=== PATIENT | male | born 1975 | race Hispanic/Latino ===

== ENCOUNTER 2017-05-04 20:30 | Observation (INO) | payer OTHER ==
[~2017-05-04] VITALS: Ht 177.8 cm; Wt 72.6 kg
[~2017-05-04 20:30] MED LIST: AUGMENTIN 875-1 EACH PO; IBUPROFEN200 M1 PO; NORCO 5-325 TA1 EACH PO; PSEUDOEPHEDRINE60 MG PO
--- NOTE | 2017-05-05 00:41 | NUR ---
PT ARRIVES TO CCU ROOM 127 HOUSE CONVENCIENCE OBSERVATION PATIENT ADMITTED WITH ABDOMINAL PAIN, SUDDEN ONSET THIS EVENING APPROX 1999. STATES HE WAS WATCHING TV AT HOME AND HIS LEFT UPPER ABDOMEN STARTED FEELING "A PRESSURE NUMBNESS", INCREASED INTENSITY OVER AN HOUR SO HE CAME IN TO ER. WAS GIVEN ONE NITRO IN ER STATES "MY HEARTRATE WENT REALLY FAST" AND REFUSED SECOND DOSE, STATES IT DID NOT CHANGE THE FEELING OF NUMBNESS. ACCOMPANIED BY , ALERT AND ORIENTED. DURRENT HR 70'S SINUS RHYTHM. WILL START IVF AND GIVE GI COCKTAIL.
--- NOTE | 2017-05-05 01:13 | NUR ---
PT GIVEN GI COCKTAIL, CURRENTLY RATES ABDOMINAL PRESSURE 5/10. IVF STARTED AT 75ML/HR. AT BEDSIDE, LYING DOWN NOW WATCHING TV.
--- NOTE | 2017-05-05 01:30 | NUR ---
PT STATES THE ABDOMINAL PRESSURE/BURNING IS DOWN TO 2 OR 3/10 AFTER GI COCKTAIL.
--- NOTE | 2017-05-05 10:36 | NUR ---
PT DID NOT EAT MUCH OF HIS BKF, C/O PAIN WITH IT IN THE ABD AREA. CURRENTLY WATCHING TV ON HIS PHONE. K RIDER COMPLETE AND IVF'S D'CD AT THIS TIME. LAC SITE SALINE LOCKED AT THIS TIME.
--- NOTE | 2017-05-05 11:37 | NUR ---
DR SEE INTO SEE PT AT THIS TIME. PT IS GOING TO BE DC'D HOME TODAY.
--- NOTE | 2017-05-05 12:20 | NUR ---
PT DC'D TO HOME AT THIS TIME, PT AMBULATED OUT WITH HIS . HAND WRITTEN RX GIVEN TO PT AND WRITTEN INSTRUCTIONS ON GERD AND FATTY LIVER GIVEN. PT ALSO RECEIVED A WORK RELEASE FROM .
[2017-05-06] MEDS ORDERED: PANTOPRAZOLE SO40 MG PO (20:26)
--- NOTE | 2017-05-07 07:14 | EKG ---
[facility] [address] [facility] [facility] [place], [place] [address] Signed Sinus tachycardia Nonspecific T wave abnormality Abnormal ECG No previous ECGs available Confirmed by ENEDINA SEE MD ([id number]) on 05/07/2017 7:14:06 AM Electronically Signed By: ENEDINA SEE MD 05/07/17 0714 PATIENT NAME: ALBERT SIMMONS Electrocardiogram DATE OF : 77 PHYSICIAN: ENEDINA SEE MD REPORT #: [id number] REPORT IS CONFIDENTIAL AND NOT TO BE RELEASED WITHOUT AUTHORIZATION
[2017-06-01] MEDS ORDERED: SUDAFED 12 HOU120 MG PO (08:00)
== END 2017-05-05 12:20 | disposition home or self-care (01) ==
LOC: ED 20:30 → CCU 20:32
PROVIDERS: ADMIT Internal Medicine
DX: R10.12 Left upper quadrant pain (principal); R00.2 Palpitations; J32.9 Chronic sinusitis, unspecified; F41.9 Anxiety disorder, unspecified; Z87.891 Personal history of nicotine dependence
CPT/HCPCS: 36415; 71046; 76700; 80053; 83690; 84484; 85025; 85379; 85610; 85730; 93005; 93010; 96361; 96374; 96376; 99285; G0378; J3480; J7030

== ENCOUNTER 2017-05-06 20:11 | Emergency (ER) | payer OTHER ==
[~2017-05-06] VITALS: Ht 177.8 cm; Wt 72.6 kg
[2017-05-06] MEDS ORDERED: PANTOPRAZOLE SO40 MG PO (20:26)
[2017-06-01] MEDS ORDERED: SUDAFED 12 HOU120 MG PO (08:00)
== END 2017-05-06 21:26 | disposition home or self-care (01) ==
LOC: ED 20:11
DX: R10.12 Left upper quadrant pain (principal); Z87.891 Personal history of nicotine dependence; Z79.899 Other long term (current) drug therapy
CPT/HCPCS: 74177; 80053; 83690; 85025; 99284; Q9967

== ENCOUNTER 2018-04-28 22:39 | Emergency (ER) | payer OTHER ==
[~2018-04-28] VITALS: Ht 177.8 cm; Wt 83.0 kg
[~2018-04-28 22:39] MED LIST changes: +PANTOPRAZOLE SO40 MG PO; +PROTONIX40 MG PO; +SUDAFED 12 HOU120 MG PO
[2018-04-28] MEDS ORDERED: OMEPRAZOLE20 MG PO (22:55)
--- NOTE | 2018-04-29 14:35 | EKG ---
[facility] [address] [facility] [place], [place] [address] Signed Normal sinus rhythm Nonspecific T wave abnormality Abnormal ECG When compared with ECG of 04-MAY-2017 20:37, No significant change was found Confirmed by ENEDINA SEE MD ([id number]) on 04/29/2018 2:35:21 PM Electronically Signed By: ENEDINA SEE MD 04/29/18 1435 PATIENT NAME: ALBERT SIMMONS Electrocardiogram DATE OF : 77 PHYSICIAN: ENEDINA SEE MD REPORT #: [id number] REPORT IS CONFIDENTIAL AND NOT TO BE RELEASED WITHOUT AUTHORIZATION
== END 2018-04-29 02:07 | disposition home or self-care (01) ==
LOC: ED 22:39
DX: K21.9 Gastro-esophageal reflux disease without esophagitis (principal); Z79.899 Other long term (current) drug therapy
CPT/HCPCS: 80053; 81001; 83690; 85025; 93005; 93010; 96374; 99283-25; J7030

== ENCOUNTER 2018-05-01 18:51 | Emergency (ER) | payer OTHER ==
[~2018-05-01] VITALS: Ht 177.8 cm; Wt 83.0 kg
[~2018-05-01 18:51] MED LIST changes: +OMEPRAZOLE20 MG PO
--- OUTSIDE RECORDS SUMMARY | 2018-05-01 18:56 | XMS ---
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 Seun has no Care Guidelines for this patient. [place] VISIT COUNT (12 MO.) [address] [facility] TOTAL 5 NOTE: Visits indicate total known visits. 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
== END 2018-05-01 21:05 | disposition home or self-care (01) ==
LOC: ED 18:51
DX: R20.2 Paresthesia of skin (principal); E87.6 Hypokalemia; K21.9 Gastro-esophageal reflux disease without esophagitis; Z90.49 Acquired absence of other specified parts of digestive tract; Z79.899 Other long term (current) drug therapy
CPT/HCPCS: 36600; 80053; 82803; 85025; 99284

== ENCOUNTER 2019-05-19 12:24 | Emergency (ER) | payer BC ==
[~2019-05-19] VITALS: Ht 177.8 cm; Wt 83.0 kg
--- OUTSIDE RECORDS SUMMARY | 2019-05-19 12:26 | XMS ---
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 Care History Medical/Surgical 05/02/2018 [facility] \T\middot;\T\nbsp; PATIENT IS A [employer] MEMBER. \T\middot;\T\nbsp; PLEASE REFER PATIENT TO [facility] FOR NON EMERGENT MEDICAL NEEDS. \T\middot;\ T\nbsp; [facility] CAN SEE PATIENTS SAME DAY FOR APTS IF PATIENT CALLS FIRST THING IN THE MORNING. E.D. VISIT COUNT (12 MO.) 1 [facility] TOTAL 1 NOTE: Visits indicate total known visits. ED/UCC VISIT TRACKING (12 MO.) 05/19/2019 12:25 [facility] TYPE: Emergency COMPLAINT: - ABD PAIN INPATIENT VISIT TRACKING (12 MO.) No inpatient visits to display in this time frame [email or web address]
[2019-05-19] MEDS ORDERED: SUMATRIPTAN SUC25 MG PO (14:18)
[2019-05-19] MEDS ORDERED: PANTOPRAZOLE SO40 MG PO (17:34)
[2019-05-19] MEDS ORDERED: CARAFATE1 GM PO (17:34)
== END 2019-05-19 17:59 | disposition home or self-care (01) ==
LOC: ED 12:24
DX: R10.13 Epigastric pain (principal); Z79.899 Other long term (current) drug therapy
CPT/HCPCS: 74018; 80053; 81001; 83690; 85025; 96374; 96375; 99284-25; C9113; J2405; J7030

== ENCOUNTER 2019-09-08 01:11 | Emergency (ER) | payer BC ==
[~2019-09-08] VITALS: Ht 175.3 cm; Wt 83.9 kg
--- OUTSIDE RECORDS SUMMARY | ~2019-09-08 | XMS | Encounter Summary ---
Demographics + + + | Address | [address] | | | [place] [address] | + + + | Home Phone | | + + + | Preferred Language | Unknown | + + + | Marital Status | | + + + | Yarsani Affiliation | Unknown | + + + | Race | Unknown | + + + | Ethnic Group | Unknown | + + + Author + + + | Author | [facility] | | | and [place] | + + + | Organization | [facility] | | | and [place] | + + + | Address | Unknown | + + + | Phone | Unavailable | + + + Support + + +---------+ + | Name | Relationship | Address | Phone | + + +---------+ + | Rosanne Multani | ECON | Unknown | | + + +---------+ + | Jadyn Rangel | ECON | Unknown | | + + +---------+ + Care Team Providers + +------+ + | Care Water/W[place] Engineer Name | Role | Phone | + +------+ + | Nilesh Osorio DO | PCP | | + +------+ + Reason for Visit Auth/Cert +--------+--------+ + + + + | Status | Reason | Specialty | Diagnoses / | Referred By | Referred To | | | | | Procedures | Contact | Contact | +--------+--------+ + + + + | | | | Diagnoses | | | | | | | | | | | | | | Gastroesopha | | | | | | | geal reflux | | | | | | | disease, | | | | | | | esophagitis | | | | | | | presence not | | | | | | | specified | | | | | | | (K21.9), | | | | | | | Bloating | | | | | | | (R14.0), LUQ | | | | | | | abdominal | | | | | | | pain | | | | | | | (R10.12) | | | | | | | Procedures | | | | | | | MO | | | | | | | ESOPHAGOGAST | | | | | | | RODUODENOSCO | | | | | | | PY TRANSORAL | | | | | | | DIAGNOSTIC | | | | | | | MO EGD | | | | | | | TRANSORAL | | | | | | | BIOPSY | | | | | | | SINGLE/MULTI | | | | | | | PLE MO GERD | | | | | | | TST W/ | | | | | | | MUCOS PH | | | | | | | ELECTROD | | | | | | | ENDOSCOPIC | | | | | | | 48 HOUR PH | | | | | | | FERRARI | | | | | | | "CAPSULE" | | | +--------+--------+ + + + + Encounter Details +--------+ + + + + | Date | Type | Department | Care Team | Description | +--------+ + + + + | 02/25/ | Hospital | [facility] | Gin Chandler | Bloating; | | 2017 | Encounter | MED CTR [facility]TRA OP | MD Genna [address] | Gastroesophageal | | | | [address] | [address] [place] | reflux disease, | | | | [place], [place] | [place] [address] | esophagitis presence | | | | [address] | [phone] | not specified | | | | [phone] | | | +--------+ + + + + Social History + + + +--------+ + | Tobacco Use | Types | Packs/Day | Years | Date | | | | | Used | | + + + +--------+ + | Former Smoker | Cigarettes | 1 | 3 | 04/19/2001 - | | | | | | 04/19/2004 | + + + +--------+ + + +------+---+---+ | Smokeless Tobacco: | Chew | | | | Current User | | | | + +------+---+---+ + + +---------+ + | Alcohol Use | Drinks/Week | oz/Week | Comments | + + +---------+ + | Yes | 4 Cans of beer | 4.0 | | + + +---------+ + + + + | Sex Assigned at | Date Recorded | | | | + + + | Not on file | | + + + + + + + | Job Start Date | Occupation | Industry | + + + + | Not on file | Not on file | Not on file | + + + + + + + + | Travel History | Travel Start | Travel End | + + + + + + | No recent travel history available. | + + documented as of this encounter Last Filed Vital Signs + + + + + | Vital Sign | Reading | Time Taken | Comments | + + + + + | Blood Pressure | 108/65 | 02/25/2018 10:45 AM | | | | | PST | | + + + + + | Pulse | 58 | 02/25/2018 10:45 AM | | | | | PST | | + + + + + | Temperature | 36.2 C (97.2 F) | 02/25/2018 7:58 AM | | | | | PST | | + + + + + | Respiratory Rate | 11 | 02/25/2018 10:22 AM | | | | | PST | | + + + + + | Oxygen Saturation | 93% | 02/25/2018 10:45 AM | | | | | PST | | + + + + + | Inhaled Oxygen | - | - | | | Concentration | | | | + + + + + | Weight | 83.4 kg (183 lb 13.8 | 02/25/2018 7:58 AM | | | | oz) | PST | | + + + + + | Height | 167.6 cm (5' 6") | 02/25/2018 7:58 AM | | | | | PST | | + + + + + | Body Mass Index | 29.68 | 02/25/2018 7:58 AM | | | | | PST | | + + + + + documented in this encounter Discharge Instructions Jadyn Boyer RN - 02/25/2018 Recovery After Procedural Sedation (Adult) You have been given medicine by vein to make you sleep during your procedure. This may have included both a pain medicine and sleeping medicine. Most of the effects have worn off. But you may still have some drowsiness for the next 6 to 8 hours. Home care Follow these guidelines when you get home: For the next 8 hours, you should be watched by a responsible adult. This person should m melissa sure your condition is not getting worse. Don't drink any alcoholfor the next [address], operate dangerous machinery,make important business or personal decisions , or sign legal documentsduring the next 24 hours. Note: Your healthcare provider may tell you not to take any medicine by mouth for pain or s leep in the next 4 hours. These medicines may react with the medicines you were given in the hospital. This could cause a much stronger response than usual. Follow-up care Follow up with your healthcare provider if you are not alert and back to your usual level o f activity within 12 hours. When to seek medical advice Call your healthcare provider right away if any of these occur: Drowsiness gets worse Weakness or dizziness gets worse Repeated vomiting You can't be awakened Date Last Reviewed: 02/04/201619998670-3883 [employer]. [address] [place] [address]. All righ ts reserved. This information is not intended as a substitute for professional medical care. Always follow your healthcare professional's instructions. documented in this encounter Medications at Time of Discharge + + + +---------+--------+ + | Medication | Sig | Dispensed | Refills | Start | End Date | | | | | | Date | | + + + +---------+--------+ + | fluticasone | 2 sprays by Nasal | | 0 | | | | (FLONASE) 50 | route as needed for | | | | | | mcg/nasal spray | Allergies. | | | | | + + + +---------+--------+ + | ibuprofen (ADVIL, | Take 200 mg by mouth | | 0 | | | | MOTRIN) 200 mg | as needed for Pain. | | | | | | tablet | | | | | | + + + +---------+--------+ + | aluminum & | Take 15 mLs by mouth | | 0 | | | | magnesium | every 4 hours as | | | | 9 | | hydroxide-simethicon | needed for | | | | | | e (MAALOX PLUS | Indigestion. | | | | | | DOUBLE STRENGTH) | | | | | | | 400-400-40 mg/5 mL | | | | | | | suspension | | | | | | + + + +---------+--------+ + | | Take 650 mg by mouth | | 0 | | | | Diphenhydramine-APAP | as needed. | | | | 9 | | , sleep, (TYLENOL PM | | | | | | | EXTRA STRENGTH) | | | | | | | 50-1000 MG/30ML LIQD | | | | | | + + + +---------+--------+ + | Pseudoephedrine | Take 1 tablet by | | 0 | | | | HCl (SUDAFED PO) | mouth as needed. | | | | 0 | + + + +---------+--------+ + documented as of this encounter Plan of Treatment Not on filedocumented as of this encounter Procedures + +--------+ + + + | Procedure Name | Priori | Date/Time | Associated Diagnosis | Comments | | | ty | | | | + +--------+ + + + | ENDOSCOPIC 48 HOUR | | 02/25/2018 | Gastroesophageal | | | PH FERRARI "CAPSULE" | | 10:00 AM | reflux disease, | | | | | PST | esophagitis presence | | | | | | not specified | | | | | | (K21.9), Bloating | | | | | | (R14.0), LUQ | | | | | | abdominal pain | | | | | | (R10.12) | | + +--------+ + + + | EGD | Routin | 02/25/2018 | | Results for this | | | e | 9:49 AM | | procedure are in the | | | | PST | | results section. | + +--------+ + + + | SURGICAL PATHOLOGY | Routin | 02/25/2018 | | Results for this | | EXAM | e | 12:00 AM | | procedure are in the | | | | PST | | results section. | + +--------+ + + + documented in this encounter Results EGD (02/25/2018 9:49 AM PST) + + | Specimen | + + | | + + + + -+ | Narrative | Performed At | + + -+ | | [facility] | | GastroenterologyPatient Name: Clifton MultaniProcedure Date: 02/25/2018 | [facility] | | 9:49 AMMRN: [id number] #: [id number] of : | | | 1975Admit Type: AmbulatoryAge: 42Room: [facility] 02Gender: MaleNote | | | Status: FinalizedAttending MD: GIN CHANDLER [facility]cedure: | | | Upper GI endoscopyIndications: Epigastric abdominal | | | pain, Heartburn, Abdominal bloating, FERRARI | | | study off PPI therapyProviders: GIN CHANDLER MD, | | | Rosanne Hernandes, PRIYANK, Stefany Coley, | | | RN, Ryan Arita, CMAReferring MD: Nilesh Osorio (Referring | | | )Medicines: Fentanyl 100 micrograms IV, Midazolam 7 mg | | | IV, Benzocaine sprayComplications: | | | No immediate complications.Procedure: Pre-Anesthesia Assessment: | | | - - Prior to the procedure, a History and Physical was | | | performed, and patient medications and allergies were reviewed. | | | The patient is competent. The risks and benefits of the | | | procedure and the sedation options and risks were discussed | | | with the patient. All questions were answered and informed | | | consent was obtained. Patient identification and proposed | | | procedure were verified by the physician and the nurse in the | | | pre-procedure area in the procedure room. Mental Status Examination: | | | alert and oriented. Airway Examination: Mallampati Class II (the | | | uvula but not tonsillar pillars visualized). Respiratory | | | Examination: clear to auscultation. CV Examination: normal. | | | Prophylactic Antibiotics: The patient does not require | | | prophylactic antibiotics. Prior Anticoagulants: The patient has | | | taken no previous anticoagulant or antiplatelet agents. ASA | | | Grade Assessment: II - A patient with mild systemic disease. After | | | reviewing the risks and benefits, the patient was deemed in | | | satisfactory condition to undergo the procedure. The anesthesia | | | plan was to use moderate sedation / analgesia (conscious | | | sedation). Immediately prior to administration of medications, | | | the patient was re-assessed for adequacy to receive sedatives. | | | The heart rate, respiratory rate, oxygen saturations, blood | | | pressure, adequacy of pulmonary ventilation, and response to | | | care were monitored throughout the procedure. The physical | | | status of the patient was re-assessed after the procedure. After | | | obtaining informed consent, the endoscope was passed under direct | | | vision. Throughout the procedure, the patient's blood pressure, | | | pulse, and oxygen saturations were monitored continuously. The | | | Endoscope was introduced through the mouth, and advanced to the | | | second part of duodenum. The upper GI endoscopy was | | | accomplished without difficulty. The patient tolerated the | | | procedure well.Findings: The upper third of the esophagus, | | | middle third of the esophagus and lower third of the esophagus | | | were normal. Biopsies were taken with a cold forceps for | | | histology. The Z-line was regular and was found 39 cm from the | | | incisors. Diffuse minimal inflammation characterized by erythema | | | was found in the gastric antrum. Biopsies were taken with a | | | cold forceps for histology. The cardia, gastric fundus and | | | gastric body were normal. The cardia and gastric fundus were | | | normal on retroflexion. The duodenal bulb and second portion of | | | the duodenum were normal. Biopsies were taken with a cold | | | forceps for histology. The FERRARI capsule was activated and then | | | calibrated by submersion into the appropriate buffer solutions. | | | The FERRARI capsule with delivery system was introduced through | | | the mouth and advanced into the esophagus, such that the FERRARI | | | pH capsule was positioned 34 cm from the incisors, which was 5 | | | cm proximal to the GE junction. The FERRARI pH capsule was then | | | deployed and attached to the esophageal mucosa. The delivery system | | | was then withdrawn. Endoscopy was utilized for probe placement | | | and diagnostic evaluation.Moderate Sedation: Moderate | | | (conscious) sedation was administered by the endoscopy nurse | | | and supervised by the endoscopist. The patient's oxygen saturation, | | | heart rate, blood pressure and response to care were monitored. | | | Total physician intraservice time was 17 minutes.Impression: | | | - Normal upper third of esophagus, middle third of esophagus and | | | lower third of esophagus. Biopsied. - Z-line regular, 39 | | | cm from the incisors. - Gastritis. Biopsied. - Normal | | | cardia, gastric fundus and gastric body. - Normal duodenal bulb | | | and second portion of the duodenum. Biopsied. - The FERRARI | | | capsule was activated and then calibrated by submersion into | | | the appropriate buffer solutions. - The FERRARI pH capsule was | | | deployed.Recommendation: - The patient will be observed | | | post-procedure, until all discharge criteria are met. - | | | Resume regular diet. - No antiacids for 48 hours - follow | | | FERRARI instructions - Return to my office in 4 weeks. - The | | | findings and recommendations were discussed with the patient.GIN | | | GENNA CHANDLER MD02/25/2018 10:28:31 AMThis report has been signed | | | electronically.Number of Addenda: 0Note Initiated On: 02/25/2018 9:49 | | | AMTotal Procedure Duration: 0 hours 8 minutes 3 seconds Scope In: | | | 10:13:55 AMScope Out: 10:21:58 AM [facility] | | | [place], [address] [place] [address] | | | - The FERRARI pH capsule was deployed. | | |Recommendation: | | | - The patient will be observed post-procedure, until all discharge | | | criteria are met. | | | - Resume regular diet. | | | - No antiacids for 48 hours | | | - follow FERRARI instructions | | | - Return to my office in 4 weeks. | | | - The findings and recommendations were discussed with the patient. | | |GIN CHANDLER MD | | |02/25/2018 10:28:31 AM | | |This report has been signed electronically. | | |Number of Addenda: 0 | | |Note Initiated On: 02/25/2018 9:49 AM | | |Total Procedure Duration: 0 hours 8 minutes 3 seconds | | |Scope In: 10:13:55 AM | | |Scope Out: 10:21:58 AM | | | [facility], [address], [place] | | | [address] | | + + -+ + +---------+ + + | Performing | Address | City/State/Zipcode | Phone Number | | Organization | | | | + +---------+ + + | [facility] | | | | + +---------+ + + Surgical Pathology Exam (02/25/2018 12:00 AM PST) + + | Specimen | + + | | + + + + + | Narrative | Performed At | + + + | SPECIMEN(S): A GASTRIC BIOPSY SPECIMEN(S): B DUODENAL BIOPSY | [facility] | | SPECIMEN(S): C DISTAL ESOPHAGEAL BIOPSY SPECIMEN SOURCE: A. | [facility] | | GASTRIC BIOPSY B. DUODENAL BIOPSY C. DISTAL ESOPHAGEAL BIOPSY | | | CLINICAL HISTORY: K21.9 (gastroesophageal reflux disease without | | | esophagitis); R14.0 (abdominal distention [gaseous]); R10.12 (left | | | upper quadrant pain) MICROSCOPIC DESCRIPTION: Histologic sections | | | of all submitted blocks are examined by light microscopy. These | | | findings, together with the gross examination, support the pathologic | | | diagnosis. FINAL PATHOLOGIC DIAGNOSIS: A. Gastric biopsy: - | | | Benign fundic-type mucosa with focal slight chronic gastritis. - | | | Negative for evidence of Helicobacter organisms on routine HE | | | stained sections. B. Duodenal biopsy: - Benign duodenal mucosa, | | | negative for specific diagnostic abnormality. C. Distal | | | esophageal biopsy: - Gastroesophageal junction with focal | | | specialized intestinal (goblet cell) metaplasia, negative for | | | dysplasia. JVR:[facility]:C2NR GROSS DESCRIPTION: A. The specimen | | | is received in formalin and labeled "gastric biopsy" are six, 0.1 to | | | 0.3 cm, lanza fragments. Entirely submitted in (A1). B. The | | | specimen is received in formalin and labeled "Multani" and designated as | | | "duodenal biopsy" are four, 0.3 to 0.4 cm, lanza fragments. Entirely | | | submitted in (B1). C. The specimen is received in formalin and | | | labeled "Multani" and designated as "distal esophageal biopsy" are two | | | lanza fragments both measuring 0.2 cm. Entirely submitted in (C1). | | | am:DOMINIC:[place] PERFORMING LABORATORY: The technical component was | | | performed by [facility] [address] | | | ([place]: Trudi Hughes MD; CLIA# [id number]). Professional | | | [facility] | | | [address] | | | [address] ([place]inder: Jakub Rivera M.D.). Diagnostician: | | | Jakub Rivera MD Pathologist Electronically Signed 02/28/2018 | | | | | + + + + +---------+ + + | Performing | Address | City/State/Zipcode | Phone Number | | Organization | | | | + +---------+ + + | [facility] | | | | | [facility] | | | | + +---------+ + + documented in this encounter Visit Diagnoses + + | Diagnosis | + + | Bloating Flatulence, eructation, and gas pain | + + | Gastroesophageal reflux disease, esophagitis presence not specified | + + documented in this encounter Administered Medications + +--------+ +---------+------+------+ | Medication Order | MAR | Action | Dose | Rate | Site | | | Action | Date | | | | + +--------+ +---------+------+------+ | benzocaine (HURRICAINE) 20% | Given | 02/26/20 | 1 spray | | | | non-aerosol spray PRN, Starting | | 18 10:02 | | | | | Wed02/25/18 at 1002 | | AM PST | | | | + +--------+ +---------+------+------+ +---+---+ | | | +---+---+ + +-------+ +--------+---+---+ | fentaNYL (PF) injection PRN, | Given | 02/26/20 | 50 mcg | | | | Starting Wed02/25/18 at 1007 | | 18 10:09 | | | | | | | AM PST | | | | + +-------+ +--------+---+---+ +-------+ +--------+---+---+ | Given | 02/26/20 | 50 mcg | | | | | 18 10:07 | | | | | | AM PST | | | | +-------+ +--------+---+---+ +---+---+ | | | +---+---+ + +---------+ +--------+-------+---+ | lactated ringers (LR) infusion | New Bag | 02/26/20 | 1,000 | 100 | | | at 100 mL/hr, Intravenous, | | 18 8:38 | mLs | mL/hr | | | CONTINUOUS, Starting 02/25/18 | | AM PST | | | | | at 0830, Pre-op | | | | | | + +---------+ +--------+-------+---+ +---+---+ | | | +---+---+ + +-------+ +------+---+---+ | midazolam (VERSED) 1 mg/mL | Given | 02/26/20 | 1 mg | | | | injection PRN, Starting Fri | | 18 10:20 | | | | | 02/25/18 at 1012 | | AM PST | | | | + +-------+ +------+---+---+ +-------+ +------+---+---+ | Given | 02/26/20 | 1 mg | | | | | 18 10:12 | | | | | | AM PST | | | | +-------+ +------+---+---+ +---+---+ | | | +---+---+ + +-------+ +------+---+---+ | midazolam (VERSED) 5 mg/mL | Given | 02/26/20 | 1 mg | | | | injection PRN, Starting Fri | | 18 10:11 | | | | | 02/25/18 at 1005 | | AM PST | | | | + +-------+ +------+---+---+ +-------+ +------+---+---+ | Given | 02/26/20 | 1 mg | | | | | 18 10:09 | | | | | | AM PST | | | | +-------+ +------+---+---+ | Given | 02/26/20 | 3 mg | | | | | 18 10:05 | | | | | | AM PST | | | | +-------+ +------+---+---+ +---+---+ | | | +---+---+ documented in this encounter
--- OUTSIDE RECORDS SUMMARY | ~2019-09-08 | XMS | Encounter Summary ---
Demographics + + + | Address | [address] | | | [place] [address] | + + + | Home Phone | | + + + | Preferred Language | Unknown | + + + | Marital Status | | + + + | Yarsanism Affiliation | Unknown | + + + | Race | Unknown | + + + | Ethnic Group | Unknown | + + + Author + + + | Author | [facility] | | | and [place] | + + + | Organization | [facility] | | | [...] Team Providers + +------+ + | Care Business Development Assistant Name | Role | Phone | + +------+ + | Nilesh Osorio DO | PCP | | + +------+ + Encounter Details +--------+ + + + + | Date | Type | Department | Care Team | Description | +--------+ + + + + | 11/16/ | Hospital | [facility] | SarahZhang | Palpitations; Chest | | 2018 | Encounter | MED CTR NUCLEAR | MD Julian [address] | pain, unspecified | | | | MEDICINE [address] [place] | type; Fluttering | | | | [place], | [place] [address] | heart | | | | [place] [address] | [phone] | | | | | [phone] | | | +--------+ + + + [...] + + +---------+ + | Yes | | | rarely | + + +---------+ + + + [...] + + documented as of this encounter Medications at Time of Discharge + + + +---------+ + + | Medication | Sig | Dispensed | Refills | Start | End Date | | | | | | Date | | + + + +---------+ + + | fluticasone | 2 sprays by Nasal | | 0 | | | | (FLONASE) 50 | route as needed for | | | | | | mcg/nasal spray | Allergies. | | | | | + + + +---------+ + + | hydrOXYzine | Take 25 mg by mouth | | 0 | 10/07/19 | | | hydrochloride | nightly. | | | 18 | 8 | | (ATARAX) 25 mg | | | | | | | tablet | | | | | | + + + +---------+ + + | omeprazole | Take 40 mg by mouth | | 0 | | | | (PRILOSEC) 40 MG | as needed. | | | | 8 | | capsule | | | | | | + + + +---------+ + + | Pseudoephedrine | Take 1 tablet by | | 0 | | | | HCl (SUDAFED PO) | mouth as needed. | | | | 0 | + + + +---------+ + + | SUMAtriptan | Take 100 mg by mouth | | 0 | 10/15/19 | | | (IMITREX) 100 mg | as needed. | | | 18 | 8 | | tablet | | | | | | + + + +---------+ + + | zolpidem (AMBIEN) | Take 5 mg by mouth | | 0 | 08/26/19 | | | 5 mg tablet | as needed. | | | 18 | 8 | + + + +---------+ + + documented as of this encounter Plan of Treatment Not on filedocumented as of this encounter Procedures + +--------+ + + + | Procedure Name | Priori | Date/Time | Associated Diagnosis | Comments | | | ty | | | | + +--------+ + + + | HOLTER MONITOR - 48 | Routin | 12/02/2017 | Palpitations | Results for this | | HOUR | e | 9:03 AM | | procedure are in the | | | | PDT | | results section. | + +--------+ + + + documented in this encounter Results Holter monitor - 48 hour (12/02/2017 9:03 AM PDT) + + + | Narrative | Performed At | + + + | Zhang Smith MD 12/02/2017 9:04 PATIENT | [facility] | | NAME: Clifton Multani : 1975: AGE: 42 y.o. | | | PRIMARY CARE: Nilesh Osorio, | | | DO READING SWING SAW OPERATOR: Tricia Smith MD, PhD, FACC | | | 48-HOUR HOLTER MONITOR REPORT DATE: 11/16/2017 | | | FINDINGS: 1. The predominant rhythm is normal sinus with the | | | heart rate ranging between 46 and 145 beats per minute. The | | | average heart rate was 78 beats per minute during the 48:32 hour | | | recording. 2. 23 ventricular singles. 3. 679 supraventricular | | | beats including two couplets and three SVE runs, the longest run 4 | | | beats at 83 beats per minute (23:42-1). 4. 499 runs of | | | bradycardia with the longest run 1032 beats (02:58-2) and the | | | minimum rate 44 beats per minute (01:43-2). 5. 42 runs of sinus | | | tachycardia with the longest run 139 beats (12:39-2) and a maximum | | | rate of 151 beats per minute (12:36-2). 6. The patient did not | | | report any symptoms. IMPRESSION: 1. 48 hour Holter monitor | | | notable for underlying sinus rhythm with mean heart rate 78. 2. | | | Rare isolated PVCs and occasional PACs without significant | | | sustained runs. 3. Mild predominantly nocturnal bradycardia without | | | significant pauses. 4. No reported symptoms. Signed by: | | | SKeyona Smith MD PhD FACC 12/02/2017, 9:03 | | + + + + +---------+ + + | Performing | Address | City/State/Zipcode | Phone Number | | Organization | | | | + +---------+ + + | [facility] | | | | + +---------+ + + documented in this encounter Visit Diagnoses + + | Diagnosis | + + | Palpitations | + + | Chest pain, unspecified type | + + | Fluttering heart Ventricular flutter | + + documented in this encounter"
--- OUTSIDE RECORDS SUMMARY | ~2019-09-08 | XMS | Encounter Summary ---
Demographics + + + | Address | [address] | | | [place] [address] | + + + | Home Phone | | + + + | Preferred Language | Unknown | + + + | Marital Status | | + + + | Adventist Affiliation | Unknown | + + + | Race | Unknown | + + + | Ethnic Group | Unknown | + + + Author + + + | Author | [facility] | | | and [place] | + + + | Organization | [facility] | | | and [...] Team Providers + +------+ + | Care Zipper Repairer Name | Role | Phone | + +------+ + | Nilesh Osorio DO | PCP | | + +------+ + Reason for Visit + + + | Reason | Comments | + + + | Appointment | | + + + Encounter Details +--------+ + + + + | Date | Type | Department | Care Team | Description | +--------+ + + + + | 03/07/ | Telephone | [facility] | Rad De La Cruz | Appointment | | 2018 | | GASTROENTEROLOGY | MD Felix [address] | | | | | [address] [facility] | [address] [facility] | | | | | [address] [place] | [place] [address] | | | | | [address] | [phone] | | | | | [phone] | | | +--------+ + + + [...] Not on filedocumented as of this encounter Visit Diagnoses Not on filedocumented in this encounter"
--- OUTSIDE RECORDS SUMMARY | ~2019-09-08 | XMS | Encounter Summary ---
Demographics + + + | Address | [address] | | | [place] [address] | + + + | Home Phone | | + + + | Preferred Language | Unknown | + + + | Marital Status | | + + + | Roman Catholic Affiliation | Unknown | + + + | Race | Unknown | + + + | Ethnic Group | Unknown | + + + Author + + + | Author | [facility] | | | and [place] | + + + | Organization | [facility] | | | and [...] Team Providers + +------+ + | Care Teacher Early Childhood Development Name | Role | Phone | + +------+ + | Izzy Snowden | PCP | | + +------+ + Reason for Visit + + + | Reason | Comments | + + + | Follow-up | | + + + | Other | acid reflux | + + + Encounter Details +--------+---------+ + + + | Date | Type | Department | Care Team | Description | +--------+---------+ + + + | 07/26/ | Office | [facility] | Rad De La Cruz | 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 | | | | [address] | [place] [address] | ([facility]ERLY [facility]) (Primary Dx); | | | | [address] | [phone] | Dyspepsia; | | | | [phone] | | Gastroesophageal | | | | | | reflux disease, | | | | | | esophagitis presence | | | | | | not specified; | | | | | | De La Cruz's esophagus | | | | | | without dysplasia | +--------+---------+ + + + Social History + + + +--------+ + | Tobacco Use | Types | Packs/Day | Years | Date | | | | | Used | | + + + +--------+ + | Former Smoker | Cigarettes | 1 | 3 | 04/19/2001 - | | | | | | 04/19/2004 | + + + +--------+ + + +------+---+ + | Smokeless Tobacco: | Chew | | Quit: | | Former User | | | 06/23/19 | | | | | 19 | + +------+---+ + + + +---------+ + | Alcohol Use [...] + + + | Blood Pressure | 98/68 | 07/26/2018 11:02 AM | | | | | PDT | | + + + + + | Pulse | 67 | 07/26/2018 11:02 AM | | | | | PDT | | + + + + + | Temperature | 36.7 C (98 F) | 07/26/2018 11:02 AM | | | | | PDT | | + + + + + | Respiratory Rate | 16 | 07/26/2018 11:02 AM | | | | | PDT | | + + + + + | Oxygen Saturation | 98% | 07/26/2018 11:02 AM | | | | | PDT | | + + + + + | Inhaled Oxygen | - | - | | | Concentration | | | | + + + + + | Weight | 84.2 kg (185 lb 10 | 07/26/2018 11:02 AM | | | | oz) | PDT | | + + + + + | Height | 177.8 cm (5' 10") | 07/26/2018 11:02 AM | | | | | PDT | | + + + + + | Body Mass Index | 26.63 | 07/26/2018 11:02 AM | | | | | PDT | | + + + + + documented in this encounter Patient Instructions Patient Instructions Rad De La Cruz MD - 07/26/2018 11:00 AM PDT1. Start buspar, 1 ta blet a day for 3 days, if going ok, can increase to twice a day. Takes about 1-2 weeks to no verónica anything Can be increased over time if needed 2. The other options could be Iberogast and esophageal guardian, both can be obtained on Am azon documented in this encounter Progress Notes Rad De La Cruz MD - 07/26/2018 11:00 AM PDT Gastroenterology Clinic Progress Note Date of Office Visit: 07/26/18 Primary Care Physician: NASIR Rosado Chief Complaint Follow-up and Other (acid reflux) Rectal neuroendocrine tumor History of Present Illness Clifton Multani is a 43 y.o. male who is followed in this clinic for acid reflux, De La Cruz's es ophagus, bloating, IBS symptoms who was incidentally found on colonoscopy to have a small re ctal neuroendocrine tumor. He was last seen in clinic on 06/14/2018. Interval history: He underwent cap assisted EMR at [facility] on 06/27/2018 along with a EUS. The neuroendo crine tumor was entirely resected with clear margins. Clifton reports he is doing well He has ongoing pain in the left upper quadrant. Main symptom in LUQ cramping pain, once doreen ry 3 days. There is a mild baseline chonstant pain too. Constipation is now an issue, reports hard firm stools. Taking Doculax for this, which is mildly helpful. Taking 1 bentyl in the evening Taking 1 lansoprazole in the AM He reports that his IBS symptoms have improved since starting Bentyl. His heartburn has also improved in the interim since being on lansoprazole 30 mg once a day Review of Systems A 10 point review of systems was conducted with the patient, pertinent positives and negati ves per HPI. 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 Right upper quadrant pain Seasonal allergic reaction Past Surgical History Past Surgical History: Procedure Laterality Date APPENDECTOMY 04/1980 COLONOSCOPY N/A 05/27/2018 Procedure: COLONOSCOPY; Surgeon: Rad De La Cruz MD; Location: [facility] MEDICAL PROCEDURE UNIT ENDOSCOPY ESOPHAGUS-ACID REFLUX TEST N/A 02/25/2018 Procedure: ENDOSCOPIC 48 HOUR PH FERRARI "CAPSULE"; Surgeon: Rad De La Cruz MD; Locat ion: [facility] MEDICAL PROCEDURE UNIT INGUINAL HERNIA REPAIR Right 02/2008 NASAL SEPTUM SURGERY 03/20/2014 BILATERAL Inferior Turbinoplasty; LEFT Frontal Sinusotomy; Laterality: Bilateral; Surgeo n: Keo Wheatley MD; Location: [facility] MAIN OR OTHER SURGICAL HISTORY N/A 06/27/2018 Procedure: EUS RECTAL; Surgeon: Luke Pitts MD; Location: [facility] MEDICAL PROCEDURE UN IT SIGMOIDOSCOPY N/A 06/27/2018 Procedure: RECTAL ULTRASOUND, SIGMOIDOSCOPY FLEXIBLE POSSIBLE EMR, FTRD/ESD; Surgeon: Morgan Pitts MD; Location: [facility] MEDICAL PROCEDURE UNIT SINUS ENDOSCOPY 03/20/2014 Laterality: Left; Surgeon: Keo Wheatley MD; Location: [facility] MAIN OR SINUS SURGERY 2008 SINUS SURGERY 2011 Allergies Allergies No active allergies Intolerance No active intolerances/contraindications Medications Current Outpatient Medications on File Prior to Visit Medication Sig Dispense Refill Aspirin Effervescent (KATLIN-SELTZER PO) Take 1 tablet by mouth as needed. gummie budesonide (PULMICORT) 0.5 mg/2 mL nebulizer solution 0.5 mg Daily. Add 2 ml to 240 ml saline irrigations and irrigate daily as needed. diphenhydrAMINE-acetaminophen (TYLENOL PM EXTRA STRENGTH) 25-500 MG TABS Take 1-2 table ts by mouth nightly as needed for Insomnia. fluticasone (FLONASE) 50 mcg/nasal spray 2 sprays by Nasal route as needed for Allergie s. ibuprofen (ADVIL, MOTRIN) 200 mg tablet Take 200 mg by mouth as needed for Pain. lansoprazole (PREVACID) [address] capsule Take 1 capsule by mouth 2 times daily (before meals). 120 capsule 5 MISC NATURAL PRODUCTS PO Take 1 tablet by mouth Daily. IBS guard ondansetron (ZOFRAN ODT) 4 mg disintegrating tablet Take 1 tablet by mouth every 8 hour s as needed for Nausea. 60 tablet 1 Pseudoephedrine HCl (SUDAFED PO) Take 1 tablet by mouth as needed. UNABLE TO FIND Take 1 tablet by mouth Every other day. Med Name: CBD gummies No current facility-administered medications on file prior to visit. Physical Exam Vitals:BP 98/68 | Pulse 67 | Temp 36.7 C (98 F) (Temporal) | Resp 16 | Ht 1.778 m ( 5' 10") | Wt 84.2 kg (185 lb 10 oz) | SpO2 98% | BMI 26.63 kg/m General: This is a well-developed,well-nurished male in no apparent distress, alert and kaylie ented x 3. He is visibly upset about this diagnosis and endorses being stressed out and anx ious Head: Reveals normocephalic, atraumatic Eyes: Sclera anicteric, normal conjunctiva Mouth: Oropharynx is clear without obstruction. No oral lesion. Labs No new labs Imaging Last CT was in April 2017 and was normal Assessment and Plan This is a 43-year-old man who was incidentally found to have a well differentiated rectal n euroendocrine tumor on colonoscopy. Now status post cap Assisted EMR with negative margins. Ongoing issue is dyspepsia and GERD 1. Primary neuroendocrine carcinoma of rectum (HCC) -Status post curative resection by EMR -ENETs recommendations suggests that tumors <1 cm, G1 G2 grading, with no muscularis prop eleazar and lymph node involvement completely resected do not require regular follow-up 2. GERD & De La Cruz's w/out dysplasia Continue lansoprazole daily, can try esophageal guardian or Iberogast Asked him to be mindful about [place] use as there is a lot of aspirin and this can ca use ulcers 3. Dyspepsia Start BuSpar 10 mg twice daily ICD-10-CM ICD-9-CM 1. Primary neuroendocrine carcinoma of rectum (HCC) C7A.8 209.17 2. Dyspepsia R10.13 536.8 busPIRone (BUSPAR) 10 MG tablet 3. Gastroesophageal reflux disease, esophagitis presence not specified K21.9 530.81 4. 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 CC: No referring provider defined for this encounter. Izzy Snowden, [id number] [place] [id number] Portions of this chart may have been created with [employer] voice recognition software. Occasi onal wrong-word or sound-alike substitutions may have occurred due to the inherent choudhury itations of voice recognition software. Please read the chart carefully and recognize, using context, where these substitutions have occurred documented in this encounter Plan of Treatment Not on filedocumented as of this encounter Visit Diagnoses + + | Diagnosis | + + | Primary neuroendocrine carcinoma of rectum (HCC) - Primary | + + | Dyspepsia Dyspepsia and other specified disorders of function of stomach | + + | Gastroesophageal reflux disease, esophagitis presence not specified | + + | De La Cruz's esophagus without dysplasia De La Cruz's esophagus | + + documented in this encounter
--- OUTSIDE RECORDS SUMMARY | ~2019-09-08 | XMS | Encounter Summary ---
Demographics + + + | Address | [address] | | | [place] [address] | + + + | Home Phone | | + + + | Preferred Language | Unknown | + + + | Marital Status | | + + + | Temple Affiliation | Unknown | + + + | Race | Unknown | + + + | Ethnic Group | Unknown | + + + Author + + + | Author | [facility] | | | and [place] | + + + | Organization | [facility] | | | and [...] Team Providers + +------+ + | Care Asset Coordinator Name | Role | Phone | + +------+ + | Nilesh Osorio DO | PCP | | + +------+ + Reason for Visit + + + | Reason | Comments | + + + | Medication Refill | | + + + Encounter Details +--------+--------+ + + + | Date | Type | Department | Care Team | Description | +--------+--------+ + + + | 06/20/ | Refill | [facility] | Luke Pitts, | Medication Refill | | 2019 | | and Pancreas GI | [address], | | | | | [facility] [address] | [address] | | | | | [address] | [place] [address] | | | | | [place] | [phone] | | | | | [address] | | | | | | [phone] | | | +--------+--------+ + + + Social History + + [...] rectum (HCC) - Primary | + + documented in this encounter"
--- OUTSIDE RECORDS SUMMARY | ~2019-09-08 | XMS | Encounter Summary ---
Demographics + + + | Address | [address] | | | [place] [address] | + + + | Home Phone | | + + + | Preferred Language | Unknown | + + + | Marital Status | | + + + | Restorationism Affiliation | Unknown | + + + | Race | Unknown | + + + | Ethnic Group | Unknown | + + + Author + + + | Author | [facility] | | | and [place] | + + + | Organization | [facility] | | | and [...] Team Providers + +------+ + | Care Hemmer Chainstitch Name | Role | Phone | + +------+ + | Nilesh Osorio DO | PCP | | + +------+ + Reason for Visit + + + | Reason | Comments | + + + | Abdominal Pain | | + + + | Gastroesophageal | | | Reflux | | + + + Encounter Details +--------+---------+ + + + | Date | Type | Department | Care Team | Description | +--------+---------+ + + + | 05/09/ | Office | [facility] | Rad De La Cruz | Spasm of bowel | | 2019 | Visit | GASTROENTEROLOGY | MD Felix [address] | (Primary Dx); | | | | [address] [place] | [address] [place] | Abdominal pain, | | | | [address] [place], [place] | [place] [address] | unspecified | | | | [address] | [phone] | abdominal location | | | | [phone] | | | +--------+---------+ + + + Social History [...] + + + | Blood Pressure | 118/82 | 05/09/2018 12:47 PM | | | | | PST | | + + + + + | Pulse | 111 | 05/09/2018 12:47 PM | | | | | PST | | + + + + + | Temperature | 37 C (98.6 F) | 05/09/2018 12:47 PM | | | | | PST | | + + + + + | Respiratory Rate | 16 | 05/09/2018 12:47 PM | | | | | PST | | + + + + + | Oxygen Saturation | 96% | 05/09/2018 12:47 PM | | | | | PST | | + + + + + | Inhaled Oxygen | - | - | | | Concentration | | | | + + + + + | Weight | 83.7 kg (184 lb 8.4 | 05/09/2018 12:47 PM | | | | oz) | PST | | + + + + + | Height | 167.6 cm (5' 6") | 05/09/2018 12:47 PM | | | | | PST | | + + + + + | Body Mass Index | 29.78 | 05/09/2018 12:47 PM | | | | | PST | | + + + + + documented in this encounter Patient Instructions Patient Instructions Rad De La Cruz MD - 05/09/2018 1:00 PM PST1. Arrange colonoscop y 2. Start bentyl, can use up to 4 times a day, for bowel spasms and cramps 3. Miracle mouth wash as needed, swallow documented in this encounter Progress Notes Ivy Juares, Property Assistant - 05/09/2018 1:00 PM PSTScheduled patient for colon/ivcs with Dr. De La Cruz on 05/27/2018 with a check in time of 9:30am. Reviewed medication; surg hx an d allergies; reviewed bowel prep, depending on insurance Suprep bottle kit starting the day before the first bottle at 4 pm and second bottle at 9 pm. Golytely bottle prep drink all th e day before starting at 4 pm. Nothing to drink 4 hours prior to appointment; rx to [facility]; patient verbalized understanding. Abdominal pain Faxing order for bowel prep to [facility] Shira Osei MD - 05/09/2018 1:00 PM PST Gastroenterology Clinic Progress Note Date of Office Visit: 05/09/18 Primary Care Physician: Nilesh Osorio DO Chief Complaint Abdominal Pain and Gastroesophageal Reflux History of Present Illness Clifton Multani is a 43 y.o. male who returns to the clinic for follow-up of epigastric abdomi nal pain and GERD. He was last seen on March 31, 2018, please see that note for more det ails. Interval history: On lansoprazole 30mg BID, started last week. 27 to tell if there is been any improvement Intermittent diarrhea. Has it every other week, lasts for a few days and then resolves. Using IBgard which he finds helpful. Finds that it has helped with his constipation. His main complaint today is bilateral upper quadrant abdominal pain. This is intermittent and sharp. Feels cyclical to him. He denies any unintentional weight loss. The pain has b een present now for over one year. Today we again reviewed his prior workup including abdominal ultrasound, HIDA scan, gastric emptying scan, CT abdomen, and 2 upper endoscopies, and a ferrari pH study. There was no sig nificant pathology noted on his workup to date. He worries about the possibility of Crohn's disease given his persistent abdominal pain and irregular bowel habits. Review of Systems A 10 point review of systems was conducted with the patient, pertinent positives and negati ves per HPI. Past Medical History Past Medical History: Diagnosis Date Acid reflux Anorexia Bloating Chest pain Chronic frontal sinusitis left Chronic low back pain Chronic sinusitis Constipation Deviated nasal septum Diarrhea Environmental allergies Fluttering heart Ganglion Gastric ulcer Gastritis GERD (gastroesophageal reflux disease) Heartburn Hypertrophy of nasal turbinates Insomnia Intermittent chest pain Left upper quadrant pain Nausea Palpitations Right upper quadrant pain Seasonal allergic reaction Past Surgical History Past Surgical History: Procedure Laterality Date APPENDECTOMY 04/1980 ESOPHAGUS-ACID REFLUX TEST N/A 02/25/2018 Procedure: ENDOSCOPIC 48 HOUR PH FERRARI "CAPSULE"; Surgeon: Rad De La Cruz MD; Locat ion: [facility] MEDICAL PROCEDURE UNIT INGUINAL HERNIA REPAIR Right 02/2008 NASAL SEPTUM SURGERY 03/20/2014 BILATERAL Inferior Turbinoplasty; LEFT Frontal Sinusotomy; Laterality: Bilateral; Surgeo n: Keo Wheatley MD; Location: [facility] MAIN OR SINUS ENDOSCOPY 03/20/2014 Laterality: Left; Surgeon: Keo Wheatley MD; Location: [facility] MAIN OR SINUS SURGERY 2008 SINUS SURGERY 2011 Allergies Allergies No active allergies Intolerance No active intolerances/contraindications Medications Current Outpatient Prescriptions on File Prior to Visit Medication Sig Dispense Refill aluminum & magnesium hydroxide-simethicone (MAALOX PLUS DOUBLE STRENGTH) 400-400-40 mg/ 5 mL suspension Take 15 mLs by mouth every 4 hours as needed for Indigestion. dexlansoprazole (DEXILANT) [address] capsule Take 1 capsule by mouth Daily. 30 capsule 2 Diphenhydramine-APAP, sleep, (TYLENOL PM EXTRA STRENGTH) 50-1000 MG/30ML LIQD Take 650 mg by mouth as needed. esomeprazole (NEXIUM) 40 mg capsule Take 1 capsule by mouth every morning (before break fast). 30 capsule 5 fluticasone (FLONASE) 50 mcg/nasal spray 2 sprays by Nasal route as needed. ibuprofen (ADVIL, MOTRIN) 200 mg tablet Take 200 mg by mouth as needed for Pain. lansoprazole (PREVACID) [address] capsule Take 1 capsule by mouth 2 times daily (before meals). 60 capsule 0 Pseudoephedrine HCl (SUDAFED PO) Take 1 tablet by mouth as needed. No current facility-administered medications on file prior to visit. Physical Exam Vitals:BP 118/82 | Pulse 111 | Temp 37 C (98.6 F) (Temporal) | Resp 16 | Ht 1.676 m (5' 6") | Wt 83.7 kg (184 lb 8.4 oz) | SpO2 96% | BMI 29.78 kg/m General: This is a well-developed,well-nurished male in no apparent distress, alert and kaylie ented x 3. Head: Reveals normocephalic, atraumatic Eyes: Sclera anicteric, normal conjunctiva Mouth: Oropharynx is clear without obstruction. No oral lesion. Abdomen: Soft, tender to deep palpation in the right upper quadrant and left upper quadrant s, no palpable mass, no obvious hernia, no rebound pain, no guarding Labs No new labs Imaging Today we again reviewed his prior workup including abdominal ultrasound, HIDA scan, gastric emptying scan, CT abdomen, and 2 upper endoscopies, and a ferrari pH study. There was no sig nificant pathology noted on his workup to date. Assessment and Plan This is a 43-year-old man with ongoing epigastric abdominal pain. He also has De La Cruz's grimes ggest that he's had chronic GERD. He had some improvement in his symptoms with Dexilant. T he Dexilant was not approved by his insurance however. He is now on lansoprazole 30 mg twic e a day, it is too early to tell if he has had any improvement in his symptoms on this medic ine. Previously tried PPIs have been omeprazole, & nexium. He did not tolerate omeprazole du e to abdominal pain. If there is no improvement with lansoprazole, then would try pantoprazo le 40mg BID. He still has ongoing abdominal pain, the features of which are not classic for GERD. He stephens s had a extensive workup to date with no other obvious cause. The only test that has not ye t been done is a colonoscopy to evaluate the colon for potential source for his abdominal pa in. He is worried about Crohn's disease. This doesn't seem like the most likely cause for his abdominal pain, but I think it's a reasonable thing to rule out. Patient would like to have further evaluation with colonoscopy, we will get him scheduled. Risks and benefits of colonoscopy were reviewed with him. He is a candidate for IV conscious sedation. I suggested that he try Bentyl 20 mg 4 times a day. This is to help with possible bowel sp asms. I also gave him a prescription for GI cocktail to be used when necessary. He asked me for my opinion about whether or not he would benefit from cholecystectomy. In the setting of a negative HIDA scan, normal CT and ultrasound of the gallbladder, I'm skepti solis that he would have any improvement in his symptoms with a cholecystectomy, and I advised against this surgery. ICD-10-CM ICD-9-CM 1. Spasm of bowel K58.9 564.9 dicyclomine (BENTYL) 20 MG tablet Case request: Colonoscopy; N/A 2. Abdominal pain, unspecified abdominal location R10.9 789.00 dicyclomine (BENTYL) 20 MG t ablet diphenhydrAMINE-visc cnccpxsgt-nsskowuy-huxodxkgh-simethicone (MIRACLE MOUTHWASH) suspen charisse Case request: Colonoscopy; N/A Follow up: No Follow-up on file. CC: No referring provider defined for this encounter. Nilesh Osorio, [id number] [place] [id number] Portions of this chart may have been created with [employer] voice recognition software. Occasi onal wrong-word or sound-alike substitutions may have occurred due to the inherent choudhury itations of voice recognition software. Please read the chart carefully and recognize, using context, where these substitutions have occurred documented in thi s encounter Plan of Treatment Not on filedocumented as of this encounter Visit Diagnoses + + | Diagnosis | + + | Spasm of bowel - Primary Irritable bowel syndrome | + + | Abdominal pain, unspecified abdominal location | + + documented in this encounter
--- OUTSIDE RECORDS SUMMARY | ~2019-09-08 | XMS | Encounter Summary ---
Demographics + + + | Address | [address] | | | [place] [address] | + + + | Home Phone | | + + + | Preferred Language | Unknown | + + + | Marital Status | | + + + | Pentecostalism Affiliation | Unknown | + + + | Race | Unknown | + + + | Ethnic Group | Unknown | + + + Author + + + | Author | [facility] | | | and [place] | + + + | Organization | [facility] | | | [...] Team Providers + +------+ + | Care Cotton Ginner Helper Name | Role | Phone | + +------+ + | Bulmaro Arechiga PA-C | PCP | | + +------+ + Reason for Visit + + + | Reason | Comments | + + + | Procedure | Time | + + + Encounter Details +--------+ + + + + | Date | Type | Department | Care Team | Description | +--------+ + + + + | 03/13/ | Telephone | [facility] | Keo Wheatley MD | Procedure (Time) | | 2013 | | OTOLARYNGOLOGY [address] | [address] [place] | | | | | [address] [place], | | | | | [place], [place] | [place] [address] | | | | | [address] | [phone] | | | | | [phone] | | | +--------+ + + + [...]
--- OUTSIDE RECORDS SUMMARY | ~2019-09-08 | XMS | Encounter Summary ---
Demographics + + + | Address | [address] | | | [place] [address] | + + + | Home Phone | | + + + | Preferred Language | Unknown | + + + | Marital Status | | + + + | Orthodoxy Affiliation | Unknown | + + + | Race | Unknown | + + + | Ethnic Group | Unknown | + + + Author + + + | Author | [facility] | | | and [place] | + + + | Organization | [facility] | | | [...] Team Providers + +------+ + | Care Enterprise Cloud Architect Name | Role | Phone | + +------+ + | Nilesh Osorio DO | PCP | | + +------+ + Reason for Visit +--------+ + | Reason | Comments | +--------+ + | Other | new symptoms | +--------+ + Encounter Details +--------+ + + + + | Date | Type | Department | Care Team | Description | +--------+ + + + + | 05/03/ | Telephone | [facility] | Zhang Smith | Other (new symptoms) | | 2018 | | CARDIOLOGY [address] | MD Julian [address] | | | | | [place], | [address] [place] | | | | | [place] [address] | [place] [address] | | | | | [phone] | [phone] | | | | | | | [...]
--- OUTSIDE RECORDS SUMMARY | ~2019-09-08 | XMS | Encounter Summary ---
Demographics + + + | Address | [address] | | | [place] [address] | + + + | Home Phone | | + + + | Preferred Language | Unknown | + + + | Marital Status | | + + + | Yazdanism Affiliation | Unknown | + + + [...] Team Providers + +------+ + | Care Bellstaff Name | Role | Phone | + [...] | | | | | | | MS | | | | | | | EXCISION | | | | | | | TURBINATE | | | | | | | MS NASAL | | | | | | [...] + + + + | 03/20/ | Hospital | [facility] | Keo Wheatley MD | Chronic frontal | | 2014 | Encounter | MED CTR OR INTRA OP | [address] [place] | sinusitis (Primary | | | | [address] | [address] [place], | Dx); Hypertrophy of | | | | [place], [place] | [place] [address] | nasal turbinates | | | | [address] | [phone] | | | | | [phone] | | | +--------+ + + + [...] 03/20/2014neosynephrine to nose as needed for brett cooley. HOB at 30 degrees tonight Understanding Nasal [...] the nose should also form a triangle. [place] [id number]. All rights reserve d. This information is [...] you further understand how the nose works. [place] [id number]. All rights reserve d. This information is [...] | | | (St. | | | [place] | | | y's) | +---+--------+ + [...] | | | (St[facility] | | | [place] | | | y's) | +---+--------+ documented in this encounter Visit Diagnoses + + | Diagnosis | + + | Chronic frontal sinusitis - Primary | + + | Hypertrophy of nasal turbinates | + + | Chronic sphenoidal sinusitis | + + documented in this encounter Administered Medications + +--------+ +--------+------+------+ | Medication Order | MAR | Action | Dose | Rate | Site | | | Action | Date | | | | + +--------+ +--------+------+------+ | fentaNYL injection 25-50 mcg | Given [...] | | | | | + +--------+ +--------+------+------+ + + +--------+---+---+ | Given by Other [...] | | | HOURS PRN, Pain, Starting Tue | | | | | | | 03/20/14 at 1910, If ineffective | | | | | | | use Ararat 10/325 if ordered. If | | | [...] | | | + +-------+ +--------+---+---+ + +---+ | | | + +---+ | morphine 10 mg/mL injection | | | Starting Wed03/20/14 at 1803, For | | | 1 dose, RITU BELLA: prema | | | override, | | + +---+ | | | + +---+ + +-------+ +------+---+---+ | morphine injection 2-8 mg 2-8 | Given | 03/20/20 | 2 mg | | | | mg, Intravenous, EVERY 2 HOURS | | 14 6:29 | | | | | PRN, Pain, Starting 03/20/14 | | PM PST | [...] | | | | PRN, Nausea, Starting 03/20/14 | | PM PST | | | | | at 1812, For 1 dose, | | | | | | | Recovery/Phase I | | | | | | + +-------+ +------+---+---+ +---+---+ | | | +---+---+ documented in this encounter
--- OUTSIDE RECORDS SUMMARY | ~2019-09-08 | XMS | Clinical Summary ---
Demographics + + + | Address | [address] | | | [place] [address] | + + + | Home Phone | | + + + | Preferred Language | Unknown | + + + | Marital Status | | + + + | Sikh Affiliation | Unknown | + + + | Race | Unknown | + + + | Ethnic Group | Unknown | + + + Author + + + | Author | [facility] (Historical as of | | | 12-03-18) | + + + | Organization | [facility] (Historical as of | | | 12-03-18) | + + + | Address | Unknown | + + + | Phone | Unavailable | + + + Support + + +---------+ + | Name | Relationship | Address | Phone | + + +---------+ + | Rosanne Multani | ECON | Unknown | | + + +---------+ + Care Team Providers + +------+ + | Care Brake Drum Lathe Operator Name | Role | Phone | + +------+ + PP | Unavailable | + +------+ + Allergies No Known Allergies Current Medications + + +--------+---------+------+------+-------+ | Prescription | Sig. | Disp. | Refills | Star | End | Statu | | | | | | t | Date | s | | | | | | Date | | | + + +--------+---------+------+------+-------+ | fluticasone | 2 sprays by Nasal | | | | | Activ | | (FLONASE) 50 MCG/ACT | route. | | | | | e | | nasal | | | | | | | + + +--------+---------+------+------+-------+ | omeprazole | Take 40 mg by mouth. | | | | | Activ | | (PRILOSEC) 40 MG | | | | | | e | | capsule | | | | | | | + + +--------+---------+------+------+-------+ | pseudoephedrine | Take 1 tablet by | | | | | Activ | | (SUDAFED) 15 MG/5ML | mouth. | | | | | e | | LIQD | | | | | | | + + +--------+---------+------+------+-------+ | hydrOXYzine | Take 25 mg by mouth. | | | 06/2 | | Activ | | (ATARAX) 25 MG | | | | 0/20 | | e | | tablet | | | | 18 | | | + + +--------+---------+------+------+-------+ | ibuprofen (ADVIL) | Take 200 mg by | | | | | Activ | | 200 MG tablet | mouth. | | | | | e | + + +--------+---------+------+------+-------+ | pseudoephedrine | Take 1 tablet by | | | | | Activ | | (SUDAFED) 15 MG/5ML | mouth. | | | | | e | | LIQD | | | | | | | + + +--------+---------+------+------+-------+ | zolpidem (AMBIEN) | Take 5 mg by mouth. | | | 05/0 | | Activ | | 5 MG tablet | | | | 9/20 | | e | | | | | | 18 | | | + + +--------+---------+------+------+-------+ | fluticasone | 2 sprays by Nasal | | | | | Activ | | (FLONASE) 50 MCG/ACT | route. | | | | | e | | nasal | | | | | | | + + +--------+---------+------+------+-------+ | omeprazole | Take 40 mg by mouth. | | | | | Activ | | (PRILOSEC) 40 MG | | | | | | e | | capsule | | | | | | | + + +--------+---------+------+------+-------+ | lansoprazole | Take 30 mg by mouth. | | | 02/1 | | Activ | | (PREVACID) 30 MG | | | | 8/20 | | e | | capsule | | | | 19 | | | + + +--------+---------+------+------+-------+ | promethazine | take 1 tablet by | | 0 | 03/0 | | Activ | | (PHENERGAN) 25 MG | mouth every 6 hours | | | 5/20 | | e | | tablet | if needed for up to | | | 19 | | | | | 1 month | | | | | | + + +--------+---------+------+------+-------+ | sumatriptan | Take 1 tablet by | 10 | 2 | 05/2 | 05/2 | Activ | | (IMITREX) 100 MG | mouth as needed for | tablet | | 4/20 | 07/06 | e | | tabletIndications: | Migraine. May repeat | | | 19 | 20 | | | Migraine without | dose in 2 hours if | | | | | | | status migrainosus, | no relief. Do not | | | | | | | not intractable, | exceed 2 doses in 24 | | | | | | | unspecified migraine | hours. | | | | | | | type | | | | | | | + + +--------+---------+------+------+-------+ Active Problems + + + | Problem | Noted Date | + + + | Chest pain | 12/09/2017 | + + + | Fluttering heart | 12/09/2017 | + + + | GERD (gastroesophageal reflux disease) | 12/09/2017 | + + + | Insomnia | 12/09/2017 | + + + | Palpitations | 12/09/2017 | + + + | Chronic frontal sinusitis | 03/20/2014 | + + + | Chronic sphenoidal sinusitis | 03/20/2014 | + + + | Hypertrophy of nasal turbinates | 03/20/2014 | + + + Family History + + +------+ + | Medical History | Relation | Name | Comments | + + +------+ + | Cancer | Mother | | | + + +------+ + + +------+--------+ + | Relation | Name | Status | Comments | + +------+--------+ + | Mother | | | | + +------+--------+ + Social History + +-------+ +--------+------+ | Tobacco Use | Types | Packs/Day | Years | Date | | | | | Used | | + +-------+ +--------+------+ | Former Smoker | | | | | + +-------+ +--------+------+ + +---+---+---+ | Smokeless Tobacco: | | | | | Former User | | | | + +---+---+---+ + + +---------+ + | Alcohol Use | Drinks/We | oz/Week | Comments | | | ek | | | + + +---------+ + | Yes | | | | + + +---------+ + + + + | Sex Assigned at | Date Recorded | | | | + + + | Not on file | | + + + Last Filed Vital Signs + + + + | Vital Sign | Reading | Time Taken | + + + + | Blood Pressure | 121/72 | 09/09/2018 11:26 AM PDT | + + + + | Pulse | 57 | 09/09/2018 11:26 AM PDT | + + + + | Temperature | - | - | + + + + | Respiratory Rate | - | - | + + + + | Oxygen Saturation | 97% | 09/09/2018 11:26 AM PDT | + + + + | Inhaled Oxygen | - | - | | Concentration | | | + + + + | Weight | 86.6 kg (191 lb) | 09/09/2018 11:26 AM PDT | + + + + | Height | 177.8 cm (5' 10") | 09/09/2018 11:26 AM PDT | + + + + | Body Mass Index | 27.41 | 09/09/2018 11:26 AM PDT | + + + + Plan of Treatment + + + + + | Health Maintenance | Due Date | Last Done | Comments | + + + + + | Vaccine: | | | | | Dtap/Tdap/Td (1 - | 5 | | | | Tdap) | | | | + + + + + | Vaccine: Influenza | | | | | (Season Ended) | 0 | | | + + + + + Results Not on filefrom Last 3 Months Insurance + +--------+ +------+-------+---------+ | Payer | Benefi | Subscriber | Type | Phone | Address | | | t Plan | ID | | | | | | / | | | | | | | Group | | | | | + +--------+ +------+-------+---------+ | [facility] | PROVID | [id number] | PPO | | | | PLAN | ENCE | | | | | | | HEALTH | | | | | | | PLAN | | | | | + +--------+ +------+-------+---------+ + +--------+ +--------+ + + | Guarantor Name | Accoun | Relation to | Date | Phone | Billing Address | | | t Type | Patient | of | | | | | | | | | | + +--------+ +--------+ + + | ALBERT MULTANI | Person | Self | [birth year] | Home: | [address] | | | al/Fam | | 1975 | [phone] | [place] | | | hu | | | [phone] | [phone] | + +--------+ +--------+ + +
--- OUTSIDE RECORDS SUMMARY | ~2019-09-08 | XMS | Encounter Summary ---
Demographics + + + | Address | [address] | | | [place] [address] | + + + | Home Phone | | + + + | Preferred Language | Unknown | + + + | Marital Status | | + + + | Samaritan Affiliation | Unknown | + + + | Race | Unknown | + + + | Ethnic Group | Unknown | + + + Author + + + | Author | [facility] | | | and [place] | + + + | Organization | [facility] | | [...] Team Providers + +------+ + | Care Manufacturing Clerk Name | Role | Phone | + [...] | | | | | | | [place] | | | | | | | ESOPHAGOGAST | | | | | | | RODUODENOSCO | | | | | | | PY TRANSORAL | | | | | | | DIAGNOSTIC | | | | | | | [place] EGD | | | | | | | TRANSORAL | | | | | | | BIOPSY | | | | | | | SINGLE/MULTI | | | | | | | PLE [place] GERD | | | | | | [...] Description | +--------+---------+ + + + | 02/25/ | Surgery | [facility] | Gin Chandler | ENDOSCOPIC 48 HOUR | | 2018 | | MED CTR MP INTRA OP | MD Genna [address] | PH FERRARI "CAPSULE" | | | | [address] | [address] [facility] | | | | | [place] | [place] [address] | | | | | [address] | [phone] | | | | | [phone] | | | +--------+---------+ + + + [...] You can't be awakened Date Last Reviewed: 02/04/201619994933-5292 [employer]. [address] [place] [address]. All righ ts reserved. This information is [...] 02/25/2018 | PROVATION | | 9:49 AMMRN: [id number] #: [id number] of : | | | 1975Admit Type: AmbulatoryAge: 42Room: [facility] 02Gender: MaleNote | | | Status: FinalizedAttending MD: GIN CHANDLER [facility]cedure: | | | Upper GI endoscopyIndications: Epigastric abdominal | | | pain, Heartburn, Abdominal bloating, FERRARI | | | study off PPI therapyProviders: GIN CHANDLER MD, | | | Rosanne Hernandes RN, Stefany Coley, | | | RN, Ryan [...] | | 10:13:55 AMScope Out: 10:21:58 AM [facility] | | | [place], [address] [place] [address] | | | - The FERRARI pH [...] |Scope Out: 10:21:58 AM | | | [facility], [address], [place] | | | [address] | | + + -+ + +---------+ + + | Performing | Address | City/State/[facility] | Phone Number | | Organization | [...] metaplasia, negative for | | | dysplasia. JVR:[facility]:C2NR GROSS DESCRIPTION: A. The specimen | | [...] component was | | | performed by [facility], [address] [place] [address] | | | (Dining Car Waiter/Waitress: Trudi Hughes MD; IA# [id number]). [facility] | | | [facility] | | [address] | | | [address] (Dining Car Waiter/Waitress: Jakub Rivera M.D.). Diagnostician: | | | [...] + documented in this encounter Visit Diagnoses Not on filedocumented [...] 18 10:02 | | | | | 02/25/18 at 1002 | | AM PST | [...]
--- OUTSIDE RECORDS SUMMARY | ~2019-09-08 | XMS | Clinical Summary ---
Demographics + + + | Address | [address] | | | [place] [address] | + + + | Home Phone | | + + + | Preferred Language | Unknown | + + + | Marital Status | | + + + | Confucianist Affiliation | Unknown | + + + | Race | Unknown | + + + | Ethnic Group | or | + + + Author + + + | Author | [facility] | + + + | Organization | [facility] | + + + | Address | Unknown | + + + | Phone | Unavailable | + + + Support + + +---------+ + | Name | Relationship | Address | Phone | + + +---------+ + | Rosanne Multani | ECON | Unknown | | + + +---------+ + Care Team Providers + +------+ + | Care Reduction Furnace Operator Helper Name | Role | Phone | + +------+ + | Nilesh Osorio MD | PCP | | + +------+ + Source Comments JOSÉ MIGUEL is fully live on both [facility] Allergies No Known Allergies Medications + + + +---------+------+------+-------+ | Medication | Sig | Dispensed | Refills | Star | End | Statu | | | | | | t | Date | s | | | | | | Date | | | + + + +---------+------+------+-------+ | ibuprofen 200 mg | Take 200 mg by mouth | | 0 | | | Activ | | oral tablet | every six hours as | | | | | e | | | needed. | | | | | | + + + +---------+------+------+-------+ | pseudoephedrine 30 | Take 30 mg by mouth | | 0 | | | Activ | | mg oral tablet | every four hours as | | | | | e | | | needed for | | | | | | | | congestion. | | | | | | + + + +---------+------+------+-------+ | budesonide 0.5 | Add 2ml to 240ml | 60 mL | 11 | 01/0 | | Activ | | mg/2 mL inhalation | saline irrigations | | | 7/20 | | e | | suspension for | an irrigate qd | | | 19 | | | | nebulization | | | | | | | + + + +---------+------+------+-------+ Active Problems No known active problems Social History + +-------+ +--------+------+ | Tobacco Use | Types | Packs/Day | Years | Date | | | | | Used | | + +-------+ +--------+------+ | Never Smoker | | | | | + +-------+ +--------+------+ + +---+---+---+ | Smokeless Tobacco: | | | | | Current User | | | | + +---+---+---+ + + +---------+ + | Alcohol Use | Drinks/Week | oz/Week | Comments | + + +---------+ + | Yes | 1 Standard drinks | 1.0 | | | | or equivalent | | | + + +---------+ + [...] recent travel history available. | + + Last Filed Vital Signs Not on file Plan of Treatment + + + + + | Health Maintenance | Due Date | Last Done | Comments | + + + + + | Influenza (Flu) | | | | | vaccination (#1) | 9 | | | + + + + + | Pneumococcal | Aged Out | | No longer eligible | | vaccination | | | based on patient's | | | | | age to complete this | | | | | topic | + + + + + Results Not on filefrom Last 3 Months Insurance + +--------+ +--------+ + +------+ | Payer | Benefi | Subscriber | Effect | Phone | Address | Type | | | t Plan | ID | liseth | | | | | | / | | Dates | | | | | | Group | | | | | | + +--------+ +--------+ + +------+ | [facility] | PROVID | [phone] | 04/19/19 | [phone] | [address] | PPO | | | ENCE | | 18-Pre | [address] | [address] | | | HEALTH | | sent | | [place], | | | | | | | | [place] [address] | | + +--------+ +--------+ + +------+ + +--------+ +--------+ + + | Guarantor Name | Accoun | Relation to | Date | Phone | Billing Address | | | t Type | Patient | of | | | | | | | | | | + +--------+ +--------+ + + | Clifton Multani | Person | Self | [birth year] | | [address] | | | al/Fam | | 1975 | [phone] | [place] [address] | | | hu | | | [address] (Home) | | + +--------+ +--------+ + +"
--- OUTSIDE RECORDS SUMMARY | ~2019-09-08 | XMS | Encounter Summary ---
Demographics + + + | Address | [address] | | | [place] [address] | + + + | Home Phone | | + + + | Preferred Language | Unknown | + + + | Marital Status | | + + + | Rastafari Affiliation | Unknown | + + + | Race | Unknown | + + + | Ethnic Group | Unknown | + + + Author + + + | Author | [facility] | | | and [place] | + + + | Organization | [facility] | | [...] Team Providers + +------+ + | Care Tool Engine Lathe Set Up Operator Name | Role | Phone | + +------+ + | Bulmaro Arechiga PA-C | PCP | | + +------+ + Reason for Visit + + + | Reason | Comments | + + + | Follow-up | 2 week follow up, pt reports lefts side still clogged | + + + Self-referral (Routine) +--------+--------+ + + + + | Status | Reason | Specialty | Diagnoses / | Referred By | Referred To | | | | | Procedures | Contact | Contact | +--------+--------+ + + + + | Closed | | Otolaryngolog | Diagnoses | | Keo Munoz | | | | y | 2 week | | MD Ugo [address] | | | | | follow | | [address] | | | | | nose/pt/life | | [address] | | | | | [place] | | [place], | | | | | Procedures | | [place] [address] | | | | | OFFICE VISIT | | Phone: | | | | | REGULAR | | [phone] | | | | | | | Fax: | | | | | | | [phone] | +--------+--------+ + + + + Encounter Details +--------+---------+ + + + | Date | Type | Department | Care Team | Description | +--------+---------+ + + + | 04/26/ | Office | [facility] | Keo Munoz MD | Chronic frontal | | 2014 | Visit | OTOLARYNGOLOGY [address] | [address] [place] | sinusitis (Primary | | | | [address] | [address] [place], | Dx); Hypertrophy of | | | | [place], [place] | [place] [address] | nasal turbinates | | | | [address] | [phone] | | | | | [phone] | | | +--------+---------+ + + + [...] + + + + | Pulse | 85 | 04/26/2014 3:35 PM | | | | | PST [...] Weight | 81.6 kg (180 lb) | 04/26/2014 3:35 PM | | | | | PST | | + + + + + | Height | 177.8 cm (5' 10") | 04/26/2014 3:35 PM | | | | | PST | | + + + + + | Body Mass Index | 25.83 | 04/26/2014 3:35 PM | | | | | PST | | + + + + + documented in this encounter Progress Notes Keo Munoz MD - 04/26/2014 4:36 PM PST [facility] OTOLARYNGOLOGY [address] [facility] [id number] OFFICE NOTE KEO MUNOZ MD Patient: ALBERT MULTANI Admitting: MR #: [id number] LOC: PT TYPE: Adm Date: 04/26/2014 : 1975 DATE OF VISIT: 04/26/2014. The patient is postop bilateral inferior turbinoplasties and a left frontal sinusotomy. Anna Marie mesa still feels he is having a bit of drainage. The sinusotomy drilled into the frontal sinu s, but also drilled through the wall into the right frontal sinus, so that it could drain e ither direction. He feels like a bit of stuff comes out of both nasal passages but over t rainer is becoming less. There is no significant pain at this point. He feels he is breathin g better through both nasal passages as time progresses and certainly breathing a lot faisal r than he ever has. Not having any other complaints other than still a little bit of drai nage. PHYSICAL EXAMINATION: GENERAL: Examination shows an alert 39-year-old male. ENT: Nasal passages: No large cr usts are noticed on either side. No obvious purulent drainage. The nose was sprayed with some Ander-Synephrine and topical Xylocaine and then a fiberoptic scope was used to look up into the frontal sinus area and appears to be healing nicely. No purulent drainage seen at the current time, although he indicates he gets a bit of crusting every 2 or 3 days. The passages on both sides were open adequately to breathe well and this should be progressing okay. IMPRESSION: Stable postoperatively. PLAN: He will continue the sinus irrigations. He will be re-seen in a couple weeks' time to be sure that everything is hopefully settling down. KEO MUNOZ MD Dictated by KEO MUNOZ MD 04/26/2014 16:36:38 Transcribed on 04/26/2014 22:17:54 by job# [id number] Confirmation #: [id number] signed by Keo Munoz MD at 04/27/2014 8:19 AM Keo Ahumada MD - 04/26/2014 4:34 PM PSTSee dictation # [id number] signed by Keo Munoz MD at 04/26/2014 4:37 PM PSTdocumented in th is encounter Plan of Treatment Not on filedocumented as of this encounter Visit Diagnoses + + | Diagnosis | + + | Chronic frontal sinusitis - Primary | + + | Hypertrophy of nasal turbinates | + + documented in this encounter
--- OUTSIDE RECORDS SUMMARY | ~2019-09-08 | XMS | Encounter Summary ---
Demographics + + + | Address | [address] | | | [place] [address] | + + + | Home Phone | | + + + | Preferred Language | Unknown | + + + | Marital Status | | + + + | Mormon Affiliation | Unknown | + + + | Race | Unknown | + + + | Ethnic Group | Unknown | + + + Author + + + | Author | [facility] | | | and [place] | + + + | Organization | [facility] | | | and [...] Team Providers + +------+ + | Care Grain Oilseed Or Pasture Grower Name | Role | Phone | + +------+ + | Bulmaro Arechiga PA-C | PCP | | + +------+ + Reason for Visit + + + | Reason | Comments | + + + | Procedure | | + + + Encounter Details +--------+ + + + + | Date | Type | Department | Care Team | Description | +--------+ + + + + | 02/12/ | Telephone | [facility] | Keo Wheatley MD | Procedure | | 2013 | | OTOLARYNGOLOGY [address] | [address] [place] | | | | | [address] | [address] [place], | | | | | [place], [place] | [place] [address] | | | | | [address] | [phone] | | | | | [phone] | | | +--------+ + + + [...]
--- OUTSIDE RECORDS SUMMARY | ~2019-09-08 | XMS | Encounter Summary ---
Demographics + + + | Address | [address] | | | [place] [address] | + + + | Home Phone | | + + + | Preferred Language | Unknown | + + + | Marital Status | | + + + | Confucianist Affiliation | Unknown | + + + | Race | Unknown | + + + | Ethnic Group | Unknown | + + + Author + + + | Author | [facility] | | | and [place] | + + + | Organization | [facility] | | | [...] Team Providers + +------+ + | Care Slope Tender Name | Role | Phone | + +------+ + | Izzy Snowden | PCP | | + +------+ + Encounter Details +--------+ + + + + | Date | Type | Department | Care Team | Description | +--------+ + + + + | 05/30/ | Hospital | [facility] | Zhang Smith | No Show | | 2019 | Encounter | MED CTR NUCLEAR | MD Julian [address] | | | | | MEDICINE [address] [place] | | | | | [place], | [place] [address] | | | | | [place] [address] | [phone] | | | | | [phone] | | | | | | | 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
--- OUTSIDE RECORDS SUMMARY | ~2019-09-08 | XMS | Encounter Summary ---
Demographics + + + | Address | [address] | | [place] [address] | + + + | Home Phone [...] + | Author | [facility] | | | and [place] | + + + | Organization | [facility] | | | and [...] Team Providers + +------+ + | Care Snorkelling Instructor Name | Role | Phone | + +------+ + | Bulmaro Arechiga PA-C | PCP | | + +------+ + Reason for Visit +---------+ + | Reason | Comments | +---------+ + | Post Op | Post op Nose /2 | +---------+ + Evaluate & Treat (Routine) +--------+--------+ + [...] | Recurrent | Bulmaro Randolph, | MD Moshe [address] | | | | | sinus | PA-C [address] | [address] | | | | | infections | [place] | [address] | | | | | recurring | [address] | [place], | | | | | sinus | [place], | [place] [address] | | | | | infection | [place] [address] | Phone: | | | | | Procedures | Phone: | [phone] | | | | | [place] OFFICE | [phone] | Fax: | | | | | OUTPATIENT | Fax: | [phone] | | | | | VISIT 25 | [phone] | | | | | | MINUTES [...] | +--------+ + + + + | 03/21/ | [facility] | [facility] [place] | Keo Wheatley MD | Hypertrophy of nasal | | 2013 | | OTOLARYNGOLOGY [address] | [address] | turbinates (Primary | | | | [address] | [address] [place], | Dx); Chronic | | | | [place], [place] | [place] [address] | frontal sinusitis | | | | [address] | [phone] | | | | | [phone] | | | +--------+ + + + [...] + + + + | Pulse | - | - | | + [...] Weight | 81.6 kg (180 lb) | 2014 1:39 PM | | | | | PST | | + + + + + | Height | 177.8 cm (5' 10") | 2014 1:39 PM | | | | | PST | | + + + + + | Body Mass Index | 25.83 | 2014 1:39 PM | | | | | PST | | + + + + + documented in this encounter Progress Notes Keo Wheatley MD - 2014 3:46 PM [place] dictation #[id number] signed by Javier Wheatley MD at 2014 3:48 PM Keo Castillo MD - 2014 12:00 AM PST ENT AND AUDIOLOGY [address] [facility] [address] [place] [address] FAX: [phone] OFFICE VISIT POSTOP VISIT The patient is postop left frontal sinusotomy and bilateral inferior turbinoplasties. He co mes in for packing removal. Packing is removed without difficulty. He had a lot of pressure up in the frontal area. This has improved once the packing was removed. No significant ble eding. PLAN: The patient was given instructions on his nasal care. He will be reseen back in 2 wee ks' time. Keo Wheatley MD GM / PAP JOB #: [id number] signed by Keo Wheatley MD at 2014 4:14 PM PSTdocumentmoshe hahn in this encounter Plan of Treatment Not on filedocumented as of this encounter Visit Diagnoses + + | Diagnosis | + + | Hypertrophy of nasal turbinates - Primary | + + | Chronic frontal sinusitis | + + documented in this encounter
--- OUTSIDE RECORDS SUMMARY | ~2019-09-08 | XMS | Encounter Summary ---
Demographics + + + | Address | [address] | | | [place] [address] | + + + | Home Phone | | + + + | Preferred Language | Unknown | + + + | Marital Status | | + + + | Muslim Affiliation | Unknown | + + + [...] Team Providers + +------+ + | Care Sider Name | Role | Phone | + +------+ + | Nilesh Osorio DO | PCP | | + +------+ + Reason for Visit + + + | Reason | Comments | + + + | Follow-up | | + + + | Shortness of Breath | | + + + | Palpitations | | + + + | Chest Pain | | + + + Encounter Details +--------+---------+ + + + | Date | Type | Department | Care Team | Description | +--------+---------+ + + + | 05/16/ | Office | [facility] | Zhang Smith | Palpitations | | 2019 | Visit | CARDIOLOGY [address] | MD Julian [address] | (Primary Dx); Chest | | | | [place], | [address] [place] | pain, unspecified | | | | [place] [address] | [place] [address] | type; Fluttering | | | | [phone] | [phone] | heart | | | | | | | +--------+---------+ + + + [...] + + + | Blood Pressure | 124/82 | 05/16/2018 12:53 PM | | | | | PST | | + + + + + | Pulse | 64 | 05/16/2018 12:53 PM | | | | | PST | | + + + + + | Temperature | - | - | | + + + + + | Respiratory Rate | 18 | 05/16/2018 12:53 PM | | | | | PST | | + + + + + | Oxygen Saturation | - | - | | + + + + + | Inhaled Oxygen | - | - | | | Concentration | | | | + + + + + | Weight | 84.9 kg (187 lb 2.7 | 05/16/2018 12:53 PM | | | | oz) | PST | | + + + + + | Height | 167.6 cm (5' 6") | 05/16/2018 12:53 PM | | | | | PST | | + + + + + | Body Mass Index | 30.21 | 05/16/2018 12:53 PM | | | | | PST | | + + + + + documented in this encounter Patient Instructions Patient Instructions Melinda Nixon RN - 05/16/2018 1:00 PM PST Straight Treadmill Date: Check-in Time: Where to Check In: Instructions 1. Nothing to eat or drink anything 4 hours prior to test 2. DO NOT drink caffeine 12 hours prior to the test. 3. You can take all medications the morning of the test with a small sip of water. 4. Please bring a list of your current medications with you. 5. Straight Treadmill: wear comfortable clothes and walking shoes. Follow up appointment: 1-2 months Provider: Jonatan Smith MD Date: Check-In Time: documented in this encounter Progress Notes Zhang Smith MD - 05/16/2018 1:00 PM PSTFormatting of this note might be differe nt from the original. PATIENT NAME: Clifton Multani : 1975: AGE: 43 y.o. REFERRED BY: No additional provider found PRIMARY CARE: Nilesh Osorio DO CARDIOLOGY OFFICE VISIT Date of Service: 05/16/18 HISTORY OF PRESENT ILLNESS: Clifton Multani is a 43 y.o. male with a history of palpitations. He is being seen today for a follow-up visit. He presents with his daughter Farrah. Previously he had presented with his significant other Rosanne. He complains of episodes of sudden onset of chest burning at various times without any exertional correlation. symptoms of heartburn and burping, espec ially at night, without any exertional correlation. 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 He remains quite active at his job and denies any exertional symptoms. Pertinent historical clinical information: He was initially referred for further evaluation after recent complaints of sensation of he art skipping and occasional brief episodes of racing. He denies exertional symptoms of ches t pain/pressure. He has no known cardiovascular history. He admits to regular use of pseud oephedrine although he has cut back in the recent past few days. He denies problems such as orthopnea, PND, or lower extremity edema, or any severe lightheadedness, or syncope. He has had no constitutional symptoms. MEDICAL, SURGICAL, AND PERSONAL HISTORY Past Medical History: Diagnosis Date Acid reflux Anorexia Bloating Chest pain Chronic frontal sinusitis left Chronic low back pain Chronic sinusitis Constipation Deviated nasal septum Diarrhea Environmental allergies Fluttering heart Ganglion Gastric ulcer Gastritis GERD (gastroesophageal reflux disease) Heartburn Hypertrophy of nasal turbinates Insomnia Intermittent chest pain Left upper quadrant pain Nausea Palpitations Right upper quadrant pain Seasonal allergic reaction Past Surgical History: Procedure Laterality Date APPENDECTOMY 04/1980 ESOPHAGUS-ACID REFLUX TEST N/A 02/25/2018 Procedure: ENDOSCOPIC 48 HOUR PH FERRARI "CAPSULE"; Surgeon: Rad De La Cruz MD; Locat ion: [facility] MEDICAL PROCEDURE UNIT INGUINAL HERNIA REPAIR Right 02/2008 NASAL SEPTUM SURGERY 03/20/2014 BILATERAL Inferior Turbinoplasty; LEFT Frontal Sinusotomy; Laterality: Bilateral; Surgeo n: Keo Wheatley MD; Location: [facility] MAIN OR SINUS ENDOSCOPY 03/20/2014 Laterality: Left; Surgeon: Keo Wheatley MD; Location: [facility] MAIN OR SINUS SURGERY 2008 SINUS SURGERY 2011 Family History Problem Relation Age of Onset Hypertension Mother Heart attack Father Diabetes Other Dementia Other Heart disease Neg Hx Colon polyps Neg Hx Ulcerative colitis Neg Hx Crohn's disease Neg Hx Colon cancer Neg Hx Family Status Relation Status Mother Alive Father (Not Specified) Other (Not Specified) Neg Hx (Not Specified) Social History Social History Marital status: Spouse name: N/A Number of children: N/A Years of education: N/A Social History Main Topics Smoking status: Former Smoker Packs/day: 1.00 Years: 3.00 Types: Cigarettes Start date: 04/19/2001 Quit date: 04/19/2004 Smokeless tobacco: Current User Types: Chew Alcohol use 2.4 oz/week 4 Cans of beer per week Drug use: Yes Types: Marijuana Comment: once per month Sexual activity: Not Asked Comment: Not on file Other Topics Concern None Social History Narrative None CURRENT MEDICATIONS Current Outpatient Prescriptions Medication Sig Dispense Refill budesonide (PULMICORT) 0.5 mg/2 mL nebulizer solution ADD 2 MILLILITERS TO 240 ML SALIN E IRRIGATIONS AND IRRIGATE DAILY 1 dexlansoprazole (DEXILANT) [address] capsule Take 1 capsule by mouth Daily. 30 capsule 2 dicyclomine (BENTYL) 20 MG tablet Take 1 tablet by mouth 4 times daily (before meals an d nightly). 120 tablet 2 Diphenhydramine-APAP, sleep, (TYLENOL PM EXTRA STRENGTH) 50-1000 MG/30ML LIQD Take 650 mg by mouth as needed. esomeprazole (NEXIUM) 40 mg capsule Take 1 capsule by mouth every morning (before break fast). (Patient not taking: Reported on 05/16/2018) 30 capsule 5 fluticasone (FLONASE) 50 mcg/nasal spray 2 sprays by Nasal route as needed. ibuprofen (ADVIL, MOTRIN) 200 mg tablet Take 200 mg by mouth as needed for Pain. lansoprazole (PREVACID) [address] capsule Take 1 capsule by mouth 2 times daily (before meals). (Patient not taking: Reported on 05/16/2018) 60 capsule 0 ondansetron (ZOFRAN) 4 mg tablet As needed for nausea; stop prep; take 1 tablet; wait 3 0 min then resume prep; repeat 1x prn (Patient not taking: Reported on 05/16/2018) 2 tablet 0 Pseudoephedrine HCl (SUDAFED PO) Take 1 tablet by mouth as needed. sodium sulfate-potassium sulfate-magnesium sulfate (SUPREP BOWEL PREP KIT) oral solutio n Take 177 mLs by mouth See Admin Instructions. Take one kit, first dose at 4 pm, second dos e at 9 pm. 2 Bottle 0 No current facility-administered medications for this visit. ALLERGIES No Known Allergies ROS I have reviewed the Review of Systems form dated today and scanned into the media tab. OBJECTIVE: PHYSICAL EXAM BP 124/82 | Pulse 64 | Resp 18 | Ht 1.676 m (5' 6") | Wt 84.9 kg (187 lb 2.7 oz) | BMI 30.21 kg/m Physical Exam Constitutional: He appears well-developed and well-nourished. He does not appear ill. No di stress. Cardiovascular: Normal rate, regular rhythm, S1 normal, S2 normal, normal heart sounds and intact distal pulses. Pulses: Carotid pulses are 2+ on the right side, and 2+ on the left side. Radial pulses are 2+ on the right side, and 2+ on the left side. Dorsalis pedis pulses are 2+ on the right side, and 2+ on the left side. Pulmonary/Chest: Effort normal and breath sounds normal. Musculoskeletal: He exhibits no edema. Vitals reviewed. ECG: Reviewed by me today notable for normal sinus rhythm, heart rate 68, normal ECG. LAB RESULTS: LIPID No results found for: CHOL, TRIG, HDL, LDL, CHOLHDL, LDLEX, HDLEX, TRIGEX, CHOLEX CHEMISTRY Lab Results Component Value Date GLUEX 95 08/25/2017 NAEX 142 08/25/2017 KEX 4.4 08/25/2017 CLEX 106 08/25/2017 CO2EX 29 08/25/2017 ASTEX 23 08/25/2017 ALTEX 34 08/25/2017 EGFREX 60 08/25/2017 CREEX 1.10 08/25/2017 HEMATOLOGY Lab Results Component Value Date WBCEX 8.5 08/25/2017 HGBEX 15.2 08/25/2017 HCTEX 45.5 08/25/2017 PLTEX 326 08/25/2017 I previously reviewed records from PCP for office visit on 08/25/17. 48 hour Holter monitor November 2017 notable for underlying sinus rhythm with mean heart rate 78. Rare isolated PVCs and occasional PACs without significant sustained runs. Mild predomi nantly nocturnal bradycardia without significant pauses. No reported symptoms. Echocardiogram October 2017 shows left ventricle is normal in size and function. Ejection frac tion is estimated at 55-60%. Diastolic parameters are within normal limits. Structurally nor mal tricuspid valve with mild insufficiency and peak velocity consistent with RVSP 33-38 mmH g. Aortic root is mildly enlarged. Baseline sinus bradycardia. ASSESSMENT: 1. Palpitations - resolved - patient's symptoms were most consistent with isolated ectopy, or perhaps short bursts of tachycardia. Regular use of pseudoephedrine was likely a contri butor. Since then he rarely uses it and has been feeling much better. He previously underw ent an echocardiogram which did not reveal any significant abnormalities. He also underwent a Holter monitor which did not reveal any significant arrhythmias. His symptoms of heartbu rn are most consistent with GERD and discovery of De La Cruz's esophagus on upper endoscopy ind eed confirm this. We discussed importance of careful medical compliance and implications of De La Cruz's esophagus. 2. Chest pain - patient's symptoms are bandlike and sharp/burning in nature and across the lower chest most consistent with GI etiology. He has no significant coronary disease risk factors. Given his fairly active status and his job, I will have him undergo a treadmill st ress examination. I will see him in follow-up in a few weeks. PLAN: 1. Treadmill stress examination. 2. Continued GI consultation. 3. Refrain from pseudoephedrine and stimulants. 4. Maintain good hydration and active lifestyle. 5. Follow-up visit in a few weeks. Portions of this report were transcribed using voice recognition software. Every effort wa s made to ensure accuracy; however, inadvertent computerized chip person errors may be pre sent. Electronically signed by: Tricia Smith MD PhD FACC 05/16/2018 documented in t his encounter Plan of Treatment + +------+--------+ + + | Name | Type | Priori | Associated Diagnoses | Order Schedule | | | | ty | | | + +------+--------+ + + | Stress ECG | ECG | Routin | Chest pain, | Expected: 05/16/2018 | | | | e | unspecified type | (Approximate), | | | | | | Expires: 05/16/2019 | + +------+--------+ + + documented as of this encounter Visit Diagnoses + + | Diagnosis | + + | Palpitations - Primary | + + | Chest pain, unspecified type | + + | Fluttering heart Ventricular flutter | + + documented in this encounter
--- OUTSIDE RECORDS SUMMARY | ~2019-09-08 | XMS | Encounter Summary ---
Demographics + + + | Address | [address] | | | [place] [address] | + + + | Home Phone | | + + + | Preferred Language | Unknown | + + + | Marital Status | | + + + | Denominational Affiliation | Unknown | + + + | Race | Unknown | + + + | Ethnic Group | Unknown | + + + Author + + + | Author | [facility] | | | and [place] | + + + | Organization | [facility] | | | [...] Team Providers + +------+ + | Care Cafe Manager Name | Role | Phone | + +------+ + | Izzy Snowden | PCP | | + +------+ + Reason for Visit + + + | Reason | Comments | + + + | Gastroesophageal | abdominal pain | | Reflux | | + + + Encounter Details +--------+ + + + + | Date | Type | Department | Care Team | Description | +--------+ + + + + | 08/31/ | Telephone | [facility] | Rad De La Cruz | Gastroesophageal | | 2019 | | GASTROENTEROLOGY | MD Felix [address] | Reflux (abdominal | | | | [address] | [address] [place] | pain) | | | | [address] | [place] [address] | | | | | [address] | [phone] | | | | | [phone] | | | +--------+ + + + [...]
--- OUTSIDE RECORDS SUMMARY | ~2019-09-08 | XMS | Encounter Summary ---
Demographics + + + | Address | [address] | | | [place] [address] | + + + | Home Phone | | + + + | Preferred Language | Unknown | + + + | Marital Status | | + + + | Spiritism Affiliation | Unknown | + + + | Race | Unknown | + + + | Ethnic Group | Unknown | + + + Author + + + | Author | [facility] | | | and [place] | + + + | Organization | [facility] | | | [...] Team Providers + +------+ + | Care Communications Station Manager Name | Role | Phone | [...] + + | 05/09/ | Office | [facility] | Rad De La Cruz | Spasm of bowel | | 2019 | Visit | GASTROENTEROLOGY | MD [address] | (Primary Dx); | | | | [address] | [address] [place] | Abdominal pain, | | | | [address] [place], [place] | [place] [address] | unspecified | | | | [address] | [phone] | abdominal location | | | | [phone] | | | +--------+---------+ + + + [...] documented in this encounter Progress Notes Ivy Jaures, Capability Lead - 05/09/2018 1:00 PM PSTScheduled patient for [...] Rad De La Cruz MD; Locat ion: [facility] MEDICAL PROCEDURE UNIT INGUINAL HERNIA REPAIR Right 02/2008 NASAL SEPTUM SURGERY 03/20/2014 BILATERAL Inferior Turbinoplasty; LEFT Frontal Sinusotomy; Laterality: Bilateral; Surgeo n: Keo Wheatley MD; Location: [facility] MAIN OR SINUS ENDOSCOPY 03/20/2014 Laterality: Left; Surgeon: Keo Wheatley MD; Location: [facility] MAIN OR SINUS SURGERY 2008 SINUS [...] dicyclomine (BENTYL) 20 MG t ablet diphenhydrAMINE-visc qurfcpoan-ifggznca-epcolbxef-simethicone (MIRACLE MOUTHWASH) suspen charisse Case request: Colonoscopy; N/A Follow up: No Follow-up on file. CC: No referring provider defined for this encounter. Nilesh Osorio, [id number] [place] [id number] Portions of this chart may have been created with [employer] voice recognition software. Occasi onal wrong-word or [...]
--- OUTSIDE RECORDS SUMMARY | ~2019-09-08 | XMS | Encounter Summary ---
Demographics + + + | Address | [address] | | | [place] [address] | + + + | Home Phone | | + + + | Preferred Language | Unknown | + + + | Marital Status | | + + + | Moravian Affiliation | Unknown | + + + | Race | Unknown | + + + | Ethnic Group | Unknown | + + + Author + + + | Author | [facility] | | | and [place] | + + + | Organization | [facility] | | [...] Team Providers + +------+ + | Care Office Services Representative Name | Role | Phone | + +------+ + | Nilesh Osorio DO | PCP | | + +------+ + Encounter Details +--------+ + + + + | Date | Type | Department | Care Team | Description | +--------+ + + + + | 10/26/ | Abstract | [facility] | SarahEveZhang | | | 2018 | | CARDIOLOGY [address] | MD Julian [address] | | | | | [place], | [address] [place] | | | | | [place] [address] | [place] [address] | | | | | [phone] | [phone] | | | | | | | [...] | + +--------+ + + + | EXTERNAL LAB: MYRNA | Routin | 08/25/2017 | | Results for this | | | e | | | procedure are in the | | | | | | results section. | + +--------+ + + + | EXTERNAL LAB: | Routin | 08/25/2017 | | Results for this | | GLUCOSE | e | | | procedure are in the | | | | | | results section. | + +--------+ + + + | EXTERNAL LAB: ALT | Routin | 08/25/2017 | | Results for this | | | e | | | procedure are in the | | | | | | results section. | + +--------+ + + + | EXTERNAL LAB: AST | Routin | 08/25/2017 | | Results for this | | | e | | | procedure are in the | | | | | | results section. | + +--------+ + + + | EXTERNAL LAB: | Routin | 08/25/2017 | | Results for this | | ALKALINE PHOSPHATASE | e | | | procedure are in the | | | | | | results section. | + +--------+ + + + | EXTERNAL LAB: | Routin | 08/25/2017 | | Results for this | | BILIRUBIN, TOTAL | e | | | procedure are in the | | | | | | results section. | + +--------+ + + + | EXTERNAL LAB: | Routin | 08/25/2017 | | Results for this | | ALBUMIN | e | | | procedure are in the | | | | | | results section. | + +--------+ + + + | EXTERNAL LAB: | Routin | 08/25/2017 | | Results for this | | PROTEIN, TOTAL | e | | | procedure are in the | | | | | | results section. | + +--------+ + + + | EXTERNAL LAB: | Routin | 08/25/2017 | | Results for this | | CALCIUM | e | | | procedure are in the | | | | | | results section. | + +--------+ + + + | EXTERNAL LAB: CARBON | Routin | 08/25/2017 | | Results for this | | DIOXIDE | e | | | procedure are in the | | | | | | results section. | + +--------+ + + + | EXTERNAL LAB: | Routin | 08/25/2017 | | Results for this | | CHLORIDE | e | | | procedure are in the | | | | | | results section. | + +--------+ + + + | EXTERNAL LAB: | Routin | 08/25/2017 | | Results for this | | POTASSIUM | e | | | procedure are in the | | | | | | results section. | + +--------+ + + + | EXTERNAL LAB: SODIUM | Routin | 08/25/2017 | | Results for this | | | e | | | procedure are in the | | | | | | results section. | + +--------+ + + + | EXTERNAL LAB: CBC | Routin | 08/25/2017 | | Results for this | | | e | | | procedure are in the | | | | | | results section. | + +--------+ + + + | EXTERNAL LAB: EGFR | Routin | 08/25/2017 | | Results for this | | | e | | | procedure are in the | | | | | | results section. | + +--------+ + + + | EXTERNAL LAB: | Routin | 08/25/2017 | | Results for this | | CREATININE | e | | | procedure are in the | | | | | | results section. | + +--------+ + + + | CBC WITH | Routin | 08/25/2017 | | Results for this | | DIFFERENTIAL | e | | | procedure are in the | | | | | | results section. | + +--------+ + + + | COMPREHENSIVE | Routin | 08/25/2017 | | Results for this | | METABOLIC PANEL | e | | | procedure are in the | | | | | | results section. | + +--------+ + + + documented in this encounter Results CBC with Differential (08/25/2017) + +-------+ + + + | Component | Value | Ref Range | Performed | Pathologist | | | | | At | Signature | + +-------+ + + + | MCH | 28.7 | 26.0 - 33.0 pg | | | + +-------+ + + + | MCHC | 33.5 | 31.0 - 37.0 % | | | + +-------+ + + + | % Basophils | 0.5 | 1.0 % | | | + +-------+ + + + + + | Specimen | + + | Blood | + + Comprehensive Metabolic Panel (08/25/2017) + +-------+ + + + | Component | Value | Ref Range | Performed | Pathologist | | | | | At | Signature | + +-------+ + + + | Anion Gap | 11 | mmol/L | | | + +-------+ + + + | Bun/Creatin | 15.0 | | | | | ine | | | | | + +-------+ + + + + + | Specimen | + + | Blood | + + External Lab: BUN (08/25/2017) + +-------+ + + + | Component | Value | Ref Range | Performed | Pathologist | | | | | At | Signature | + +-------+ + + + | BUN, | 16 | 8 - 25 | | | | External | | | | | + +-------+ + + + External Lab: ALT (08/25/2017) + +-------+ + + + | Component | Value | Ref Range | Performed | Pathologist | | | | | At | Signature | + +-------+ + + + | ALT, | 34 | | | | | External | | | | | + +-------+ + + + External Lab: AST (08/25/2017) + +-------+ + + + | Component | Value | Ref Range | Performed | Pathologist | | | | | At | Signature | + +-------+ + + + | AST, | 23 | | | | | External | | | | | + +-------+ + + + External Lab: Alkaline Phosphatase (08/25/2017) + +-------+ + + + | Component | Value | Ref Range | Performed | Pathologist | | | | | At | Signature | + +-------+ + + + | ALP, | 83 | | | | | External | | | | | + +-------+ + + + External Lab: Bilirubin, Total (08/25/2017) + +-------+ + + + | Component | Value | Ref Range | Performed | Pathologist | | | | | At | Signature | + +-------+ + + + | Bilirubin, | 0.3 | | | | | Total, | | | | | | External | | | | | + +-------+ + + + External Lab: Albumin (08/25/2017) + +-------+ + + + | Component | Value | Ref Range | Performed | Pathologist | | | | | At | Signature | + +-------+ + + + | Albumin, | 4.5 | | | | | External | | | | | + +-------+ + + + External Lab: Protein, Total (08/25/2017) + +-------+ + + + | Component | Value | Ref Range | Performed | Pathologist | | | | | At | Signature | + +-------+ + + + | Protein, | 7.2 | | | | | Total, | | | | | | External | | | | | + +-------+ + + + External Lab: Calcium (08/25/2017) + +-------+ + + + | Component | Value | Ref Range | Performed | Pathologist | | | | | At | Signature | + +-------+ + + + | Calcium, | 9.5 | | | | | External | | | | | + +-------+ + + + External Lab: Carbon Dioxide (08/25/2017) + +-------+ + + + | Component | Value | Ref Range | Performed | Pathologist | | | | | At | Signature | + +-------+ + + + | Carbon | 29 | | | | | Dioxide, | | | | | | External | | | | | + +-------+ + + + External Lab: Chloride (08/25/2017) + +-------+ + + + | Component | Value | Ref Range | Performed | Pathologist | | | | | At | Signature | + +-------+ + + + | Chloride, | 106 | | | | | External | | | | | + +-------+ + + + External Lab: Potassium (08/25/2017) + +-------+ + + + | Component | Value | Ref Range | Performed | Pathologist | | | | | At | Signature | + +-------+ + + + | Potassium, | 4.4 | | | | | External | | | | | + +-------+ + + + External Lab: Sodium (08/25/2017) + +-------+ + + + | Component | Value | Ref Range | Performed | Pathologist | | | | | At | Signature | + +-------+ + + + | Sodium, | 142 | | | | | External | | | | | + +-------+ + + + External Lab: CBC (08/25/2017) + +-------+ + + + | Component | Value | Ref Range | Performed | Pathologist | | | | | At | Signature | + +-------+ + + + | WBC, | 8.5 | | | | | External | | | | | + +-------+ + + + | HGB, | 15.2 | | | | | External | | | | | + +-------+ + + + | HCT, | 45.5 | | | | | External | | | | | + +-------+ + + + | PLT, | 326 | | | | | External | | | | | + +-------+ + + + | Neutrophils | 64.2 | | | | | %, | | | | | | External | | | | | + +-------+ + + + | Lymphocytes | 25.7 | | | | | %, | | | | | | External | | | | | + +-------+ + + + | Monocytes | 8.3 | | | | | %, External | | | | | + +-------+ + + + | Eosinophils | 1.3 | | | | | %, | | | | | | External | | | | | + +-------+ + + + | Neutrophils | 5.58 | | | | | , Absolute, | | | | | | External | | | | | + +-------+ + + + | Lymphocytes | 2.20 | | | | | , Absolute, | | | | | | External | | | | | + +-------+ + + + | Monocytes, | 0.71 | | | | | Absolute, | | | | | | External | | | | | + +-------+ + + + | Eosinophils | 0.11 | | | | | , Absolute | | | | | + +-------+ + + + | Basophils, | 0.04 | | | | | Absolute | | | | | + +-------+ + + + | MCV, | 86 | | | | | External | | | | | + +-------+ + + + | RDW, | 13 | | | | | External | | | | | + +-------+ + + + External Lab: Creatinine (08/25/2017) + +-------+ + + + | Component | Value | Ref Range | Performed | Pathologist | | | | | At | Signature | + +-------+ + + + | Creatinine, | 1.10 | | | | | External | | | | | + +-------+ + + + + + | Specimen | + + | Blood | + + External Lab: Glucose (08/25/2017) + +-------+ + + + | Component | Value | Ref Range | Performed | Pathologist | | | | | At | Signature | + +-------+ + + + | Glucose, | 95 | 65 - 99 | | | | External | | | | | + +-------+ + + + External Lab: eGFR (08/25/2017) + +-------+ + + + | Component | Value | Ref Range | Performed | Pathologist | | | | | At | Signature | + +-------+ + + + | eGFR, | 60 | | | | | External | | | | | + +-------+ + + + + + | Specimen | + + | Blood | + + documented in this encounter Visit Diagnoses Not on filedocumented in this encounter"
--- OUTSIDE RECORDS SUMMARY | ~2019-09-08 | XMS | Encounter Summary ---
Demographics + + + | Address | [address] | | | [place] [address] | + + + | Home Phone [...] Team Providers + +------+ + | Care Drilling Assistant Name | Role | Phone | + +------+ + | Nilesh Osorio DO | PCP | | + +------+ + Encounter Details +--------+ + + + + | Date | Type | Department | Care Team | Description | +--------+ + + + + | 05/11/ | Episode | [facility] | Ivy Juares, | | | 2019 | Changes | GASTROENTEROLOGY | External Grinder Tender | | | | | [address] [facility] | | | | | | [address] [place] | | | | | | [address] | | | | | | [phone] | | | +--------+ + + + [...]
--- OUTSIDE RECORDS SUMMARY | ~2019-09-08 | XMS | Encounter Summary ---
Demographics + + + | Address | [address] | | | [place] [address] | + + + | Home Phone | | + + + | Preferred Language | Unknown | + + + | Marital Status | | + + + | Synagogue Affiliation | Unknown | + + + | Race | Unknown | + + + | Ethnic Group | Unknown | + + + Author + + + | Author | [facility] | | | and [place] | + + + | Organization | [facility] | | | and [...] Team Providers + +------+ + | Care Insurance Advisor Name | Role | Phone | + [...] + + | 12/22/ | Office | [facility] | Zhang Smith | Palpitations | | 2018 | Visit | CARDIOLOGY [address] | MD Julian [address] | (Primary Dx) | | | | [address], | [address] [place] | | | | | [place] [address] | [place] [address] | | | | | [phone] | [phone] | | | | | | | [...] Bilateral; Surgeo n: Keo Wheatley MD; Location: [facility] MAIN OR SINUS ENDOSCOPY 03/20/2014 Laterality: Left; Surgeon: Keo Wheatley MD; Location: [facility] MAIN OR SINUS SURGERY 2008 SINUS SURGERY [...] made to ensure accuracy; however, inadvertent computerized j2ee consultant errors may be pre sent. Electronically signed by: Tricia Smith MD PhD FACC 12/22/2017 documented in t his encounter Plan of Treatment Not on filedocumented as of this encounter Visit Diagnoses + + | Diagnosis | + + | Palpitations - Primary | + + documented in this encounter
--- OUTSIDE RECORDS SUMMARY | ~2019-09-08 | XMS | Encounter Summary ---
Demographics + + + | Address | [address] | | | [place] [address] | + + + | Home Phone | | + + + | Preferred Language | Unknown | + + + | Marital Status | | + + + | Congregation Affiliation | Unknown | + + + [...] Team Providers + +------+ + | Care Jailkeeper Name | Role | Phone | + [...] + + | 01/06/ | Telephone | [facility] | Rad De La Cruz | Other | | 2019 | | GASTROENTEROLOGY | MD Felix [address] | | | | | [address] [facility] | [address] [facility] | | | | | [address] [place] | [place] [address] | | | | | [address] | [phone] | | | | | [phone] | | | +--------+ + + + [...]
--- OUTSIDE RECORDS SUMMARY | ~2019-09-08 | XMS | Encounter Summary ---
Demographics + + + | Address | [address] | | | [place] [address] | + + + | Home Phone | | + + + | Preferred Language | Unknown | + + + | Marital Status | | + + + | Hoahaoism Affiliation | Unknown | + + + [...] Team Providers + +------+ + | Care Nitroglycerin Supervisor Name | Role | Phone | [...] | +--------+ + + + + | 06/29/ | Telephone | [facility] | Rad De La Cruz | Other | | 2019 | | GASTROENTEROLOGY | MD Felix [address] | | | | | [address] [facility] | [address] [facility] | | | | | [address] [place] | [place] [address] | | | | | [address] | [phone] | | | | | [phone] | | | +--------+ + + + [...]
--- OUTSIDE RECORDS SUMMARY | ~2019-09-08 | XMS | Encounter Summary ---
Demographics + + + | Address | [address] | | | [place] [address] | + + + | Home Phone | | + + + | Preferred Language | Unknown | + + + | Marital Status | | + + + | Taoism Affiliation | Unknown | + + + | Race | Unknown | + + + | Ethnic Group | Unknown | + + + Author + + + | Author | [facility] | | | and [place] | + + + | Organization | [facility] [...] Providers + +------+ + | Care Personal Carer Name | Role | Phone | + +------+ + | Nilesh Osorio DO | PCP | | + +------+ + Encounter Details +--------+ + + + + | Date | Type | Department | Care Team | Description | +--------+ + + + + | 11/24/ | Abstract | [facility] | Provider, | | | 2017 | | GASTROENTEROLOGY | MD [address] | | | | | [address] [facility] | Vijay Rita. | | | | | [address] | [place] [address] | | | | | [address] | | | | | | [phone] | | | +--------+ + + + [...]
--- OUTSIDE RECORDS SUMMARY | ~2019-09-08 | XMS | Encounter Summary ---
Demographics + + + | Address | [address] | | | [place] [address] | + + + | Home Phone [...] Team Providers + +------+ + | Care Glove Turner And Former Name | Role | Phone | + [...] + + | 06/20/ | Refill | [facility] | Luke Pitts, | Medication Refill | | 2019 | | and Pancreas GI | [address], | | | | | [facility] [address] | [place] [address] | | | | | [address] [address] | [place] [address] | | | | | [place] | [phone] | | | | | [address] | | | | | | [phone] | | | +--------+--------+ + + + [...]
--- OUTSIDE RECORDS SUMMARY | ~2019-09-08 | XMS | Encounter Summary ---
Demographics + + + | Address | [address] | | | [place] [address] | + + + | Home Phone | | + + + | Preferred Language | Unknown | + + + | Marital Status | | + + + | Zoroastrian Affiliation | Unknown | + + + | Race | Unknown | + + + | Ethnic Group | Unknown | + + + Author + + + | Author | [facility] | | | and [place] | + + + | Organization | [facility] | | | [...] Team Providers + +------+ + | Care Desk Representative Name | Role | Phone | [...] | | | | | | | PA | | | | | | | EXCISION | | | | | | | TURBINATE | | | | | | | PA NASAL | | | | | | [...] + + | 03/20/ | Hospital | [facility] | Keo Wheatley MD | Chronic frontal | | 2014 | Encounter | MED CTR OR [facility]TRA OP | [address] [place] | sinusitis (Primary | | | | [address] | [address] [place], | Dx); Hypertrophy of | | | | [place], [place] | [place] [address] | nasal turbinates | | | | [address] | [phone] | | | | | [phone] | | | +--------+ + + + [...] nose should also form a triangle. [place] [id number]. All rights reserve d. This information is [...] further understand how the nose works. [place] [id number]. All rights reserve d. This information is [...] | | | (St. | | | [place] | | | y's) | +---+--------+ + [...] | | | (St. | | | [place] | | | y's) | +---+--------+ documented [...] | | | | | | use [place] 10/325 if ordered. If | | | [...]
--- OUTSIDE RECORDS SUMMARY | ~2019-09-08 | XMS | Encounter Summary ---
Demographics + + + | Address | [address] | | | [place] [address] | + + + | Home Phone | | + + + | Preferred Language | Unknown | + + + | Marital Status | | + + + | Yazidism Affiliation | Unknown | + + + | Race | Unknown | + + + | Ethnic Group | Unknown | + + + Author + + + | Author | [facility] | | | and [place] | + + + | Organization | [facility] | | | [...] Team Providers + +------+ + | Care Tv Production Assistant Name | Role | Phone | [...] + + | 03/07/ | Telephone | [facility] | Rad De La Cruz | Appointment | | 2018 | | GASTROENTEROLOGY | MD Felix [address] | | | | | [address] [facility] | [address] [facility] | | | | | [address] [place] | [place] [address] | | | | | [address] | [phone] | | | | | [phone] | | | +--------+ + + + [...]
--- OUTSIDE RECORDS SUMMARY | ~2019-09-08 | XMS | Encounter Summary ---
Demographics + + + | Address | [address] | | | [place] [address] | + + + | Home Phone [...] Team Providers + +------+ + | Care Strategic Sourcing Specialist Name | Role | Phone | [...] + + | 07/27/ | Telephone | [facility] | Rad De La Cruz | Appointment (GERD) | | 2019 | | GASTROENTEROLOGY | MD Felix [address] | | | | | [address] [place] | [address] [place] | | | | | [address] [place], [place] | [facility] [place] [address] | | | | | [address] | [phone] | | | | | [phone] | | | +--------+ + + + [...]
--- OUTSIDE RECORDS SUMMARY | ~2019-09-08 | XMS | Encounter Summary ---
Demographics + + + | Address | [address] | | | [place] [address] | + + + | Home Phone | | + + + | Preferred Language | Unknown | + + + | Marital Status | | + + + | Lutheran Affiliation | Unknown | + + + | Race | Unknown | + + + | Ethnic Group | Unknown | + + + Author + + + | Author | [facility] | | | and [place] | + + + | Organization | [facility] | | [...] Team Providers + +------+ + | Care Computer Compositor Name | Role | Phone | + [...] + + + + | 06/07/ | Telephone | [facility] | Rad De La Cruz | Appointment | | 2019 | | GASTROENTEROLOGY | MD Felix [address] | | | | | [address] [facility] | [address] [facility] | | | | | [address] [place], [place] | [place] [address] | | | | | [address] | [phone] | | | | | [phone] | | | +--------+ + + + [...]
--- OUTSIDE RECORDS SUMMARY | ~2019-09-08 | XMS | Encounter Summary ---
Demographics + + + | Address | [address] | | | [place] [address] | + + + | Home Phone [...] Team Providers + +------+ + | Care Park Services Specialist Name | Role | Phone | + +------+ + | Nilesh Osorio DO | PCP | | + +------+ + Reason for Visit +--------+ + | Reason | Comments | +--------+ + | Other | | +--------+ + Encounter Details +--------+--------+ + + + | Date | Type | Department | Care Team | Description | +--------+--------+ + + + | 05/26/ | Refill | [facility] | Rad De La Cruz | Other | | 2019 | | GASTROENTEROLOGY | MD Felix [address] | | | | | [address] [place] | [address] [place] | | | | | [address] | [facility] [place] [address] | | | | | [address] | [phone] | | | | | [phone] | | | +--------+--------+ + + + [...]
--- OUTSIDE RECORDS SUMMARY | ~2019-09-08 | XMS | Encounter Summary ---
Demographics + + + | Address | [address] | | | [place] [address] | + + + | Home Phone | | + + + | Preferred Language | Unknown | + + + | Marital Status | | + + + | Confucianism Affiliation | Unknown | + + + | Race | Unknown | + + + | Ethnic Group | Unknown | + + + Author + + + | Author | [facility] | | | and [place] | + + + | Organization | [facility] | | | and [place] | + + + | Address | Unknown | + + + | Phone | Unavailable | + + + Support + + +---------+ + | Name | Relationship | Address | Phone | + + +---------+ + | Rosanen Multani | ECON | Unknown | | + + +---------+ + | Jadyn Multani | ECON | Unknown | | + + +---------+ + Care Team Providers + +------+ + | Care Bonderizer Operator Name | Role | Phone | + +------+ + | Caryl White PA-C | PCP | | + +------+ + Reason for Visit + + + | Reason | Comments | + + + | Follow-up | septoplasty and sinus surgery 03/20/14 | + + + Self-referral (Routine) +--------+--------+ + + + + | Status | Reason | Specialty | Diagnoses / | Referred By | Referred To | | | | | Procedures | Contact | Contact | +--------+--------+ + + + + | Closed | | Otolaryngolog | Diagnoses | | Keo Munoz | | | | y | 2 week | | E, MD [address] | | | | | follow | | [address] | | | | | nose/pt/life | | [address] | | | | | [place] | | [place], | | | | | Procedures | | [place] [address] | | | | | OFFICE VISIT | | Phone: | | | | | REGULAR | | [phone] | | | | | | | Fax: | | | | | | | [phone] | +--------+--------+ + + + + Encounter Details +--------+---------+ + + + | Date | Type | Department | Care Team | Description | +--------+---------+ + + + | 08/01/ | Office | [facility] | Keo Munoz MD | Chronic frontal | | 2014 | Visit | OTOLARYNGOLOGY [address] | [address] [place] | sinusitis (Primary | | | | [address] | [address] [place], | Dx); Allergic | | | | [place] | [place] [address] | rhinitis due to | | | | [address] | [phone] | pollen | | | | [phone] | | | +--------+---------+ + + + [...] + + + + | Pulse | 72 | 08/01/2014 3:47 PM | | | | | PDT | | + + + + + | Temperature | - | - | | + + + + + | Respiratory Rate | - | - | | + + + + + | Oxygen Saturation | 92% | 08/01/2014 3:47 PM | | | | | PDT | | + + + + + | Inhaled Oxygen | - | - | | | Concentration | | | | + + + + + | Weight | 81.6 kg (180 lb) | 08/01/2014 3:47 PM | | | | | PDT | | + + + + + | Height | 177.8 cm (5' 10") | 08/01/2014 3:47 PM | | | | | PDT | | + + + + + | Body Mass Index | 25.83 | 08/01/2014 3:47 PM | | | | | PDT | | + + + + + documented in this encounter Progress Notes Keo Munoz MD - 08/01/2014 4:14 PM PDT [facility] OTOLARYNGOLOGY [address] [facility] [id number] OFFICE NOTE KEO MUNOZ MD Patient: ALBERT MULTANI Admitting: MR #: [id number] LOC: PT TYPE: Adm Date: 08/01/2014 : 1975 DATE OF VISIT: 08/01/2014 The patient had opening of his left frontal sinus back in 03/2014. He has had a lot of dr hickey out of both nasal passages. He gets some yellowish material at times. He tends to use Sudafed and that seems to help. He is having a lot of problems with his springtime all ergies, a lot of sneezing, a lot of hayfever type of symptoms. He has used the nasal real isone spray, which he started back about 6 weeks ago. He thinks this may be helping a bit. When he gets his crusting he cannot breathe very well through his nose. Otherwise, the n ose is generally wide open. EXAMINATION: Shows that the floor of the mouth, buccal mucosa, hard palate, teeth, lips, and gums are healthy. No mass seen in the oropharynx and no mucopurulent drainage. Nasal passages: No obvious obstruction. There is a little bit of crusting on the right-hand esha e. Once patient blew his nose he could breathe well through both sides. On the left hand side, looking up high into the frontal ethmoidal area, it is very clear. There is no crust ing, no mucopurulent drainage. Ear canals are open, they are clean. Drums were clear. No middle ear fluid or disease noted. The neck was smooth. There are no masses or lymphade nopathy. IMPRESSION: 1. Allergic rhinitis. 2. Chronic left frontal sinusitis. PLAN: The patient will continue with the nasal irrigations. He will use some Claritin an d also continue with his nasal cortisone spray. He will be re-seen again in about 2 months ' time and further decisions made at that point. KEO MUNOZ MD Dictated by KEO MUNOZ MD 08/01/2014 16:14:22 Transcribed on 08/01/2014 17:39:31 by [facility] job# [id number] Confirmation #: [id number] cc: CARYL WHITE PAC [facility], Keo Arizmendi MD - 08/01/2014 4:11 PM PDTSee dictation #[id number] signed by Aman Munoz MD at 08/01/2014 4:15 PM PDTdocumented in this encounter Plan of Treatment Not on filedocumented as of this encounter Visit Diagnoses + + | Diagnosis | + + | Chronic frontal sinusitis - Primary | + + | Allergic rhinitis due to pollen | + + documented in this encounter
--- OUTSIDE RECORDS SUMMARY | ~2019-09-08 | XMS | Encounter Summary ---
Demographics + + + | Address | [address] | | | [place] [address] | + + + | Home Phone [...] Team Providers + +------+ + | Care Senior Bookkeeper Name | Role | Phone | + [...] + + | 06/21/ | Telephone | [facility] | Rad De La Cruz | Nausea | | 2019 | | GASTROENTEROLOGY | MD Felix [address] | | | | | [address] [facility] | [address] [facility] | | | | | [address] | [place] [address] | | | | | [address] | [phone] | | | | | [phone] | | | +--------+ + + + [...]
--- OUTSIDE RECORDS SUMMARY | ~2019-09-08 | XMS | Encounter Summary ---
Demographics + + + | Address | [address] | | | [place] [address] | + + + | Home Phone | | + + + | Preferred Language | Unknown | + + + | Marital Status | | + + + | Adventism Affiliation | Unknown | + + + | Race | Unknown | + + + | Ethnic Group | Unknown | + + + Author + + + | Author | [facility] | | | and [place] | + + + | Organization | [facility] | | | and [...] Team Providers + +------+ + | Care Physician Non Invasive Cardiologist Name | Role | Phone | + +------+ + | Izzy Snowden | PCP | | + +------+ + Reason for Visit + + + | Reason | Comments | + + + | Follow-up | | + + + Evaluate & Treat (Urgent) +--------+--------+ + + + + | Status | Reason | Specialty | Diagnoses / | Referred By | Referred To | | | | | Procedures | Contact | Contact | +--------+--------+ + + + + | Closed | | Gastroenterol | Diagnoses | Sp, | Dorothy, | | | | ogy | Epigastric | Izzy KINESIOTHERAPIST | [place], | | | | | pain | [address] | MD [address] | | | | | Abdominal | [address] | [address] | | | | | pain, RUQ | [place], | [place], | | | | | Procedures | [place] [address] | [place] [address] | | | | | ER F/U (SEEN | Phone: | Phone: | | | | | FOR US AT | [phone] | [phone] | | | | | ST. | Fax: | Fax: | | | | | [facility]) | [phone] | [phone] | +--------+--------+ + + + + Encounter Details +--------+ + + + + | Date | Type | Department | Care Team | Description | +--------+ + + + + | 07/30/ | Virtual | [facility] | Rad De La Cruz | Gastroesophageal | | 2019 | Office | GASTROENTEROLOGY | MD Felix [address] | reflux disease, | | | Visit | [address] | [address] [place] | esophagitis presence | | | | [address] [place], [place] | [place] [address] | not specified | | | | [address] | [phone] | (Primary Dx); | | | | [phone] | | Diarrhea, | | | | [...] + documented as of this encounter Progress Rad Mariee MD - 07/31/2019 2:15 PM PDT Gastroenterology Clinic Progress Note Date of Office Visit: 07/31/19 Primary Care Physician: NASIR Rosado This exam was initially conducted via a secure 256-bit AES encrypted bidirectional video se ssion. Service was provided [id number] with the patient via interactive videoconferencing Video start time 217 Video end time 235 Total time (in minutes) including non leig-yo-orsk time (reviewing records, documentation, etc..) 35 You have chosen to receive care through the use of telemedicine. Telemedicine enables [facility] care providers at different locations to [...] I, Rad De La Cruz MD am corona moreno. Chief Complaint Follow-up History of Present Illness [...] and lower Bloating Chest pain Cardiolgist in [place]- will have testing Chronic frontal sinusitis left [...] Rad De La Cruz MD; Location: [facility] MEDICAL PROCEDURE UNIT COLONOSCOPY ENDOSCOPY ESOPHAGUS-ACID REFLUX TEST N/A 02/25/2018 Procedure: ENDOSCOPIC 48 HOUR PH FERRARI "CAPSULE"; Surgeon: Rad De La Cruz MD; Locat ion: [facility] MEDICAL PROCEDURE UNIT HERNIA REPAIR INGUINAL HERNIA REPAIR Right 02/2008 NASAL SEPTUM SURGERY 03/20/2014 BILATERAL Inferior Turbinoplasty; LEFT Frontal Sinusotomy; Laterality: Bilateral; Surgeo n: Keo Wheatley MD; Location: [facility] MAIN OR OTHER SURGICAL HISTORY N/A 06/27/2018 Procedure: EUS RECTAL; Surgeon: Luke Pitts MD; Location: [facility] MEDICAL PROCEDURE UN IT SIGMOIDOSCOPY N/A 06/27/2018 Procedure: RECTAL ULTRASOUND, SIGMOIDOSCOPY FLEXIBLE POSSIBLE EMR, FTRD/ESD; Surgeon: Morgan Pitts MD; Location: [facility] MEDICAL PROCEDURE UNIT SINUS ENDOSCOPY 03/20/2014 Laterality: Left; Surgeon: Keo Wheatley MD; Location: [facility] MAIN OR SINUS SURGERY 2008 SINUS [...] No follow-ups on file. CC: Izzy Snowden, [facility] [address] [place] [address] Portions of this chart may have been created with [employer]ABBL voice recognition software. Occasi onal wrong-word or [...]
--- OUTSIDE RECORDS SUMMARY | ~2019-09-08 | XMS | Encounter Summary ---
Demographics + + + | Address | [address] | | | [place] [address] | + + + | Home Phone [...] Team Providers + +------+ + | Care Line O Scribe Operator Name | Role | Phone | [...] | | | | | | | Spasm of | | | | | | | bowel | | | | | | | (K58.9), | | | | | | | Abdominal | | | | | | | pain, | | | | | | | unspecified | | | | | | | abdominal | | | | | | | location | | | | | | | (R10.9) | | | | | | | Procedures | | | | | | | MO | | | | | | | COLONOSCOPY | | | | | | | FLX DX | | | | | | | W/COLLJ SPEC | | | | | | | WHEN PFRMD | | | | | | | MO | | | | | | | COLONOSCOPY | | | | | | | W/BIOPSY | | | | | | | SINGLE/MULTI | | | | | | | PLE MO | | | | | | | COLSC FLX | | | | | | | W/RMVL OF | | | | | | | TUMOR POLYP | | | | | | | LESION SNARE | | | | | | | TQ | | | | | | | COLONOSCOPY | | | +--------+--------+ + + + + Encounter Details +--------+---------+ + + + | Date | Type | Department | Care Team | Description | +--------+---------+ + + + | 05/27/ | Surgery | [facility] | [facility] | COLONOSCOPY | | 2019 | | [facility] OP | MD Genna [address] | | | | | [address] | [address] [place] | | | | | [place], [place] | [place] [address] | | | | | [address] | [phone] | | | | | [phone] | | | +--------+---------+ + + + [...] + + + | Blood Pressure | 99/86 | 05/27/2018 10:45 AM | | | | | PST | | + + + + + | Pulse | 68 | 05/27/2018 10:45 AM | | | | | PST | | + + + + + | Temperature | 36.5 C (97.7 F) | 05/27/2018 8:30 AM | | | | | PST | | + + + + + | Respiratory Rate | 14 | 05/27/2018 10:45 AM | | | | | PST | | + + + + + | Oxygen Saturation | 95% | 05/27/2018 10:45 AM | | | | | PST | | + + + + + | Inhaled Oxygen | - | - | | | Concentration | | | | + + + + + | Weight | 83.7 kg (184 lb 8.4 | 05/27/2018 8:30 AM | | | | oz) | PST | | + + + + + | Height | 177.8 cm (5' 10") | 05/27/2018 8:30 AM | | | | | PST | | + + + + + | Body Mass Index | 26.48 | 05/27/2018 8:30 AM | | | | | PST | | + + + + + documented in this encounter Discharge Instructions Instructions Eleanor Willams RN - 05/27/2018 Recovery After Procedural Sedation (Adult) You have [...] You can't be awakened Date Last Reviewed: 02/04/201619995828-9771 [employer]. [address] [place] [address], [place] [id number]. All righ ts reserved. This information is [...] + +---------+ + + | budesonide | ADD 2 MILLILITERS TO | | 1 | 04/25/19 | | | (PULMICORT) 0.5 mg/2 | 240 ML SALINE | | | 19 | 9 | | mL nebulizer | IRRIGATIONS AND | | | | | | solution | IRRIGATE DAILY | | | | | + + + +---------+ + + | dexlansoprazole | Take 1 capsule by | 30 | 2 | 04/15/20 | | | (DEXILANT) [address] | mouth Daily. 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 | | | | | | Abdominal pain, | | | | | | | unspecified | | | | | | | abdominal location | | | | | | + + + +---------+ + + | | Take 650 mg by mouth | | 0 | | | | Diphenhydramine-APAP | as needed. | | | | 9 | | , sleep, (TYLENOL PM | | | | | | | EXTRA STRENGTH) | | | | | | | 50-1000 MG/30ML LIQD | | | | | | + + + +---------+ + + | esomeprazole | Take 1 capsule by | 30 | 5 | 03/31/20 | | | (NEXIUM) 40 mg | mouth every morning | capsule | | 18 | 9 | | capsuleIndications: | (before breakfast). 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 | | | | | + + + +---------+ + + | ondansetron | As needed for | 2 | 0 | 05/26/19 | | | (ZOFRAN) 4 mg tablet | nausea; stop prep; | tablet | | 19 | 9 | | | take 1 tablet; wait | | | | | | | 30 min then resume | | | | | | | prep; repeat 1x prn | | | | | + + + +---------+ + + | ondansetron | As needed for | 2 | 0 | 05/09/19 | | | (ZOFRAN) 4 mg tablet | nausea; stop prep; | tablet | | 19 | 9 | | | take 1 tablet; wait | | | | | | | 30 min then resume | | | | | | | prep; repeat 1x prn | | | | | + + [...] | + +--------+ + + + | COLONOSCOPY | | 05/27/2018 | Spasm of bowel | | | | | 9:36 AM | (K58.9), Abdominal | | | | | PST | pain, unspecified | | | | | | abdominal location | | | | | | (R10.9) | | + +--------+ + + + | COLONOSCOPY | Routin | 05/27/2018 | | Results for this | | | e | 9:29 AM | | procedure are in the | | | | PST | | results section. | + +--------+ + + + | SURGICAL PATHOLOGY | Routin | 05/27/2018 | | Results for this | | EXAM | e | 12:00 AM | | procedure are in the | | | | PST | | results section. | + +--------+ + + + documented in this encounter Results COLONOSCOPY (05/27/2018 9:29 AM PST) + + | Specimen | + + | | + + + +--------- -----+ | Narrative | Performe d At | + +--------- -----+ | | [facility] | | GastroenterologyPatient Name: Clifton MultaniProlindsayure Date: 05/27/2018 | RAVENO N | | 9:29 AMMRN: [id number] #: [id number] of : | | | 1975Admit Type: AmbulatoryAge: 43Room: [facility] 02Gender: MaleNote | | | Status: FinalizedAttending MD: RAD CHANDLER [facility]rocedure: | | | ColonoscopyIndications: Generalized abdominal pain, | | | Clinically significant diarrhea of | | | unexplained originProviders: RAD CHANDLER MD, | | | Jennifer Esquivel, PRIYANK, Scarlet Jones, | | | RN, Annabel Dumont, TechnicianReferring MD: Nilesh Osorio | | | (Referring MD)Medicines: Fentanyl 100 micrograms IV, | | | Midazolam 8 mg IVComplications: No immediate | | | complications.Procedure: Pre-Anesthesia Assessment: - | | | Prior to the procedure, a History and Physical was performed, and | | | patient medications and allergies were reviewed. The patient is | | | competent. The risks and benefits of the procedure and the | | | sedation options and risks were discussed with the patient. All | | | questions were answered and informed consent was obtained. | | | Patient identification and proposed procedure were verified by | | | the physician and the nurse in the pre-procedure area in the | | | procedure room. Mental Status Examination: alert and oriented. | | | Airway Examination: Mallampati Class I (tonsillar pillars | | | visualized). Respiratory Examination: clear to auscultation. CV | | | Examination: normal. Prophylactic Antibiotics: The patient does not | | | require prophylactic antibiotics. Prior Anticoagulants: The | | | patient has taken no previous anticoagulant or antiplatelet | | | agents. ASA Grade Assessment: I - A normal, healthy patient. | | | After reviewing the risks and benefits, the patient was deemed | | | in satisfactory condition to undergo the procedure. The | | | anesthesia plan was to use moderate sedation / analgesia | | | (conscious sedation). Immediately prior to administration of | | | medications, the patient was re-assessed for adequacy to receive | | | sedatives. The heart rate, respiratory rate, oxygen saturations, | | | blood pressure, adequacy of pulmonary ventilation, and response | | | to care were monitored throughout the procedure. The physical | | | status of the patient was re-assessed after the procedure. | | | After I obtained informed consent, the scope was passed under | | | direct vision. Throughout the procedure, the patient's blood | | | pressure, pulse, and oxygen saturations were monitored | | | continuously. The Colonoscope was introduced through the anus | | | and advanced to the terminal ileum. The colonoscopy was | | | performed without difficulty. The patient tolerated the | | | procedure well. The quality of the bowel preparation was evaluated | | | using the BBPS ([place] Bowel Preparation Scale) with scores of: | | | Right Colon = 3, Transverse Colon = 3 and Left Colon = 3 | | | (entire mucosa seen well with no residual staining, small | | | fragments of stool or opaque liquid). The total BBPS score | | | equals 9.Findings: The perianal and digital rectal examinations | | | were normal. A patchy area of mucosa in the terminal ileum was | | | nodular. Could just be benign lymphoid tissue. Biopsies were | | | taken with a cold forceps for histology. Normal mucosa | | | was found in the entire colon. The ascending colon and cecum | | | appeared normal. A 4 mm polyp was found in the transverse colon. | | | The polyp was sessile. The polyp was removed with a cold | | | snare. Resection and retrieval were complete. Three | | | sessile polyps were found in the transverse colon. The polyps were | | | 1 to 2 mm in size. These polyps were removed with a cold biopsy | | | forceps. Resection and retrieval were complete. Two | | | sessile polyps were found in the sigmoid colon. They had a | | | hyperplastic appearance. The polyps were 1 to 2 mm in size. A 2 | | | mm polyp was found in the rectum. The polyp was sessile. The polyp | | | was removed with a cold biopsy forceps. Resection and retrieval | | | were complete. Biopsies for histology were taken with a | | | cold forceps from the right colon and left colon for evaluation | | | of microscopic colitis. The retroflexed view of the distal | | | rectum and anal verge was normal and showed no anal or rectal | | | abnormalities.Moderate Sedation: Moderate (conscious) sedation | | | was administered by the endoscopy nurse and supervised by the | | | endoscopist. The patient's oxygen saturation, heart rate, blood | | | pressure and response to care were monitored. Total physician | | | intraservice time was 43 minutes.Impression: - Nodular ileal | | | mucosa. Biopsied. - Normal mucosa in the entire examined colon. | | | - The ascending colon and cecum are normal. - One 4 mm | | | polyp in the transverse colon, removed with a cold snare. | | | Resected and retrieved. - Three 1 to 2 mm polyps in the | | | transverse colon, removed with a cold biopsy forceps. Resected | | | and retrieved. - Two 1 to 2 mm polyps in the sigmoid colon. | | | - One 2 mm polyp in the rectum, removed with a cold biopsy forceps. | | | Resected and retrieved. - Biopsies were taken with a | | | cold forceps from the right colon and left colon for evaluation | | | of microscopic colitis.Recommendation: - The patient will be | | | observed post-procedure, until all discharge criteria are met. | | | - Resume previous diet. - Continue present medications. | | | - Await pathology results. - Repeat colonoscopy in 3 - 10 | | | years for surveillance based on pathology results. - The | | | findings and recommendations were discussed with the patient.RAD | | | GENNA CHANDLER MD05/27/2018 10:27:46 AMThis report has been signed | | | electronically.Number of Addenda: 0Note Initiated On: 05/27/2018 9:29 | | | AMScope Withdrawal Time: 0 hours 13 minutes 18 seconds Total Procedure | | | Duration: 0 hours 34 minutes 28 seconds Scope In: 9:46:55 AMScope | | | Out: 10:21:23 AM [facility], [address] | | | [place] [address] | | | colon for evaluation of microscopic colitis. | | |Recommendation: | | | - The patient will be observed post-procedure, until all discharge | | | criteria are met. | | | - Resume previous diet. | | | - Continue present medications. | | | - Await pathology results. | | | - Repeat colonoscopy in 3 - 10 years for surveillance based on pathology | | | results. | | | - The findings and recommendations were discussed with the patient. | | |RAD CHANDLER MD | | |05/27/2018 10:27:46 AM | | |This report has been signed electronically. | | |Number of Addenda: 0 | | |Note Initiated On: 05/27/2018 9:29 AM | | |Scope Withdrawal Time: 0 hours 13 minutes 18 seconds | | |Total Procedure Duration: 0 hours 34 minutes 28 seconds | | |Scope In: 9:46:55 AM | | |Scope Out: 10:21:23 AM | | | [facility], [address] [place], [place] | | | [address] | | + +--------- -----+ + +---------+ + + | Performing | Address | City/State/Zipcode | Phone Number | | Organization | | | | + +---------+ + + | [facility] | | | | + +---------+ + + Surgical Pathology Exam (05/27/2018 12:00 AM PST) + + | Specimen | + + | | + + + + + | Narrative | Performed At | + + + | SPECIMEN(S): A TRANSVERSE COLON POLYP SPECIMEN(S): B TERMINAL ILEUM | [facility] | | SPECIMEN(S): C RIGHT COLON SPECIMEN(S): D LEFT COLON SPECIMEN(S): | INCYTE | | E SIGMOID POLYP SPECIMEN(S): F RECTAL POLYP SPECIMEN SOURCE: A. | | | TRANSVERSE COLON POLYP B. TERMINAL ILEUM C. RIGHT COLON D. LEFT | | | COLON E. SIGMOID POLYP F. RECTAL POLYP CLINICAL HISTORY: K58.9 | | | (irritable bowel syndrome without diarrhea). R10.9 (unspecified | | | abdominal pain). MICROSCOPIC DESCRIPTION: Histologic sections of | | | all submitted blocks are examined by light microscopy. These findings, | | | together with the gross examination, support the pathologic | | | diagnosis. FINAL PATHOLOGIC DIAGNOSIS: A. Colon, transverse | | | polyp, biopsy: - Tubular adenoma. B. Terminal ileum, biopsy: | | | - Small bowel mucosa with lymphoid aggregates and mild edema. - | | | Negative for increased inflammation or other pathologic abnormality. | | | C. Colon, right side, biopsy: - Colonic mucosa with | | | prominent lymphoid aggregates; negative for colitis, ischemia and | | | dysplasia. D. Colon, left side, biopsy: - Colonic mucosa with | | | prominent lymphoid aggregates; negative for colitis, ischemia and | | | dysplasia. E. Colon, sigmoid polyp, biopsy: - Colonic mucosa | | | with prominent lymphoid aggregate and early surface hyperplastic | | | change - Negative for dysplasia. F. Rectum, polyp, biopsy: - | | | Neuroendocrine tumor, well differentiated (G1). - Mitotic | | | rate: No mitoses identified in tissue sampled. - Microscopic | | | tumor extension: Invades submucosa. - Lymph-vascular | | | invasion: Not identified. 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 | | | Immunohistochemical stains for chromogranin and synaptophysin are | | | utilized in the evaluation of this case with appropriately reacting | | | controls. The tumor cells are weakly positive for chromogranin and | | | positive for synaptophysin, which confirms the diagnosis. As part | | | of [facility]' Quality Improvement Program, this case was | | | reviewed by another member of our pathology staff. The findings were | | | discussed with Dr. Chandler on Thursday, May 31, 2018. | | | KPS:AMB:cab:C1NR GROSS DESCRIPTION: The specimen comes in six | | | containers, A-F. A. The specimen is received in formalin, | | | labeled as "Clifton Multani," designated as "transverse colon polyp," | | | and consists of four pink-lanza tissue fragments, which range in size | | | from 0.2 to 0.8 cm in greatest dimension. The largest tissue | | | fragment is bisected and the entire specimen is submitted in a single | | | cassette (A1). B. The specimen is received in formalin, labeled | | | as "Clifton Multani," designated as "terminal ileum biopsy," and | | | consists of six pink-lanza tissue fragments, which range in size from | | | 0.2 to 0.3 cm in greatest dimension. The entire specimen is | | | submitted in a single cassette (B1). C. The specimen is received | | | in formalin, labeled as "Clifton Multani," designated as "right colon | | | biopsy," and consists of five pink-lanza tissue fragments, which range | | | in size from 0.2 to 0.4 cm in greatest dimension. The entire | | | specimen is submitted in a single cassette (C1). D. The | | | specimen is received in formalin, labeled as "Clifton Multani," | | | designated as "left colon biopsy," and consists of six pink-lanza tissue | | | fragments, which range in size from 0.1 to 0.3 cm in greatest | | | dimension. The entire specimen is submitted in a single cassette | | | (D1). E. The specimen is received in formalin, labeled as | | | "Clifton Multani," designated as "sigmoid colon polypectomy," and | | | consists of two pink-lanza tissue fragments, which range in size from | | | 0.3 to 0.8 cm in greatest dimension. The largest tissue fragment is | | | bisected and the entire specimen is submitted in a single cassette | | | (E1). F. The specimen is received in formalin, labeled as | | | "Clifton Multani," designated as "rectal polypectomy," and consists of | | | one yellow-lanza tissue fragment, which measures 0.3 cm in greatest | | | dimension. The entire specimen is submitted in a single cassette | | | (F1). js:AMB:sarahi ADDITIONAL NOTES: Immunohistochemical and/or in | | | situ hybridization studies were performed on this case with the | | | appropriate positive controls that react as expected. This test was | | | developed and its performance characteristics determined by [facility] | | | [facility]. It has not been cleared or approved by the U.S. Food | | | and Drug Administration. The FDA has determined that such clearance | | | or approval is not necessary. This test is used for clinical | | | purposes. It should not be regarded as investigational or for | | | research. [facility] is certified under the Clinical | | | Laboratory Improvement Amendments of 1988 (CLIA) as qualified to | | | perform high complexity clinical laboratory testing. PERFORMING | | | LABORATORY: The technical component was performed by [facility] | | | [facility], [address] [place] [address] (Technical Documentation Specialist: | | | Trudi Hughes MD; CLIA# [id number]). Professional interpretation was | | | performed by [facility], [facility], [address] | | [address] [place], [place] [address] (Technical Documentation Specialist: Johnathan Silva | | | MD Fabienne; CLIA# [id number]). Diagnostician: Johnathan Hidalgo | | Pathologist Electronically Signed 05/31/2018 | | + + + + +---------+ + + | Performing | Address | City/State/[facility] | Phone Number | | [...] | | + +--------+ +--------+------+------+ | fentaNYL (PF) injection PRN, | Given | 05/27/19 | 50 mcg | | | | Starting 05/27/18 at 0939 | | 19 9:42 | | | | | | | AM PST | | | | + +--------+ +--------+------+------+ +-------+ +--------+---+---+ | Given | 05/27/19 | 50 mcg | | | | | 19 9:39 | | | | | | AM PST | | | | +-------+ +--------+---+---+ + +---+ | | | + +---+ | lactated ringers (LR) infusion | | | at 100 mL/hr, Intravenous, | | | CONTINUOUS, Starting 05/27/18 | | | at 0915, Pre-op | | + +---+ | | | + +---+ + +-------+ +------+---+---+ | midazolam (VERSED) 1 mg/mL | Given | 05/27/19 | 1 mg | | | | injection PRN, Starting Wed | | 19 10:03 | | | | | 05/27/18 at 0950 | | AM PST | | | | + +-------+ +------+---+---+ +-------+ +------+---+---+ | Given | 05/27/19 | 1 mg | | | | | 19 9:53 | | | | | | AM PST | | | | +-------+ +------+---+---+ | Given | 05/27/19 | 1 mg | | | | | 19 9:50 | | | | | | AM PST | | | | +-------+ +------+---+---+ +---+---+ | | | +---+---+ + +-------+ +------+---+---+ | midazolam (VERSED) 5 mg/mL | Given | 05/27/19 | 1 mg | | | | injection Rasheed CORRALES Fri | | 19 9:43 | | | | | 05/27/18 at 0938 | | AM PST | | | | + +-------+ +------+---+---+ +-------+ +------+---+---+ | Given | 05/27/19 | 1 mg | | | | | 19 9:42 | | | | | | AM PST | | | | +-------+ +------+---+---+ | Given | 05/27/19 | 3 mg | | | | | 19 9:38 | | | | | | AM PST | | | | +-------+ +------+---+---+ +---+---+ | | | +---+---+ documented in this encounter
--- OUTSIDE RECORDS SUMMARY | ~2019-09-08 | XMS | Encounter Summary ---
Demographics + + + | Address | [address] | | | [place] [address] | + + + | Home Phone | | + + + | Preferred Language | Unknown | + + + | Marital Status | | + + + | Christianity Affiliation | Unknown | + + + [...] Team Providers + +------+ + | Care Fishing Captain Name | Role | Phone | + +------+ + | Nilesh Osorio DO | PCP | | + +------+ + Reason for Visit + + + | Reason | Comments | + + + | Imaging Only | | + + + Encounter Details +--------+ + + + + | Date | Type | Department | Care Team | Description | +--------+ + + + + | 03/03/ | Telephone | [facility] | [facility] | Imaging Only | | 2017 | | GASTROENTEROLOGY | MD Felix [address] | | | | | [address] [place] | [address] [facility] | | | | | [address] [place], [place] | [place] [address] | | | | | [address] | [phone] | | | | | [phone] | | | +--------+ + + + [...] of this encounter Plan of Treatment + +---------+--------+ + + | Name | Type | Priori | Associated Diagnoses | Order Schedule | | | | ty | | | + +---------+--------+ + + | XR Abdomen AP | Imaging | Routin | Gastroesophageal | Expected: | | | | e | reflux disease, | 03/03/2018, Expires: | | | | | esophagitis presence | 03/04/2019 | | | | | not specified | | + +---------+--------+ + + documented as of this encounter Visit Diagnoses + + | Diagnosis | + + | Gastroesophageal reflux disease, esophagitis presence not specified - Primary | + + documented in this encounter"
--- OUTSIDE RECORDS SUMMARY | ~2019-09-08 | XMS | Encounter Summary ---
Demographics + + + | Address | [address] | | | [place] [address] | + + + | Home Phone | | + + + | Preferred Language | Unknown | + + + | Marital Status | | + + + | Cheondoism Affiliation | Unknown | + + + | Race | Unknown | + + + | Ethnic Group | Unknown | + + + Author + + + | Author | [facility] | | | and [place] | + + + | Organization | [facility] | | | and [...] Team Providers + +------+ + | Care Entry Level Drafter Name | Role | Phone | + [...] | | | | | | NV EGD | | | | | | | TRANSORAL | | | | | | | BIOPSY | | | | | | | SINGLE/MULTI | | | | | | | PLE NV GERD | | | | | | [...] + + | 02/25/ | Surgery | [facility] | Gin Chandler | ENDOSCOPIC 48 HOUR | | 2018 | | MED CTR MP INTRA OP | MD Genna [address] | [facility] "[facility]" | | | | [address] | [address] [facility] | | | | | [place] | [place] [address] | | | | | [address] | [phone] | | | | | [phone] | | | +--------+---------+ + + + [...] You can't be awakened Date Last Reviewed: 02/04/201619995361-7949 [employer]. [address] [place] [address]. All righ ts reserved. This information is [...] 02/25/2018 | [employer] | | 9:49 AMMRN: [id number] #: [id number] of : | | | 1975Admit Type: AmbulatoryAge: 42Room: [facility] 02Gender: MaleNote | | | Status: FinalizedAttending MD: GIN [facility]ANDLER [facility]rocedure: | | | Upper GI [...] | | 10:13:55 AMScope Out: 10:21:58 AM [facility] | | | [place], [address] [place] [address] | | | - The FERRARI pH [...] |Scope Out: 10:21:58 AM | | | [facility], [address], [place] | | | [address] | | + + -+ + +---------+ + + | Performing | Address | City/State/[facility] | Phone Number | | Organization [...] metaplasia, negative for | | | dysplasia. JVR:[facility]:C2NR GROSS DESCRIPTION: A. The specimen | | [...] component was | | | performed by [facility], [address] [place] [address] | | | (Cold Mill Inspector: Trudi Hughes MD; [place]# [id number]). Professional | | | [facility] | | | [address] | | | [address] (Cold Mill Inspector: Jakub Rivera M.D.). Diagnostician: | | | [...]
--- OUTSIDE RECORDS SUMMARY | ~2019-09-08 | XMS | Encounter Summary ---
Demographics + + + | Address | [address] | | | [place] [address] | + + + | Home Phone | | + + + | Preferred Language | Unknown | + + + | Marital Status | | + + + | Zoroastrianism Affiliation | Unknown | + + + | Race | Unknown | + + + | Ethnic Group | Unknown | + + + Author + + + | Author | [facility] | | | and [place] | + + + | Organization | [facility] | | [...] Providers + +------+ + | Care Brake Press Operator Name | Role | Phone | + +------+ + | Izzy Snowden | PCP | | + +------+ + Encounter Details +--------+ + + + + | Date | Type | Department | Care Team | Description | +--------+ + + + + | 06/07/ | Abstract | [facility] | Provider, | | | 2020 | | GASTROENTEROLOGY | MD Jorge [address] | | | | | [address] [facility] | Vijay [address]. | | | | | [address] [place] | [place] [address] | | | | | [address] | | | | | | [phone] | | | +--------+ + + + [...]
--- OUTSIDE RECORDS SUMMARY | ~2019-09-08 | XMS | Encounter Summary ---
Demographics + + + | Address | [address] | | | [place] [address] | + + + | Home Phone | | + + + | Preferred Language | Unknown | + + + | Marital Status | | + + + | Samaritan Affiliation | Unknown | + + + | Race | Unknown | + + + | Ethnic Group | Unknown | + + + Author + + + | Author | [facility] | | | and [place] | + + + | Organization | [facility] | | | [...] Team Providers + +------+ + | Care Oil Pipe Inspector Name | Role | Phone | + [...] [place] | | | | | | [address] | | | | | | [phone] | | | +--------+ + + + [...]
--- OUTSIDE RECORDS SUMMARY | ~2019-09-08 | XMS | Encounter Summary ---
Demographics + + + | Address | [address] | | | [place] [address] | + + + | Home Phone | | + + + | Preferred Language | Unknown | + + + | Marital Status | | + + + | Latter-Day Affiliation | Unknown | + + + | Race | Unknown | + + + | Ethnic Group | or | + + + Author + + + | Author | [facility] | + + + | Organization | [facility] | + + + | Address | Unknown | + + + | Phone | Unavailable | + + + Support + + +---------+ + | Name | Relationship | Address | Phone | + + +---------+ + | Rosanne Multani | ECON | Unknown | | + + +---------+ + Care Team Providers + +------+ + | Care Development Architect Name | Role | Phone | + +------+ + | Nilesh Osorio MD | PCP | | + +------+ + Encounter Details +--------+ + + + + | Date | Type | Department | Care Team | Description | +--------+ + + + + | 04/27/ | Documentati | [facility] | Tarah Davenport, | | | 2019 | on | Center at [facility] [address] | [address] | | | | | [address] | [facility] [place] | | | | | Mailcode: [facility] | [address] | | | | | [facility] | [phone] | | | | | and [place], | | | | | | | | | | | | [place], [place] | | | | | | [address] | | | | | | [phone] | | | +--------+ + + + [...]
--- OUTSIDE RECORDS SUMMARY | ~2019-09-08 | XMS | Encounter Summary ---
Demographics + + + | Address | [address] | | | [place] [address] | + + + | Home Phone [...] | Author | [facility] | | | and [place] | + + + | Organization | [facility] | | [...] Team Providers + +------+ + | Care Farm Assistant Name | Role | Phone | [...] | | | | | | | SD | | | | | | | EXCISION | | | | | | | TURBINATE | | | | | | | SD NASAL | | | | | | [...] | | | | | [address] | [place], [place] | | | | | [place], [place] | [address] | | | | | [address] | | | | | | [phone] | Elvis, Sancho Geronimo, | | | | | | [address] | | | | | | [place], [place] | | | | | | [address] | | | | | | | [...]
--- OUTSIDE RECORDS SUMMARY | ~2019-09-08 | XMS | Encounter Summary ---
Demographics + + + | Address | [address] | | | [place] [address] | + + + | Home Phone | | + + + | Preferred Language | Unknown | + + + | Marital Status | | + + + | Church Affiliation | Unknown | + + + | Race | Unknown | + + + | Ethnic Group | Unknown | + + + Author + + + | Author | [facility] | | | and [place] | + + + | Organization | [facility] | | [...] Team Providers + +------+ + | Care Radio Antenna Installer Name | Role | Phone | + +------+ + | Izzy Snowden | PCP | | + +------+ + Encounter Details +--------+ + + + + | Date | Type | Department | Care Team | Description | +--------+ + + + + | 11/27/ | Orders Only | [facility] | Provider, | | | 2019 | | SYSTEM GENERIC OP | MD Jorge [address] | | | | | CONVERSION [address] | [place] | | | | | [address] [place], [place] | [place] [address] | | | | | [address] | | | | | | [phone] | | | +--------+ + + + [...]
--- OUTSIDE RECORDS SUMMARY | ~2019-09-08 | XMS | Encounter Summary ---
Demographics + + + | Address | [address] | | | [place] [address] | + + + | Home Phone | | + + + | Preferred Language | Unknown | + + + | Marital Status | | + + + | Restorationist Affiliation | Unknown | + + + | Race | Unknown | + + + | Ethnic Group | Unknown | + + + Author + + + | Author | [facility] | | | and [place] | + + + | Organization | [facility] | | [...] Providers + +------+ + | Care Field Mechanical Meter Tester Name | Role | Phone | + +------+ + | Bulmaro Arechiga PA-C | PCP | | + +------+ + Reason for Visit + + + | Reason | Comments | + + + | Follow-up | 2 week follow up for nose surgery | + + + Self-referral (Routine) +--------+--------+ + + + + | Status | Reason | Specialty | Diagnoses / | Referred By | Referred To | | | | | Procedures | Contact | Contact | +--------+--------+ + + + + | Closed | | Otolaryngolog | Diagnoses | | Koe Munoz | | | | y | 2 week | | MD [place] [address] | | | | | follow | | [address] | | | | | nose/pt/life | | [address] | | | | | [place] | | [place], | | | | | Procedures | | [place] [address] | | | | | OFFICE VISIT | | Phone: | | | | | REGULAR | | [phone] | | | | | | | Fax: | | | | | | | [phone] | +--------+--------+ + + + + Encounter Details +--------+---------+ + + + | Date | Type | Department | Care Team | Description | +--------+---------+ + + + | 05/10/ | Office | [facility] [place] | Keo Munoz MD | Hypertrophy of nasal | | 2015 | Visit | OTOLARYNGOLOGY [address] | [address] | turbinates (Primary | | | | [address] | [address] [place], | Dx); Chronic | | | | [place], [place] | [place] [address] | frontal sinusitis | | | | [address] | [phone] | | | | | [phone] | | | +--------+---------+ + + + [...] + + + + | Pulse | 78 | 05/10/2014 3:49 PM | | | | | PST | | + + + + + | Temperature | - | - | | + + + + + | Respiratory Rate | - | - | | + + + + + | Oxygen Saturation | 97% | 05/10/2014 3:49 PM | | | | | PST | | + + + + + | Inhaled Oxygen | - | - | | | Concentration | | | | + + + + + | Weight | 81.6 kg (180 lb) | 05/10/2014 3:49 PM | | | | | PST | | + + + + + | Height | 177.8 cm (5' 10") | 05/10/2014 3:49 PM | | | | | PST | | + + + + + | Body Mass Index | 25.83 | 05/10/2014 3:49 PM | | | | | PST | | + + + + + documented in this encounter Progress Notes Keo Munoz MD - 05/10/2014 4:07 PM PST [facility] OTOLARYNGOLOGY [address] [facility] [address] OFFICE NOTE KEO MUNOZ MD Patient: ALBERT MULTANI Admitting: MR #: [id number] LOC: PT TYPE: Adm Date: 05/10/2014 : 1975 OFFICE VISIT DATE OF VISIT: 05/10/2014 The patient is about 6-7 weeks out postop drilling out of the left frontal sinus. For chr onic frontal sinus disease. Also, bilateral inferior turbinoplasties, so he can breathe we ll through the nose. The drainage has basically stopped the pressure he was having in the frontal sinus has resolved. He still feels though he does not breathe well through the le ft nasal passage; he is breathing very nice through the right hand side. He comes in for a followup visit. Examination shows that the posterior end of his left inferior turbinate is still quite large. Both sides of the nose were then examined with a fiberoptic scope. The patient has a very nice space on the right hand side all the way back posteriorly, but the left inferior turbinate on his back about 20 percent still has a fairly glob of tissue that is plugging up the patient. The area was then sprayed well with some Ander-Synephrine and immediately he could feel like he is breathing well on both sides. He eventually woul d like to have it feel the same on both sides and the patient has been advised to wait unti l he is at least 3 months out from surgery. If he continues to feel like this side needs t o be opened, more than a revision on the back end of that turbinate would need to be frank ed out. The patient will be re-seen again in about a month and half. KEO MUNOZ MD Dictated by KEO MUNOZ MD 05/10/2014 16:07:06 Transcribed on 05/10/2014 17:00:10 by ms job# [id number] Confirmation #: [id number] signed by Keo Munoz MD at 05/11/2014 8:16 AM Keo Ahumada MD - 05/10/2014 4:04 PM G[facility] dictation # [id number] signed by Keo Munoz MD at 05/10/2014 4:07 PM PSTdocumented in th is encounter Plan of Treatment Not on filedocumented as of this encounter Visit Diagnoses + + | Diagnosis | + + | Hypertrophy of nasal turbinates - Primary | + + | Chronic frontal sinusitis | + + documented in this encounter
--- OUTSIDE RECORDS SUMMARY | ~2019-09-08 | XMS | Encounter Summary ---
Demographics + + + | Address | [address] | | | [place] [address] | + + + | Home Phone | | + + + | Preferred Language | Unknown | + + + | Marital Status | | + + + | Scientology Affiliation | Unknown | + + + [...] Team Providers + +------+ + | Care Silica Spray Mixer Name | Role | Phone | + +------+ + | Nilesh Osorio MD | PCP | | + +------+ + Encounter Details +--------+ + + + + | Date | Type | Department | Care Team | Description | +--------+ + + + + | 03/04/ | Documentati | [facility] | Sancho Ruvalcaba, | | | 2018 | on | Center at [facility] [address] | [address] | | | | | [address] | [place], [place] | | | | | Mailcode: CH5E | [address] | | | | | [facility] | [phone] | | | | | and [place], | | | | | | | | | | | | Floor [place], [place] | | | | | | [address] | | | | | | [phone] | | | +--------+ + + + [...]
--- OUTSIDE RECORDS SUMMARY | ~2019-09-08 | XMS | Encounter Summary ---
Demographics + + + | Address | [address] | | | [place] [address] | + + + | Home Phone [...] Team Providers + +------+ + | Care Configuration Technician Name | Role | Phone | + +------+ + | Nilesh Osorio DO | PCP | | + +------+ + Encounter Details +--------+ + + + + | Date | Type | Department | Care Team | Description | +--------+ + + + + | 12/06/ | Hospital | [facility] | Conversion | Diagnosis unknown | | 2018 | Encounter | CONVERSION [address] | Transaction, | | | | | [address] | Provider Unknown | | | | | [place], [place] | [phone] | | | | | [address] | | | | | | [phone] | | | +--------+ + + + [...] | + +--------+ + + + | CT SINUS WO CONTRAST | Routin | 08/06/2017 | | Results for this | | | e | 4:01 PM | | procedure are in the | | | | PDT | | results section. | + +--------+ + + + documented in this encounter Results CT Sinus wo Contrast (08/06/2017 4:01 PM PDT) + + | Specimen | + + | | + + + + + | Narrative | Performed At | + + + | This is a non-reportable procedure without a radiologist report and | | | is used for image storage only | | + + + + + | Procedure Note | + + | Cristiano Mcnamara - 11/30/2018 4:34 PM PDT This is a non-reportable procedure | | without a radiologist report and isused for image storage only | + + documented in this encounter Visit Diagnoses + + | Diagnosis | + + | Diagnosis unknown Other unknown and unspecified cause of morbidity or mortality | + + documented in this encounter"
--- OUTSIDE RECORDS SUMMARY | ~2019-09-08 | XMS | Encounter Summary ---
Demographics + + + | Address | [address] | | | [place] [address] | + + + | Home Phone | | + + + | Preferred Language | Unknown | + + + | Marital Status | | + + + | Sabianism Affiliation | Unknown | + + + | Race | Unknown | + + + | Ethnic Group | Unknown | + + + Author + + + | Author | [facility] | | | and [place] | + + + | Organization | [facility] | | | [...] Team Providers + +------+ + | Care Medical Review Specialist Name | Role | Phone | [...] + + | 03/03/ | Telephone | [facility] | Rad De La [facility] | Imaging Only | | 2017 | | GASTROENTEROLOGY | MD Felix [address] | | | | | [address] | [address] [facility] | | | | | [address] [place], [place] | [place] [address] | | | | | [address] | [phone] | | | | | [phone] | | | +--------+ + + + [...]
--- OUTSIDE RECORDS SUMMARY | ~2019-09-08 | XMS | Encounter Summary ---
Demographics + + + | Address | [address] | | | [place] [address] | + + + | Home Phone | | + + + | Preferred Language | Unknown | + + + | Marital Status | | + + + | Buddhist Affiliation | Unknown | + + + | Race | Unknown | + + + | Ethnic Group | Unknown | + + + Author + + + | Author | [facility] | | | and [place] | + + + | Organization | [facility] | | [...] Team Providers + +------+ + | Care Stockroom Inventory Clerk Name | Role | Phone | [...] + + | 05/26/ | Telephone | [facility] | Rad De La Cruz | Procedure (adjusted | | 2019 | | GASTROENTEROLOGY | MD Felix [address] | check in time) | | | | [address] [facility] | [address] [facility] | | | | | [address] [place], [place] | [place] [address] | | | | | [address] | [phone] | | | | | [phone] | | | +--------+ + + + [...]
--- OUTSIDE RECORDS SUMMARY | ~2019-09-08 | XMS | Encounter Summary ---
Demographics + + + | Address | [address] | | | [place] [address] | + + + | Home Phone | | + + + | Preferred Language | Unknown | + + + | Marital Status | | + + + | Zoroastrianism Affiliation | Unknown | + + + | Race | Unknown | + + + | Ethnic Group | Unknown | + + + Author + + + | Author | [facility] | | | and [place] | + + + | Organization | [facility] | | | [...] Team Providers + +------+ + | Care Solar Energy Engineer Name | Role | Phone | + +------+ + | Izzy Snowden | PCP | | + +------+ + Reason for Referral Diagnostic/Screening (Routine) + +--------+ + + + + | Status | Reason | Specialty | Diagnoses / | Referred By | Referred To | | | | | Procedures | Contact | Contact | + +--------+ + + + + | Authorized | | Radiology - | Diagnoses | Dorothy, | [address] | | | | Diagnostic | Abdominal | [place] | [facility] | | | | Ultrasound | pain, RUQ | MD Felix | [address] | | | | | Gallbladder | [address] | | | | | pain | ST [place] | [place] | | | | | Procedures | [place], [place] | [address] | | | | | [place], ABDOMEN | [address] | Phone: | | | | | LIMITED | Phone: | [phone] | | | | | | [phone] | Fax: | | | | | | Fax: | [phone] | | | | | | [phone] | | + +--------+ + + + + Encounter Details +--------+ + + + + | Date | Type | Department | Care Team | Description | +--------+ + + + + | 08/29/ | Orders Only | [facility] | Rad De La Cruz | Abdominal pain, RUQ | | 2020 | | GASTROENTEROLOGY | MD Felix [address] | (Primary Dx); | | | | [address] | [address] [place] | Gallbladder pain | | | | [address] [place], [place] | [place] [address] | | | | | [address] | [phone] | | | | | [phone] | | | +--------+ + + + [...] | | + +---------+--------+ + + | US Abdomen Limited | Imaging | Routin | Abdominal pain, | Expected: | | | | e | RUQ Gallbladder | 08/30/2019, Expires: | | | | | pain | 08/29/2020 | + +---------+--------+ + + + + +--------+ + + | Name | Type | Priori | Associated Diagnoses | Order Schedule | | | | ty | | | + + +--------+ + + | Ambulatory Referral | Outpatient | Routin | Abdominal pain, | Ordered: 08/30/2019 | | to Radiology/Imaging | Referral | e | RUQ Gallbladder | | | (Ultrasound) | | | pain | | + + +--------+ + + documented as of this encounter Visit Diagnoses + + | Diagnosis | + + | Abdominal pain, RUQ - Primary Abdominal pain, right upper quadrant | + + | Gallbladder pain Unspecified disorder of gallbladder | + + documented in this encounter"
--- OUTSIDE RECORDS SUMMARY | ~2019-09-08 | XMS | Encounter Summary ---
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
--- OUTSIDE RECORDS SUMMARY | ~2019-09-08 | XMS | Encounter Summary ---
Demographics + + + | Address | [address] | | | [place] [address] | + + + | Home Phone | | + + + | Preferred Language | Unknown | + + + | Marital Status | | + + + | Anabaptist Affiliation | Unknown | + + + | Race | Unknown | + + + | Ethnic Group | Unknown | + + + Author + + + | Author | [facility] | | | and [place] | + + + | Organization | [facility] | | [...] Team Providers + +------+ + | Care Car Audio Installer Name | Role | Phone | [...] + + | 06/02/ | Telephone | [facility] | Rad De La Cruz | Results, Pathology | | 2019 | | GASTROENTEROLOGY | MD Felix [address] | | | | | [address] | [address] [place] | | | | | [address] [place] | [place] [address] | | | | | [address] | [phone] | | | | | [phone] | | | +--------+ + + + [...]
--- OUTSIDE RECORDS SUMMARY | ~2019-09-08 | XMS | Encounter Summary ---
Demographics + + + | Address | [address] | | | [place] [address] | + + + | Home Phone [...] Team Providers + +------+ + | Care Engineering Scientist Name | Role | Phone | + +------+ + | Nilesh Osorio DO | PCP | | + +------+ + Reason for Visit + + + | Reason | Comments | + + + | Biopsy Results | | + + + Encounter Details +--------+ + + + + | Date | Type | Department | Care Team | Description | +--------+ + + + + | 06/06/ | Telephone | [facility] | Rad De La Cruz | Biopsy Results | | 2019 | | GASTROENTEROLOGY | MD Felix [address] | | | | | [address] | [address] [place] | | | | | [address] [place], [place] | [place] [address] | | | | | [address] | [phone] | | | | | [phone] | | | +--------+ + + + [...] | Primary neuroendocrine carcinoma of rectum (HCC) | + + documented in this encounter"
--- OUTSIDE RECORDS SUMMARY | ~2019-09-08 | XMS | Encounter Summary ---
Demographics + + + | Address | [address] | | | [place] [address] | + + + | Home Phone [...] Team Providers + +------+ + | Care Recyclable Materials Sorter Name | Role | Phone | + +------+ + | Izzy Snowden | PCP | | + +------+ + Encounter Details +--------+ + + + + | Date | Type | Department | Care Team | Description | +--------+ + + + + | 05/30/ | Hospital | [facility] | Zhang Smith | No Show | | 2019 | Encounter | MED CTR [facility] | MD Julian [address] | | | | | MEDICINE [address] [place] | | | | | [place], | [place] [address] | | | | | [place] [address] | [phone] | | | | | [phone] | | | | | | | Order Entry, [facility] | | +--------+ + + + [...]
--- OUTSIDE RECORDS SUMMARY | ~2019-09-08 | XMS | Encounter Summary ---
Demographics + + + | Address | [address] | | | [place] [address] | + + + | Home Phone | | + + + | Preferred Language | Unknown | + + + | Marital Status | | + + + | Yazdanism Affiliation | Unknown | + + + | Race | Unknown | + + + | Ethnic Group | Unknown | + + + Author + + + | Author | [facility] | | | and [place] | + + + | Organization | [facility] | | | [...] Team Providers + +------+ + | Care Contact Lens Inspector Name | Role | Phone | [...] + + | 02/12/ | Telephone | [facility] | Keo Wheatley MD | Procedure | | 2013 | | OTOLARYNGOLOGY [address] | [address] | | | | | [address] | [address] [place], | | | | | [place], [place] | [place] [address] | | | | | [address] | [phone] | | | | | [phone] | | | +--------+ + + + [...]
--- OUTSIDE RECORDS SUMMARY | ~2019-09-08 | XMS | Encounter Summary ---
Demographics + + + | Address | [address] | | | [place] [address] | + + + | Home Phone | | + + + | Preferred Language | Unknown | + + + | Marital Status | | + + + | Quaker Affiliation | Unknown | + + + [...] Team Providers + +------+ + | Care Heading Saw Operator Name | Role | Phone | [...] esophagitis presence | | | | [address] [place], [place] | [place] [address] | not specified | | | | [address] | [phone] | (Primary Dx); | | | | [phone] | | Bloating; LUQ | | | [...] Cruz; pt given samples (2 samples boxes [id number] 2020 and [id number] exp 2019 10 day supply total) of 60 mg Dexilant 1 capsule daily #10 for GERD; if patient feels r elief from this medication can cancel procedure; if no relief keep procedure and order GES a nd Esphogram as well to be performed at [facility]; pt advised and verbalized understanding; he [...]
--- OUTSIDE RECORDS SUMMARY | ~2019-09-08 | XMS | Encounter Summary ---
Demographics + + + | Address | [address] | | | [place] [address] | + + + | Home Phone [...] Team Providers + +------+ + | Care Burner Machine Operator Name | Role | Phone [...] | | | Diagnostic | Abdominal | Leonardo | [facility] | | | | Ultrasound | pain, RUQ | MD Felix | [address] | | | | | Gallbladder | [address] | | | | | pain | ST [place] | [place] | | | | | Procedures | [place], [place] | [address] | | | | | [place], [place] | [address] | Phone: | | | | | LIMITED | Phone: | [phone] | | | | | | [phone] | Fax: | | | | | | Fax: | [phone] | | | | | | [phone] | | + +--------+ + + + [...] Gallbladder pain | | | | [address] [place], [place] | [place] [address] | | | | | [address] | [phone] | | | | | [phone] | | | +--------+ + + + [...]
--- OUTSIDE RECORDS SUMMARY | ~2019-09-08 | XMS | Encounter Summary ---
Demographics + + + | Address | [address] | | | [place] [address] | + + + | Home Phone | | + + + | Preferred Language | Unknown | + + + | Marital Status | | + + + | Judaism Affiliation | Unknown | + + + | Race | Unknown | + + + | Ethnic Group | Unknown | + + + Author + + + | Author | [facility] | | | and [place] | + + + | Organization | [facility] | | [...] Team Providers + +------+ + | Care Reverberatory Furnace Supervisor Name | Role | Phone | [...] | | | | | | | [place] | | | | | | | COLONOSCOPY | | | | | | | FLX DX | | | | | | | W/COLLJ SPEC | | | | | | | WHEN PFRMD | | | | | | | [place] | | | | | | | COLONOSCOPY | | | | | | | W/BIOPSY | | | | | | | SINGLE/MULTI | | | | | | | PLE [place] | | | | | | | [...] | | | | | [address] [place] | | | | | [place], [place] | [place] [address] | | | | | [address] | [phone] | | | | | [phone] | | | +--------+---------+ + + + [...] You can't be awakened Date Last Reviewed: 02/04/201619990342-3979 [employer]. [address] [place] [address], [place] [id number]. All righ ts reserved. This information is [...] | RAVENO N | | 9:29 AMMRN: [id number] #: [id number] of : | | | 1975Admit Type: AmbulatoryAge: 43[facility]: [facility] 02Gender: MaleNote | | | Status: FinalizedAttending MD: RAD [facility]ER [facility]cedure: | | | ColonoscopyIndications: Generalized abdominal pain, [...] evaluated | | | using the BBPS (Milton Bowel Preparation Scale) with scores of: | [...] AMScope | | | Out: 10:21:23 AM [facility], [address] | | | [place] [address] | | | colon for evaluation of [...] |Scope Out: 10:21:23 AM | | | [facility], [address] [place], [place] | | | [address] | | + +--------- -----+ + +---------+ [...] diagnosis. As part | | | of [facility]' Quality Improvement Program, this case was | [...] developed and its performance characteristics determined by [facility] | | | [facility]. It has not been cleared or approved by the U.S. Food | | | and Drug Administration. The FDA has determined that such clearance | | | or approval is not necessary. This test is used for clinical | | | purposes. It should not be regarded as investigational or for | | | research. [facility] is certified under the Clinical | | | Laboratory Improvement Amendments of 1988 (CLIA) as qualified to | | | perform high complexity clinical laboratory testing. PERFORMING | | | LABORATORY: The technical component was performed by [facility] | | | [facility], [address] [place] [address] (Mechanical Systems Design Engineer: | | | Trudi Hughes MD; CLIA# [id number]). Professional interpretation was | | | performed by [facility], [facility], [address] | | [address] [place], [place] [address] (Mechanical Systems Design Engineer: Johnathan Silva | | | MD Fabienne; CLIA# [id number]). Diagnostician: Johnathan Hidalgo | | Pathologist Electronically Signed 05/31/2018 | | + + + + +---------+ + + | Performing | Address | City/State/[place] [facility] At [facility] Vegascode | Phone Number | | Organization | [...]
--- OUTSIDE RECORDS SUMMARY | ~2019-09-08 | XMS | Encounter Summary ---
Demographics + + + | Address | [address] | | | [place] [address] | + + + | Home Phone | | + + + | Preferred Language | Unknown | + + + | Marital Status | | + + + | Sabianist Affiliation | Unknown | + + + | Race | Unknown | + + + | Ethnic Group | Unknown | + + + Author + + + | Author | [facility] | | | and [place] | + + + | Organization | [facility] | | | [...] Team Providers + +------+ + | Care Sales Advisory Manager Name | Role | Phone | [...] | | | | [address] [facility] | Vijay Rita. | | | | | [address] [place] | [place] [address] | | | | | [address] | | | | | | [phone] | | | +--------+ + + + [...]
--- OUTSIDE RECORDS SUMMARY | ~2019-09-08 | XMS | Encounter Summary ---
Demographics + + + | Address | [address] | | | [place] [address] | + + + | Home Phone [...] Team Providers + +------+ + | Care Signal Intelligence Analyst Name | Role | Phone | [...] y | 2 week | | MD Moshe [address] | | | | | follow | | [address] | | | | | nose/pt/life | | [address] | | | | | [place] | | [place], | | | | | Procedures | | [place] [address] | | | | | OFFICE VISIT | | Phone: | | | | | REGULAR | | [phone] | | | | | | | Fax: | | | | | | | [phone] | +--------+--------+ + + + + Encounter Details +--------+---------+ + + + | Date | Type | Department | Care Team | Description | +--------+---------+ + + + | 06/18/ | Office | [facility] | Keo Munoz MD | Acute upper | | 2015 | Visit | OTOLARYNGOLOGY [address] | [address] [place] | respiratory | | | | [address] | [address] [place], | infections of | | | | [place], [place] | [place] [address] | unspecified site | | | | [address] | [phone] | (Primary Dx); | | | | [phone] | | Chronic frontal | | | [...] MD - 06/18/2014 4:01 PM PST [facility] OTOLARYNGOLOGY [address] [facility] [address] OFFICE NOTE KEO MUNOZ MD Patient: ALBERT MULTANI Admitting: MR #: [id number] LOC: PT TYPE: Adm Date: 06/18/2014 : [...] Transcribed on 06/18/2014 23:21:27 by eladia job# [id number] Confirmation #: [id number] cc: BULMARO WHITE PAC tayKeo young MD - 06/18/2014 3:57 PM PSTSemoshe dictation # [id number] signed by Keo Munoz MD at 06/18/2014 [...]
--- OUTSIDE RECORDS SUMMARY | ~2019-09-08 | XMS | Encounter Summary ---
Demographics + + + | Address | [address] | | | [place] [address] | + + + | Home Phone | | + + + | Preferred Language | Unknown | + + + | Marital Status | | + + + | Buddhism Affiliation | Unknown | + + + [...] Team Providers + +------+ + | Care Knotting Machine Operator Portable Name | Role | Phone | + [...] | Otolaryngolog | Diagnoses | [place], | Dioni, Keo | | | Services | y | Chronic | Keo Arizmendi, | E, [address] | | | Required | | frontal | [address] | | | | | sinusitis | [address] [place] [address] | [address] | | | | | Hypertrophy | [place] | [place], | | | | | of nasal | [place], [place] | [place] [address] | | | | | turbinates | [address] | Phone: | | | | | Procedures | Phone: | [phone] | | | | | UT EXCISION | [phone] | Fax: | | | | | TURBINATE | Fax: | [phone] | | | | | UT NASAL | [phone] | | | | | | ANGELICA JANG | | | | | | | [...] Dx); Hypertrophy of | | | | [place], [place] | [place] [address] | nasal turbinates | | | | [address] | [phone] | | | | | [phone] | | | +--------+ + + + [...]
--- OUTSIDE RECORDS SUMMARY | ~2019-09-08 | XMS | Encounter Summary ---
Demographics + + + | Address | [address] | | | [place] [address] | + + + | Home Phone [...] Team Providers + +------+ + | Care Ripening Room Operator Name | Role | Phone | [...] + + | 06/07/ | Telephone | [facility] | Rad De La Cruz | Appointment | | 2019 | | GASTROENTEROLOGY | MD Felix [address] | | | | | [address] [facility] | [address] [facility] | | | | | [address] [place], [place] | [place] [address] | | | | | [address] | [phone] | | | | | [phone] | | | +--------+ + + + [...]
--- OUTSIDE RECORDS SUMMARY | ~2019-09-08 | XMS | Encounter Summary ---
Demographics + + + | Address | [address] | | | [place] [address] | + + + | Home Phone | | + + + | Preferred Language | Unknown | + + + | Marital Status | | + + + | Shinto Affiliation | Unknown | + + + [...] Team Providers + +------+ + | Care Correctional Officer Sergeant Name | Role | Phone | + +------+ + | Nilesh Osorio DO | PCP | | + +------+ + Encounter Details +--------+ + + + + | Date | Type | Department | Care Team | Description | +--------+ + + + + | 11/16/ | Hospital | [facility] | SarahZhang | Palpitations; Chest | | 2018 | Encounter | [facility] | MD Julian [address] | pain, unspecified | | | | MEDICINE [address] | [address] [place] | type; Fluttering | | | | [place], | [place] [address] | heart | | | | [place] [address] | [phone] | | | | | [phone] | | | +--------+ + + + [...] Nilesh Osorio, | | | DO READING ACCOUNTING BOOKKEEPER: Tricia Smith MD, PhD, FACC | | [...]
--- OUTSIDE RECORDS SUMMARY | ~2019-09-08 | XMS | Encounter Summary ---
Demographics + + + | Address | [address] | | | [place] [address] | + + + | Home Phone | | + + + | Preferred Language | Unknown | + + + | Marital Status | | + + + | Temple Affiliation | Unknown | + + + | Race | Unknown | + + + | Ethnic Group | Unknown | + + + Author + + + | Author | [facility] | | | and [place] | + + + | Organization | [facility] | | | [...] Team Providers + +------+ + | Care Astronomy Department Chair Name | Role | Phone | + [...] + + | 06/29/ | Telephone | [facility] | Rad De La Cruz | Other | | 2019 | | GASTROENTEROLOGY | MD Felix [address] | | | | | [address] [facility] | [address] [facility] | | | | | [address] [place] | [place] [address] | | | | | [address] | [phone] | | | | | [phone] | | | +--------+ + + + [...]
--- OUTSIDE RECORDS SUMMARY | ~2019-09-08 | XMS | Encounter Summary ---
Demographics + + + | Address | [address] | | | [place] [address] | + + + | Home Phone | | + + + | Preferred Language | Unknown | + + + | Marital Status | | + + + | Anglican Affiliation | Unknown | + + + [...] | + + +---------+ + | Rosanne Multain | ECON | Unknown | | + + +---------+ + | Jadyn Rangel | ECON | Unknown | | + + +---------+ + Care Team Providers + +------+ + | Care Movie Star Name | Role | Phone | + [...] + + | 06/21/ | Telephone | [facility] | Rad De La Cruz | Nausea | | 2019 | | GASTROENTEROLOGY | MD Felix [address] | | | | | [address] [facility] | [address] [facility] | | | | | [address] [place] | [place] [address] | | | | | [address] | [phone] | | | | | [phone] | | | +--------+ + + + [...]
--- OUTSIDE RECORDS SUMMARY | ~2019-09-08 | XMS | Encounter Summary ---
Demographics + + + | Address | [address] | | | [place] [address] | + + + | Home Phone [...] Providers + +------+ + | Care Oil Dipper Name | Role | Phone | + [...] + + | 10/19/ | Telephone | [facility] | Zhang Smith | LABS | | 2018 | | [place] [address] | MD Julian [address] | | | | | [place], | [address] [place] | | | | | [place] [address] | [place] [address] | | | | | [phone] | [phone] | | | | | | | [...]
--- OUTSIDE RECORDS SUMMARY | ~2019-09-08 | XMS | Encounter Summary ---
Demographics + + + | Address | [address] | | | [place] [address] | + + + | Home Phone [...] Team Providers + +------+ + | Care Target Worker Name | Role | Phone | [...] | | | Procedures | | [place] [address] | | | | | OFFICE VISIT | | Phone: | | | | | REGULAR | | [phone] | | | | | | | Fax: | | | | | | | [phone] | +--------+--------+ + + + + Encounter Details +--------+---------+ + + + | Date | Type | Department | Care Team | Description | +--------+---------+ + + + | 04/26/ | Office | [facility] | Keo Munoz MD | Chronic frontal | | 2014 | Visit | OTOLARYNGOLOGY [address] | [address] | sinusitis (Primary | | | | [address] | [address] [place], | Dx); Hypertrophy of | | | | [place], [place] | [place] [address] | nasal turbinates | | | | [address] | [phone] | | | | | [phone] | | | +--------+---------+ + + + [...] MD - 04/26/2014 4:36 PM PST [facility] OTOLARYNGOLOGY [address] [facility] [id number] OFFICE NOTE KEO MUNOZ MD Patient: ALBERT MULTANI Admitting: MR #: [id number] LOC: PT TYPE: Adm Date: 04/26/2014 : [...] 16:36:38 Transcribed on 04/26/2014 22:17:54 by job# [id number] Confirmation #: [id number] signed by Keo Munoz MD at 04/27/2014 8:19 AM Keo Ahumada MD - 04/26/2014 4:34 PM PSTSee dictation # [id number] signed by Keo Munoz MD at 04/26/2014 4:37 PM PSTdocumented in th is encounter Plan of Treatment Not on filedocumented as of this encounter Visit Diagnoses + + | Diagnosis | + + | Chronic frontal sinusitis - Primary | + + | Hypertrophy of nasal turbinates | + + documented in this encounter
--- OUTSIDE RECORDS SUMMARY | ~2019-09-08 | XMS | Encounter Summary ---
Demographics + + + | Address | [address] | | | [place] [address] | + + + | Home Phone | | + + + | Preferred Language | Unknown | + + + | Marital Status | | + + + | Baptism Affiliation | Unknown | + + + | Race | Unknown | + + + | Ethnic Group | Unknown | + + + Author + + + | Author | [facility] | | | and [place] | + + + | Organization | [facility] | | | and [...] Team Providers + +------+ + | Care Commercial Portfolio Manager Name | Role | Phone | + +------+ + | Bulmaro Arechiga PA-C | PCP | | + +------+ + Reason for Visit + + + | Reason | Comments | + + + | Post-op Problem | | + + + Encounter Details +--------+ + + + + | Date | Type | Department | Care Team | Description | +--------+ + + + + | 03/28/ | Telephone | [facility] [place] | Keo Wheatley MD | Post-op Problem | | 2013 | | OTOLARYNGOLOGY [address] | [address] | | | | | [address] | [address] [place], | | | | | [place] | [place] [address] | | | | | [address] | [phone] | | | | | [phone] | | | +--------+ + + + [...]
--- OUTSIDE RECORDS SUMMARY | ~2019-09-08 | XMS | Encounter Summary ---
Demographics + + + | Address | [address] | | | [place] [address] | + + + | Home Phone | | + + + | Preferred Language | Unknown | + + + | Marital Status | | + + + | Caodaism Affiliation | Unknown | + + + | Race | Unknown | + + + | Ethnic Group | Unknown | + + + Author + + + | Author | [facility] | | | and [place] | + + + | Organization | [facility] | | [...] Team Providers + +------+ + | Care Prop Drawer Name | Role | Phone | + +------+ + | Bulmaro Arechiga PA-C | PCP | | + +------+ + Reason for Visit + + + | Reason | Comments | + + + | Follow-up | Pt is here to go over images of sinus | + + + Evaluate & Treat [...] | | y | Recurrent | Bulmaro L, | MD Ugo [address] | | | | | sinus | PA-C [address] | [address] | | | | | infections | [place] | [address] | | | | | recurring | WAY | [place], | | | | | sinus | [place], | [place] [address] | | | | | infection | [place] [address] | Phone: | | | | | Procedures | Phone: | [phone] | | | | | [place] OFFICE | [phone] | Fax: | | | | | OUTPATIENT | Fax: | [phone] | | | | | VISIT 25 | [phone] | | | | | | MINUTES [...] Description | +--------+---------+ + + + | 01/25/ | Office | [facility] | Keo Wheatley MD | Chronic frontal | | 2013 | Visit | OTOLARYNGOLOGY [address] | [address] | sinusitis (Primary | | | | [address] | [address] [place], | Dx); Hypertrophy of | | | | [place], [place] | [place] [address] | nasal turbinates | | | | [address] | [phone] | | | | | [phone] | | | +--------+---------+ + + + [...] Weight | 79.4 kg (175 lb) | 01/25/2014 2:49 PM | | | | | PDT | | + + + + + | Height | 167.6 cm (5' 6") | 01/25/2014 2:49 PM | | | | | PDT | | + + + + + | Body Mass Index | 28.25 | 01/25/2014 2:49 PM | | | | | PDT | | + + + + + documented in this encounter Progress Notes Keo Wheatley MD - 01/25/2014 3:08 PM PDTSee dictation # [id number] signed by Keo Wheatley MD at 01/25/2014 3:12 PM Keo Gonzalez MD - 01/25/2014 12:00 AM PDT [facility] [address] [place] [address] FAX: [phone] OFFICE VISIT The patient has had a lot of problems with recurrent left nasal sinus infections. He has c hronic difficulty breathing through his nasal passages. If he uses Sudafed he will stay open enough while the medicine is aboard, but then as soon as it is completed he plugs up. He particularly then has a lot of problems trying to breathe at night because if he uses the S udafed he cannot sleep. He has completed the CT scan through the nasal sinus area and comes in for followup visit. EXAMINATION: Again shows the very large inferior turbinates, a little bit of room around th em because he has taken the Sudafed, very limited. He has a mild deviation of the septum to wards the right-hand side. No mass or lesion or polyps or pus is noted up into the nasal pa ssages currently. CT scan was reviewed. He has the very large turbinates, as noted. 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 Ethmoidal, right frontal, sphenoid and mastoid are all open a nd clear and functioning well. Only this one sinus that is occluded. IMPRESSION 1. CHRONIC LEFT FRONTAL SINUSITIS. 2. HYPERTROPHIC INFERIOR TURBINATES. PLAN: The patient will be scheduled for 1. Bilateral inferior turbinoplasties. 2. Left frontal sinusotomy. This will be carried out with the use of the Skipo guidance system, to increase the safe ty. This was all explained to the patient, along with risks and benefits. He desires to go ahead with the surgery and this is scheduled accordingly. Keo Wheatley MD / Olimpia JOB #: [id number] signed by Keo Wheatley MD at 01/26/2014 8:26 AM PDTdocumente d in this encounter Plan of Treatment Not on filedocumented as of this encounter Visit Diagnoses + + | Diagnosis | + + | Chronic frontal sinusitis - Primary | + + | Hypertrophy of nasal turbinates | + + documented in this encounter
--- OUTSIDE RECORDS SUMMARY | ~2019-09-08 | XMS | Encounter Summary ---
Demographics + + + | Address | [address] | | | [place] [address] | + + + | Home Phone | | + + + | Preferred Language | Unknown | + + + | Marital Status | | + + + | Restoration Affiliation | Unknown | + + + | Race | Unknown | + + + | Ethnic Group | Unknown | + + + Author + + + | Author | [facility] | | | and [place] | + + + | Organization | [facility] | | | [...] Team Providers + +------+ + | Care Client Relationship Executive Name | Role | Phone | + [...] | 05/26/ | Refill | [facility] | Rad De La Cruz | Other | | 2019 | | GASTROENTEROLOGY | MD Felix [address] | | | | | [address] | [address] [place] | | | | | [address] [place] | [facility] [place] [address] | | | | | [address] | [phone] | | | | | [phone] | | | +--------+--------+ + + + [...]
--- OUTSIDE RECORDS SUMMARY | ~2019-09-08 | XMS | Encounter Summary ---
Demographics + + + | Address | [address] | | | [place] [address] | + + + | Home Phone | | + + + | Preferred Language | Unknown | + + + | Marital Status | | + + + | Temple Affiliation | Unknown | + + + | Race | Unknown | + + + | Ethnic Group | or | + + + Author + + + | Author | [facility] | + + + | Organization | [facility] | + + + | Address | Unknown | + + + | Phone | Unavailable | + + + Support + + +---------+ + | Name | Relationship | Address | Phone | + + +---------+ + | Rosanne Multani | ECON | Unknown | | + + +---------+ + Care Team Providers + +------+ + | Care Education Faculty Member Name | Role | Phone | + [...] | | | | | sinusitis | [place] | Mailcode: | | | | | Chronic | Health | [facility] | | | | | sphenoidal | Center | for Health | | | | | sinusitis | [address] | and Healing, | | | | | Headache | [address] | [address] | | | | | | [address] | [address]th Floor | | | | | | [place], | [place], [place] | | | | | | [place] [address] | [address] | | | | | | Phone: | Phone: | | | | | | [phone] | [phone] | | | | | | Fax: | Fax: | | | | | | [phone] | [phone] | +--------+--------+ + + + + Encounter Details +--------+---------+ + + + | Date | Type | Department | Care Team | Description | +--------+---------+ + + + | 04/25/ | Office | [facility] | Tarah Davenport, | Atypical facial pain | | 2019 | Visit | Center at [facility] [address] | [address] [address] | (Primary Dx); | | | | [address] | [address] [place], [place] | Chronic maxillary | | | | Mailcode: [facility] | [address] | sinusitis; Chronic | | | | [facility] | [phone] | rhinitis | | | | and Healing, | | | | | | [address]th | | | | | | Floor [place], [place] | | | | | | [address] | | | | | | [phone] | | | +--------+---------+ + + + [...] Dav[place] PA-C - 04/25/2018 8:30 AM PST [facility] HPI: Clifton Multani is a 43 y.o. male who presents to the [facility] in consultatio n for headaches. [...] added to his saline irrigations. Proper d sault ste. marie and administration was reviewed today. He will [...] neurologist given that he lives in the [facility]. He w as in agreement with this plan and said he and his primary had already discussed this issue. If he is having difficulty getting a neurology visit locally I am happy to put in a referr al here at [facility]. Answered all his questions the best [...]
--- OUTSIDE RECORDS SUMMARY | ~2019-09-08 | XMS | Encounter Summary ---
Demographics + + + | Address | [address] | | | [place] [address] | + + + | Home Phone [...] Team Providers + +------+ + | Care Fighting Vehicle Infantryman Name | Role | Phone | + [...] + + | 10/19/ | Telephone | [facility] | Zhang Smith | LABS | | 2018 | | [address] | MD Julian [address] | | | | | [address], | [address] [place] | | | | | [place] [address] | [place] [address] | | | | | [phone] | [phone] | | | | | | | [...]
--- OUTSIDE RECORDS SUMMARY | ~2019-09-08 | XMS | Encounter Summary ---
Demographics + + + | Address | [address] | | | [place] [address] | + + + | Home Phone [...] Team Providers + +------+ + | Care Lean Manager Name | Role | Phone | [...] [place] | | | | | | [address] | | | | | | [phone] | | | +--------+ + + + [...]
--- OUTSIDE RECORDS SUMMARY | ~2019-09-08 | XMS | Encounter Summary ---
Demographics + + + | Address | [address] | | | [place] [address] | + + + | Home Phone | | + + + | Preferred Language | Unknown | + + + | Marital Status | | + + + | Worship Affiliation | Unknown | + + + | Race | Unknown | + + + | Ethnic Group | or | + + + Author + + + | Author | [facility] | + + + | Organization | [facility] | + + + | Address | Unknown | + + + | Phone | Unavailable | + + + Support + + +---------+ + | Name | Relationship | Address | Phone | + + +---------+ + | Rosanne Multani | ECON | Unknown | | + + +---------+ + Care Team Providers + +------+ + | Care Inspector And Clerk Name | Role | Phone | + +------+ + | Nilesh Osorio MD | PCP | | + +------+ + Encounter Details +--------+ + + + + | Date | Type | Department | Care Team | Description | +--------+ + + + + | 04/27/ | Documentati | [facility] | Tarah Davenport, | | | 2019 | on | Center at [facility] [address] | [address] | | | | | [address] | [address] [facility] [place] | | | | | Mailcode: [facility] | [address] | | | | | [facility] | [phone] | | | | | and [place], | | | | | | | | | | | | [place], [place] | | | | | | [address] | | | | | | [phone] | | | +--------+ + + + [...]
--- OUTSIDE RECORDS SUMMARY | ~2019-09-08 | XMS | Encounter Summary ---
Demographics + + + | Address | [address] | | | [place] [address] | + + + | Home Phone [...] + + | Author | [facility] | | | and [place] | + + + | Organization | [facility] | | [...] Providers + +------+ + | Care Senior Accounting Clerk Name | Role | Phone | + +------+ + | Nilesh Osorio DO | PCP | | + +------+ + Encounter Details +--------+---------+ + + + | Date | Type | Department | Care Team | Description | +--------+---------+ + + + | 03/31/ | Office | [facility] | Rad De La Cruz | Gastroesophageal | | 2018 | Visit | GASTROENTEROLOGY | MD Felix [address] | reflux disease | | | | [address] | [address] [place] | without esophagitis | | | | [address] [place], [place] | [place] [address] | (Primary Dx); | | | | [address] | [phone] | De La Cruz's esophagus | | | | [phone] | | without dysplasia; | | | | | | Bloating | +--------+---------+ + + + Social History [...] + + + | Blood Pressure | 112/74 | 03/31/2018 1:21 PM | | | | | PST | | + + + + + | Pulse | 69 | 03/31/2018 1:21 PM | | | | | PST | | + + + + + | Temperature | 36.6 C (97.8 F) | 03/31/2018 1:21 PM | | | | | PST | | + + + + + | Respiratory Rate | 16 | 03/31/2018 1:21 PM | | | | | PST | | + + + + + | Oxygen Saturation | 97% | 03/31/2018 1:21 PM | | | | | PST | | + + + + + | Inhaled Oxygen | - | - | | | Concentration | | | | + + + + + | Weight | 83.7 kg (184 lb 8.4 | 03/31/2018 1:21 PM | | | | oz) | PST | | + + + + + | Height | 167.6 cm (5' 6") | 03/31/2018 1:21 PM | | | | | PST | | + + + + + | Body Mass Index | 29.78 | 03/31/2018 1:21 PM | | | | | PST | | + + + + + documented in this encounter Patient Instructions Patient Instructions Rad De La Cruz MD - 03/31/2018 1:30 PM PST1. Start nexium 40 mg once a day (esomeprazole) 2. Can try Iberogast and esophageal guarding (on Muzy), would do one thing at a time 3. EGD in 3 year 4. Call in a month to let us know how you are doing 5. Limit the dae rangeler documented in this encounter Progress Notes Rad De La Cruz MD - 03/31/2018 1:30 PM PST Gastroenterology Clinic Progress Note Date of Office Visit: 03/31/18 Primary Care Physician: Nilesh Osorio DO Chief Complaint No chief complaint on file. History of Present Illness Clifton Multani is a 43 y.o. male who returns to the clinic for follow-up of epigastric abdomi nal pain and GERD. He was last seen on 12/22/2017, please see that note for more details. Interval history: He underwent upper endoscopy with 48 hour ferrari on February 25. 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 His ferrari study showed a day one DeMeester score of 0.7, and a day 2 score of 21, the total DeMeester score was 9.0. I gave him a 10 day sample of excellent, he reports that his symptoms did improve while on the duct excellent. We did try to get him a Dexalone prescription but that was denied by [place]. His only on nothing for his symptoms. He previously has tried omeprazole 20 m g daily without any benefit. Today we reviewed the pictures from his upper endoscopy in the clinic room, we reviewed his pathology, and prior imaging studies including his normal gastric empty scan. Review of Systems A 10 point review [...] Rad De La Cruz MD; Locat ion: [facility] MEDICAL PROCEDURE UNIT INGUINAL HERNIA REPAIR Right 02/2008 NASAL SEPTUM SURGERY 03/20/2014 BILATERAL Inferior Turbinoplasty; LEFT Frontal Sinusotomy; Laterality: Bilateral; Surgeo n: Keo Wheatley MD; Location: [facility] MAIN OR SINUS ENDOSCOPY 03/20/2014 Laterality: Left; Surgeon: Keo Wheatley MD; Location: [facility] MAIN OR SINUS SURGERY 2008 SINUS SURGERY 2011 Allergies Allergies No active allergies Intolerance No active intolerances/contraindications Medications Current Outpatient Prescriptions on File Prior to Visit Medication Sig Dispense Refill aluminum & magnesium hydroxide-simethicone (MAALOX PLUS DOUBLE STRENGTH) 400-400-40 mg/ 5 mL suspension Take 15 mLs by mouth every 4 hours as needed for Indigestion. Diphenhydramine-APAP, sleep, (TYLENOL PM EXTRA STRENGTH) 50-1000 MG/30ML LIQD Take 650 mg by mouth as needed. fluticasone (FLONASE) 50 mcg/nasal spray 2 sprays by Nasal route as needed. ibuprofen (ADVIL, MOTRIN) 200 mg tablet Take 200 mg by mouth as needed for Pain. Pseudoephedrine HCl (SUDAFED PO) Take 1 tablet by mouth as needed. No current facility-administered medications on file prior to visit. Physical Exam Vitals:BP 112/74 | Pulse 69 | Temp 36.6 C (97.8 F) (Temporal) | Resp 16 | Ht 1.676 m (5' 6") | Wt 83.7 kg (184 lb 8.4 oz) | SpO2 97% | BMI 29.78 kg/m General: This is a well-developed,well-nurished male in no apparent distress, alert and kaylie ented x 3. Head: Reveals normocephalic, atraumatic Eyes: Sclera anicteric, normal conjunctiva Mouth: Oropharynx is clear without obstruction. No oral lesion. Labs No new labs Imaging No new imaging Assessment and Plan This is a 43-year-old man with ongoing epigastric abdominal pain and regurgitation. I susp ect that he does have GERD, the 48 hour ferrari had a positive value on the second day, but no rmal value on the first day. He also has De La Cruz's suggest that he's had chronic GERD. He had some improvement in his symptoms with Dexilant. The Dexilant was not approved by his in surance however. We'll therefore try Nexium 40 mg by mouth daily. He could also try Iberog ast or esophageal guardian which are both OTC. 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 I mar mmend repeat endoscopy in 3 years for surveillance. Some studies reveal a benefit with long -term PPI therapy. This is thought to potentially reduce the risk of transformation to esop hageal cancer. ICD-10-CM ICD-9-CM 1. Gastroesophageal reflux disease without esophagitis K21.9 530.81 esomeprazole (NEXIUM) 4 0 mg capsule 2. De La Cruz's esophagus without dysplasia K22.70 530.85 esomeprazole (NEXIUM) 40 mg capsule 3. Bloating R14.0 787.3 Follow up: No Follow-up on file. CC: No referring provider defined for this encounter. Nilesh Osoroi, [id number] [place] [id number] Portions of this chart may have been created with Goombal voice recognition software. Occasi onal wrong-word or [...] | + +--------+ + + + | IMAGING REPORT - | | 03/29/2018 | | Results for this | | EXTERNAL SCAN | | 12:00 AM | | procedure are in the | | | | PST | | results section. | + +--------+ + + + documented in this encounter Results IMAGING REPORT - EXTERNAL SCAN (03/29/2018 12:00 AM PST) + + + | Narrative | Performed At | + + + | Ordered by an | | | unspecified provider. | | + + + documented in this encounter Visit Diagnoses + + | Diagnosis | + + | Gastroesophageal reflux disease without esophagitis - Primary Esophageal reflux | + + | De La Cruz's esophagus without dysplasia De La Cruz's esophagus | + + | Bloating Flatulence, eructation, and gas pain | + + documented in this encounter
--- OUTSIDE RECORDS SUMMARY | ~2019-09-08 | XMS | Encounter Summary ---
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) (Primary Dx); | | | | [address] | [phone] | Dyspepsia; | | | | [phone] | | Gastroesophageal | | | | [...] history: He underwent cap assisted EMR at [facility] on 06/27/2018 along with a EUS. The [...] and lower Bloating Chest pain Cardiolgist in [place]- will have testing Chronic frontal sinusitis left [...] Surgeon: Rad De La Cruz MD; Location: [facility] MEDICAL PROCEDURE UNIT ENDOSCOPY ESOPHAGUS-ACID REFLUX TEST N/A 02/25/2018 Procedure: ENDOSCOPIC 48 HOUR PH FERRARI "CAPSULE"; Surgeon: Rad De La Cruz MD; Locat ion: [facility] MEDICAL PROCEDURE UNIT INGUINAL HERNIA REPAIR Right 02/2008 NASAL SEPTUM SURGERY 03/20/2014 BILATERAL Inferior Turbinoplasty; LEFT Frontal Sinusotomy; Laterality: Bilateral; Surgeo n: Keo Wheatley MD; Location: [facility] MAIN OR OTHER SURGICAL HISTORY N/A 06/27/2018 Procedure: EUS RECTAL; Surgeon: Luke Pitts MD; Location: [facility] MEDICAL PROCEDURE UN IT SIGMOIDOSCOPY N/A 06/27/2018 Procedure: RECTAL ULTRASOUND, SIGMOIDOSCOPY FLEXIBLE POSSIBLE EMR, FTRD/ESD; Surgeon: Morgan Pitts MD; Location: [facility] MEDICAL PROCEDURE UNIT SINUS ENDOSCOPY 03/20/2014 Laterality: Left; Surgeon: Keo Wheatley MD; Location: [facility] MAIN OR SINUS SURGERY 2008 SINUS [...] Iberogast Asked him to be mindful about Katlin-Blair use as there is a lot of [...] provider defined for this encounter. Izzy Snowden, [id number] [place] [id number] Portions of this chart may have been created with Lazarus Effect voice recognition software. Occasi onal wrong-word or [...]
--- OUTSIDE RECORDS SUMMARY | ~2019-09-08 | XMS | Encounter Summary ---
Demographics + + + | Address | [address] | | | [place] [address] | + + + | Home Phone [...] Team Providers + +------+ + | Care Deputy Building Guard Name | Role | Phone | + [...] [address] | | | | | [place] [address], | [address] [place] | | | | | [place] [address] | [place] [address] | | | | | [phone] | [phone] | | | | | | | [...]
--- OUTSIDE RECORDS SUMMARY | ~2019-09-08 | XMS | Encounter Summary ---
Demographics + + + | Address | [address] | | | [place] [address] | + + + | Home Phone [...] Team Providers + +------+ + | Care Air Sealing Technician Name | Role | Phone | [...] | | | Procedures | | [place] [address] | | | | | OFFICE VISIT | | Phone: | | | | | REGULAR | | [phone] | | | | | | | Fax: | | | | | | | [phone] | +--------+--------+ + + + + Encounter Details +--------+---------+ + + + | Date | Type | Department | Care Team | Description | +--------+---------+ + + + | 08/01/ | [facility] | [facility] | Keo Munoz MD | Chronic frontal | | 2014 | Visit | OTOLARYNGOLOGY [address] | [address] | sinusitis (Primary | | | | [address] | [address] [place], | Dx); Allergic | | | | [place] | [place] [address] | rhinitis due to | | | | [address] | [phone] | pollen | | | | [phone] | | | +--------+---------+ + + + [...] MD - 08/01/2014 4:14 PM PDT [facility] OTOLARYNGOLOGY [address] [facility] [id number] OFFICE NOTE KEO MUNOZ MD Patient: ALBERT MULTANI Admitting: MR #: [id number] LOC: PT TYPE: Adm Date: 08/01/2014 : [...] 08/01/2014 16:14:22 Transcribed on 08/01/2014 17:39:31 by [facility] job# [id number] Confirmation #: [id number] cc: CARYL WHITE PAC [facility], Keo Arizemndi MD - 08/01/2014 4:11 PM PDTSee dictation #[id number] signed by Aman Munoz MD at 08/01/2014 4:15 PM PDTdocumented in this encounter Plan of Treatment Not on filedocumented as of this encounter Visit Diagnoses + + | Diagnosis | + + | Chronic frontal sinusitis - Primary | + + | Allergic rhinitis due to pollen | + + documented in this encounter
--- OUTSIDE RECORDS SUMMARY | ~2019-09-08 | XMS | Encounter Summary ---
Demographics + + + | Address | [address] | | | [place] [address] | + + + | Home Phone [...] Providers + +------+ + | Care It Training Specialist Name | Role | Phone | + +------+ + | Nilesh Osorio DO | PCP | | + +------+ + Reason for Visit +--------+ + | Reason | Comments | +--------+ + | GERD | | +--------+ + Encounter Details +--------+ + + + + | Date | Type | Department | Care Team | Description | +--------+ + + + + | 04/29/ | Telephone | [facility] | Rad De La Cruz | GERD | | 2019 | | GASTROENTEROLOGY | MD Felix [address] | | | | | [address] | [address] [facility] | | | | | [address] [place], [place] | [place] [address] | | | | | [address] | [phone] | | | | | [phone] | | | +--------+ + + + [...]
--- OUTSIDE RECORDS SUMMARY | ~2019-09-08 | XMS | Encounter Summary ---
Demographics + + + | Address | [address] | | | [place] [address] | + + + | Home Phone | | + + + | Preferred Language | Unknown | + + + | Marital Status | | + + + | Taoism Affiliation | Unknown | + + + | Race | Unknown | + + + | Ethnic Group | Unknown | + + + Author + + + | Author | [facility] | | | and [place] | + + + | Organization | [facility] | | | [...] Team Providers + +------+ + | Care Woodworking Bench Carpenter Name | Role | Phone | + [...] | | | Procedures | | [place] [address] | | | | | OFFICE VISIT | | Phone: | | | | | REGULAR | | [phone] | | | | | | | Fax: | | | | | | | [phone] | +--------+--------+ + + + + Encounter Details +--------+---------+ + + + | Date | Type | Department | Care Team | Description | +--------+---------+ + + + | 06/18/ | Office | [facility] | Keo Munoz MD | Acute upper | | 2015 | Visit | OTOLARYNGOLOGY [address] | [address] | respiratory | | | | [address] | [address] [place], | infections of | | | | [place], [place] | [place] [address] | unspecified site | | | | [address] | [phone] | (Primary Dx); | | | | [phone] | | Chronic frontal | | | [...] MD - 06/18/2014 4:01 PM PST [facility] OTOLARYNGOLOGY [address] [facility] [address] OFFICE NOTE KEO MUNOZ MD Patient: ALBERT MULTANI Admitting: MR #: [id number] LOC: PT TYPE: Adm Date: 06/18/2014 : [...] Transcribed on 06/18/2014 23:21:27 by eladia job# [id number] Confirmation #: [id number] cc: BULMARO WHITE PAC tayKeo young MD - 06/18/2014 3:57 PM PSTSemoshe dictation # [id number] signed by Keo Munoz MD at 06/18/2014 [...]
--- OUTSIDE RECORDS SUMMARY | ~2019-09-08 | XMS | Encounter Summary ---
Demographics + + + | Address | [address] | | | [place] [address] | + + + | Home Phone | | + + + | Preferred Language | Unknown | + + + | Marital Status | | + + + | Sabianism Affiliation | Unknown | + + + | Race | Unknown | + + + | Ethnic Group | Unknown | + + + Author + + + | Author | [facility] | | | and [place] | + + + | Organization | [facility] | | | [...] Team Providers + +------+ + | Care Federal Aid Coordinator Name | Role | Phone | [...] + + | 04/13/ | Telephone | [facility] | Rad De La Cruz | Medication Prior | | 2017 | | GASTROENTEROLOGY | MD Felix [address] | Authorization | | | | [address] | [address] [place] | | | | | [address] | [place] [address] | | | | | [address] | [phone] | | | | | [phone] | | | +--------+ + + + [...]
--- OUTSIDE RECORDS SUMMARY | ~2019-09-08 | XMS | Encounter Summary ---
Demographics + + + | Address | [address] | | | [place] [address] | + + + | Home Phone [...] Team Providers + +------+ + | Care Audit Lead Name | Role | Phone | + [...] + + | 05/19/ | Telephone | [facility] | Edgar Russo MD | Nausea | | 2020 | | GASTROENTEROLOGY | [address], [place] | | | | | [address] [place] | [address] [place], [place] | | | | | [address] [place], [place] | [address] | | | | | [address] | | | | | | [phone] | | | +--------+ + + + [...]
--- OUTSIDE RECORDS SUMMARY | ~2019-09-08 | XMS | Encounter Summary ---
Demographics + + + | Address | [address] | | | [place] [address] | + + + | Home Phone | | + + + | Preferred Language | Unknown | + + + | Marital Status | | + + + | Amish Affiliation | Unknown | + + + | Race | Unknown | + + + | Ethnic Group | Unknown | + + + Author + + + | Author | [facility] | | | and [place] | + + + | Organization | [facility] | | | [...] Team Providers + +------+ + | Care Escape Wheel Tooth Cutter Name | Role | Phone | + [...] + + | 12/22/ | Office | [facility] | Zhang Smith | Palpitations | | 2018 | Visit | CARDIOLOGY [address] | MD Julian [address] | (Primary Dx) | | | | [place] [address], | [address] [place] | | | | | [place] [address] | [place] [address] | | | | | [phone] | [phone] | | | | | | | [...] Bilateral; Surgeo n: Keo Wheatley MD; Location: [facility] MAIN OR SINUS ENDOSCOPY 03/20/2014 Laterality: Left; Surgeon: Keo Wheatley MD; Location: [facility] MAIN OR SINUS SURGERY 2008 SINUS [...] made to ensure accuracy; however, inadvertent computerized seo professional errors may be pre sent. Electronically signed by: Tricia Smith MD PhD FACC 12/22/2017 documented in t his encounter Plan of Treatment Not on filedocumented as of this encounter Visit Diagnoses + + | Diagnosis | + + | Palpitations - Primary | + + documented in this encounter
--- OUTSIDE RECORDS SUMMARY | ~2019-09-08 | XMS | Encounter Summary ---
Demographics + + + | Address | [address] | | | [place] [address] | + + + | Home Phone | | + + + | Preferred Language | Unknown | + + + | Marital Status | | + + + | Yarsani Affiliation | Unknown | + + + | Race | Unknown | + + + | Ethnic Group | Unknown | + + + Author + + + | Author | [facility] | | | and [place] | + + + | Organization | [facility] | [...] Team Providers + +------+ + | Care Patrol Man Name | Role | Phone | + [...] + + | 07/27/ | Telephone | [facility] | Rad De La Cruz | Appointment (GERD) | | 2019 | | GASTROENTEROLOGY | MD Felix [address] | | | | | [address] | [address] [place] | | | | | [address] [place], [place] | [facility] [place] [address] | | | | | [address] | [phone] | | | | | [phone] | | | +--------+ + + + [...]
--- OUTSIDE RECORDS SUMMARY | ~2019-09-08 | XMS | Encounter Summary ---
Demographics + + + | Address | [address] | | | [place] [address] | + + + | Home Phone | | + + + | Preferred Language | Unknown | + + + | Marital Status | | + + + | Caodaism Affiliation | Unknown | + + + | Race | Unknown | + + + | Ethnic Group | Unknown | + + + Author + + + | Author | [facility] | | | and [place] | + + + | Organization | [facility] | | | [...] Team Providers + +------+ + | Care Carpenter Repair Name | Role | Phone | + [...] + + + | Closed | | | Diagnoses | Dorothy, | CHANTEL | | | | | LUQ pain | Rad | [facility] | | | | | Gastroesopha | MD Felix | [address] | | | | | geal reflux | [address] | [place] | | | | | disease, | [address] [place] | [place] | | | | | esophagitis | [place] | [address] | | | | | presence not | [address] | Phone: | | | | | specified | Phone: | [phone] | | | | | Bloating | [phone] | Fax: | | | | | Procedures | Fax: | [phone] | | | | | NM Gastric | [phone] | | | | | | Emptying | | | | | | | CHG GASTRIC | | | | | | | EMPTYING | | | | | | | IMAGING | | | | | | | STUDY | | | +--------+--------+ + + + + Reason for Visit +--------+ + | Reason | Comments | +--------+ + | Other | GERD Samples | +--------+ + Encounter Details +--------+ + + + + | Date | Type | Department | Care Team | Description | +--------+ + + + + | 01/05/ | Telephone | [facility] | Rad De La Cruz | Other (GERD Samples | | 2017 | | GASTROENTEROLOGY | MD [address] | ) | | | | [address] | [address] [place] | | | | | [address] [place] | [place] [address] | | | | | [address] | [phone] | | | | | [phone] | | | +--------+ + + + [...] | | + +---------+--------+ + + | NM Gastric Emptying | Imaging | Routin | LUQ pain | Expected: | | | | e | Gastroesophageal | 01/06/2018, Expires: | | | | | reflux disease, | 01/06/2019 | | | | | esophagitis presence | | | | | | not specified | | | | | | Bloating | | + +---------+--------+ + + documented as of this encounter Visit Diagnoses + + | Diagnosis | + + | LUQ pain - Primary Abdominal pain, left upper quadrant | + + | Gastroesophageal reflux disease, esophagitis presence not specified | + + | Bloating Flatulence, eructation, and gas pain | + + documented in this encounter"
--- OUTSIDE RECORDS SUMMARY | ~2019-09-08 | XMS | Encounter Summary ---
Demographics + + + | Address | [address] | | | [place] [address] | + + + | Home Phone | | + + + | Preferred Language | Unknown | + + + | Marital Status | | + + + | Evangelical Affiliation | Unknown | + + + | Race | Unknown | + + + | Ethnic Group | Unknown | + + + Author + + + | Author | [facility] | | | and [place] | + + + | Organization | [facility] | | [...] Team Providers + +------+ + | Care Staff Research Scientist Name | Role | Phone | [...] | | | | | | | MT | | | | | | | EXCISION | | | | | | | TURBINATE | | | | | | | MT NASAL | | | | | | [...] + + | 03/20/ | Surgery | [facility] | Keo Wheatley MD | BILATERAL Inferior | | 2013 | | MED CTR OR INTRA OP | [address] | Turbinoplasty; LEFT | | | | [address] | [address] [place], | Frontal Sinusotomy | | | | [place], [place] | [place] [address] | | | | | [address] | [phone] | | | | | [phone] | | | +--------+---------+ + + + [...] - 03/20/2014neosynephrine to nose as needed for abdirizakjennifer cooley. HOB at 30 degrees tonight Understanding [...] nose should also form a triangle. [place] [id number]. All rights reserve d. This information is [...] further understand how the nose works. Desiree [address] [address]. All rights reserve d. This information is [...] | | | (St. | | | [place] | | | y's) | +---+--------+ + [...] | | | (St. | | | [place] | | | y's) | +---+--------+ documented [...] | | | | | | use [place] 10/325 if ordered. If | | | [...]
--- OUTSIDE RECORDS SUMMARY | ~2019-09-08 | XMS | Encounter Summary ---
Demographics + + + | Address | [address] | | | [place] [address] | + + + | Home Phone [...] Team Providers + +------+ + | Care Director China Name | Role | Phone | + [...] | | ogy | Epigastric | Izzy DIRECTOR INFORMATION | Rad [place], | | | | | pain | [address] | MD [address] | | | | | Abdominal | [address] | [address] | | | | | pain, RUQ | [place], | [place], | | | | | Procedures | [place] [address] | [place] [address] | | | | | ER F/U (SEEN | Phone: | Phone: | | | | | FOR US AT | [phone] | [phone] | | | | | ST. | Fax: | Fax: | | | | | [facility]) | [phone] | [phone] | +--------+--------+ + + + + Encounter Details +--------+ + + + + | Date | Type | Department | Care Team | Description | +--------+ + + + + | 07/30/ | Virtual | [facility] | Rad De La Cruz | Gastroesophageal | | 2019 | Office | GASTROENTEROLOGY | MD Felix [address] | reflux disease, | | | Visit | [address] [place] | [address] [place] | esophagitis presence | | | | [address] [place], [place] | [place] [address] | not specified | | | | [address] | [phone] | (Primary Dx); | | | | [phone] | | Diarrhea, | | | | [...] bidirectional video se ssion. Service was provided ojtq-ol-gnqn with the patient via interactive videoconferencing Video start time 217 Video end time 235 Total time (in minutes) including non ndnm-dw-fkhw time (reviewing records, documentation, etc..) 35 You have chosen to receive care through the use of telemedicine. Telemedicine enables [facility] care providers at different locations to [...] and lower Bloating Chest pain Cardiolgist in [place]- will have testing Chronic frontal sinusitis left [...] Surgeon: Rad De La Cruz MD; Location: [facility] MEDICAL PROCEDURE UNIT COLONOSCOPY ENDOSCOPY ESOPHAGUS-ACID REFLUX TEST N/A 02/25/2018 Procedure: ENDOSCOPIC 48 HOUR PH FERRARI "CAPSULE"; Surgeon: Rad De La Cruz MD; Locat ion: [facility] MEDICAL PROCEDURE UNIT HERNIA REPAIR INGUINAL HERNIA REPAIR Right 02/2008 NASAL SEPTUM SURGERY 03/20/2014 BILATERAL Inferior Turbinoplasty; LEFT Frontal Sinusotomy; Laterality: Bilateral; Surgeo n: Keo Wheatley MD; Location: [facility] MAIN OR OTHER SURGICAL HISTORY N/A 06/27/2018 Procedure: EUS RECTAL; Surgeon: Luke Pitts MD; Location: [facility] MEDICAL PROCEDURE UN IT SIGMOIDOSCOPY N/A 06/27/2018 Procedure: RECTAL ULTRASOUND, SIGMOIDOSCOPY FLEXIBLE POSSIBLE EMR, FTRD/ESD; Surgeon: Morgan Pitts MD; Location: [facility] MEDICAL PROCEDURE UNIT SINUS ENDOSCOPY 03/20/2014 Laterality: Left; Surgeon: Koe Wheatley MD; Location: [facility] MAIN OR [...] No follow-ups on file. CC: Izzy Snowden, [facility] [address] [place] [address] Portions of this chart may have been created with [employer] voice recognition software. Occasi onal wrong-word or [...]
--- OUTSIDE RECORDS SUMMARY | ~2019-09-08 | XMS | Encounter Summary ---
Demographics + + + | Address | [address] | | | [place] [address] | + + + | Home Phone [...] Team Providers + +------+ + | Care Claim Service Representative Name | Role | Phone | + +------+ + | Nilesh Osorio DO | PCP | | + +------+ + Encounter Details +--------+---------+ + + + | Date | Type | Department | Care Team | Description | +--------+---------+ + + + | 03/31/ | Office | [facility] | Rad De La Cruz | Gastroesophageal | | 2018 | Visit | GASTROENTEROLOGY | MD Felix [address] | reflux disease | | | | [address] | [address] [place] | without esophagitis | | | | [address] [place], [place] | [place] [address] | (Primary Dx); | | | | [address] | [phone] | De La Cruz's esophagus | | | | [phone] | | without dysplasia; | | | [...] Can try Iberogast and esophageal guarding (on Xfire), would do one thing at a time [...] Dexalone prescription but that was denied by dc s insurance. His only on nothing for [...] La Cruz MD; Locat ion: [facility] MEDICAL PROCEDURE UNIT INGUINAL HERNIA REPAIR Right 02/2008 NASAL SEPTUM SURGERY 03/20/2014 BILATERAL Inferior Turbinoplasty; LEFT Frontal Sinusotomy; Laterality: Bilateral; Surgeo n: Keo Wheatley MD; Location: [facility] MAIN OR SINUS ENDOSCOPY 03/20/2014 Laterality: Left; Surgeon: Keo Wheatley MD; Location: [facility] MAIN OR SINUS SURGERY 2008 SINUS [...] provider defined for this encounter. Nilesh Osorio, [id number] [place] [address] Portions of this chart may have been created with [employer] voice recognition software. Occasi onal wrong-word or [...]
--- OUTSIDE RECORDS SUMMARY | ~2019-09-08 | XMS | Encounter Summary ---
Demographics + + + | Address | [address] | | | [place] [address] | + + + | Home Phone | | + + + | Preferred Language | Unknown | + + + | Marital Status | | + + + | Adventism Affiliation | Unknown | + + + | Race | Unknown | + + + | Ethnic Group | Unknown | + + + Author + + + | Author | [facility] | | | and [place] | + + + | Organization | [facility] | | [...] Team Providers + +------+ + | Care Mine Wirer Name | Role | Phone | + [...] + + | 04/13/ | Telephone | [facility] | Rad De La Cruz | Medication Prior | | 2017 | | GASTROENTEROLOGY | MD Felix [address] | Authorization | | | | [address] [place] | [address] [place] | | | | | [address] [place] | [place] [address] | | | | | [address] | [phone] | | | | | [phone] | | | +--------+ + + + [...]
--- OUTSIDE RECORDS SUMMARY | ~2019-09-08 | XMS | Encounter Summary ---
Demographics + + + | Address | [address] | | | [place] [address] | + + + | Home Phone [...] Team Providers + +------+ + | Care Chemotherapist Name | Role | Phone | + [...] 2020 | | GASTROENTEROLOGY | [address], [place] | | | | | [address] [place] | [address] [place], [place] | | | | | [address] [place], [place] | [address] | | | | | [address] | | | | | | [phone] | | | +--------+ + + + [...]
--- OUTSIDE RECORDS SUMMARY | ~2019-09-08 | XMS | Encounter Summary ---
Demographics + + + | Address | [address] | | | [place] [address] | + + + | Home Phone | | + + + | Preferred Language | Unknown | + + + | Marital Status | | + + + | Mandaen Affiliation | Unknown | + + + [...] Team Providers + +------+ + | Care Sprinkler Worker Name | Role | Phone | [...] | | | Zhang | [address] | | | | | Palpitations | MD Julian | [place], | | | | | Procedures | [address] | [place] | | | | | ECHO | St [place] | [address] | | | | | Complete [place] | [place], [place] | Phone: | | | | | ECHO HEART | [address] | [phone] | | | | | [place] | Phone: | Fax: | | | | | [address] | [phone] | [phone] | | | | | [place] | Fax: | | | | | | ECHO HEART | [phone] | | | | | | [place] [...] | | | Zhang | [address] | | | | | Palpitations | MD Julian | [place], | | | | | Procedures | [address] | [place] | | | | | ECHO | St [place] | [address] | | | | | Complete [place] | [place], [place] | Phone: | | | | | ECHO HEART | [address] | [phone] | | | | | [place] | Phone: | Fax: | | | | | [address] | [phone] | [phone] | | | | | [place] | Fax: | | | | | | ECHO HEART | [phone] | | | | | | [place] | | | | | | | MPLETE, W/O | | | | | | | DOPPLER | | | +--------+--------+ + + + + Encounter Details +--------+ + + + + | Date | Type | Department | Care Team | Description | +--------+ + + + + | 07/31/ | Hospital | [facility] | Zhang Mullen | Palpitations | | 2018 | Encounter | MED CTR ECHO [address] | MD Julian [address] | | | | | [address] [place] | [address] [place] | | | | | [place] [address] | [place] [address] | | | | | [phone] | [phone] | | | | | | | | | | | | Liz Yeung, | | | | | | Legal Adviser | | +--------+ + + + + [...] | | ALBERT Room Number Patient Number [id number] Date of Study | | | 11/16/2017 Visit Number [id number] Accession | | | [id number] Referring Physician SEBAS ORTIZ Number | | | Date of 1975 Job Interviewer | | | SUZANNA DAWKINS Age 42 year(s) Interpreting | | | JULIAN MULLEN MD | | | Balance Truing Inspector SEBAS ORTIZ Gender | | | Male Nurse | | | Stress Polysomnographer Procedure Type of Study TTE procedure: ECHO [...] 0.93 cm PW Diastolic: 0.93 cm EF Xirljgjwm88% EF | | | Calculated: 60% Miscellaneous [...] Diastolic: 0.93 cm | | | EF Mpkqcpwtj99% | | | EF Calculated: 60% | [...] Name RANGEL PRICE Room Number Patient Number [id number] | | Date of Study 11/16/2017 Visit Number [id number] Accession | | [id number] Referring Physician SEBAS ORTIZ Number Date of | | 1975 Job Interviewer SUZANNA DAWKINS Age 42 year(s) | | Interpreting JULIAN MULLEN MD Balance Truing Inspector | | SEBAS ORTIZ Gender Male Nurse [...] 0.93 cm PW Diastolic: 0.93 cm EF Hqljcyigj89% EF | | Calculated: 60% Miscellaneous Aorta [...] PW Diastolic: 0.93 cm | | EF Xkephyqdd67% | | EF Calculated: 60% | | [...]
--- OUTSIDE RECORDS SUMMARY | ~2019-09-08 | XMS | Encounter Summary ---
Demographics + + + | Address | [address] | | | [place] [address] | + + + | Home Phone [...] Team Providers + +------+ + | Care Lgsw Name | Role | Phone | + [...] | | | | sinus | PA-C [address] | [address] | | | | | infections | [address] | [address] | | | | | recurring | WAY | [place], | | | | | sinus | [place], | [place] [address] | | | | | infection | [place] [address] | Phone: | | | | | Procedures | Phone: | [phone] | | | | | [place] OFFICE | [phone] | Fax: | | | | | OUTPATIENT | Fax: | [phone] | | | | | VISIT 25 | [phone] | | | | | | MINUTES [...] + + | 04/05/ | Office | [facility] | Keo Wheatley MD | Chronic frontal | | 2013 | Visit | OTOLARYNGOLOGY [address] | [address] [place] | sinusitis (Primary | | | | [address] | [address] [place], | Dx); Hypertrophy of | | | | [place] | [place] [address] | nasal turbinates | | | | [address] | [phone] | | | | | [phone] | | | +--------+---------+ + + + [...] - 04/05/2014 4:34 PM PSTSee dictation # [id number] signed by Keo Wheatley MD at 04/05/2014 4:37 PM [facility], Keo Arizmendi MD - 04/05/2014 12:00 AM [facility] ENT AND AUDIOLOGY [address] [place] [address] FAX: [phone] OFFICE VISIT The patient is postop bilateral [...] in 2 weeks' time. Keo Wheatley MD GM / AF JOB #: [id number] signed by Keo Wheatley MD at 04/06/2014 7:53 AM PSTdocumentmoshe d in this encounter Plan of Treatment Not on filedocumented as of this encounter Visit Diagnoses + + | Diagnosis | + + | Chronic frontal sinusitis - Primary | + + | Hypertrophy of nasal turbinates | + + documented in this encounter
--- OUTSIDE RECORDS SUMMARY | ~2019-09-08 | XMS | Encounter Summary ---
Demographics + + + | Address | [address] | | | [place] [address] | + + + | Home Phone | | + + + | Preferred Language | Unknown | + + + | Marital Status | | + + + | Spiritism Affiliation | Unknown | + + + | Race | Unknown | + + + | Ethnic Group | Unknown | + + + Author + + + | Author | [facility] | | | and [place] | + + + | Organization | [facility] | | [...] Team Providers + +------+ + | Care Ec Teacher Name | Role | Phone | [...] esophagitis presence | | | | [address] [place], [place] | [place] [address] | not specified | | | | [address] | [phone] | (Primary Dx); | | | | [phone] | | Bloating; LUQ | | | [...] Cruz; pt given samples (2 samples boxes [id number] 2020 and [id number] exp 2019 10 day supply total) of 60 mg Dexilant 1 capsule daily #10 for GERD; if patient feels r elief from this medication can cancel procedure; if no relief keep procedure and order GES a nd Esphogram as well to be performed at [facility]; pt advised and verbalized understanding; he wi [...]
--- OUTSIDE RECORDS SUMMARY | ~2019-09-08 | XMS | Encounter Summary ---
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 | | | | | | (BRII MCKINNEY) | gummie | [...] 6 hours | | | 19 | | | tablet | if needed for [...] | | PRO VIDENCE | | ALBERT SIMMOSN | [facility] | | : 1975 AGE: 43 years SEX: Male | [facility] | | | LABOR ATORY | | Acct: [id number] Location: [facility] | | [facility]; [facility] MEDICAL PROCEDURE UNIT POOL; [facility] | | | MEDICAL PROCEDURE UNIT POOL | | | Case #: [id number] Ordering: | | | RENEE PITTS MD Client: [facility] | | | [facility] Copy To: | | | Printed: 06/28/2018 [...] 11:50 | | | amVerified by: YESY Forbes Date: 06/28/2018 04:37 | | | pmPerforming Location: 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 | [place] [address] | | | [facility] | | | | | AC THOMSON | | | | + + + + + EUS Lower (06/27/2018 3:05 PM PDT) + + | Specimen | + + | | + + + + + | Narrative | Performed At | + + + | Brett | [place] NWR | | [facility] | [facility]OVATION | | CenterGI | | | Patient Name: Albert Simmons Procedure | | | Date: 06/27/2018 3:05 PMMRN: [id number] | | | of : 1975 | [...] | | | Rad De La Cruz, [facility]: | | | Monitored Anesthesia CareComplications: No [...] | | gastroscope was fitted with 7 [place] Macario-Cook) resection | | | Duette kit. [...] results. | | | | | | RENEE PITTS MD06/27/2018 3:55:06 PMThis | | | report has been signed electronically. Note Initiated On: 06/27/2018 | | | 3:05 PMNumber of Addenda: 0 [facility] | | | [facility] | | |RENEE PITTS MD | | |06/27/2018 3:55:06 PM | | |This report has been signed electronically. | | | | | |Note Initiated On: 06/27/2018 3:05 PM | | |Number of Addenda: 0 | | | | | | [facility] | | [...] | [facility] | | | POC | [facility] [address], | | SACRED | | | | [place] [address] | | HEART | | | |Performed by [facility] [address], [place] [address] | | MEDICAL | | | | [...] + + | BRETT RAMOS | [address] | [place] [address] | | | [facility] | | | | | LABORATORY BERTO [...]
--- OUTSIDE RECORDS SUMMARY | ~2019-09-08 | XMS | Encounter Summary ---
Demographics + + + | Address | [address] | | | [place] [address] | + + + | Home Phone | | + + + | Preferred Language | Unknown | + + + | Marital Status | | + + + | Buddhist Affiliation | Unknown | + + + | Race | Unknown | + + + | Ethnic Group | Unknown | + + + Author + + + | Author | [facility] | | | and [place] | + + + | Organization | [facility] | | | [...] Team Providers + +------+ + | Care Wood Technologist Name | Role | Phone | [...] + + | 05/26/ | Telephone | [facility] | Rad De La Cruz | Procedure (adjusted | | 2019 | | GASTROENTEROLOGY | MD Felix [address] | check in time) | | | | [address] [facility] | [address] [facility] | | | | | [address] [place], [place] | [place] [address] | | | | | [address] | [phone] | | | | | [phone] | | | +--------+ + + + [...]
--- OUTSIDE RECORDS SUMMARY | ~2019-09-08 | XMS | Encounter Summary ---
Demographics + + + | Address | [address] | | | [place] [address] | + + + | Home Phone [...] Team Providers + +------+ + | Care Jar Capper Name | Role | Phone | + [...] + + | 01/25/ | Telephone | [facility] | Rad De La Cruz | Procedure (r/s | | 2018 | | GASTROENTEROLOGY | MD Felix [address] | EGD/Gavin) | | | | [address] [place] | [address] [place] | | | | | [address] [place], [place] | [place] [address] | | | | | [address] | [phone] | | | | | [phone] | | | +--------+ + + + [...]
--- OUTSIDE RECORDS SUMMARY | ~2019-09-08 | XMS | Encounter Summary ---
Demographics + + + | Address | [address] | | | [place] [address] | + + + | Home Phone | | + + + | Preferred Language | Unknown | + + + | Marital Status | | + + + | Episcopal Affiliation | Unknown | + + + [...] Providers + +------+ + | Care Supervisor Carpenters Name | Role | Phone | + [...] | | | Zhang | [address] | | | | | Palpitations | MD Julian | [place], | | | | | Procedures | [address] | [place] | | | | | ECHO | St [place] | [address] | | | | | Complete [place] | [place], [place] | Phone: | | | | | ECHO HEART | [address] | [phone] | | | | | [place] | Phone: | Fax: | | | | | [address] | [phone] | [phone] | | | | | [place] [place] | Fax: | | | | | | ECHO HEART | [phone] | | | | | | [place] [...] Racing | [address] | [address] | | | | | heart beat | [address] | [place], | | | | | Palpitations | [place], | [place] | | | | | Procedures | [place] [address] | [address] | | | | | CAR EXAMINER | Phone: | Phone: | | | | | | [phone] | [phone] | | | | | | Fax: | Fax: | | | | | | [phone] | [phone] | +--------+--------+ + + + + Encounter Details +--------+---------+ + + + | Date | Type | Department | Care Team | Description | +--------+---------+ + + + | 10/27/ | Office | [facility] | Zhang Mullen | Palpitations | | 2018 | Visit | CARDIOLOGY [address] | MD Julian [address] | (Primary Dx); Chest | | | | [address] [place], | [address] [place] | pain, unspecified | | | | [place] [address] | [place] [address] | type; Fluttering | | | | [phone] | [phone] | heart | | | | | [...] Bilateral; Surgeo n: Keo Wheatley MD; Location: [facility] MAIN OR SINUS ENDOSCOPY 03/20/2014 Laterality: Left; Surgeon: Keo Wheatley MD; Location: [facility] MAIN OR SINUS SURGERY Family History Problem [...] to better define exact nature of arrhythmia chantel braxton is experiencing. I will also have [...] made to ensure accuracy; however, inadvertent computerized pediatric cardiologist errors may be pre sent. Electronically signed by: Tricia Mullen MD PhD [facility] 10/27/2017 documented in t his encounter Plan [...] Mullen MD 12/02/2017 9:04 PATIENT | NASRIN MUSE | | NAME: Albert Multani : 1975: AGE: 42 y.o. | | | PRIMARY CARE: Nilesh Osorio | | | DO [place] HISTOTECHNICIAN: Tricia Mullen MD, PhD, FACC | | [...] symptoms. Signed by: | | | SKeyona Mullen MD PhD [facility] 12/02/2017, 9:03 | | + + + [...] | | ALBERT Room Number Patient Number [id number] Date of Study | | | 11/16/2017 Visit Number [id number] Accession | | | [id number] Referring Physician SEBAS ORTIZ Number | | | Date of 1975 S[address] Hand | | | SUZANNA DAWKINS Age 42 year(s) Interpreting | | | JULIAN MULLEN MD | | | Lidar Technician SEBAS ORTIZ Gender | | | Male Nurse | | | Stress Transition Of Care Specialist Procedure Type of Study TTE procedure: ECHO [...] 0.93 cm PW Diastolic: 0.93 cm EF Qgrcmlxol60% EF | | | Calculated: 60% Miscellaneous [...] Diastolic: 0.93 cm | | | EF Dojhhkxob06% | | | EF Calculated: 60% | [...] Name IRIS PRICE Room Number Patient Number [id number] | | Date of Study 11/16/2017 Visit Number [id number] Accession | | [id number] Referring Physician SEBAS ORTIZ Number Date of | | 1975 Sander Hand SUZANNA DAWKINS Age 42 year(s) | | Interpreting JULIAN MULLEN MD Lidar Technician | | SEBAS ORTIZ Gender Male Nurse [...] 0.93 cm PW Diastolic: 0.93 cm EF Jppveyasn91% EF | | Calculated: 60% Miscellaneous Aorta [...] PW Diastolic: 0.93 cm | | EF Ihgdyqawi34% | | EF Calculated: 60% | | [...] MD | | | | | | ([id number]) on 10/28/2017 | | | | | [...]
--- OUTSIDE RECORDS SUMMARY | ~2019-09-08 | XMS | Encounter Summary ---
Demographics + + + | Address | [address] | | | [place] [address] | + + + | Home Phone | | + + + | Preferred Language | Unknown | + + + | Marital Status | | + + + | Episcopalian Affiliation | Unknown | + + + [...] Team Providers + +------+ + | Care Aba Therapist Name | Role | Phone | + [...] | | | | sinus | PA-C [address] | [address] | | | | | infections | [address] | [address] | | | | | recurring | WAY | [place], | | | | | sinus | [place], | [place] [address] | | | | | infection | [place] [address] | Phone: | | | | | Procedures | Phone: | [phone] | | | | | [place] OFFICE | [phone] | Fax: | | | | | OUTPATIENT | Fax: | [phone] | | | | | VISIT 25 | [phone] | | | | | | MINUTES [...] + + | 01/25/ | Office | [facility] | Keo Wheatley MD | Chronic frontal | | 2013 | Visit | OTOLARYNGOLOGY [address] | [address] [place] | sinusitis (Primary | | | | [address] | [address] [place], | Dx); Hypertrophy of | | | | [place], [place] | [place] [address] | nasal turbinates | | | | [address] | [phone] | | | | | [phone] | | | +--------+---------+ + + + [...] - 01/25/2014 3:08 PM PDTSee dictation # [id number] signed by Keo Wheatley MD at 01/25/2014 3:12 PM Keo Gonzalez MD - 01/25/2014 12:00 AM PDT ENT AND AUDIOLOGY [address] [place] [address] FAX: [phone] OFFICE VISIT The patient has had a [...] carried out with the use of the [employer] guidance system, to increase the safe ty. This was all explained to the patient, along with risks and benefits. He desires to go ahead with the surgery and this is scheduled accordingly. Keo Wheatley MD / Olimpia JOB #: [id number] signed by Keo Wheatley MD at 01/26/2014 8:26 AM PDTdocumente d in this encounter Plan of Treatment Not on filedocumented as of this encounter Visit Diagnoses + + | Diagnosis | + + | Chronic frontal sinusitis - Primary | + + | Hypertrophy of nasal turbinates | + + documented in this encounter
--- OUTSIDE RECORDS SUMMARY | ~2019-09-08 | XMS | Encounter Summary ---
Demographics + + + | Address | [address] | | | [place] [address] | + + + | Home Phone [...] Team Providers + +------+ + | Care Die Hardener Name | Role | Phone | + [...] | | | | | | [place] | | | | | | [...] | | | | | [address] | [place], [place] | | | | | [place], [place] | [address] | | | | | [address] | | | | | | [phone] | [place], Sancho Geron[place], | | | | | | [address] | | | | | | [place], [place] | | | | | | [address] | | | | | | | [...]
--- OUTSIDE RECORDS SUMMARY | ~2019-09-08 | XMS | Clinical Summary ---
Demographics + + + | Address | [address] | | | [place] [address] | + + + | Home Phone [...] Team Providers + +------+ + | Care Pulmonary Disease Specialist Name | Role | Phone | + +------+ + | Nilesh Osorio MD | PCP | | + +------+ + Source Comments JOSÉ MIGUEL is fully live on both [facility] Ambulatory and [facility] InPatient.[facility] Allergies No Known Allergies Medications + + [...] | + +--------+ +--------+ + +------+ | [facility] | PROVID | xxxxxxxxxxx | 04/19/19 | [phone] | [address] | PPO | | | ENCE | | [address] | 0 | [address] | | | | HEALTH | | sent | | [place], | | | | | | | | [place] [address] | | + +--------+ +--------+ + +------+ [...] | 1975 | [phone] | [place] [address] | | | hu | | | 8 (Home) | | + +--------+ +--------+ + +"
--- OUTSIDE RECORDS SUMMARY | ~2019-09-08 | XMS | Encounter Summary ---
Demographics + + + | Address | [address] | | | [place] [address] | + + + | Home Phone [...] Team Providers + +------+ + | Care Crankshaft Balancer Name | Role | Phone | + [...] of nasal | [place], [place] | [place] [address] | | | | | turbinates | [address] | Phone: | | | | | Procedures | Phone: | [phone] | | | | | ME EXCISION | [phone] | Fax: | | | | | TURBINATE | Fax: | [phone] | | | | | ME NASAL | [phone] | | | | | | ANGELICA [...] Dx); Hypertrophy of | | | | [place], [place] | [place] [address] | nasal turbinates | | | | [address] | [phone] | | | | | [phone] | | | +--------+ + + + [...]
--- OUTSIDE RECORDS SUMMARY | ~2019-09-08 | XMS | Encounter Summary ---
Demographics + + + | Address | [address] | | | [place] [address] | + + + | Home Phone [...] Team Providers + +------+ + | Care Rn Provider Relations Name | Role | Phone | + [...] + + | 06/02/ | Telephone | [facility] | Rad De La Cruz | Results, Pathology | | 2019 | | GASTROENTEROLOGY | MD Felix [address] | | | | | [address] [place] | [address] [place] | | | | | [address] | [place] [address] | | | | | [address] | [phone] | | | | | [phone] | | | +--------+ + + + [...]
--- OUTSIDE RECORDS SUMMARY | ~2019-09-08 | XMS | Encounter Summary ---
Demographics + + + | Address | [address] | | | [place] [address] | + + + | Home Phone [...] Team Providers + +------+ + | Care Endoscopy Specialty Technician Name | Role | Phone | [...] Unspecified | Keo Arizmendi MD | [address] | | | | | sinusitis | [address] | [place], | | | | | (chronic) | [address] | [place] [address] | | | | | Procedures | [place] | Phone: | | | | | CT Sinus WO | [place], [place] | [phone] | | | | | Contrast | [address] | Fax: | | | | | Limited | Phone: | [phone] | | | | | | [phone] | | | | | | | Fax: | | | | | | | [phone] | | +--------+--------+ + + + + [...] | | | y | Recurrent | Bulamro Randolph, | MD Ugo [address] | | | | | sinus | PA-C [address] | [address] | | | | | infections | [place] | [address] | | | | | recurring | WAY | [place], | | | | | sinus | [place], | [place] [address] | | | | | infection | [place] [address] | Phone: | | | | | Procedures | Phone: | [phone] | | | | | CT OFFICE | [phone] | Fax: | | | | | OUTPATIENT | Fax: | [phone] | | | | | VISIT 25 | [phone] | | | | | | MINUTES [...] + + | 01/11/ | Office | [facility] | Keo Wheatley MD | Unspecified | | 2013 | Visit | OTOLARYNGOLOGY [address] | [address] [place] | sinusitis (chronic) | | | | [address] | [address] [place], | (Primary Dx); | | | | [place] | [place] [address] | Hypertrophy of nasal | | | | [address] | [phone] | turbinates | | | | [phone] | | | +--------+---------+ + + + [...] - 01/11/2014 2:30 PM PDTSee dictation # [id number] signed by Keo Wheatley MD at 01/11/2014 2:34 PM Keo Gonzalez MD - 01/11/2014 12:00 AM PDT ENT AND AUDIOLOGY [address] [address] FAX: [phone] OFFICE VISIT NEW PATIENT VISIT HISTORY: The [...] Keo Wheatley MD / SEDRICK JOB #: [id number] signed by Keo Wheatley MD at 01/15/2014 [...]
--- OUTSIDE RECORDS SUMMARY | ~2019-09-08 | XMS | Encounter Summary ---
Demographics + + + | Address | [address] | | | [place] [address] | + + + | Home Phone [...] Team Providers + +------+ + | Care Textile Knitter Name | Role | Phone | + [...] | | | | | | | CA | | | | | | | COLONOSCOPY | | | | | | | FLX DX | | | | | | | W/COLLJ SPEC | | | | | | | WHEN PFRMD | | | | | | | CA | | | | | | | COLONOSCOPY | | | | | | | W/BIOPSY | | | | | | | SINGLE/MULTI | | | | | | | PLE CA | | | | | | | [...] + + | 05/27/ | Hospital | [facility] | Rad Chandler | Abdominal pain, | | 2019 | Encounter | MED CTR MP INTRA OP | MD Genna [address] | unspecified | | | | [address] | [address] [place] | abdominal location; | | | | [place], [place] | [place] [address] | Diarrhea, | | | | [address] | [phone] | unspecified type; | | | | [phone] | | Polyp of colon, | | [...] You can't be awakened Date Last Reviewed: 02/04/201619993775-5572 The [employer]. [address] [place] [address]. All righ ts reserved. This information is [...] | | | | | De La Curz's esophagus | | | | | | [...] | PROVATIO N | | 9:29 AMMRN: [id number] #: [id number] of : | | | 1975Admit Type: AmbulatoryAge: 43Room: [facility] 02Gender: MaleNote | | | Status: FinalizedAttending [...] evaluated | | | using the BBPS ([place] Bowel Preparation Scale) with scores of: | [...] AMScope | | | Out: 10:21:23 AM [facility], [address] | | | [place] [address] | | | colon for evaluation of [...] |Scope Out: 10:21:23 AM | | | [facility], [address] [place], [place] | | | [address] | | + +--------- -----+ + +---------+ [...] diagnosis. As part | | | of [employer]' Quality Improvement Program, this case was | [...] developed and its performance characteristics determined by [email or web address] | | | [employer]. It has not been cleared or approved by the U.S. Food | | | and Drug Administration. The FDA has determined that such clearance | | | or approval is not necessary. This test is used for clinical | | | purposes. It should not be regarded as investigational or for | | | research. [employer] is certified under the Clinical | | | Laboratory Improvement Amendments of 1988 (CLIA) as qualified to | | | perform high complexity clinical laboratory testing. PERFORMING | | | LABORATORY: The technical component was performed by [email or web address] | | [employer], [address] [place] [address] (Parking Regulation Enforcement Officer: | | | Trudi Hughes MD; CLIA# [id number]). Professional interpretation was | | | performed by [employer], Formerly [facility], [facility], [facility] | | | [address] [address] (Parking Regulation Enforcement Officer: Johnathan Hidalgo | Gwen Loving MD; CLIA# [id number]). Diagnostician: Johnathan Hidalgo MD Pathologist Electronically Signed [...]
--- OUTSIDE RECORDS SUMMARY | ~2019-09-08 | XMS | Encounter Summary ---
Demographics + + + | Address | [address] | | | [place] [address] | + + + | Home Phone [...] Team Providers + +------+ + | Care Surgical Garment Fitter Name | Role | Phone | + [...] | | | | [place] | [place] [address] | | | | | [address] | [phone] | | | | | [phone] | | | +--------+ + + + [...]
--- OUTSIDE RECORDS SUMMARY | ~2019-09-08 | XMS | Encounter Summary ---
Demographics + + + | Address | [address] | | | [place] [address] | + + + | Home Phone [...] Team Providers + +------+ + | Care Auto Salvage Worker Name | Role | Phone | [...] + + | 05/03/ | Telephone | [facility] | Zhang Smith | Other (new symptoms) | | 2018 | | CARDIOLOGY [address] | MD Julian [address] | | | | | [place], | [address] [place] | | | | | [place] [address] | [place] [address] | | | | | [phone] | [phone] | | | | | | | [...]
--- OUTSIDE RECORDS SUMMARY | ~2019-09-08 | XMS | Clinical Summary ---
Demographics + + + | Address | [address] | | | [place] [address] | + + + | Home Phone | | + + + | Preferred Language | Unknown | + + + | Marital Status | | + + + | Cheondoism Affiliation | Unknown | + + + | Race | Unknown | + + + | Ethnic Group | Unknown | + + + Author + + + | Author | [facility] | | | and [place] | + + + | Organization | [facility] | | [...] Team Providers + +------+ + | Care Cup Setter Lockstitch Name | Role | Phone | + [...] | | | + + + +---------+------+------+-------+ +---+ + | | Additional | | | InformationPatient | | | not taking. Reported | | | on 07/31/2019 1:08 | | | PM | +---+ + + + +--------+---+------+------+-------+ | | Take 1-2 tablets by | [...] | | | | | + + +--------+---+------+------+-------+ | Aspirin | Take 1 tablet by | | 0 | | | Activ | | Effervescent | mouth as needed. | | | | | e | | (BRII MCKINNEY) | gummie | | | | | | + + +--------+---+------+------+-------+ | PSEUDOEPHEDRINE | Take 30 mg by mouth | | 0 | | | Activ | | HCL PO | every four hours as | | | | | e | | | needed for | | | | | | | | congestion. | | | | | | + + +--------+---+------+------+-------+ | promethazine | take 1 tablet by | | 0 | 03/0 | | Activ | | (PHENERGAN) 25 mg | mouth every 6 hours | | | 5/20 | | e | | tablet | if needed for up to | | | 19 | | | | | 1 month | | | | | | + + +--------+---+------+------+-------+ | SUMAtriptan | Take 1 tablet by | | 0 | 05/2 | 05/2 | Activ | | (IMITREX) 100 mg | mouth as needed for | | | 4/20 | 3/20 | e | | tablet | Migraine. May repeat [...] | | | | | + + +--------+---+------+------+-------+ | sodium chloride | 1 spray by Nasal | | 0 | | | Activ | | (OCEAN) 0.65 % nasal | route as needed for | | | | | e | | spray | Congestion. | | | | | | + + +--------+---+------+------+-------+ | dicyclomine | Take 1 tablet by | 120 | 5 | 04/2 | | Activ | | (BENTYL) 20 MG | mouth 4 times daily | tablet | | 2/20 | | e | | tabletIndications: | (before meals and | | | 20 | | | | Irritable bowel | nightly). | | | | | | | syndrome with | | | | | | | | diarrhea | | | | | | | + + +--------+---+------+------+-------+ | pantoprazole | Take 1 tablet by | 120 | 5 | 04/2 | | Activ | | (PROTONIX) 40 mg | mouth 2 times daily | tablet | | 2/20 | | e | | tabletIndications: | (before meals). | | | 20 | | | | Gastroesophageal | | | | | | | | reflux disease, | | | | | | | | esophagitis presence | | | | | | | | not specified | | | | | | | + + +--------+---+------+------+-------+ Active Problems + + + | Problem [...] | Orders Only | Gastroenterology | Rad De La Cruz | Abdominal pain, RUQ | | 2019 | | | MD Felix | (Primary Dx); | | | | | | Gallbladder pain | +--------+ + + + + | 07/30/ | Virtual | Gastroenterology | Rad De La Cruz | Gastroesophageal | | 2019 | Office | | [...] 07/27/ | Telephone | Gastroenterology | Rad De La Cruz | Appointment [...] | Blood Pressure | 121/72 | 09/09/2018 11:32 AM | | | | | PDT | | + + + + + | Pulse | 57 | 09/09/2018 11:32 AM | | | | | PDT [...] | 86.6 kg (191 lb) | 09/09/2018 11:32 AM | | | | | PDT | | + + + + + | Height | 177.8 cm (5' 10") | 09/09/2018 11:32 AM | | | | | PDT | | + + + + + | Body Mass Index | 27.41 | 09/09/2018 11:32 AM | | | | | PDT [...] Not on filefrom Last 3 Months Insurance +-------+--------+ +--------+-------+---------+------+ | Payer | Benefi | Subscriber | Effect | Phone | Address | Type | | | t Plan | ID | liseth | | | | | | / | | Dates | | | | | | Group | | | | | | +-------+--------+ +--------+-------+---------+------+ | BCBS | BCBS | [id number] | 04/19/19 | | | PPO | | | OOS | | 20-Pre | | | | | | PPO | | sent | | | | [...] Person | Self | [birth year] | | | | al/[place]ale | | 1975 | [phone] | [place] | | | hu | | | [address] (Home) | [address] | + +--------+ +--------+ + + Advance Directives + + + + + | Type | Date Recorded | Patient | Explanation | | | | Physically Impaired Teacher | | + + + + + | Power of | | | | | Vibration Engineer | | | | + + + [...]
--- OUTSIDE RECORDS SUMMARY | ~2019-09-08 | XMS | Encounter Summary ---
Demographics + + + | Address | [address] | | | [place] [address] | + + + | Home Phone | | + + + | Preferred Language | Unknown | + + + | Marital Status | | + + + | Restorationism Affiliation | Unknown | + + + | Race | Unknown | + + + | Ethnic Group | or | + + + Author + + + | Author | [facility] | + + + | Organization | [facility] | + + + | Address | Unknown | + + + | Phone | Unavailable | + + + Support + + +---------+ + | Name | Relationship | Address | Phone | + + +---------+ + | Rosanne Multani | ECON | Unknown | | + + +---------+ + Care Team Providers + +------+ + | Care Lunch Wagon Operator Name | Role | Phone | + +------+ + | Nilesh Osorio MD | PCP | | + +------+ + Encounter Details +--------+ + + + + | Date | Type | Department | Care Team | Description | +--------+ + + + + | 03/04/ | Documentati | [place] [facility] | Sancho Ruvalcaba, | | | 2018 | on | Center at [facility] [address] | [address] | | | | | [address] | [place], [place] | | | | | Mailcode: CH5E | [address] | | | | | [facility] | [phone] | | | | | and Teresa, | | | | | | | | | | | | Floor [place], [place] | | | | | | [address] | | | | | | [phone] | | | +--------+ + + + [...]
--- OUTSIDE RECORDS SUMMARY | ~2019-09-08 | XMS | Encounter Summary ---
Demographics + + + | Address | [address] | | | [place] [address] | + + + | Home Phone [...] Providers + +------+ + | Care Clinical Data Research Name | Role | Phone | + [...] | | | | | abdominal | [address] | [address], | | | | | pain | [place] | [address] | | | | | Bloating | [place], | [place], | | | | | Procedures | [place] | [place] [address] | | | | | OFFICE VISIT | [address] | Phone: | | | | | | Phone: | [phone] | | | | | | [phone] | Fax: | | | | | | Fax: | [phone] | | | | | | [phone] | | +--------+--------+ + + + + Encounter Details +--------+---------+ + + + | Date | Type | Department | Care Team | Description | +--------+---------+ + + + | 12/22/ | Office | [facility] | Rad De La Cruz | Gastroesophageal | | 2018 | Visit | GASTROENTEROLOGY | MD Felix [address] | reflux disease, | | | | [address] | [address] [place] | esophagitis presence | | | | [address] [place], [place] | [place] [address] | not specified | | | | [address] | [phone] | (Primary Dx); | | | | [phone] | | Bloating; Left upper | | [...] Visit: 12/22/17 Referring Provider: Brayden Butt MD [address] [facility] [place] [address] Providing Physician: Rad De La Cruz MD. [...] the blue. He was evaluated by his [facility] care provider and also by [...] Bilateral; Surgeo n: Keo Wheatley MD; Location: [facility] MAIN OR SINUS ENDOSCOPY 03/20/2014 Laterality: Left; Surgeon: Keo Wheatley MD; Location: [facility] MAIN OR SINUS SURGERY 2008 [...] CC: Brayden Butt MD [address] [place] [address] Nilesh Osorio, [id number] [place] [address] Portions of this chart may have been created with [employer] voice recognition software. Occasi onal wrong-word or [...]
--- OUTSIDE RECORDS SUMMARY | ~2019-09-08 | XMS | Clinical Summary ---
Demographics + + + | Address | [address] | | | [place] [address] | + + + | Home Phone | | + + + | Preferred Language | Unknown | + + + | Marital Status | | + + + | Cheondoism Affiliation | Unknown | + + + | Race | Unknown | + + + | Ethnic Group | Unknown | + + + Author + + + | Author | [facility] [employer] (Historical as of | | | 12-03-18) | + + + | Organization | Located [facility] [employer] (Historical as of | | | 12-03-18) [...] Team Providers + +------+ + | Care Soft Work Wrapper Examiner Name | Role | Phone | [...] | | | + +--------+ +------+-------+---------+ | [facility] | PROVID | [id number] | PPO | | | | PLAN [...] | | al/Fam | | 1975 | [phone] | [place] | | | hu | | | [phone] | [phone] | + +--------+ +--------+ + +
--- OUTSIDE RECORDS SUMMARY | ~2019-09-08 | XMS | Encounter Summary ---
Demographics + + + | Address | [address] | | | [place] [address] | + + + | Home Phone | | + + + | Preferred Language | Unknown | + + + | Marital Status | | + + + | Restorationism Affiliation | Unknown | + + + | Race | Unknown | + + + | Ethnic Group | Unknown | + + + Author + + + | Author | [facility] | | | and [place] | + + + | Organization | [facility] | | [...] Team Providers + +------+ + | Care Energy Trading Analyst Name | Role | Phone | [...] | Gastroenterol | Diagnoses | Dorothy, | Hong, | | | Services | ogy / Liver | Primary | Rad | MD Luke | | | Required | and 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 | [address] [place] | [place] | | | | | (HCC) | [facility] | [address] | | | | | Procedures | [address] | Phone: | | | | | Flex sig | Phone: | [phone] | | | | | with [employer], | [phone] | Fax: | | | | | possible | Fax: | [phone] | | | | | EMR/possible | [phone] | | | | | | | [...] + + | 06/14/ | Office | [facility] | Rad De La Cruz | 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 | | | | [address] [place], [place] | [place] [address] | ([facility]) (Primary Dx) | | | | [address] | [phone] | | | | | [phone] | | | +--------+---------+ + + + [...] Surgeon: Rad De La Cruz MD; Location: [facility] MEDICAL PROCEDURE UNIT ESOPHAGUS-ACID REFLUX TEST N/A 02/25/2018 Procedure: ENDOSCOPIC 48 HOUR PH FERRARI "CAPSULE"; Surgeon: Rad De La Cruz MD; Locat ion: [facility] MEDICAL PROCEDURE UNIT INGUINAL HERNIA REPAIR Right 02/2008 NASAL SEPTUM SURGERY 03/20/2014 BILATERAL Inferior Turbinoplasty; LEFT Frontal Sinusotomy; Laterality: Bilateral; Surgeo n: Keo Wheatley MD; Location: [facility] MAIN OR SINUS ENDOSCOPY 03/20/2014 Laterality: Left; Surgeon: eKo Wheatley MD; Location: [facility] MAIN OR SINUS SURGERY 2008 SINUS [...] A. We'll plan on referring him to [facility] for a rectal EUS to see [...] provider defined for this encounter. Nilesh Osorio, [id number] [place] [address] Portions of this chart may have been created with [employer] voice recognition software. Occasi onal wrong-word or sound-alike substitutions may have occurred due to the inherent choudhury itations of voice recognition software. Please read the chart carefully and recognize, using context, where these substitutions have occurred arroll, Vicki Randolph RN - 06/14/2018 2:00 PM PSTOrdered and faxed labs to [facility] [place] . Referral to [facility] for Rectal EUS; once approved patient to [...]
--- OUTSIDE RECORDS SUMMARY | ~2019-09-08 | XMS | Encounter Summary ---
Demographics + + + | Address | [address] | | | [place] [address] | + + + | Home Phone [...] Team Providers + +------+ + | Care Residential Insurance Inspector Name | Role | Phone | [...] | | | Procedures | | [place] [address] | | | | | OFFICE VISIT | | Phone: | | | | | REGULAR | | [phone] | | | | | | | Fax: | | | | | | | [phone] | +--------+--------+ + + + + Encounter Details +--------+---------+ + + + | Date | Type | Department | Care Team | Description | +--------+---------+ + + + | 05/10/ | Office | [facility] [place] | Keo Munoz MD | Hypertrophy of nasal | | 2015 | Visit | OTOLARYNGOLOGY [address] | [address] [place] | turbinates (Primary | | | | [address] | [address] [place], | Dx); Chronic | | | | [place], [place] | [place] [address] | frontal sinusitis | | | | [address] | [phone] | | | | | [phone] | | | +--------+---------+ + + + [...] MD - 05/10/2014 4:07 PM PST [facility] OTOLARYNGOLOGY [address] [facility] [address] OFFICE NOTE KEO MUNOZ MD Patient: ALBERT MULTANI Admitting: MR #: [id number] LOC: PT TYPE: Adm Date: 05/10/2014 : [...] Transcribed on 05/10/2014 17:00:10 by ms job# [id number] Confirmation #: [id number] signed by eKo Munoz MD at 05/11/2014 8:16 AM Keo Ahumada MD - 05/10/2014 4:04 PM GARIMASeugo dictation # [id number] signed by Keo Munoz MD at 05/10/2014 4:07 PM PSTdocumented in th is encounter Plan of Treatment Not on filedocumented as of this encounter Visit Diagnoses + + | Diagnosis | + + | Hypertrophy of nasal turbinates - Primary | + + | Chronic frontal sinusitis | + + documented in this encounter
--- OUTSIDE RECORDS SUMMARY | ~2019-09-08 | XMS | Encounter Summary ---
Demographics + + + | Address | [address] | | | [place] [address] | + + + | Home Phone [...] Team Providers + +------+ + | Care Filer Finish Name | Role | Phone | + [...] + + | 01/06/ | Telephone | [facility] | Rad De La Cruz | Other | | 2019 | | GASTROENTEROLOGY | MD Felix [address] | | | | | [address] [facility] | [address] [facility] | | | | | [address] [place] | [place] [address] | | | | | [address] | [phone] | | | | | [phone] | | | +--------+ + + + [...]
--- OUTSIDE RECORDS SUMMARY | ~2019-09-08 | XMS | Encounter Summary ---
Demographics + + + | Address | [address] | | | [place] [address] | + + + | Home Phone [...] + + + | Author | [facility] | | | and [place] | + + + | Organization | [facility] | | | [...] Team Providers + +------+ + | Care Case Packer And Sealer Name | Role | Phone | + [...] | | | | sinus | PA-C [address] | | | | | infections | [address] | [address] | | | | | recurring | WAY | [place], | | | | | sinus | [place], | [place] [address] | | | | | infection | [place] [address] | Phone: | | | | | Procedures | Phone: | [phone] | | | | | [place] OFFICE | [phone] | Fax: | | | | | OUTPATIENT | Fax: | [phone] | | | | | VISIT 25 | [phone] | | | | | | MINUTES [...] + + | 03/21/ | [facility] | [facility] [place] | Keo Wheatley MD | Hypertrophy of nasal | | 2013 | | OTOLARYNGOLOGY [address] | [address] [place] | turbinates (Primary | | | | [address] | [address] [place], | Dx); Chronic | | | | [place], [place] | [place] [address] | frontal sinusitis | | | | [address] | [phone] | | | | | [phone] | | | +--------+ + + + [...] MD - 2014 3:46 PM [place] dictation #[id number] signed by Javier Wheatley MD at 2014 3:48 PM Keo Castillo MD - 2014 12:00 AM PST ENT AND AUDIOLOGY [address] [facility] [address] [place] [address] FAX: [phone] OFFICE VISIT POSTOP VISIT The patient is [...] Wheatley MD GM / PAP JOB #: [id number] signed by Keo Wheatley MD at 2014 4:14 PM PSTdocumentmoshe hahn in this encounter Plan of Treatment Not on filedocumented as of this encounter Visit Diagnoses + + | Diagnosis | + + | Hypertrophy of nasal turbinates - Primary | + + | Chronic frontal sinusitis | + + documented in this encounter
--- OUTSIDE RECORDS SUMMARY | ~2019-09-08 | XMS | Encounter Summary ---
Demographics + + + | Address | [address] | | | [place] [address] | + + + | Home Phone [...] Team Providers + +------+ + | Care Cement [address] Name | Role | Phone | + [...] [place] | | | | | | [address] | | | | | | [phone] | | | +--------+ + + + [...]
--- OUTSIDE RECORDS SUMMARY | ~2019-09-08 | XMS | Encounter Summary ---
Demographics + + + | Address | [address] | | | [place] [address] | + + + | Home Phone [...] Providers + +------+ + | Care Electrical Repairer Name | Role | Phone | [...] | | | | | | IN EGD | | | | | | | TRANSORAL | | | | | | | BIOPSY | | | | | | | SINGLE/MULTI | | | | | | | PLE IN GERD | | | | | | [...] + + | 02/25/ | Hospital | [facility] | Gin Chandler | Bloating; | | 2017 | Encounter | MED CTR MP INTRA OP | MD Genna [address] | Gastroesophageal | | | | [address] | [address] [place] | reflux disease, | | | | [place], [place] | [place] [address] | esophagitis presence | | | | [address] | [phone] | not specified | | | | [phone] | | | +--------+ + + + [...] You can't be awakened Date Last Reviewed: 02/04/201619999669-3827 [employer] [address] [place] [address]. All righ ts reserved. This information is [...] 02/25/2018 | PROVATION | | 9:49 AMMRN: [id number] #: [id number] of : | | | 1975Admit Type: AmbulatoryAge: 42Room: [facility] 02Gender: MaleNote | | | Status: FinalizedAttending MD: GIN CHANDLER [facility]cedure: | | | Upper GI endoscopyIndications: Epigastric [...] | | 10:13:55 AMScope Out: 10:21:58 AM [facility] | | | [place], [address] [place] [address] | | | - The FERRARI pH [...] |Scope Out: 10:21:58 AM | | | [facility], [address], [place] | | | [address] | | + + -+ + +---------+ [...] metaplasia, negative for | | | dysplasia. JVR:[facility]:C2NR GROSS DESCRIPTION: A. The specimen | | [...] component was | | | performed by [address] [address] | | | (Resort Desk Clerk: Trudi Hughes MD; CLIA# [id number]). Professional | | | interpretation [facility] performed [facility] | | | [address] | | | [address] (Resort Desk Clerk: Jakub Rivera M.D.). Diagnostician: | | | [...]
--- OUTSIDE RECORDS SUMMARY | ~2019-09-08 | XMS | Encounter Summary ---
Demographics + + + | Address | [address] | | | [place] [address] | + + + | Home Phone [...] Team Providers + +------+ + | Care Hand Bulldozer Name | Role | Phone | + [...] | | | Zhang | [address] | | | | | Palpitations | MD Julian | [place], | | | | | Procedures | [address] | [place] | | | | | ECHO | St [place] | [address] | | | | | Complete [place] | [place], [place] | Phone: | | | | | ECHO HEART | [address] | [phone] | | | | | [place]TH[place]AC[place] | Phone: | Fax: | | | | | MPLETE [address] | [phone] | [phone] | | | | | DOPPLER [place] | Fax: | | | | | | ECHO HEART | [phone] | | | | | | XTHORAC[place] [...] Racing | [address] | [address] | | | | | heart beat | [address] | [place], | | | | | Palpitations | [place], | [place] | | | | | Procedures | [place] [address] | [address] | | | | | POLL WATCHER | Phone: | Phone: | | | | | | [phone] | [phone] | | | | | | Fax: | Fax: | | | | | | [phone] | [phone] | +--------+--------+ + + + + Encounter Details +--------+---------+ + + + | Date | Type | Department | Care Team | Description | +--------+---------+ + + + | 10/27/ | Office | [facility] | Zhang Mullen | Palpitations | | 2018 | Visit | CARDIOLOGY [address] | MD Julian [address] | (Primary Dx); Chest | | | | [address] [place], | [address] [place] | pain, unspecified | | | | [place] [address] | [place] [address] | type; Fluttering | | | | [phone] | [phone] | heart | | | | | [...] Bilateral; Surgeo n: Keo Wheatley MD; Location: [facility] MAIN OR SINUS ENDOSCOPY 03/20/2014 Laterality: Left; Surgeon: Keo Wheatley MD; Location: [facility] MAIN OR SINUS SURGERY Family History [...] made to ensure accuracy; however, inadvertent computerized harbor patrol police errors may be pre sent. Electronically signed by: Tricia Mullen MD PhD [facility] 10/27/2017 documented in t his encounter Plan [...] Nilesh Osorio | | | DO [place] FLASH WELDING MACHINE OPERATOR: Tricia Mullen MD, PhD, FACC | | [...] | | | SKeyona Mullen MD PhD [facility] 12/02/2017, 9:03 | | + + + [...] | | ALBERT Room Number Patient Number [id number] Date of Study | | | 11/16/2017 Visit Number [id number] Accession | | | [id number] Referring Physician SEBAS ORTIZ Number | | | Date of 1975 Reimbursement Rep | | | SUZANNA DAWKINS Age 42 year(s) Interpreting | | | JULIAN MULLEN MD | | | V Belt Finisher SEBAS ORTIZ Gender | | | Male Nurse | | | Stress Wine Maker Procedure Type of Study TTE procedure: ECHO [...] 0.93 cm PW Diastolic: 0.93 cm EF Aiqlfveqw36% EF | | | Calculated: 60% Miscellaneous [...] Diastolic: 0.93 cm | | | EF Fxxzrxocb19% | | | EF Calculated: 60% | [...] Name IRIS PRICE Room Number Patient Number [id number] | | Date of Study 11/16/2017 Visit Number [id number] Accession | | [id number] Referring Physician SEBAS ORTIZ Number Date of | | 1975 Reimbursement Rep SUZANNA DAWKINS Age 42 year(s) | | Interpreting JULIAN MULLEN MD V Belt Finisher | | SEBAS ORTIZ Gender Male Nurse [...] 0.93 cm PW Diastolic: 0.93 cm EF Wgekuohrs92% EF | | Calculated: 60% Miscellaneous Aorta [...] PW Diastolic: 0.93 cm | | EF Mywhsdfie80% | | EF Calculated: 60% | | [...] MD | | | | | | ([id number]) on 10/28/2017 | | | | | [...]
--- OUTSIDE RECORDS SUMMARY | ~2019-09-08 | XMS | Encounter Summary ---
Demographics + + + | Address | [address] | | | [place] [address] | + + + | Home Phone | | + + + | Preferred Language | Unknown | + + + | Marital Status | | + + + | Rastafari Affiliation | Unknown | + + + | Race | Unknown | + + + | Ethnic Group | or | + + + Author + + + | Author | [facility] | + + + | Organization | [facility] | + + + | Address | Unknown | + + + | Phone | Unavailable | + + + Support + + +---------+ + | Name | Relationship | Address | Phone | + + +---------+ + | Rosanne Multani | ECON | Unknown | | + + +---------+ + Care Team Providers + +------+ + | Care Infantry Assaultman Name | Role | Phone | + [...] | | | | | sinusitis | [place] | Mailcode: | | | | | Chronic | Health | [facility] | | | | | sphenoidal | Center | for Health | | | | | sinusitis | [address] | and Healing, | | | | | Headache | [place] | [address], | | | | | | Way | 5th Floor | | | | | | [place], | [place], [place] | | | | | | [place] [address] | [address] | | | | | | Phone: | Phone: | | | | | | [phone] | [phone] | | | | | | Fax: | Fax: | | | | | | [phone] | [phone] | +--------+--------+ + + + + Encounter Details +--------+---------+ + + + | Date | Type | Department | Care Team | Description | +--------+---------+ + + + | 04/25/ | Office | [facility] | Tarah Davenport, | Atypical facial pain | | 2019 | Visit | Center at [facility] [address] | (Primary Dx); | | | | [address] | Ave [place], [place] | Chronic maxillary | | | | Mailcode: [facility] | [address] | sinusitis; Chronic | | | | [facility] | [phone] | rhinitis | | | | and Healing, | | | | | | Building [address], 5th | | | | | | Floor [place], [place] | | | | | | [address] | | | | | | [phone] | | | +--------+---------+ + + + [...] Davenport PA-C - 04/25/2018 8:30 AM PST [facility] HPI: Clifton Multani is a 43 y.o. male who presents to the [facility] in consultatio n for headaches. [...] added to his saline irrigations. Proper d [place] and administration was reviewed today. He will [...] neurologist given that he lives in the [facility]. He w as in agreement with this plan and said he and his primary had already discussed this issue. If he is having difficulty getting a neurology visit locally I am happy to put in a referr al here at [facility]. Answered all his questions the best my [...] | + +--------+ + + + | [facility] | Routin | 04/25/2018 | Atypical [...]
--- OUTSIDE RECORDS SUMMARY | ~2019-09-08 | XMS | Encounter Summary ---
Demographics + + + | Address | [address] | | | [place] [address] | + + + | Home Phone [...] Team Providers + +------+ + | Care Geodetic Survey Director Name | Role | Phone | [...] | 2019 | Changes | GASTROENTEROLOGY | Aboriginal Liaison Officer | | | | | [address] [facility] | | | | | | [address] [place] | | | | | | [address] | | | | | | [phone] | | | +--------+ + + + [...]
--- OUTSIDE RECORDS SUMMARY | ~2019-09-08 | XMS | Encounter Summary ---
Demographics + + + | Address | [address] | | | [place] [address] | + + + | Home Phone [...] Team Providers + +------+ + | Care Documentation Liaison Name | Role | Phone | + [...] | | | | | | [place] [facility] | | | | | | [...] + + | 03/20/ | Surgery | [facility] | Keo Wheatley MD | BILATERAL Inferior | | 2013 | | MED CTR OR INTRA OP | [address] [place] | Turbinoplasty; LEFT | | | | [address] | [address] [place], | Frontal Sinusotomy | | | | [place], [place] | [place] [address] | | | | | [address] | [phone] | | | | | [phone] | | | +--------+---------+ + + + [...] nose should also form a triangle. [place] [id number]. All rights reserve d. This information is [...] further understand how the nose works. Desiree [address] [address]. All rights reserve d. This information is [...] | | | (St. | | | [place] | | | y's) | +---+--------+ + [...] | | | (St. | | | [place] | | | y's) | +---+--------+ documented [...] | | | | | | use [place] 10/325 if ordered. If | | | [...]
--- OUTSIDE RECORDS SUMMARY | ~2019-09-08 | XMS | Encounter Summary ---
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 | | [phone] | | | | | ne tumors | | Fax: | | | | | (HCC) | | [phone] | | | | | [C7A.8] | | | | | | | Procedures | | | | | | | LA | | | | | | | SIGMOIDOSCOP | | | | | | | Y,BIOPSY LA | | | | | | | [...] + + | 06/27/ | Hospital | [facility] | Renee Pitts, | 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 | | | | | | (RBII MCKINNEY) | gummie | | | | [...] PRO VIDENCE | | ALBERT SIMMONS | [facility] | | : 1975 AGE: 43 years SEX: Male | [facility] | | | LABOR ATORY | | Acct: [id number] Location: [facility] | | [facility]; [facility] MEDICAL PROCEDURE UNIT POOL; [facility] | | | MEDICAL PROCEDURE UNIT POOL | | | Case #: [id number] Ordering: | | | RENEE PITTS MD Client: [facility] | | | [facility] Copy To: | | | Printed: [...] 06/28/2018 04:37 | | | pmPerforming Location: 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 | [place] [address] | | | [facility] | | | | | AC [place] | | | | + + + + + EUS Lower (06/27/2018 3:05 PM PDT) + + | Specimen | + + | | + + + + + | Narrative | Performed At | + + + | Brett | [place] NWR | | [facility] | PROVATION | | CenterGI | | | Patient Name: Albert Simmons Procedure | | | Date: 06/27/2018 3:05 PMMRN: [id number] | | | of : 1975 | [...] | | | Rad De La Cruz, [facility]: | | | Monitored Anesthesia CareComplications: No [...] | | gastroscope was fitted with 7 [place]er Macario-Cook) resection | | | Duette kit. [...] | | 3:05 PMNumber of Addenda: 0 [facility] | | | [facility] | | |RENEE PITTS MD | | |06/27/2018 3:55:06 PM | | |This report has been signed electronically. | | | | | |Note Initiated On: 06/27/2018 3:05 PM | | |Number of Addenda: 0 | | | | | | [facility] | | + + [...] | [facility] | | | POC | [facility] [address], | | SACRED | | | | [place] [address] | | HEART | | | |Performed by [facility] [address], [place] [address] | | MEDICAL | | | | [...] + + | BRETT RAMOS | [address] | [place] [address] | | | [facility] | | | | | LABORATORY BERTO [...]
--- OUTSIDE RECORDS SUMMARY | ~2019-09-08 | XMS | Encounter Summary ---
Demographics + + + | Address | [address] | | | [place] [address] | + + + | Home Phone [...] + + | Author | [facility] | | | and [place] | + + + | Organization | [facility] | | [...] Team Providers + +------+ + | Care Early Childhood Educator Aide Name | Role | Phone | + [...] [place], | | | | | [place], [place] | [place] [address] | | | | | [address] | [phone] | | | | | [phone] | | | +--------+ + + + [...]
--- OUTSIDE RECORDS SUMMARY | ~2019-09-08 | XMS | Encounter Summary ---
Demographics + + + | Address | [address] | | | [place] [address] | + + + | Home Phone | | + + + | Preferred Language | Unknown | + + + | Marital Status | | + + + | Hindu Affiliation | Unknown | + + + [...] Team Providers + +------+ + | Care Pad Assembler Name | Role | Phone | [...] + + | 06/06/ | Tele[facility] | [facility] | Rad De La Cruz | Biopsy Results | | 2019 | | GASTROENTEROLOGY | MD Felix [address] | | | | | [address] [place] | [address] [place] | | | | | [address] [place], [place] | [place] [address] | | | | | [address] | [phone] | | | | | [phone] | | | +--------+ + + + [...]
--- OUTSIDE RECORDS SUMMARY | ~2019-09-08 | XMS | Encounter Summary ---
Demographics + + + | Address | [address] | | | [place] [address] | + + + | Home Phone [...] + + + | Author | [facility] | | | and [place] | + + + | Organization | [facility] | | | [...] Team Providers + +------+ + | Care Foundry Laborer Coreroom Name | Role | Phone | + [...] + + | 08/31/ | Telephone | [facility] | Rad De La Cruz | Gastroesophageal | | 2019 | | GASTROENTEROLOGY | MD Felix [address] | Reflux (abdominal | | | | [address] [place] | [address] [place] | pain) | | | | [address] [place] | [place] [address] | | | | | [address] | [phone] | | | | | [phone] | | | +--------+ + + + [...]
--- OUTSIDE RECORDS SUMMARY | ~2019-09-08 | XMS | Encounter Summary ---
Demographics + + + | Address | [address] | | | [place] [address] | + + + | Home Phone [...] Team Providers + +------+ + | Care Insulation Estimator Name | Role | Phone | + [...] | | LUQ pain | Rad | [facility] | | | | | Gastroesopha | MD Felix | [address] | | | | | geal reflux | [address] | [place] | | | | | disease, | ST [place] | [place] | | | | | esophagitis | [place] | [address] | | | | | presence not | [address] | Phone: | | | | | specified | Phone: | [phone] | | | | | Bloating | [phone] | Fax: | | | | | Procedures | Fax: | [phone] | | | | | NM Gastric | [phone] | | | | | | Emptying [...] + | 01/05/ | Telephone | [facility] | Rad De La Cruz | Other (GERD Samples | | 2017 | | GASTROENTEROLOGY | MD Felix [address] | ) | | | | [address] [place] | [address] [place] | | | | | [address] [place] | [place] [address] | | | | | [address] | [phone] | | | | | [phone] | | | +--------+ + + + [...]
--- OUTSIDE RECORDS SUMMARY | ~2019-09-08 | XMS | Encounter Summary ---
Demographics + + + | Address | [address] | | | [place] [address] | + + + | Home Phone [...] Team Providers + +------+ + | Care Clean Out Driller Name | Role | Phone | [...] | | | (HCC) Other | | [address] | | | | | malignant | | Phone: | | | | | neuroendocri | | [phone] | | | | | ne tumors | | Fax: | | | | | (HCC) | | [phone] | | | | | [C7A.8] | | | | | | | Procedures | | | | | | | SC | | | | | | | SIGMOIDOSCOP | | | | | | | Y,BIOPSY SC | | | | | | | [...] OP [address] | [address], | FLEXIBLE POSSIBLE | | | | Ave [place], [place] | [place] [address] | EMR, FTRD/ESD | | | | [address] | [phone] | | | | | [phone] | | | +--------+---------+ + + + [...] Pitts MD - 06/27/2018 Renee Pitts MD [facility], [address], [address] [place] [address] DISCHARGE INSTRUCTIONS You had undergone an endoscopic [...] VIDENCE | | ALBERT SIMMONS | [facility] | | : 1975 AGE: 43 years SEX: Male | [facility] | | | LABOR ATORY | | Acct: [id number] Location: [facility] | | [facility]; [facility] MEDICAL PROCEDURE UNIT POOL; [facility] | | | MEDICAL PROCEDURE UNIT POOL | | | Case #: [id number] Ordering: | | | RENEE PITTS MD Client: [facility] | | | [facility] Copy To: | | | Printed: [...] 06/28/2018 04:37 | | | pmPerforming Location: [facility] | | | [address] [place] [id number]:The patient's previous rectal polyp | | | with diagnosis of well differentiated neuroendocrine tumor ([id number]) | | | is noted.GROSS DESCRIPTION:The specimen [...] + + + + + | BÁRBARAAARON EL | [address] | [place] [address] | | | [facility] | | | | | AC [place] | | | | + + + + + EUS Lower (06/27/2018 3:05 PM PDT) + + | Specimen | + + | | + + + + + | Narrative | Performed At | + + + | Brett | [place] NWR | | [facility] | PROVATION | | CenterGI | | | Patient Name: Albert Simmons Procedure | | | Date: 06/27/2018 3:05 PMMRN: [id number] | | | of : 1975 | [...] | | | Rad De La Cruz, [facility]: | | | Monitored Anesthesia CareComplications: [...] | | gastroscope was fitted with 7 [place] Macario-Cook) resection | | | Duette kit. [...] | | 3:05 PMNumber of Addenda: 0 [facility] | | | [facility] [facility] | | |RENEE PITTS MD | | |06/27/2018 3:55:06 PM | | |This report has been signed electronically. | | | | | |Note Initiated On: 06/27/2018 3:05 PM | | |Number of Addenda: 0 | | | | | | [facility] | | + [...] | [facility]ENCE | | | POC | [facility] [address], | | SACRED | | | | [place] [address] | | HEART | | | |Performed by [facility] [address], [place] [address] | | MEDICAL | | | | [...] + + | BRETT RAMOS | [address] | [place] [address] | | | [facility] | | | | | [...]
--- OUTSIDE RECORDS SUMMARY | ~2019-09-08 | XMS | Encounter Summary ---
Demographics + + + | Address | [address] | | | [place] [address] | + + + | Home Phone [...] Providers + +------+ + | Care Chemical Maker Name | Role | Phone | + +------+ + | Izzy Snowden | PCP | | + +------+ + Encounter Details +--------+ + + + + | Date | Type | Department | Care Team | Description | +--------+ + + + + | 11/27/ | Orders Only | [facility] | Provider, | | | 2019 | | SYSTEM GENERIC OP | MD [address] | | | | | [address] | [address] | | | | | [address] [place], [place] | [place] [address] | | | | | [address] | | | | | | [phone] | | | +--------+ + + + [...]
--- OUTSIDE RECORDS SUMMARY | ~2019-09-08 | XMS | Clinical Summary ---
Demographics + + + | Address | [address] | | | [place] [address] | + + + | Home Phone [...] | + + +---------+ + | Jadyn Ranegl | ECON | Unknown | | + + +---------+ + Care Team Providers + +------+ + | Care Tub Tender Name | Role | Phone | [...] | | | | e | | (RBII MCKINNEY) | gummie | [...] +-------+--------+ +--------+-------+---------+------+ | BCBS | BCBS | [id number] | 04/19/19 | | | PPO | [...] hu | | | 8 (Home) | [address] | + +--------+ +--------+ + + Advance Directives + + + + + | Type | Date Recorded | Patient | Explanation | | | | Printed Circuit Boards Solder Leveler | | + + + + + | Power of | | | | | Hide Tanner | | | | + + + [...]
--- OUTSIDE RECORDS SUMMARY | ~2019-09-08 | XMS | Encounter Summary ---
Demographics + + + | Address | [address] | | | [place] [address] | + + + | Home Phone [...] | | + + +---------+ + | Jaydn Rangel | ECON | Unknown | | + + +---------+ + Care Team Providers + +------+ + | Care Helicopter Dispatcher Name | Role | Phone | + [...] + + | 01/25/ | Telephone | [facility] | Rad De La Cruz | Procedure (r/s | | 2018 | | GASTROENTEROLOGY | MD Felix [address] | EGD/Gavin) | | | | [address] | [address] [place] | | | | | [address] [place], [place] | [place] [address] | | | | | [address] | [phone] | | | | | [phone] | | | +--------+ + + + [...]
--- OUTSIDE RECORDS SUMMARY | ~2019-09-08 | XMS | Encounter Summary ---
Demographics + + + | Address | [address] | | | [place] [address] | + + + | Home Phone [...] Team Providers + +------+ + | Care Agency Manager Name | Role | Phone | [...] + + | 04/29/ | Telephone | [facility] | Rad De La Cruz | GERD | | 2019 | | GASTROENTEROLOGY | MD Felix [address] | | | | | [address] | [address] [facility] | | | | | [address] [place], [place] | [place] [address] | | | | | [address] | [phone] | | | | | [phone] | | | +--------+ + + + [...]
--- OUTSIDE RECORDS SUMMARY | ~2019-09-08 | XMS | Encounter Summary ---
Demographics + + + | Address | [address] | | | [place] [address] | + + + | Home Phone [...] Team Providers + +------+ + | Care Clothes Model Name | Role | Phone | + [...] | | | | | | PLE HI | | | | | | [...] + + | 05/27/ | Hospital | [facility] | Rad Chandler | Abdominal pain, | | 2019 | Encounter | MED CTR MP INTRA OP | MD Genna [address] | unspecified | | | | [address] | [address] [place] | abdominal location; | | | | [place], [place] | [place] [address] | Diarrhea, | | | | [address] | [phone] | unspecified type; | | | | [phone] | | Polyp of colon, | | [...] You can't be awakened Date Last Reviewed: 02/04/201619995200-2289 [employer]. [address] [place] [address]. All righ ts reserved. This information is [...] | PROVATIO N | | 9:29 AMMRN: [id number] #: [id number] of : | | | 1975Admit Type: AmbulatoryAge: 43Room: [facility] 02Gender: MaleNote | | | [...] evaluated | | | using the BBPS ([place] Bowel Preparation Scale) with scores of: | [...] AMScope | | | Out: 10:21:23 AM [facility], [address] | | | [place] [address] | | | colon for evaluation of [...] |Scope Out: 10:21:23 AM | | | [facility], [address] [place], [place] | | | [address] | | + +--------- -----+ + +---------+ [...] diagnosis. As part | | | of [employer] Quality Improvement Program, this case was | [...] developed and its performance characteristics determined by [facility] | | | [employer]. It has not been cleared or approved by the U.S. Food | | | and Drug Administration. The FDA has determined that such clearance | | | or approval is not necessary. This test is used for clinical | | | purposes. It should not be regarded as investigational or for | | | research. [employer] is certified under the Clinical | | | Laboratory Improvement Amendments of 1988 (CLIA) as qualified to | | | perform high complexity clinical laboratory testing. PERFORMING | | | LABORATORY: The technical component was performed by [facility] | | [facility], [address] [place] [id number] ([employer]top Spreader: | | | Trudi Hughes MD; CLIA# [id number]). Professional interpretation was | | | performed by [employer] [facility], [facility] | | | [address] [address] ([employer]: Johnathan Hidalgo | Gwen Loving MD; CLIA# [id number]). Diagnostician: Johnathan Hidalgo MD Pathologist Electronically Signed [...]
--- OUTSIDE RECORDS SUMMARY | ~2019-09-08 | XMS | Encounter Summary ---
Demographics + + + | Address | [address] | | | [place] [address] | + + + | Home Phone | | + + + | Preferred Language | Unknown | + + + | Marital Status | | + + + | Adventism Affiliation | Unknown | + + + | Race | Unknown | + + + | Ethnic Group | Unknown | + + + Author + + + | Author | [facility] | | | and [place] | + + + | Organization | [facility] | | | [...] Team Providers + +------+ + | Care Dude Wrangler Name | Role | Phone | + [...] | | | | sinus | PA-C [address] | [address] | | | | | infections | [place] | [address] | | | | | recurring | WAY | [place], | | | | | sinus | [place], | [place] [address] | | | | | infection | [place] [address] | Phone: | | | | | Procedures | Phone: | [phone] | | | | | [place] OFFICE | [phone] | Fax: | | | | | OUTPATIENT | Fax: | [phone] | | | | | VISIT 25 | [phone] | | | | | | MINUTES [...] + + | 04/05/ | Office | [facility] | Keo Wheatley MD | Chronic frontal | | 2013 | Visit | OTOLARYNGOLOGY [address] | [address] [place] | sinusitis (Primary | | | | [address] | [address] [place], | Dx); Hypertrophy of | | | | [place] | [place] [address] | nasal turbinates | | | | [address] | [phone] | | | | | [phone] | | | +--------+---------+ + + + [...] - 04/05/2014 4:34 PM PSTSee dictation # [id number] signed by Keo Wheatley MD at 04/05/2014 4:37 PM [facility], Keo Arizmendi MD - 04/05/2014 12:00 AM [facility] AUDIOLOGY [address] [place] [address] FAX: [phone] OFFICE VISIT The patient is postop bilateral [...] Wheatley MD GM / AF JOB #: [id number] signed by Keo Wheatley MD at 04/06/2014 7:53 AM PSTdocumentmoshe d in this encounter Plan of Treatment Not on filedocumented as of this encounter Visit Diagnoses + + | Diagnosis | + + | Chronic frontal sinusitis - Primary | + + | Hypertrophy of nasal turbinates | + + documented in this encounter
--- OUTSIDE RECORDS SUMMARY | ~2019-09-08 | XMS | Encounter Summary ---
Demographics + + + | Address | [address] | | | [place] [address] | + + + | Home Phone [...] Team Providers + +------+ + | Care Dye Colorist Formulator Name | Role | Phone | + +------+ + | Nilesh Osorio DO | PCP | | + +------+ + Encounter Details +--------+ + + + + | Date | Type | Department | Care Team | Description | +--------+ + + + + | 12/06/ | Hospital | [facility] | Conversion | Diagnosis unknown | | 2018 | Encounter | CONVERSION DEP [address] | Transaction, | | | | | [address] | Provider Unknown | | | | | [place], [place] | [phone] | | | | | [address] | | | | | | [phone] | | | +--------+ + + + [...]
--- OUTSIDE RECORDS SUMMARY | ~2019-09-08 | XMS | Encounter Summary ---
Demographics + + + | Address | [address] | | | [place] [address] | + + + | Home Phone [...] Team Providers + +------+ + | Care Income Tax Advisor Name | Role | Phone | [...] | | | (HCC) Other | | [address] | | | | | malignant | | Phone: | | | | | neuroendocri | | [phone] | | | | | ne tumors | | Fax: | | | | | (HCC) | | [phone] | | | | | [C7A.8] | | | | | | | Procedures | | | | | | | AR | | | | | | | SIGMOIDOSCOP | | | | | | | Y,BIOPSY AR | | | | | | [...] OP [address] | [address], | FLEXIBLE POSSIBLE | | | | [address] [place], [place] | [place] [address] | EMR, FTRD/ESD | | | | [address] | [phone] | | | | | [phone] | | | +--------+---------+ + + + [...] Pitts MD - 06/27/2018 Renee Pitts MD [facility], [address], [address] [place] [address] DISCHARGE INSTRUCTIONS You had undergone an endoscopic [...] PRO VIDENCE | | ALBERT SIMMONS | [facility] | | : 1975 AGE: 43 years SEX: Male | [facility] | | | LABOR ATORY | | Acct: [id number] Location: [facility] | | [facility]; [facility] MEDICAL PROCEDURE UNIT POOL; [facility] | | | MEDICAL PROCEDURE UNIT POOL | | | Case #: [id number] Ordering: | | | RENEE PITTS MD Client: [facility] | | | [facility] Copy To: | | | Printed: [...] 06/28/2018 04:37 | | | pmPerforming Location: [facility] | | | [address] [place] [id number]:The patient's previous rectal polyp | | | with diagnosis of well differentiated neuroendocrine tumor ([id number]) | | | is noted.GROSS DESCRIPTION:The specimen [...] + + | BÁRBARAAARON EL | [address] | [place] [address] | | | [facility] | | | | | AC THOM[place] | | | | + + + + + EUS Lower (06/27/2018 3:05 PM PDT) + + | Specimen | + + | | + + + + + | Narrative | Performed At | + + + | Brett | [place] NWR | | [facility] | [facility]OVATION | | CenterGI | | | Patient Name: Albert Simmons Procedure | | | Date: 06/27/2018 3:05 PMMRN: [id number] | | | of : 1975 | [...] | | | Rad De La Cruz, [facility]: | | | Monitored Anesthesia CareComplications: [...] | | gastroscope was fitted with 7 Japanese Macario-Cook) resection | | | Duette kit. [...] | | 3:05 PMNumber of Addenda: 0 [facility] | | | [facility] | | |RENEE PITTS MD | | |06/27/2018 3:55:06 PM | | |This report has been signed electronically. | | | | | |Note Initiated On: 06/27/2018 3:05 PM | | |Number of Addenda: 0 | | | | | | [facility] | | + + [...] | [facility] | | | POC | [facility] [address], | | SACRED | | | | [place] [address] | | HEART | | | |Performed by [facility] [address], [place] [address] | | MEDICAL | | | | [...] + + | BRETT RAMOS | [address] | [place] [address] | | | [facility] | | | | | LABORATORY BERTO [...]
--- OUTSIDE RECORDS SUMMARY | ~2019-09-08 | XMS | Encounter Summary ---
Demographics + + + | Address | [address] | | | [place] [address] | + + + | Home Phone [...] Providers + +------+ + | Care Manager Internship Name | Role | Phone | + [...] of rectum | [address] [place] | [place] | | | | | (HCC) | [facility] [place] | [address] | | | | | Procedures | [address] | Phone: | | | | | Flex sig | Phone: | [phone] | | | | | with [employer], | [phone] | Fax: | | | | | possible | Fax: | [phone] | | | | | EMR/possible | [phone] | | | | | | | [...] + + | 06/14/ | Office | [facility] | Rad De La Cruz | 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 MEDICAL PROCEDURE UNIT ESOPHAGUS-ACID REFLUX TEST N/A 02/25/2018 Procedure: ENDOSCOPIC 48 HOUR PH FERRARI "CAPSULE"; Surgeon: Rad De La Cruz MD; Locat ion: [facility] MEDICAL PROCEDURE UNIT INGUINAL HERNIA REPAIR Right 02/2008 NASAL SEPTUM SURGERY 03/20/2014 BILATERAL Inferior Turbinoplasty; LEFT Frontal Sinusotomy; Laterality: Bilateral; Surgeo n: Keo Wheatley MD; Location: [facility] MAIN OR SINUS ENDOSCOPY 03/20/2014 Laterality: Left; Surgeon: Keo Wheatley MD; Location: [facility] MAIN OR SINUS SURGERY 2008 SINUS SURGERY [...] A. We'll plan on referring him to [facility] for a rectal EUS to see [...] provider defined for this encounter. Nilesh Osorio, [id number] [place] [address] Portions of this chart may have been created with [employer] voice recognition software. Occasi onal wrong-word or sound-alike substitutions may have occurred due to the inherent choudhury itations of voice recognition software. Please read the chart carefully and recognize, using context, where these substitutions have occurred arroll, Vicki Randolph RN - 06/14/2018 2:00 PM PSTOrdered and faxed labs to [facility] [place] . Referral to [facility] for Rectal EUS; once approved patient to [...]
--- OUTSIDE RECORDS SUMMARY | ~2019-09-08 | XMS | Encounter Summary ---
Demographics + + + | Address | [address] | | | [place] [address] | + + + | Home Phone [...] Team Providers + +------+ + | Care Dictaphone Operator Name | Role | Phone | [...] | | | | | abdominal | [address] | [address], | | | | | pain | [place] | [address] | | | | | Bloating | [place], | [place], | | | | | Procedures | [place] | [place] [address] | | | | | OFFICE VISIT | [address] | Phone: | | | | | | Phone: | [phone] | | | | | | [phone] | Fax: | | | | | | Fax: | [phone] | | | | | | [phone] | | +--------+--------+ + + + + Encounter Details +--------+---------+ + + + | Date | Type | Department | Care Team | Description | +--------+---------+ + + + | 12/22/ | Office | [facility] | Rad De La Cruz | Gastroesophageal | | 2018 | Visit | GASTROENTEROLOGY | MD Felix [address] | reflux disease, | | | | [address] [place] | [address] [place] | esophagitis presence | | | | [address] [place], [place] | [place] [address] | not specified | | | | [address] | [phone] | (Primary Dx); | | | | [phone] | | Bloating; Left upper | | [...] Visit: 12/22/17 Referring Provider: Brayden Butt MD [address] [place] [address] Providing Physician: Rad De La Cruz MD. [...] the blue. He was evaluated by his [facility] care provider and also by Dr. Reno. [...] MD; Location: [facility] MAIN OR SINUS ENDOSCOPY 03/20/2014 Laterality: [...] CC: Brayden Butt MD [address] [place] [address] Nilesh Osorio, [id number] [place] [address] Portions of this chart may have been created with [employer] voice recognition software. Occasi onal wrong-word or [...]
--- OUTSIDE RECORDS SUMMARY | ~2019-09-08 | XMS | Encounter Summary ---
Demographics + + + | Address | [address] | | | [place] [address] | + + + | Home Phone [...] Team Providers + +------+ + | Care Preparator Name | Role | Phone | + [...] | | | (HCC) Other | | [address] | | | | | malignant | | Phone: | | | | | neuroendocri | | [phone] | | | | | ne tumors | | Fax: | | | | | (HCC) | | [phone] | | | | | [C7A.8] | | | | | | | Procedures | | | | | | | [place] | | | | | | | SIGMOIDOSCOP | | | | | | | Y,BIOPSY [place] | | | | | | [...] AVE | | | | | [place] | [place] [address] | | | | | [address] | [phone] | | | | | [phone] | | | +--------+ + + + [...] [address] | | eral | Wrist; nfro-jvh-ckxqif catheter | Kayla Shepherd RN | Vianney [...]
--- OUTSIDE RECORDS SUMMARY | ~2019-09-08 | XMS | Encounter Summary ---
Demographics + + + | Address | [address] | | | [place] [address] | + + + | Home Phone [...] Team Providers + +------+ + | Care Preschool Associate Teacher Name | Role | Phone | [...] | | | | [address] [facility] | [place]. | | | | | [address] [place] | [place] [address] | | | | | [address] | | | | | | [phone] | | | +--------+ + + + [...]
--- OUTSIDE RECORDS SUMMARY | ~2019-09-08 | XMS | Encounter Summary ---
Demographics + + + | Address | [address] | | | [place] [address] | + + + | Home Phone [...] Team Providers + +------+ + | Care Copper Tapper Name | Role | Phone | + [...] | | | Zhang | [address] | | | | | Palpitations | MD Julian | [place], | | | | | Procedures | [address] | [place] | | | | | ECHO | [place] | [address] | | | | | Complete [place] | [place], [place] | Phone: | | | | | ECHO HEART | [address] | [phone] | | | | | [place] | Phone: | Fax: | | | | | [address] | [phone] | [phone] | | | | | [place] | Fax: | | | | | | ECHO HEART | [phone] | | | | | | [place] [...] | | | Zhang | [address] | | | | | Palpitations | MD Julian | [place], | | | | | Procedures | [address] | [place] | | | | | ECHO | [place] | [address] | | | | | Complete [place] | [place], [place] | Phone: | | | | | ECHO HEART | [address] | [phone] | | | | | [place] | Phone: | Fax: | | | | | [address] | [phone] | [phone] | | | | | [place] | Fax: | | | | | | ECHO HEART | [phone] | | | | | | [place] | | | | | | | MPLETE, W/O | | | | | | | DOPPLER | | | +--------+--------+ + + + + Encounter Details +--------+ + + + + | Date | Type | Department | Care Team | Description | +--------+ + + + + | 07/31/ | Hospital | [facility] | Zhang Mullen | Palpitations | | 2018 | Encounter | MED CTR ECHO [address] | MD Julian [address] | | | | | [address] [place] | [address] [place] | | | | | [place] [address] | [place] [address] | | | | | [phone] | | | | | | | | | | | | Liz Yeung, | | | | | | Gas Station Attendant | | +--------+ + + + + [...] | | ALBERT Room Number Patient Number [id number] Date of Study | | | 11/16/2017 Visit Number [id number] Accession | | | [id number] Referring Physician SEBAS ORTIZ Number | | | Date of 1975 Formula Clerk | | | SUZANNA DAWKINS Age 42 year(s) Interpreting | | | JULIAN MULLEN MD | | | [employer] Consultant SEBAS ORTIZ Gender | | | Male Nurse | | | Stress Case Specialist Procedure Type of Study TTE procedure: [...] 0.93 cm PW Diastolic: 0.93 cm EF Gvmaymhsa74% EF | | | Calculated: 60% Miscellaneous [...] Diastolic: 0.93 cm | | | EF Hdjexkxxa44% | | | EF Calculated: 60% | [...] Name RANGEL PRICE Room Number Patient Number [id number] | | Date of Study 11/16/2017 Visit Number [id number] Accession | | [id number] Referring Physician SEBAS ORTIZ Number Date of | | 1975 Formula Clerk SUZANNA DAWKINS Age 42 year(s) | | Interpreting JULIAN MULLEN MD [employer] Consultant | | SEBAS ORTIZ Gender Male Nurse [...] 0.93 cm PW Diastolic: 0.93 cm EF Sojuuwstd48% EF | | Calculated: 60% Miscellaneous Aorta [...] PW Diastolic: 0.93 cm | | EF Nyeuftgfl55% | | EF Calculated: 60% | | [...]
--- OUTSIDE RECORDS SUMMARY | ~2019-09-08 | XMS | Encounter Summary ---
Demographics + + + | Address | [address] | | | [place] [address] | + + + | Home Phone [...] Team Providers + +------+ + | Care Lacquer Machine Feeder Name | Role | Phone | + [...] [place] | | | | | | [address] | | | | | | [phone] | | | +--------+ + + + [...]
--- OUTSIDE RECORDS SUMMARY | ~2019-09-08 | XMS | Encounter Summary ---
Demographics + + + | Address | [address] | | | [place] [address] | + + + | Home Phone [...] Providers + +------+ + | Care Operations Project Manager Name | Role | Phone | [...] + + | 05/16/ | Office | [facility] | Zhang Smith | Palpitations | | 2019 | Visit | CARDIOLOGY [address] | MD Julian [address] | (Primary Dx); Chest | | | | [place], | [address] [place] | pain, unspecified | | | | [place] [address] | [place] [address] | type; Fluttering | | | | [phone] | [phone] | heart | | | | | [...] Rad De La Cruz MD; Locat ion: [facility] MEDICAL PROCEDURE UNIT INGUINAL HERNIA REPAIR Right 02/2008 NASAL SEPTUM SURGERY 03/20/2014 BILATERAL Inferior Turbinoplasty; LEFT Frontal Sinusotomy; Laterality: Bilateral; Surgeo n: Keo Wheatley MD; Location: [facility] MAIN OR SINUS ENDOSCOPY 03/20/2014 Laterality: Left; Surgeon: Keo Wheatley MD; Location: [facility] MAIN OR SINUS SURGERY 2008 SINUS [...] made to ensure accuracy; however, inadvertent computerized consumer education specialist errors may be pre sent. Electronically [...]
--- OUTSIDE RECORDS SUMMARY | ~2019-09-08 | XMS | Encounter Summary ---
Demographics + + + | Address | [address] | | | [place] [address] | + + + | Home Phone [...] Providers + +------+ + | Care Computer Networker Name | Role | Phone | + [...] Unspecified | Keo Arizmendi MD | [address] | | | | | sinusitis | [address] | [place], | | | | | (chronic) | [address] | [place] [address] | | | | | Procedures | [place] | Phone: | | | | | CT Sinus WO | [place], [place] | [phone] | | | | | Contrast | [address] | Fax: | | | | | Limited | Phone: | [phone] | | | | | | [phone] | | | | | | | Fax: | | | | | | | [phone] | | +--------+--------+ + + + + [...] | | | | sinus | PA-C [address] | | | | | infections | [place] | [address] | | | | | recurring | WAY | [place], | | | | | sinus | [place], | [place] [address] | | | | | infection | [place] [address] | Phone: | | | | | Procedures | Phone: | [phone] | | | | | DE OFFICE | [phone] | Fax: | | | | | OUTPATIENT | Fax: | [phone] | | | | | VISIT 25 | [phone] | | | | | | MINUTES [...] + + | 01/11/ | Office | [facility] | Keo Wheatley MD | Unspecified | | 2013 | Visit | OTOLARYNGOLOGY [address] | [address] [place] | sinusitis (chronic) | | | | [address] | [address] [place], | (Primary Dx); | | | | [place] | [place] [address] | Hypertrophy of nasal | | | | [address] | [phone] | turbinates | | | | [phone] | | | +--------+---------+ + + + [...] - 01/11/2014 2:30 PM PDTSee dictation # [id number] signed by Keo Wheatley MD at 01/11/2014 2:34 PM Keo Gonzalez MD - 01/11/2014 12:00 AM PDT ENT AND AUDIOLOGY [address] [address] FAX: [phone] OFFICE VISIT NEW PATIENT VISIT HISTORY: The [...] Keo Wheatley MD / SEDRICK JOB #: [id number] signed by Keo Wheatley MD at 01/15/2014 [...]
[~2019-09-08 01:11] MED LIST changes: +CARAFATE1 GM PO; +SUMATRIPTAN SUC25 MG PO
--- OUTSIDE RECORDS SUMMARY | 2019-09-08 01:14 | XMS ---
PreManage Notification: ALBERT SIMMONS Security Thinner Sprayer Events No recent Security Events currently on file CRITERIA MET - [facility] - Has Care Guidelines CARE PROVIDERS JOSE AGUILA [facility] 05/02/2018-Current PHONE: Unknown Name [facility] 05/22/2019-Current PHONE: [phone] Seun has no Care Guidelines for this patient. Care History Medical/Surgical 05/02/2018 [facility] \T\middot;\T\nbsp; PATIENT- [facility] ELIGIBLE \T\middot;\T\nbsp; PLEASE REFER PATIENT TO [facility] FOR NON EMERGENT MEDICAL NEEDS. \T\middot;\ T\nbsp; [facility] CAN SEE PATIENTS SAME DAY FOR APTS IF PATIENT CALLS FIRST THING IN THE MORNING. E.D. VISIT COUNT (12 MO.) 2 [facility] TOTAL 2 NOTE: Visits indicate total known visits. ED/UCC VISIT TRACKING (12 MO.) 09/08/2019 01:12 [facility] TYPE: Emergency COMPLAINT: - ABD PAIN 05/19/2019 12:25 [facility] TYPE: Emergency COMPLAINT: - ABD PAIN DIAGNOSES: - Other penitentiary (current) drug therapy - Epigastric pain INPATIENT VISIT TRACKING (12 MO.) No inpatient visits to display in this time frame [email or web address]
[2019-09-08] MEDS ORDERED: DICYCLOMINE HCL20 MG PO (01:28)
== END 2019-09-08 03:22 | disposition home or self-care (01) ==
LOC: ED 01:11
DX: R10.11 Right upper quadrant pain (principal); R10.12 Left upper quadrant pain; R19.7 Diarrhea, unspecified; R11.2 Nausea with vomiting, unspecified; K21.9 Gastro-esophageal reflux disease without esophagitis; Z79.899 Other long term (current) drug therapy
CPT/HCPCS: 80053; 81001; 83690; 85025; 96361; 96374; 99284-25; J2405; J7030

== ENCOUNTER 2019-09-22 06:28 | Day surgery (SDC) | payer BC, OTHER ==
[~2019-09-22] VITALS: Ht 175.3 cm; Wt 83.0 kg
[~2019-09-22 06:28] MED LIST changes: +DICYCLOMINE HCL20 MG PO; +MELATONIN1 MG PO
--- NOTE | 2019-09-22 08:52 | NUR ---
09/22/19 0852 Sheets,Radha 0830 PT ARRIVED TO PACU WITH ORAL AIRWAY IN PALCE AND RESP EVEN AND UNLABORED. VSS. ON 6L VIA MASK.
--- NOTE | 2019-09-22 09:30 | NUR ---
PT ARRIVES BACK TO DS RM 5 FROM PACU AWAKE. PT ON 2L NC SATS GREATER THAN 94%. PT STATES HAVING NAUSEA EARLIER BUT NOT ANYMORE. PT RATES PAIN 7/10 AND IS MEDICATED PER EMAR. SCD'S IN PLACE, CALL LIGHT IN REACH. DC CRITERIA EXPLAINED. PT PROVIDED ICED WATER, CRACKERS AND JELLO.
[2019-09-22] MEDS ORDERED: NORCO 5-325 TA1 EACH PO ×2 (10:13)
--- NOTE | 2019-09-22 10:24 | NUR ---
PT CONT TO REST IN BED AWAKE, SATS GREATER THAN 94% ON RA. PT STATES NO NAUSEA AND PAIN IS A LITTLE BETTER 4/10 BUT "IS STILL SORE." PT ENC TO USE CALL LIGHT WITH URGE TO VOID, CALL LIGHT WITHIN REACH.
--- NOTE | 2019-09-22 10:25 | NUR ---
PT UP TO BATHROOM WITH RN ASSIST, DENIES DIZZINESS OR NAUSEA. PT ABLE TO VOID 350 MLS YELLOW URINE WITH NO PROBLEMS. BACK TO ROOM TO GET DRESSED. 1035: DC INSTRUCTIONS GIVEN, PAIN PRESCRIPTION WITHIN DC FOLDER. SPOUSE DERECK NOTIFIED FOR SAFE RIDE HOME. PT DC'S FROM DS RM 5 VIA WC TO PERSONAL VEHICLE.
--- NOTE | 2019-09-22 13:02 | OR ---
[facility] [address] [place], [place] [address] Signed DATE OF OPERATION: 09/22/2019 SURGEON: Rich Abdalla MD PREOPERATIVE DIAGNOSES: 1. Chronic cholecystitis. 2. Biliary colic. POSTOPERATIVE DIAGNOSES: 1. Chronic cholecystitis. 2. Biliary colic. 3. Moderate cholesterolosis. PROCEDURE: Laparoscopic cholecystectomy without intraoperative cholangiogram. ESTIMATED BLOOD LOSS: None. INDICATIONS: Albert is a 44-year-old gentleman, I have known for several years. He has continued to have trouble belt-like epigastric abdominal pain. He feels like the right side is worse than the left. It is often associated with nausea and vomiting. He said it is generally constant, but can be worse when he eats. He has been working very closely with his insole coverer. Repeat upper endoscopy and ultrasound were unremarkable. His HIDA scan was unremarkable back in 2018. He has been using dicyclomine without much success. He had been back to the office to enquire about gallbladder surgery. I had given him a brochure on the gallbladder surgery. We discussed the location and function of the gallbladder. We discussed laparoscopic versus open cholecystectomy. He understands the expected intraop and postop course. We did review the risks including, but not limited to bleeding, infection, scarring, change in contour of the skin, damage to bowel, damage to main bile duct, incisional hernias and the inability to relieve his symptoms. He had told us he give us a call back after additional evaluation with his insole coverer. He had called back and wished to proceed with his surgery. DESCRIPTION OF PROCEDURE: I had met with Albert in our preop area. He was then taken into the operating room and placed in the supine position under general endotracheal tube anesthesia. He was given preoperative antibiotics along with subcutaneous heparin. SCDs were utilized. He was then prepped and draped in usual sterile fashion. All trocars were placed in usual Electronically Signed By: RICH ABDALLA MD 09/22/19 1302 PATIENT NAME: ALBERT SIMMONS OPERATIVE REPORT DATE OF : 77 REPORT #: [id number] PHYSICIAN: RICH ABDALLA MD PCP: ABBY DOTSON REPORT IS CONFIDENTIAL AND NOT TO BE RELEASED WITHOUT AUTHORIZATION [facility] [address] [place] [id number] Signed positions under direct visualization of camera without difficulty. The gallbladder was grasped and elevated in the right upper quadrant. Pictures were taken throughout for photodocumentation. The triangle of Calot was dissected free and a clip was placed across the cystic artery and it was divided. We attempted to place the intraoperative into the cystic duct twice. We ran into the valves of Heister. Consequently, we could not perform the intraoperative cholangiogram. We therefore secured the cystic duct stump with three sequential clips. The gallbladder was then removed from the gallbladder fossa with the help of the cautery and placed into an EndoCatch bag. The right upper quadrant was irrigated and suctioned out until clear. We used our laparoscopic suturing device to pass 0 Vicryl suture on either side of the fascia of the subxiphoid trocar site. This was tied down to close this fascia primarily. After this, the gas was allowed to escape and all the trocars were removed. We closed the fascia of the supraumbilical trocar site with interrupted [id number] and simple 0 Vicryl sutures. Local anesthetic was injected into all trocar sites. Each trocar site was irrigated and suctioned out until clear. The skin and dermis of each trocar site were closed with interrupted 3-0 subcuticular Monocryl sutures. Dry gauze and tape were then applied to all incisions. Albert was awakened from his anesthesia, extubated in the OR and taken to recovery in stable condition. Rich Abdalla MD ALB/MODL /[id number] cc: MD Rich Lau MD Colleen Thurman, FNP Copies: RICH ABDALLA MD ~ Electronically Signed By: RICH ABDALLA MD 09/22/19 1302 PATIENT NAME: ALBERT SIMMONS OPERATIVE REPORT DATE OF : 77 REPORT #: [id number] PHYSICIAN: RICH ABDALLA MD PCP: ABBY DOTSON-C REPORT IS CONFIDENTIAL AND NOT TO BE RELEASED WITHOUT AUTHORIZATION
[2019-09-22] MEDS ORDERED: IBUPROFEN800 MG PO (21:17)
[2019-09-22] MEDS ORDERED: PAIN RELIEF325 MG PO (21:18)
--- NOTE | 2019-09-25 10:45 | PATH ---
[facility] [address] [place], [place] [address] Signed SPECIMEN(S): A GALLBLADDER SPECIMEN SOURCE: A. GALLBLADDER CLINICAL HISTORY: Chronic cholecystitis. FINAL PATHOLOGIC DIAGNOSIS: Gallbladder, cholecystectomy: - Chronic cholecystitis with cholesterolosis. NAL:cml:C2NR MICROSCOPIC EXAMINATION: Histologic sections of all submitted blocks are examined by light microscopy. These findings, together with the gross examination, support the pathologic diagnosis. GROSS DESCRIPTION: The specimen, labeled "NG, gallbladder," is received in formalin and consists of Specimen: Intact gallbladder. Dimensions: 6.5 cm in length and 4.5 cm in circumference. Serosa: violaceous and smooth. Cystic Duct: unobstructed. Calculi: No calculi are identified within the gallbladder or within the container. Mucosa: Canal [place]-lan[place] and velvety. Wall thickness: 0.3 cm. Lymph node: No pericystic lymph nodes are grossly identified. Additional: None. [employer] Developing Machine Operator sections are submitted in cassette (A1). JS (under the direct supervision of a pathologist) The Gross Description was prepared using a voice recognition system. The report was reviewed for accuracy; however, sound-alike word errors, addition and/or deletions may occur. If there is any question about this report, please contact Client Services. PERFORMING LABORATORY: The technical component was performed by [facility], [address] [place] [address] (Recruiter Account Manager: Trudi Hughes MD; CLIA# [id number]). PATIENT NAME: ALBERT SIMMONS PATHOLOGY DATE OF : 77 REPORT #: [id number] PHYSICIAN: MINI HSIEH PCP: ABBY DOTSON REPORT IS CONFIDENTIAL AND NOT TO BE RELEASED WITHOUT AUTHORIZATION [facility] [address] [place], [place] [address] Signed Professional interpretation [facility], [address] [address] (CLIA# [id number]). Diagnostician: Michelle Kong MD Pathologist Electronically Signed 09/25/2019 Copies: ~ PATIENT NAME: ALBERT SIMMONS PATHOLOGY DATE OF : 77 REPORT #: [id number] PHYSICIAN: MINI HSIEH PCP: ABBY DOTSON REPORT IS CONFIDENTIAL AND NOT TO BE RELEASED WITHOUT AUTHORIZATION
== END 2019-09-22 10:44 | disposition home or self-care (01) ==
LOC: DS 06:28
PROVIDERS: Colon & Rectal Surgery
PROC: 0FT44ZZ Resection of Gallbladder, Percutaneous Endoscopic Approach (ICD-10-PCS; principal; 2019-09-22 06:45)
DX: K80.44 Calculus of bile duct with chronic cholecystitis without obstruction (principal); K21.9 Gastro-esophageal reflux disease without esophagitis; Z79.899 Other long term (current) drug therapy; Z87.891 Personal history of nicotine dependence
CPT/HCPCS: J0690; J1100; J1644; J1885; J2001; J2405; J2704; J3010; J7121

== ENCOUNTER 2019-09-22 21:04 | Emergency (ER) | payer BC ==
[~2019-09-22] VITALS: Ht 175.3 cm; Wt 83.9 kg
--- OUTSIDE RECORDS SUMMARY | ~2019-09-22 | XMS | Encounter Summary ---
Demographics + + + | Address | [address] | | | [place] [address] | + + + | Home Phone | | + + + | Preferred Language | Unknown | + + + | Marital Status | | + + + | Sikh Affiliation | Unknown | + + + | Race | Unknown | + + + | Ethnic Group | Unknown | + + + Author + + + | Author | [facility] | | | and [place] | + + + | Organization | [facility] | | | and [place] | + + + | Address | Unknown | + + + | Phone | Unavailable | + + + Support + + +---------+ + | Name | Relationship | Address | Phone | + + +---------+ + | Rosanne Multani | ECON | Unknown | | + + +---------+ + | Jadyn Multani | ECON | Unknown | | + + +---------+ + Care Team Providers + +------+ + | Care Stone And Plate Preparer Apprentice Name | Role | Phone | + +------+ + | Bulmaro Arechiga PA-C | PCP | | + +------+ + Reason for Referral Evaluate & Treat (Routine) +--------+ + + + + + | Status | Reason | Specialty | Diagnoses / | Referred By | Referred To | | | | | Procedures | Contact | Contact | +--------+ + + + + + | Closed | Specialty | Otolaryngolog | Diagnoses | Wheatley, | Keo Wheatley | | | Services | y | Chronic | Keo E, | E, [address] | | | Required | | frontal | [address] | | | | | sinusitis | [address] | | | | | Hypertrophy | [place], | | | | | of nasal | [place], [place] | [place] [address] | | | | | turbinates | [address] | Phone: | | | | | Procedures | Phone: | [phone] | | | | | [place] EXCISION | [phone] | Fax: | | | | | TURBINATE | Fax: | [phone] | | | | | [place] NASAL | [phone] | | | | | | SCOPY,ANGELICA | | | | | | | FRONTAL | | | | | | | SINUS | | | +--------+ + + + + + Encounter Details +--------+ + + + + | Date | Type | Department | Care Team | Description | +--------+ + + + + | 01/26/ | Orders Only | [facility] | Keo Wheatley MD | Chronic frontal | | 2014 | | OTOLARYNGOLOGY [address] | [address] | sinusitis (Primary | | | | [address] | [address] [place], | Dx); Hypertrophy of | | | | [place], [place] | [place] [address] | nasal turbinates | | | | [address] | [phone] | | | | | [phone] | | | +--------+ + + + + Social History + +-------+ +--------+------+ | Tobacco Use | Types | Packs/Day | Years | Date | | | | | Used | | + +-------+ +--------+------+ | Never Smoker | | | | | + +-------+ +--------+------+ + + +---------+ + | Alcohol Use | Drinks/Week | oz/Week | Comments | + + +---------+ + | Not Asked | | | | + + +---------+ + + [...] as of this encounter Plan of Treatment + + +--------+ + + | Name | Type | Priori | Associated Diagnoses | Order Schedule | | | | ty | | | + + +--------+ + + | * [facility] [place] | Outpatient | Routin | Chronic frontal | Ordered: 01/26/2014 | | Otolaryngology - AMB | Referral | e | sinusitis | | | Referral | | | Hypertrophy of nasal | | | | | | turbinates | | + + +--------+ + + documented as of this encounter Visit Diagnoses + + | Diagnosis | + + | Chronic frontal sinusitis - Primary | + + | Hypertrophy of nasal turbinates | + + documented in this encounter"
--- OUTSIDE RECORDS SUMMARY | ~2019-09-22 | XMS | Encounter Summary ---
Demographics + + + | Address | [address] | | | [place] [address] | + + + | Home Phone | | + + + | Preferred Language | Unknown | + + + | Marital Status | | + + + | Orthodox Affiliation | Unknown | + + + | Race | Unknown | + + + | Ethnic Group | Unknown | + + + Author + + + | Author | [facility] | | | and [place] | + + + | Organization | [facility] | | | and [...] Team Providers + +------+ + | Care Chemical Applicator Name | Role | Phone | + [...] + + | 07/26/ | Office | [facility] | Rad De La Cruz | 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 The [...] and lower Bloating Chest pain Cardiolgist in [place]- will have testing Chronic frontal sinusitis left [...] Surgeon: Rad De La Cruz MD; Location: [facility] MEDICAL PROCEDURE UNIT ENDOSCOPY ESOPHAGUS-ACID REFLUX TEST N/A 02/25/2018 Procedure: ENDOSCOPIC 48 HOUR PH FERRARI "CAPSULE"; Surgeon: Rad De La Cruz MD; Locat ion: [facility] MEDICAL PROCEDURE UNIT INGUINAL HERNIA REPAIR Right 02/2008 NASAL SEPTUM SURGERY 03/20/2014 BILATERAL Inferior Turbinoplasty; LEFT Frontal Sinusotomy; Laterality: Bilateral; Surgeo n: Keo Wheatley MD; Location: [facility] MAIN OR OTHER SURGICAL HISTORY N/A 06/27/2018 Procedure: EUS RECTAL; Surgeon: Luke Pitts MD; Location: [facility] MEDICAL PROCEDURE UN IT SIGMOIDOSCOPY N/A 06/27/2018 Procedure: RECTAL ULTRASOUND, SIGMOIDOSCOPY FLEXIBLE POSSIBLE EMR, FTRD/ESD; Surgeon: Morgan Pitts MD; Location: [facility] MEDICAL PROCEDURE UNIT SINUS ENDOSCOPY 03/20/2014 Laterality: Left; Surgeon: Keo Wheatley MD; Location: [facility] MAIN OR SINUS SURGERY 2008 SINUS SURGERY [...] Iberogast Asked him to be mindful about [place] use as there is a lot of [...] provider defined for this encounter. Izzy Snowden, [id number] [place] [address] Portions of this chart may have been created with [employer] voice recognition software. Occasi onal wrong-word or [...]
--- OUTSIDE RECORDS SUMMARY | ~2019-09-22 | XMS | Encounter Summary ---
Demographics + + + | Address | [address] | | | [place] [address] | + + + | Home Phone | | + + + | Preferred Language | Unknown | + + + | Marital Status | | + + + | Baptism Affiliation | Unknown | + + + | Race | Unknown | + + + | Ethnic Group | Unknown | + + + Author + + + | Author | [facility] | | | and [place] | + + + | Organization | [facility] | | | [...] Team Providers + +------+ + | Care Hot Stone Setter Name | Role | Phone | + +------+ + | Izzy Snowden | PCP | | + +------+ + Reason for Visit + + + | Reason | Comments | + + + | Appointment | GERD | + + + Encounter Details +--------+ + + + + | Date | Type | Department | Care Team | Description | +--------+ + + + + | 07/27/ | Telephone | [facility] | Rad De La Cruz | Appointment (GERD) | | 2019 | | GASTROENTEROLOGY | MD Felix [address] | | | | | [address] | [address] [place] | | | | | [address] [place], [place] | [facility] [place] [address] | | | | | [address] | [phone] | | | | | [phone] | | | +--------+ + + + [...]
--- OUTSIDE RECORDS SUMMARY | ~2019-09-22 | XMS | Encounter Summary ---
Demographics + + + | Address | [address] | | | [place] [address] | + + + | Home Phone | | + + + | Preferred Language | Unknown | + + + | Marital Status | | + + + | Gnosticist Affiliation | Unknown | + + + | Race | Unknown | + + + | Ethnic Group | Unknown | + + + Author + + + | Author | [facility] | | | and [place] | + + + | Organization | [facility] | | | and [...] Team Providers + +------+ + | Care Receptionist Name | Role | Phone | + [...] | | | | | | | Chronic | | | | | | | frontal | | | | | | | sinusitis | | | | | | | 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 | | | | | | | Chronic | | | | | | | frontal | | | | | | | sinusitis, | | | | | | | 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 | | | | | | | Procedures | | | | | | | RI | | | | | | | EXCISION | | | | | | | TURBINATE | | | | | | | [place] NASAL | | | | | | | SCOPY,EXPLOR | | | | | | | FRONTAL | | | | | | | SINUS | | | | | | | SEPTOPLASTY | | | | | | | W OR W/O | | | | | | | TURBINATES | | | | | | | ENDOSCOPY | | | | | | | SINUS | | | | | | | NAVIGATION | | | +--------+--------+ + + + + Encounter Details +--------+ + + + + | Date | Type | Department | Care Team | Description | +--------+ + + + + | 03/20/ | Anesthesia | [facility] | Sd Ruvalcaba MD | | | 2014 | Event | MED CTR OR INTRA OP | [address] | | | | | [address] | [place], [place] | | | | | [place], [place] | [address] | | | | | [address] | | | | | | [phone] | Elvis, Sancho Geronimo, | | | | | | [address] | | | | | | [place], [place] | | | | | | [address] | | | | | | | | +--------+ + + + + Anesthesia Record + + + + + | Procedure Name | Responsible | Anesthesia Start | Anesthesia Stop Time | | | Anesthesiologist | Time | | + + + + + | BILATERAL Inferior | | 03/20/14 1636 | 03/20/14 1755 | | Turbinoplasty; LEFT | | | | | Frontal Sinusotomy | | | | | (Bilateral Nose) | | | | + + + + + +----+---+ + + | Da | T | Event | Comment | | te | i | | | | | m | | | | | e | | | +----+---+ + + | 12 | 1 | | | | /0 | 6 | | | | 2/ | 3 | | | | 20 | 4 | | | | 14 | | | | +----+---+ + + | | 1 | An Checkout | Pre-use anesthesia machine/equipment checkout. | | | 6 | | | | | 3 | | | | | 6 | | | +----+---+ + + | | 1 | An Start | Reassessment prior to anesthesia induction/procedure. | | | 6 | | | | | 3 | | | | | 6 | | | +----+---+ + + | | 1 | AN | Per surgeon request | | | 6 | Antibiotic | | | | 3 | declined | | | | 6 | | | +----+---+ + + | | 1 | Preoxygenat | | | | 6 | ed | | | | 3 | | | | | 8 | | | +----+---+ + + | | 1 | An | | | | 6 | Induction | | | | 3 | | | | | 9 | | | +----+---+ + + | | 1 | An | | | | 6 | Intubation | | | | 4 | | | | | 0 | | | +----+---+ + + | | 1 | Breathing | | | | 6 | Spontaneous | | | | 4 | ly | | | | 8 | | | +----+---+ + + | | 1 | Oropharynx | | | | 7 | Suctioned | | | | 4 | | | | | 6 | | | +----+---+ + + | | 1 | Moving | | | | 7 | Purposefull | | | | 4 | y | | | | 8 | | | +----+---+ + + | | 1 | Extubated | | | | 7 | Awake | | | | 4 | | | | | 9 | | | +----+---+ + + | | 1 | an stop | | | | 7 | data | | | | 4 | | | | | 9 | | | +----+---+ + + | | 1 | An Stop | Patient handed off to recovery nurse. | | | 5 | | | | | 5 | | | +----+---+ + + +------+ | Meds | +------+ + + + | Name | Total | + + + | fentaNYL | 100 mcg | + + + | propofol | 200 mg | + + + | dexamethasone | 10 mg | + + + | ondansetron | 4 mg | + + + | midazolam | 2 mg | + + + | lactated ringers (LR) infusion | 1,000 mL | + + + + + | Name | + + | N2O Flow Rate (L/Min) | + + | O2 Flow Rate (L/Min) | + + | Insp O2 | + + | Exp SEV | + + | Air Flow Rate (L/Min) | + + + + | No blood administrations on file. | + + +--------+ + + + | Type | Details | Placement | Removal | +--------+ + + + | [READ | 03/20/14; 1245; short term use; | 03/20/14 1245 by | 03/20/142019 by | | ONLY] | 03/20/142019 | Yolande Carlson | Emeli Dotson, | | | | | RN | | Periph | | | | | eral | | | | | IV - | | | | | Single | | | | | Lumen | | | | | | | | | +--------+ + + + | Airway | Placement Date: 03/20/14; | 03/20/14 1640 by | 03/20/14 1749 by | | | Placement Time: 1640; Attempts: | Sd Ruvalcaba MD | Sd Ruvalcaba MD | | | 1; Airway Type: laryngeal mask, | | | | | cuffed; Size: 4; Tube Reference | | | | | Point: secure and patent; Trauma: | | | | | none; Placement Check: verified | | | | | by capnography; Placed By: | | | | | Anesthesiologist; Removal Date: | | | | | 03/20/14; Removal Time: 1748 | | | +--------+ + + + | Read | 03/20/14; 1710; nose; no incision | 03/20/141710 by | 03/20/142019 by | | only - | visualized; healing within | Fatimah Boucher RN | Emeli Dotson, | | | expectations; 03/20/142019 | | RN | | Incisi | | | | | on | | | | +--------+ + + + documented in this encounter Social History + +-------+ +--------+ + | Tobacco Use | Types | Packs/Day | Years | Date | | | | | Used | | + +-------+ +--------+ + | Former Smoker | | | | Quit: 04/19/2004 | + +-------+ +--------+ + + +------+---+---+ | Smokeless Tobacco: [...] Visit Diagnoses Not on filedocumented in this encounter Administered Medications + +--------+ +-------+------+------+ | Medication Order | MAR | Action | Dose | Rate | Site | | | Action | Date | | | | + +--------+ +-------+------+------+ | dexamethasone (DECADRON) 10 | Given | 03/20/20 | 10 mg | | | | mg/mL injection Intravenous, | | 14 4:50 | | | | | PRN, Starting 03/20/14 at | | PM PST | | | | | 1650, Anesthesia Intra-op | | | | | | + +--------+ +-------+------+------+ +---+---+ | | | +---+---+ + +-------+ +--------+---+---+ | fentaNYL injection | Given | 03/20/20 | 50 mcg | | | | Intravenous, PRN, Pain, Starting | | 14 4:51 | | | | | 03/20/14 at 1644, Anesthesia | | PM PST | | | | | Intra-op | | | | | | + +-------+ +--------+---+---+ +-------+ +--------+---+---+ | Given | 03/20/20 | 50 mcg | | | | | 14 4:44 | | | | | | PM PST | | | | +-------+ +--------+---+---+ +---+---+ | | | +---+---+ + +---------+ +----+---+---+ | lactated ringers (LR) infusion | New Bag | 03/20/20 | mL | | | | at 10-100 mL/hr, Intravenous, | | 14 4:59 | | | | | CONTINUOUS, Starting 03/20/14 | | PM PST | | | | | at 1645, TKO., Pre-op | | | | | | + +---------+ +----+---+---+ +---------+ +----+---+---+ | New Bag | 03/20/20 | mL | | | | | 14 4:36 | | | | | | PM PST | | | | +---------+ +----+---+---+ +---+---+ | | | +---+---+ + +-------+ +------+---+---+ | midazolam (VERSED) 1 mg/mL | Given | 03/20/20 | 2 mg | | | | injection Intravenous, PRN, | | 14 4:36 | | | | | Anxiety, Starting Wed03/20/14 at | | PM PST | | | | | 1636, Anesthesia Intra-op | | | | | | + +-------+ +------+---+---+ +---+---+ | | | +---+---+ + +-------+ +------+---+---+ | ondansetron (ZOFRAN) injection | Given | 03/20/20 | 4 mg | | | | Intravenous, PRN, Nausea, | | 14 4:51 | | | | | Vomiting, Starting Wed03/20/14 at | | PM PST | | | | | 1651, Anesthesia Intra-op | | | | | | + +-------+ +------+---+---+ +---+---+ | | | +---+---+ + +-------+ +--------+---+---+ | propofol (DIPRIVAN) injection | Given | 03/20/20 | 200 mg | | | | Intravenous, PRN, Starting Tue | | 14 4:39 | | | | | 03/20/14 at 1639, Anesthesia | | PM PST | | | | | Intra-op | | | | | | + +-------+ +--------+---+---+ +---+---+ | | | +---+---+ documented in this encounter"
--- OUTSIDE RECORDS SUMMARY | ~2019-09-22 | XMS | Encounter Summary ---
Demographics + + + | Address | [address] | | | [place] [address] | + + + | Home Phone | | + + + | Preferred Language | Unknown | + + + | Marital Status | | + + + | Methodist Affiliation | Unknown | + + + | Race | Unknown | + + + | Ethnic Group | Unknown | + + + Author + + + | Author | [facility] | | | and [place] | + + + | Organization | [facility] | | | and [...] Team Providers + +------+ + | Care Field Research Associate Name | Role | Phone | + [...] | +--------+ + + + + | 09/11/ | Telephone | [facility] | Rad De La Cruz | Appointment | | 2019 | | GASTROENTEROLOGY | MD Felix [address] | | | | | [address] [facility] | [address] [facility] | | | | | [address] | [place] [address] | | | | | [address] | [phone] | | | | | [phone] | | | +--------+ + + + [...]
--- OUTSIDE RECORDS SUMMARY | ~2019-09-22 | XMS | Encounter Summary ---
Demographics + + + | Address | [address] | | | [place] [address] | + + + | Home Phone [...] Team Providers + +------+ + | Care Associate Professor Of Criminal Justice Name | Role | Phone | + +------+ + | Izzy Snowden | PCP | | + +------+ + Encounter Details +--------+ + + + + | Date | Type | Department | Care Team | Description | +--------+ + + + + | 11/27/ | Orders Only | [facility] | Provider, | | | 2019 | | SYSTEM GENERIC OP | MD Jorge [address] | | | | | [address] | [address] | | | | | [address] [place], [place] | [place] [address] | | | | | [address] | | | | | | [phone] | | | +--------+ + + + [...]
--- OUTSIDE RECORDS SUMMARY | ~2019-09-22 | XMS | Encounter Summary ---
Demographics + + + | Address | [address] | | | [place] [address] | + + + | Home Phone | | + + + | Preferred Language | Unknown | + + + | Marital Status | | + + + | Anabaptism Affiliation | Unknown | + + + | Race | Unknown | + + + | Ethnic Group | Unknown | + + + Author + + + | Author | [facility] | | | and [place] | + + + | Organization | [facility] | | | [...] Team Providers + +------+ + | Care Electrical Line Splicer Name | Role | Phone | + +------+ + | Nilesh Osorio DO | PCP | | + +------+ + Reason for Referral Diagnostic/Screening (Routine) +--------+--------+ + + + + | Status | Reason | Specialty | Diagnoses / | Referred By | Referred To | | | | | Procedures | Contact | Contact | +--------+--------+ + + + + | Closed | | Radiology | Diagnoses | Max[place], | [facility] | | | | | | Zhang | [address] | | | | | Palpitations | MD Julian | [place], | | | | | Procedures | [address] | [place] | | | | | ECHO | [place] | [address] | | | | | Complete [place] | [place], [place] | Phone: | | | | | ECHO HEART | [address] | [phone] | | | | | [place] | Phone: | Fax: | | | | | [address] | [phone] | [phone] | | | | | [place] | Fax: | | | | | | ECHO HEART | [phone] | | | | | | [place] | | | | | | | MPLETE, W/O | | | | | | | DOPPLER | | | +--------+--------+ + + + + Reason for Visit Diagnostic/Screening (Routine) +--------+--------+ + + + + | Status | Reason | Specialty | Diagnoses / | Referred By | Referred To | | | | | Procedures | Contact | Contact | +--------+--------+ + + + + | Closed | | Radiology | Diagnoses | [place], | [facility] | | | | | | Zhang | [address] | | | | | Palpitations | MD Julian | [place], | | | | | Procedures | [address] | [place] | | | | | ECHO | [place] | [address] | | | | | Complete [place] | [place], [place] | Phone: | | | | | ECHO HEART | [address] | [phone] | | | | | [place] | Phone: | Fax: | | | | | [address] | [phone] | [phone] | | | | | [place] | Fax: | | | | | | ECHO HEART | [phone] | | | | | | [place] | | | | | | | MPLETE, W/O | | | | | | | DOPPLER | | | +--------+--------+ + + + + Encounter Details +--------+ + + + + | Date | Type | Department | Care Team | Description | +--------+ + + + + | 07/31/ | Hospital | [facility] | Zhang Mullen | Palpitations | | 2018 | Encounter | MED [facility] ECHO [address] | MD Julian [address] | | | | [address] [place] | [address] [place] | | | | | [place] [address] | [place] [address] | | | | | [phone] | [phone] | | | | | | | | | | | | Liz Yeung, | | | | | | Construction Skills Teacher | | +--------+ + + + + [...] | + +--------+ + + + | ECHO COMPLETE | Routin | 11/16/2017 | Palpitations | Results for this | | | e | 2:50 PM | | procedure are in the | | | | PDT | | results section. | + +--------+ + + + documented in this encounter Results ECHO Complete (11/16/2017 2:50 PM PDT) + +-------+ + + + | Component | Value | Ref Range | Performed | Pathologist | | | | | At | Signature | + +-------+ + + + | LVEF-TTE | 60 | | [facility] | | | TRANSTHORAC | | | | | | IC ECHO | | | | | + +-------+ + + + + + | Specimen | + + | | + + + + --+ | Narrative | Performed At | + + --+ | Transthoracic | [facility] | | Echocardiography Report (TTE) Demographics Patient Name RANGEL | | | ALBERT Room Number Patient Number [id number] Date of Study | | | 11/16/2017 Visit Number [id number] Accession | | | [id number] Referring Physician SEBAS ORTIZ Number | | | Date of 1975 [place] | | | SUZANNA DAWKINS Age 42 year(s) Interpreting | | | JULIAN MULLEN MD | | | Eligibility Supervisor SEBAS ORTIZ Gender | | | Male Nurse | | | Stress Sergeant Missile Crewman Procedure Type of Study TTE procedure: ECHO | | | Complete. Procedure dateDate: 11/16/2017Start: 02:14 PM Technical | | | Quality: Adequate visualizationStudy Location: Echo LabIndications: | | | Palpitations 785.1/R00.2.Patient Status: RoutineHeight: 70 | | | inchesWeight: 185 poundsBSA: 2.02 m^2BMI: 26.54 kg/m^2Rhythm: Sinus | | | bradycardiaHR: 48 bpm ConclusionsSummaryLeft ventricle is normal in | | | size and function. Ejection fraction isestimated at 55-60%.Diastolic | | | parameters are within normal limits.Structurally normal tricuspid | | | valve with mild insufficiency and peakvelocity consistent with RVSP | | | 33-38 mmHg.Aortic root is mildly enlarged.Baseline sinus bradycardia. | | | Signature | | | | | | PM | | | -------- FindingsMitral ValveStructurally normal mitral valve without | | | significant stenosis orregurgitation.Aortic ValveAortic valve is | | | trileaflet without significant stenosis or regurgitation.Tricuspid | | | ValveStructurally normal tricuspid valve with mild insufficiency and | | | peakvelocity consistent with RVSP 33-38 mmHg.Pulmonic ValveNormal | | | pulmonic valve structure and function. Normal pulmonary valve andRVOT | | | flow by color and Doppler flow imaging.Left AtriumNormal size left | | | atrium.Left VentricleLeft ventricle is normal in size and function. | | | Ejection fraction isestimated at 55-60%.Diastolic parameters are | | | within normal limits.Right AtriumNormal right atrial size.Right | | | VentricleNormal right ventricular size.Right ventricle global systolic | | | function is normal.TAPSE = 2.5 cm.Pericardial EffusionNo evidence of | | | pericardial effusion.Pleural EffusionNo evidence of pleural | | | effusion.MiscellaneousAortic root is mildly enlarged. Valves Mitral | | | Valve Peak E-Wave: 0.62 m/s Peak A-Wave: 0.55 m/s Tissue Doppler | | | Septal e' Velocity: 0.12 m/s Septal E/e' Ratio:5 Aortic Valve | | | Mean Gradient: 2.69 mmHg Tricuspid Valve TR Velocity: 2.65 m/s LVOT | | | Peak Velocity: 0.64 m/s Structures Left Atrium LA A/P Dimension: | | | 3.47 cm LA Area: 20.9 cm^2 LA Vol/BSA Index: | | | 30 mL/m^2 LA Volume: 59.97 ml Left Ventricle | | | Diastolic Dimension: 5.2 cm Systolic Dimension: 3.5 cm | | | Septum Diastolic: 0.93 cm PW Diastolic: 0.93 cm EF Izbloocrb88% EF | | | Calculated: 60% Miscellaneous Aorta Aortic Root: 3.79 cm | | |Signature | | | | | | Electronically signed by JULIAN MULLEN MD(Interpreting physician) on | | | 11/17/2017 12:21 PM | | | | | | | | |Findings | | |Mitral Valve | | |Structurally normal mitral valve without significant stenosis or | | |regurgitation. | | |Aortic Valve | | |Aortic valve is trileaflet without significant stenosis or regurgitation. | | |Tricuspid Valve | | |Structurally normal tricuspid valve with mild insufficiency and peak | | |velocity consistent with RVSP 33-38 mmHg. | | |Pulmonic Valve | | |Normal pulmonic valve structure and function. Normal pulmonary valve and | | |RVOT flow by color and Doppler flow imaging. | | |Left Atrium | | |Normal size left atrium. | | |Left Ventricle | | |Left ventricle is normal in size and function. Ejection fraction is | | |estimated at 55-60%. | | |Diastolic parameters are within normal limits. | | |Right Atrium | | |Normal right atrial size. | | |Right Ventricle | | |Normal right ventricular size. | | |Right ventricle global systolic function is normal. | | |TAPSE = 2.5 cm. | | |Pericardial Effusion | | |No evidence of pericardial effusion. | | |Pleural Effusion | | |No evidence of pleural effusion. | | |Miscellaneous | | |Aortic root is mildly enlarged. | | | | | |Valves | | | | | | Mitral Valve | | | | | | Peak E-Wave: 0.62 m/s | | | Peak A-Wave: 0.55 m/s | | | | | | Tissue Doppler | | | | | | Septal e' Velocity: 0.12 m/s | | | Septal E/e' Ratio:5 | | | | | | Aortic Valve | | | | | | Mean Gradient: 2.69 mmHg | | | | | | Tricuspid Valve | | | | | | TR Velocity: 2.65 m/s | | | | | | LVOT | | | | | | Peak Velocity: 0.64 m/s | | | | | |Structures | | | | | | Left Atrium | | | | | | LA A/P Dimension: 3.47 cm LA Area: 20.9 cm^2 | | | LA Vol/BSA Index: 30 mL/m^2 LA Volume: 59.97 ml | | | | | | Left Ventricle | | | | | | Diastolic Dimension: 5.2 cm Systolic Dimension: 3.5 cm | | | Septum Diastolic: 0.93 cm | | | PW Diastolic: 0.93 cm | | | EF Iyfytdynl46% | | | EF Calculated: 60% | | | | | | Miscellaneous | | | | | | Aorta | | | | | | Aortic Root: 3.79 cm | | | | | + + --+ + + | Procedure Note | + + | Anders, Rad Results In - 11/17/2017 12:22 PM PDT Transthoracic Echocardiography Report | | (TTE) Demographics Patient Name RANGEL PRICE Room Number Patient Number [id number] | | Date of Study 11/16/2017 Visit Number [id number] Accession | | [id number] Referring Physician SEBAS ORTIZ Number Date of | | 1975 [address] SUZANNA DAWKINS Age 42 year(s) | | Interpreting JULIAN MULLEN MD Eligibility Supervisor | | SEBAS ORTIZ Gender Male Nurse | | Stress TechnicianProcedureType of Study TTE procedure: ECHO Complete.Procedure | | dateDate: 11/16/2017Start: 02:14 PMTechnical Quality: Adequate visualizationStudy | | Location: Echo LabIndications: Palpitations 785.1/R00.2.Patient Status: RoutineHeight: | | 70 inchesWeight: 185 poundsBSA: 2.02 m^2BMI: 26.54 kg/m^2Rhythm: Sinus bradycardiaHR: 48 | | bpmConclusionsSummaryLeft ventricle is normal in size and function. Ejection fraction | | isestimated at 55-60%.Diastolic parameters are within normal limits.Structurally normal | | tricuspid valve with mild insufficiency and peakvelocity consistent with RVSP 33-38 | | mmHg.Aortic root is mildly enlarged.Baseline sinus | | bradycardia.Signature | | --------- Electronically signed by JULIAN MULLEN MD(Interpreting physician) on | | 11/17/2017 12:21 | | PM FindingsMi | | tral ValveStructurally normal mitral valve without significant stenosis | | orregurgitation.Aortic ValveAortic valve is trileaflet without significant stenosis or | | regurgitation.Tricuspid ValveStructurally normal tricuspid valve with mild insufficiency | | and peakvelocity consistent with RVSP 33-38 mmHg.Pulmonic ValveNormal pulmonic valve | | structure and function. Normal pulmonary valve andRVOT flow by color and Doppler flow | | imaging.Left AtriumNormal size left atrium.Left VentricleLeft ventricle is normal in | | size and function. Ejection fraction isestimated at 55-60%.Diastolic parameters are | | within normal limits.Right AtriumNormal right atrial size.Right VentricleNormal right | | ventricular size.Right ventricle global systolic function is normal.TAPSE = 2.5 | | cm.Pericardial EffusionNo evidence of pericardial effusion.Pleural EffusionNo evidence | | of pleural effusion.MiscellaneousAortic root is mildly enlarged.Valves Mitral Valve Peak | | E-Wave: 0.62 m/s Peak A-Wave: 0.55 m/s Tissue Doppler Septal e' Velocity: 0.12 m/s | | Septal E/e' Ratio:5 Aortic Valve Mean Gradient: 2.69 mmHg Tricuspid Valve TR | | Velocity: 2.65 m/s LVOT Peak Velocity: 0.64 m/sStructures Left Atrium LA A/P Dimension: | | 3.47 cm LA Area: 20.9 cm^2 LA Vol/BSA Index: 30 mL/m^2 | | LA Volume: 59.97 ml Left Ventricle Diastolic Dimension: 5.2 cm Systolic | | Dimension: 3.5 cm Septum Diastolic: 0.93 cm PW Diastolic: 0.93 cm EF Hrpyubvsp29% EF | | Calculated: 60% Miscellaneous Aorta Aortic Root: 3.79 cm | |Conclusions | |Summary | |Left ventricle is normal in size and function. Ejection fraction is | |estimated at 55-60%. | |Diastolic parameters are within normal limits. | |Structurally normal tricuspid valve with mild insufficiency and peak | |velocity consistent with RVSP 33-38 mmHg. | |Aortic root is mildly enlarged. | |Baseline sinus bradycardia. | | | |Signature | | | | Electronically signed by JULIAN MULLEN MD(Interpreting physician) on | | 11/17/2017 12:21 PM | | | | | |Findings | |Mitral Valve | |Structurally normal mitral valve without significant stenosis or | |regurgitation. | |Aortic Valve | |Aortic valve is trileaflet without significant stenosis or regurgitation. | |Tricuspid Valve | |Structurally normal tricuspid valve with mild insufficiency and peak | |velocity consistent with RVSP 33-38 mmHg. | |Pulmonic Valve | |Normal pulmonic valve structure and function. Normal pulmonary valve and | |RVOT flow by color and Doppler flow imaging. | |Left Atrium | |Normal size left atrium. | |Left Ventricle | |Left ventricle is normal in size and function. Ejection fraction is | |estimated at 55-60%. | |Diastolic parameters are within normal limits. | |Right Atrium | |Normal right atrial size. | |Right Ventricle | |Normal right ventricular size. | |Right ventricle global systolic function is normal. | |TAPSE = 2.5 cm. | |Pericardial Effusion | |No evidence of pericardial effusion. | |Pleural Effusion | |No evidence of pleural effusion. | |Miscellaneous | |Aortic root is mildly enlarged. | | | |Valves | | | | Mitral Valve | | | | Peak E-Wave: 0.62 m/s | | Peak A-Wave: 0.55 m/s | | | | Tissue Doppler | | | | Septal e' Velocity: 0.12 m/s | | Septal E/e' Ratio:5 | | | | Aortic Valve | | | | Mean Gradient: 2.69 mmHg | | | | Tricuspid Valve | | | | TR Velocity: 2.65 m/s | | | | LVOT | | | | Peak Velocity: 0.64 m/s | | | |Structures | | | | Left Atrium | | | | LA A/P Dimension: 3.47 cm LA Area: 20.9 cm^2 | | LA Vol/BSA Index: 30 mL/m^2 LA Volume: 59.97 ml | | | | Left Ventricle | | | | Diastolic Dimension: 5.2 cm Systolic Dimension: 3.5 cm | | Septum Diastolic: 0.93 cm | | PW Diastolic: 0.93 cm | | EF Umvrvpwng70% | | EF Calculated: 60% | | | | Miscellaneous | | | | Aorta | | | | Aortic Root: 3.79 cm | + + + +---------+ + + | Performing | Address | City/State/Zipcode | Phone Number | | Organization | | | | + +---------+ + + | [facility] | | | | + +---------+ + + documented in this encounter Visit Diagnoses + + | Diagnosis | + + | Palpitations | + + documented in this encounter"
--- OUTSIDE RECORDS SUMMARY | ~2019-09-22 | XMS | Encounter Summary ---
Demographics + + + | Address | [address] | | | [place] [address] | + + + | Home Phone | | + + + | Preferred Language | Unknown | + + + | Marital Status | | + + + | Jewish Affiliation | Unknown | + + + | Race | Unknown | + + + | Ethnic Group | Unknown | + + + Author + + + | Author | [facility] | | | and [place] | + + + | Organization | [facility] | | | and [...] Team Providers + +------+ + | Care Metal Polisher Name | Role | Phone | + [...] | | | | | | | NV | | | | | | | EXCISION | | | | | | | TURBINATE | | | | | | | NV NASAL | | | | | | [...] +--------+--------+ + + + + Encounter Details +--------+---------+ + + + | Date | Type | Department | Care Team | Description | +--------+---------+ + + + | 03/20/ | Surgery | [facility] | Keo Wheatley MD | BILATERAL Inferior | | 2013 | | MED CTR OR IN[facility] OP | [address] [place] | Turbinoplasty; LEFT | | | | [address] | [address] [place], | Frontal Sinusotomy | | | | [place], [place] | [place] [address] | | | | | [address] | [phone] | | | | | [phone] | | | +--------+---------+ + + + Social History + +-------+ +--------+ + | [...] + + + | Blood Pressure | 130/80 | 03/20/2014 6:05 PM | | | | | PST | | + + + + + | Pulse | 92 | 03/20/2014 6:05 PM | | | | | PST | | + + + + + | Temperature | 36.8 C (98.2 F) | 03/20/2014 5:52 PM | | | | | PST | | + + + + + | Respiratory Rate | 14 | 03/20/2014 6:05 PM | | | | | PST | | + + + + + | Oxygen Saturation | 95% | 03/20/2014 6:05 PM | | | | | PST | | + + + + + | Inhaled Oxygen | - | - | | | Concentration | | | | + + + + + | Weight | 81.6 kg (180 lb) | 03/20/2014 12:13 PM | | | | | PST | | + + + + + | Height | 177.8 cm (5' 10") | 03/20/2014 12:13 PM | | | | | PST | | + + + + + | Body Mass Index | 25.83 | 03/20/2014 12:13 PM | | | | | PST | | + + + + + documented in this encounter Discharge Instructions Instructions Emeli Dotson RN - 03/20/2014neosynephrine to nose as needed for brett de leon HOB at 30 degrees tonight Understanding Nasal Anatomy: Outside View Why does your nose look the way it does? And what goes on inside a nose to let a person diamond athe easily? Learning the anatomy of the nose can help you better understand the answers to these questions. The Outside View One way to tell if a nose fits well with a face (aesthetics) is to divide the face into equ al thirds. The nose should fit within the middle third. Then, thinking of the nose as a tria ngle can help you see the best size and shape for the nose. From the front.Imagine a triangle starting at the top of your nose and extending to th e outer corners off your mouth. Does your nose fit inside that triangle? The nose itself matty uld also be shaped like a triangle and balance with the length and width of your face. From the side.Imagine a triangle with one side extending along the bridge of the nose and another extending out from the base of the nose. Does your nose fit within this triangle ? The tilt of the tip should also balance with the forehead and chin. From beneath.The nostrils and tip of the nose should also form a triangle. [place] [id number]. All rights reserve d. This information is not intended as a substitute for professional medical care. Always fo llow your healthcare professional's instructions. Understanding Nasal Anatomy: Inside View There is a lot happening under the surface of the nose. The bone and cartilage under the sk in give the nose most of its size and shape. Other structures inside and behind the nose hel p you breathe. Learning the anatomy of the nose can help you further understand how the nose works. [address] [address]. All rights reserve d. This information is not intended as a substitute for professional medical care. Always fo llow your healthcare professional's instructions. documented in this [...] + + + +---------+ + + | | Take 1-2 tablets by | 30 | 0 | 03/20/20 | | | HYDROcodone-acetamin | mouth every 4 hours | tablet | | 14 | 5 | | ophen (NORCO) 5-325 | as needed for Pain. | | | | | | mg per tablet | | | | | | + + + +---------+ + + | Multiple | Take 2 tablets by | | 0 | | | | Vitamins-Minerals | mouth Daily. | | | | 8 | | ([facility] PO) | | | | | | + [...] of this encounter Plan of Treatment + +------+--------+ + + | Name | Type | Priori | Associated Diagnoses | Order Schedule | | | | ty | | | + +------+--------+ + + | Basic Metabolic | Lab | STAT | | As Needed for 1 | | Panel | | | | Occurrences starting | | | | | | 03/20/2014 | + +------+--------+ + + documented as of this encounter Procedures + +--------+ + + + | Procedure Name | Priori | Date/Time | Associated Diagnosis | Comments | | | ty | | | | + +--------+ + + + | ENDOSCOPIC SINUS | | 03/20/2014 | Chronic frontal | | | NAVIGATION | | 4:23 PM | sinusitis | | | | | PST | Hypertrophy of nasal | | | | | | turbinates | | + +--------+ + + + +---+--------+ | | | | | Specia | | | l | | | Needs | | | Brain | | | Lab | | | (St[facility] | | | [place] | | | y's) | +---+--------+ + +---+ + +---+ | SEPTOPLASTY W/ OR | | 03/20/2014 | Chronic frontal | | | W/O TURBINATES | | 4:23 PM | sinusitis | | | | | PST | Hypertrophy of nasal | | | | | | turbinates | | + +---+ + +---+ +---+--------+ | | | | | Specia | | | l | | | Needs | | | Brain | | | Lab | | | (St. | | | [place] | | | y's) | +---+--------+ documented in this encounter Visit Diagnoses + + | Diagnosis | + + | Chronic frontal sinusitis | + + | Hypertrophy of nasal turbinates | + + documented in this encounter Administered Medications + +--------+ + +------+ + | Medication Order | MAR | Action | Dose | Rate | Site | | | Action | Date | | | | + +--------+ + +------+ + | bacitracin topical ointment | Given | 03/20/20 | 1 | | Surgical | | PRN, Starting Wed03/20/14 at | | 14 4:45 | Applicat | | Site | | 1708, Intra-op | | PM PST | ion | | | + +--------+ + +------+ + +---+---+ | | | +---+---+ + +-------+ +-------+---+ + | cocaine 4% topical solution | Given | 03/20/20 | 4 mLs | | Surgical | | PRN, Starting Wed03/20/14 at | | 14 4:45 | | | Site | | 1645, Intra-op | | PM PST | | | | + +-------+ +-------+---+ + +---+---+ | | | +---+---+ + +-------+ +--------+---+---+ | fentaNYL injection 25-50 mcg | Given | 03/20/20 | 25 mcg | | | | 25-50 mcg, Intravenous, EVERY 5 | | 14 6:28 | | | | | MIN PRN, Pain, Starting Tue | | PM PST | | | | | 03/20/14 at 1812, Maximum total | | | | | | | dose 250 mcg. PACU IV Narcotic | | | | | | | Priority: Only use fentanyl for | | | | | | | immediate post-op pain (one dose) | | | | | | | or breakthrough pain when any | | | | | | | other IV narcotics ordered have | | | | | | | been ineffective (if ordered). | | | | | | | If both morphine and | | | | | | | hydromorphone are ordered, use | | | | | | | morphine first, and use | | | | | | | hydromporphone if morphine | | | | | | | ineffective., Recovery/Phase I | | | | | | + +-------+ +--------+---+---+ + + +--------+---+---+ | Given by Other | 03/20/20 | 25 mcg | | | | | 14 6:19 | | | | | | PM PST | | | | + + +--------+---+---+ +---+---+ | | | +---+---+ + +-------+ +---------+---+---+ | HYDROcodone-acetaminophen | Given | 03/20/20 | 2 | | | | (NORCO) 5-325 mg per tablet 1-2 | | 14 7:25 | tablets | | | | tablet 1-2 tablet, Oral, EVERY 4 | | PM PST | | | | | HOURS PRN, Pain, Starting Wed | | | | | | | 03/20/14 at 1910, If ineffective | | | | | | | use [place] 10/325 if ordered. If | | | | | | | not tolerated, use Percocet then | | | | | | | Oxycodone if ordered., | | | | | | | Post-op/Phase II | | | | | | + +-------+ +---------+---+---+ +---+---+ | | | +---+---+ + +-------+ +--------+---+---+ | HYDROmorphone (DILAUDID) | Given | 03/20/20 | 0.2 mg | | | | injection 0.2-0.5 mg 0.2-0.5 mg, | | 14 7:16 | | | | | Intravenous, EVERY 5 MIN PRN, | | PM PST | | | | | Pain, Starting Wed03/20/14 at | | | | | | | 1812, Maximum total dose 4 mg. | | | | | | | PACU IV Narcotic Priority: Only | | | | | | | use fentanyl for immediate | | | | | | | post-op pain (one dose) or | | | | | | | breakthrough pain when any other | | | | | | | IV narcotics ordered have been | | | | | | | ineffective (if ordered). If | | | | | | | both morphine and hydromorphone | | | | | | | are ordered, use morphine first, | | | | | | | and use hydromporphone if | | | | | | | morphine ineffective., | | | | | | | Recovery/Phase I | | | | | | + +-------+ +--------+---+---+ +---+---+ | | | +---+---+ + +-------+ +-------+---+ + | lidocaine 1%-EPINEPHrine | Given | 03/20/20 | 4 mLs | | Surgical | | 1:100,000 injection PRN, | | 14 4:45 | | | Site | | Starting Wed03/20/14 at 1645, | | PM PST | | | | | Intra-op | | | | | | + +-------+ +-------+---+ + + +---+ | | | + +---+ | morphine 10 mg/mL injection | | | Starting Wed03/20/14 at 1803, For | | | 1 dose, RITU BLELA: prema | | | override, | | + +---+ | | | + +---+ + +-------+ +------+---+---+ | morphine injection 2-8 mg 2-8 | Given | 03/20/20 | 2 mg | | | | mg, Intravenous, EVERY 2 HOURS | | 14 6:29 | | | | | PRN, Pain, Starting Wed03/20/14 | | PM PST | | | | | at 1803, Slow IV push, not faster | | | | | | | than 2 mg/minute. If ineffective | | | | | | | or not tolerated, use | | | | | | | hydromorphone IV if ordered., | | | | | | | Post-op/Phase II | | | | | | + +-------+ +------+---+---+ +-------+ +------+---+---+ | Given | 03/20/20 | 2 mg | | | | | 14 6:10 | | | | | | PM PST | | | | +-------+ +------+---+---+ | Given | 03/20/20 | 2 mg | | | | | 14 6:05 | | | | | | PM PST | | | | +-------+ +------+---+---+ +---+---+ | | | +---+---+ + +-------+ +------+---+---+ | ondansetron (ZOFRAN) injection | Given | 03/20/20 | 4 mg | | | | 4 mg 4 mg, Intravenous, ONCE | | 14 7:22 | | | | | PRN, Nausea, Starting Wed03/20/14 | | PM PST | | | | | at 1812, For 1 dose, | | | | | | | Recovery/Phase I | | | | | | + +-------+ +------+---+---+ +---+---+ | | | +---+---+ + +-------+ +---------+---+ + | phenylephrine (MARYSE-SYNEPHRINE) | Given | 03/20/20 | 1 spray | | Surgical | | 0.5% nasal spray PRN, Starting | | 14 4:45 | | | Site | | 03/20/14 at 1645, Intra-op | | PM PST | | | | + +-------+ +---------+---+ + +---+---+ | | | +---+---+ documented in this encounter
--- OUTSIDE RECORDS SUMMARY | ~2019-09-22 | XMS | Encounter Summary ---
Demographics + + + | Address | [address] | | | [place] [address] | + + + | Home Phone | | + + + | Preferred Language | Unknown | + + + | Marital Status | | + + + | Bahai Affiliation | Unknown | + + + | Race | Unknown | + + + | Ethnic Group | Unknown | + + + Author + + + | Author | [facility] | | | and [place] | + + + | Organization | [facility] | | | [...] Team Providers + +------+ + | Care Research Support Specialist Name | Role | Phone | + [...] | | | | | | | CO | | | | | | | EXCISION | | | | | | | TURBINATE | | | | | | | CO NASAL | | | | | | [...] + + | 03/20/ | Hospital | [facility] | Keo Wheatley MD | Chronic frontal | | 2014 | Encounter | MED CTR OR INTRA OP | [address] [place] | sinusitis (Primary | | | | [address] | [address] [place], | Dx); Hypertrophy of | | | | [place], [place] | [place] [address] | nasal turbinates | | | | [address] | [phone] | | | | | [phone] | | | +--------+ + + + [...] - 03/20/2014neosynephrine to nose as needed for abdirizakcodyjulisa yasir. HOB at 30 degrees tonight Understanding Nasal [...] nose should also form a triangle. [id number]. All rights reserve d. This information is [...] further understand how the nose works. [facility], [address] [place], [place] [address]. All rights reserve d. This information is [...] | | | (St. | | | [place] | | | y's) | +---+--------+ + [...] | | | (St. | | | [place] | | | y's) | +---+--------+ documented [...] | | | | | | use [place] 10/325 if ordered. If | | | [...] | | | | PRN, Nausea, Starting Tu03/20/14 | | PM PST | | | | | at 1812, For 1 dose, | | | | | | | Recovery/Phase I | | | | | | + +-------+ +------+---+---+ +---+---+ | | | +---+---+ documented in this encounter
--- OUTSIDE RECORDS SUMMARY | ~2019-09-22 | XMS | Encounter Summary ---
Demographics + + + | Address | [address] | | | [place] [address] | + + + | Home Phone | | + + + | Preferred Language | Unknown | + + + | Marital Status | | + + + | Restorationist Affiliation | Unknown | + + + | Race | Unknown | + + + | Ethnic Group | Unknown | + + + Author + + + | Author | [facility] | | | and [place] | + + + | Organization | [facility] | | [...] Team Providers + +------+ + | Care President [employer]ing Name | Role | Phone | + +------+ + | Izzy Snowden | PCP | | + +------+ + Reason for Visit +--------+ + | Reason | Comments | +--------+ + | Other | | +--------+ + Encounter Details +--------+ + + + + | Date | Type | Department | Care Team | Description | +--------+ + + + + | 01/06/ | Telephone | [facility] | Rad De La Cruz | Other | | 2019 | | GASTROENTEROLOGY | MD Felix [address] | | | | | [address] [facility] | [address] [facility] | | | | | [address] [place] | [place] [address] | | | | | [address] | [phone] | | | | | [phone] | | | +--------+ + + + [...] + | Diagnosis | + + | Gastroesophageal reflux disease, esophagitis presence not specified - Primary | + + | Dyspepsia Dyspepsia and other specified disorders of function of stomach | + + documented in this encounter"
--- OUTSIDE RECORDS SUMMARY | ~2019-09-22 | XMS | Encounter Summary ---
Demographics + + + | Address | [address] | | | [place] [address] | + + + | Home Phone | | + + + | Preferred Language | Unknown | + + + | Marital Status | | + + + | Nondenominational Affiliation | Unknown | + + + [...] | + + +---------+ + | Rosanne Simmons | ECON | Unknown | | + + +---------+ + | Jadyn Rangel | ECON | Unknown | | + + +---------+ + Care Team Providers + +------+ + | Care Shrimp Boat Captain Name | Role | Phone | + [...] | | | | Diagnoses | | [place], | | | | | Other | | MD Renee | | | | | malignant | | [address] | | | | | neuroendocri | | [address] | | | | | ne tumors | | [place] | | | | | (HCC) Other | | [address] | | | | | malignant | | Phone: | | | | | neuroendocri | | [phone] | | | | | ne tumors | | Fax: | | | | | (HCC) | | [phone] | | | | | [C7A.[id number]] | | | | | | | Procedures | | | | | | | MO | | | | | | | SIGMOIDOSCOP | | | | | | | Y,BIOPSY MO | | | | | | | COLSC FLX | | | | | | | W/NDSC US XM | | | | | | | RCTM ET AL | | | | | | | LMTD&ADJ | | | | | | | STRUX | | | +--------+--------+ + + + + Encounter Details +--------+ + + + + | Date | Type | Department | Care Team | Description | +--------+ + + + + | 06/27/ | Hospital | [facility] | Renee Pitts, | 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[address], | rectum | | | | INTRA OP [address] | [address], | | | | | [address] [place], [place] | [place] [address] | | | | | [address] | [phone] | | | | | [phone] | | | +--------+ + + + [...] + + + | Blood Pressure | 107/54 | 06/27/2018 4:03 PM | | | | | PDT | | + + + + + | Pulse | 65 | 06/27/2018 4:03 PM | | | | | PDT | | + + + + + | Temperature | 36.4 C (97.6 F) | 06/27/2018 3:41 PM | | | | | PDT | | + + + + + | Respiratory Rate | 16 | 06/27/2018 4:03 PM | | | | | PDT | | + + + + + | Oxygen Saturation | 98% | 06/27/2018 4:03 PM | | | | | PDT | | + + + + + | Inhaled Oxygen | - | - | | | Concentration | | | | + + + + + | Weight | 81.1 kg (178 lb 14.4 | 06/27/2018 2:13 PM | | | | oz) | PDT | | + + + + + | Height | 177.8 cm (5' 10") | 06/27/2018 2:13 PM | | | | | PDT | | + + + + + | Body Mass Index | 25.67 | 06/27/2018 2:13 PM | | | | | PDT | | + + + + + documented in this encounter Discharge Instructions Instructions Renee Pitts MD - 06/27/2018 Renee Pitts MD [facility], [address], [address] [place] [address] DISCHARGE INSTRUCTIONS You had undergone an endoscopic procedure. DIET: Can eat solid food once awake as tolerated Home Care ? Don t take aspirin or any other blood-thinning medications until your doctor says it s okay. ? Your doctor may prescribe an antibiotic, depending on what was done during the procedure. ? Remember, it is common for you to have a sore throat for 1 2 days after the procedure. Use lozenges or gargle with salt water for your sore throat. ? Rest, drink fluids, and eat light meals. If you feel bloated or have excessive gas, use a heating pad on your abdomen to help reduce the discomfort. ? Do not drink alcohol for 2 days after the procedure. ? Do not drive for 24 hours ? Do not make any legal decisions for 24 hours ? If biopsies were obtained, you should avoid aspirin or ibuprofen like medications for one week When to Call Your Doctor ? Trouble swallowing or worsening throat pain ? Chest pain or abdominal pain ? Fever above 100F (37.7C) or chills ? Nausea and vomiting ? Black or tarry stools ? Bloody bowel movements When to Call 911 or go to Emergency Room ? Severe chest pain ? Severe difficulty breathing ? Severe abdominal pain ? Large amount of blood in the stool FOLLOW UP: PLEASE FOLLOW UP INSTRUCTED documented in this encounter Medications at Time of Discharge + + + +---------+ + + | Medication | Sig | Dispensed | Refills | Start | End Date | | | | | | Date | | + + + +---------+ + + | | Take 1-2 tablets by | | 0 | | | | diphenhydrAMINE-acet | mouth nightly as | | | | | | aminophen (TYLENOL | needed for Insomnia. | | | | | | PM EXTRA STRENGTH) | | | | | | | 25-500 MG TABS | | | | | | + + + +---------+ + + | fluticasone | 2 sprays by Nasal | | 0 | | | | (FLONASE) 50 | route as needed for | | | | | | mcg/nasal spray | Allergies. | | | | | + + + +---------+ + + | ibuprofen (ADVIL, | Take 200 mg by mouth | | 0 | | | | MOTRIN) 200 mg | as needed for Pain. | | | | | | tablet | | | | | | + + + +---------+ + + | ondansetron | Take 1 tablet by | 60 | 1 | 06/07/19 | | | (ZOFRAN ODT) 4 mg | mouth every 8 hours | tablet | | 19 | | | disintegrating | as needed for | | | | | | tablet | Nausea. | | | | | + + + +---------+ + + | Aspirin | Take 1 tablet by | | 0 | | | | Effervescent | mouth as needed. | | | | 0 | | (BRII MCKINNEY) | gummie | | | | | + + + +---------+ + + | budesonide | 0.5 mg Daily. Add 2 | | 0 | | | | (PULMICORT) 0.5 mg/2 | ml to 240 ml saline | | | | 0 | | mL nebulizer | irrigations and | | | | | | solution | irrigate daily as | | | | | | | needed. | | | | | + + + +---------+ + + | lansoprazole | Take 30 mg by mouth. | | 0 | 06/06/19 | | | (PREVACID) [address] | | | | 19 | 9 | | capsule | | | | | | + + + +---------+ + + | lansoprazole | Take 1 capsule by | 120 | 5 | 06/06/19 | | | (PREVACID) [address] | mouth 2 times daily | capsule | | 19 | 9 | | capsule | (before meals). | | | | | + + + +---------+ + + | MISC NATURAL | Take 1 tablet by | | 0 | | | | PRODUCTS PO | mouth Daily. IBS | | | | 0 | | | guard | | | | | + + + +---------+ + + | promethazine | take 1 tablet by | | 0 | 06/22/19 | | | (PHENERGAN) 25 mg | mouth every 6 hours | | | 19 | 0 | | tablet | if needed for up to | | | | | | | 1 month | | | | | + + + +---------+ + + | promethazine | Take 1 tablet by | 120 | 0 | 06/22/19 | | | (PHENERGAN) 25 mg | mouth every 6 hours | tablet | | 19 | 9 | | tabletIndications: | as needed for up to | | | | | | Nausea | 30 days. | | | | | + + + +---------+ + + | Pseudoephedrine | Take 1 tablet by | | 0 | | | | HCl (SUDAFED PO) | mouth as needed. | | | | 0 | + + + +---------+ + + | UNABLE TO FIND | Take 1 tablet by | | 0 | | | | | mouth Every other | | | | 0 | | | day. Med Name: CBD | | | | | | | gummies | | | | | + + + +---------+ + + documented as of this encounter Progress Notes Vianney Mendoza RN - 06/27/2018 4:05 PM PDTAVS discussed w/pt and ride home. Denies nause a and pain. PIV d/c'd. Feels comfortable w/plan. Belongings gathered, nothing missing. No ot her issues. MD in to see. D/C to home. Electronically signed by: Vianney Mendoza RN 06/27/2018 16:05 documented in this en counter Plan of Treatment Not on filedocumented as of this encounter Procedures + +--------+ + + + | Procedure Name | Priori | Date/Time | Associated Diagnosis | Comments | | | ty | | | | + +--------+ + + + | TISSUE REQUEST FOR | Routin | 06/27/2018 | | Results for this | | PATHOLOGY (NON-ORD) | e | 3:39 PM | | procedure are in the | | | | PDT | | results section. | + +--------+ + + + | EUS RECTAL | | 06/27/2018 | Other malignant | | | | | 3:06 PM | neuroendocrine | | | | | PDT | tumors (HCC) | | + +--------+ + + + +---+--------+ | | | | | Specia | | | l | | | Needs | | | ANES | | | SCHED | +---+--------+ + +---+ + +---+ | SIGMOIDOSCOPY | | 06/27/2018 | Other malignant | | | FLEXIBLE | | 3:06 PM | neuroendocrine | | | | | PDT | tumors (HCC) | | + +---+ + +---+ +---+--------+ | | | | | Specia | | | l | | | Needs | | | ANES | | | SCHED | +---+--------+ + +--------+ +---+ + | ENDOSCOPIC | Routin | 06/27/2018 | | Results for this | | ULTRASOUND (LOWER) | e | 3:05 PM | | procedure are in the | | | | PDT | | results section. | + +--------+ +---+ + | POC GLUCOSE | Routin | 06/27/2018 | | Results for this | | | e | 2:29 PM | | procedure are in the | | | | PDT | | results section. | + +--------+ +---+ + | ECG - EXTERNAL SCAN | | 04/28/2018 | | Results for this | | | | 12:00 AM | | procedure are in the | | | | PST | | results section. | + +--------+ +---+ + | ECG - EXTERNAL SCAN | | 08/25/2017 | | Results for this | | | | 12:00 AM | | procedure are in the | | | | PDT | | results section. | + +--------+ +---+ + | ECG - EXTERNAL SCAN | | 08/21/2017 | | Results for this | | | | 12:00 AM | | procedure are in the | | | | PDT | | results section. | + +--------+ +---+ + documented in this encounter Results Tissue Request For Pathology (06/27/2018 3:39 PM PDT) + + | Specimen | + + | | + + + +------ + | Narrative | Perfo rmed At | + +------ + | | [facility] | | ALBERT SIMMONS | [facility] | | : 1975 AGE: 43 years SEX: Male | [facility] | | | LABOR ATORY | | Acct: [id number] Location: [facility] | [facility] | | [facility]; [facility] MEDICAL PROCEDURE UNIT POOL; [facility] | | | MEDICAL PROCEDURE UNIT POOL | | | Case #: [id number] Ordering: | | | RENEE PITTS MD Client: [facility] | | | [facility] Copy To: | | | Printed: 06/28/2018 16:37 PDT | | | SURGICAL PATHOLOGY FINAL | | | REPORTCollected: Received: | | | Responsible Pathologist:06/27/2018 15:39 | | | PDT 06/27/2018 16:05 PDT | | | YESY LOCKHART DIAGNOSIS:Rectal polyp, endoscopic mucosal | | | resection: | | | Neuroendocrine tumor, well differentiated (G1); excised. | | | | | | Tumor size: 2 mm. | | | Mitotic rate: No mitoses identified by H&E stained sections. | | | | | | Microscopic tumor extension: Invades submucosa. | | | Lymphovascular invasion: Not identified. | | | Surgical margins: Negative for tumor.0-MAMW/DB 06/28/18 11:50 | | | amVerified by: YESY LOCKHART MDVerify Date: 06/28/2018 04:37 | | | pmPerforming Location: [facility] | | | [address] [place] [id number]:The patient's previous rectal polyp | | | with diagnosis of well differentiated neuroendocrine tumor ([id number]) | | | is noted.GROSS DESCRIPTION:The specimen labeled and designated "Rangel, | | | rectal polyp" is received in formalin in a white cassette between two | | | sponges and consists of an unoriented, lanza-red sessile soft tissue | | | nodule measuring 1.1 x 0.9 x 0.2 cm. The presumed resection margin | | | is inked, and the specimen is serially sectioned and submitted | | | entirely, sequentially in "A1".CT/AK06/[id number]/18MICROSCOPIC | | | DESCRIPTION:Histologic sections of all submitted blocks are examined | | | by light microscopy. Thesefindings, together with the gross | | | examination, support the pathologic diagnosis. | | |Histologic sections of all submitted blocks are examined by light microscopy. These | | |findings, together with the gross examination, support the pathologic diagnosis. | | + +------ + + + + + + | Performing | Address | City/State/[facility]ode | Phone Number | | Organization | | | | + + + + + | [facility] | [address] | [place] [address] | | | HEART [facility] | | | | | [place] | | | | + + + + + EUS Ricky (06/27/2018 3:05 PM PDT) + + | Specimen | + + | | + + + + + | Narrative | Performed At | + + + | [facility] | [place] | | [facility] | [place] | | [facility] | | | Patient Name: Albert Simmons Procedure | | | Date: 06/27/2018 3:05 PMMRN: [id number] | | | of : 1975 | | | Note Status: FinalizedAttending MD: RENEE PITTS MD | | | | | | Procedure Type: Lower EUSIndications: | | | Rectal deformity found on endoscopy; | | | subepithelial tumor versus | | | extrinsic compressionPatient Profile: This is a 43 | | | year old male with rectal polyp | | | biopsies c/w carcinoid, here for MEDHAT and | | | possible EMR.Referring: | | | Rad De La Cruz, MDMedicines: | | | Monitored Anesthesia CareComplications: No | | | immediate | | | complications. | | | Procedure: Pre-Anesthesia Assessment: | | | - Prior to the procedure, a History and Physical was performed, and | | | patient medications and allergies were reviewed. The patient's | | | tolerance of previous anesthesia was also reviewed. The risks | | | and benefits of the procedure and the sedation options and | | | risks were discussed with the patient. All questions were | | | answered, and informed consent was obtained. Prior | | | Anticoagulants: The patient has taken no previous anticoagulant or | | | antiplatelet agents. ASA Grade Assessment: II - A patient with | | | mild systemic disease. After reviewing the risks and benefits, | | | the patient was deemed in satisfactory condition to undergo the | | | procedure. After informed consent was obtained including risks, | | | benefits and alternatives, the endoscope was passed under | | | direct vision. Throughout the procedure, the patient's blood | | | pressure, pulse, and oxygen saturations were monitored | | | continuously. The endoscope was introduced through the anus and | | | advanced to the sigmoid colon. The loaner 595 was introduced | | | through the anus and advanced to the sigmoid colon. The lower | | | EUS was accomplished without difficulty. The patient tolerated the | | | procedure well. | | | | | | Total Procedure Duration Time 0 hours 16 minutes 43 seconds Findings: | | | ENDOSCOPIC FINDING: : Small nodular area in the rectum was | | | seen most likely the site of prior biopsy of a carcinoid | | | tumor. No other nodular area was seen. The sigmoid colon | | | appears slightly nodular with hyperplastic polyps. | | | ENDOSONOGRAPHIC FINDING: : Under water filling, the nodule area | | | and the rectum was mostly mucosal measuring at 4 mm. No other | | | perirectal lymphadenopathies. There were no illiac vessels | | | lymphadenopathies. After endoscopic ultrasound, the appeared | | | gastroscope was fitted with 7 Khmer Macario-Cook) resection | | | Duette kit. The lesion in the rectum was suctioned up into the | | | cap and banded. Resection at the base was done successfully. | | | The specimen was retrieved and sent for pathology. | | | | | | Impression: - Rectal nodule or | | | polyp, status post successful endoscopic mucosal resection | | | | | | Recommendation: - | | | Patient has a contact number available for emergencies. The signs and | | | symptoms of potential delayed complications were discussed with | | | the patient. Return to normal activities tomorrow. Written | | | discharge instructions were provided to the patient. - | | | Resume previous diet. - Continue present medications. - | | | Await path results. | | | | | | WICHIT SRIKUREJA, MD06/27/2018 3:55:06 PMThis | | | report has been signed electronically. Note Initiated On: 06/27/2018 | | | 3:05 PMNumber of Addenda: 0 [facility] | | | [facility] | | |RENEE PITTS MD | | |06/27/2018 3:55:06 PM | | |This report has been signed electronically. | | | | | |Note Initiated On: 06/27/2018 3:05 PM | | |Number of Addenda: 0 | | | | | | [facility] | | + + + + +---------+ + + | Performing | Address | City/State/[facility]ode | Phone Number | | Organization | | | | + +---------+ + + | [place] | | | | + +---------+ + + POC Glucose (06/27/2018 2:29 PM PDT) + + + + --+ + | Component | Value | Ref Range | Performed | Pathologist | | | | | At | Signature | + + + + --+ + | Glucose, | 81Comment: Performed by | 65 - 99 mg/dL | [facility] | | | POC | [facility] [address], | | [place]CR[place] | | | | [place] [address] | | HEART | | | |Performed by [facility] [address], [place] [address] | | MEDICAL | | | | | | CENTER | | | | | | LABORATORY | | | | | | CERNER | | + + + + --+ + + + | Specimen | + + | Blood specimen | | (specimen) | + + + + + + + | Performing | Address | City/State/Zipcode | Phone Number | | Organization | | | | + + + + + | [facility] | [address] | [place] [address] | | | [facility] | | | | | LABORAT[facility] | | | | + + + + + ECG - EXTERNAL SCAN (04/28/2018 12:00 AM PST) + + + | Narrative | Performed At | + + + | Ordered by an | | | unspecified provider. | | + + + ECG - EXTERNAL SCAN (08/25/2017 12:00 AM PDT) + + + | Narrative | Performed At | + + + | Ordered by an | | | unspecified provider. | | + + + ECG - EXTERNAL SCAN (08/21/2017 12:00 AM PDT) + + + | Narrative | Performed At | + + + | Ordered by an | | | unspecified provider. 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
--- OUTSIDE RECORDS SUMMARY | ~2019-09-22 | XMS | Encounter Summary ---
Demographics + + + | Address | [address] | | | [place] [address] | + + + | Home Phone | | + + + | Preferred Language | Unknown | + + + | Marital Status | | + + + | Mu-Ism Affiliation | Unknown | + + + | Race | Unknown | + + + | Ethnic Group | Unknown | + + + Author + + + | Author | [facility] | | | and [place] | + + + | Organization | [facility] | | | and [place] | + + + | Address | Unknown | + + + | Phone | Unavailable | + + + Support + + +---------+ + | Name | Relationship | Address | Phone | + + +---------+ + | Rosanne Mccainmez | ECON | Unknown | | + + +---------+ + | Jadyn Multani | ECON | Unknown | | + + +---------+ + Care Team Providers + +------+ + | Care Personal Care Home Administrator Name | Role | Phone | + +------+ + | Bulmaro Arechiga PA-C | PCP | | + +------+ + Reason for Visit + + + | Reason | Comments | + + + | Follow-up | 2 week follow up, still plugged on left side | + + + Evaluate & Treat (Routine) +--------+--------+ + + + + | Status | Reason | Specialty | Diagnoses / | Referred By | Referred To | | | | | Procedures | Contact | Contact | +--------+--------+ + + + + | Closed | | Otolaryngolog | Diagnoses | Geni, | Keo Wheatley | | | | y | Recurrent | Bulmaro Randolph, | MD [address] | | | | | sinus | PA-C [address] | [address] | | | | | infections | [place] | [address] | | | | | recurring | [address] | [place], | | | | | sinus | [place], | [place] [address] | | | | | infection | [place] [address] | Phone: | | | | | Procedures | Phone: | [phone] | | | | | [place] OFFICE | [phone] | Fax: | | | | | OUTPATIENT | Fax: | [phone] | | | | | VISIT 25 | [phone] | | | | | | MINUTES 1/2 | | | | | | | PENDING | | | | | | | CURRENT | | | | | | | INSURANCE | | | | | | | COVERAGE | | | | | | | INFO | | | +--------+--------+ + + + + Encounter Details +--------+---------+ + + + | Date | Type | Department | Care Team | Description | +--------+---------+ + + + | 04/05/ | Office | [facility] | Keo Wheatley MD | Chronic frontal | | 2013 | Visit | OTOLARYNGOLOGY [address] | [address] [place] | sinusitis (Primary | | | | [address] | [address] [place], | Dx); Hypertrophy of | | | | [place], [place] | [place] [address] | nasal turbinates | | | | [address] | [phone] | | | | | [phone] | | | +--------+---------+ + + + [...] + + + | Blood Pressure | - | - | | + + + + + | Pulse | 70 | 04/05/2014 3:31 PM | | | | | PST | | + + + + + | Temperature | - | - | | + + + + + | Respiratory Rate | - | - | | + + + + + | Oxygen Saturation | - | - | | + + + + + | Inhaled Oxygen | - | - | | | Concentration | | | | + + + + + | Weight | 81.6 kg (180 lb) | 04/05/2014 3:31 PM | | | | | PST | | + + + + + | Height | 177.8 cm (5' 10") | 04/05/2014 3:31 PM | | | | | PST | | + + + + + | Body Mass Index | 25.83 | 04/05/2014 3:31 PM | | | | | PST | | + + + + + documented in this encounter Progress Notes Keo Wheatley MD - 04/05/2014 4:34 PM PSTSee dictation # [id number] signed by Keo Wheatley MD at 04/05/2014 4:37 PM [facility], Keo Arizmendi MD - 04/05/2014 12:00 AM [facility] [address] [place] [address] FAX: [phone] OFFICE VISIT The patient is postop bilateral inferior turbinoplasties along with a left frontal sinusoto my. He feels there is still a lot of drainage and debris collecting in the left nasal passa ge. He has been on Biaxin now for about 7 days. He comes in for a follow up visit. He is ab le to breathe through his nose though on both sides which is something new that he has not been able to do for years. PHYSICAL EXAMINATION: Examination shows there was some crusting on both sides. The crust al abril the floor were both removed. There is crusting coming down out of the frontal sinus are a on the left-hand side. It is a lightish, yellowish, brownish color. This needs to be able to be irrigated and washed out more regular. It is not really easy to remove it with the Damon forceps. PLAN: The patient will wash this area thoroughly on the left-hand side about 3 times a day to try to continue to irrigate it. He will finish his antibiotics. He will be seen again in 2 weeks' time. Keo Wheatley MD / AF JOB #: [id number] signed by Keo Wheatley MD at 04/06/2014 7:53 AM PSTdocumente d in this encounter Plan of Treatment Not on filedocumented as of this encounter Visit Diagnoses + + | Diagnosis | + + | Chronic frontal sinusitis - Primary | + + | Hypertrophy of nasal turbinates | + + documented in this encounter
--- OUTSIDE RECORDS SUMMARY | ~2019-09-22 | XMS | Encounter Summary ---
Demographics + + + | Address | [address] | | | [place] [address] | + + + | Home Phone | | + + + | Preferred Language | Unknown | + + + | Marital Status | | + + + | Denominational Affiliation | Unknown | + + + | Race | Unknown | + + + | Ethnic Group | Unknown | + + + Author + + + | Author | [facility] | | | and [place] | + + + | Organization | [facility] | | | [...] Team Providers + +------+ + | Care Manager Athletics Name | Role | Phone | + +------+ + | Izzy Snowden | PCP | | + +------+ + Reason for Visit + + + | Reason | Comments | + + + | Follow-up | | + + + Evaluate & Treat (Urgent) + +--------+ + + + + | Status | Reason | Specialty | Diagnoses / | Referred By | Referred To | | | | | Procedures | Contact | Contact | + +--------+ + + + + | Authorized | | Gastroenterol | Diagnoses | Sp, | [place], | | | | ogy | Epigastric | NASIR Magana | [place], | | | | | pain | [address] | MD [address] | | | | | Abdominal | [address] | [address] | | | | | pain, RUQ | [place], | [place], | | | | | Procedures | [place] [address] | [place] [address] | | | | | ER F/U (SEEN | Phone: | Phone: | | | | | FOR US AT | [phone] | [phone] | | | | | ST. | Fax: | Fax: | | | | | CHANTEL[place]limpia) | [phone] | [phone] | + +--------+ + + + + Encounter Details +--------+ + + + + | Date | Type | Department | Care Team | Description | +--------+ + + + + | 09/11/ | Virtual | [facility] | Rad De La Cruz | Right upper quadrant | | 2019 | Office | GASTROENTEROLOGY | MD Felix [address] | pain (Primary Dx); | | | Visit | [address] | [address] [place] | Gastroesophageal | | | | [address] [place], [place] | [place] [address] | reflux disease | | | | [address] | [phone] | without esophagitis; | | | | [phone] | | De La Cruz's esophagus | | | | | | without dysplasia; | | | | | | Bloating; | | | | | | Intractable vomiting | | | | | | with nausea, | | | | | | unspecified vomiting | | | | | | type | +--------+ + + + + Social [...] documented as of this encounter Progress Notes Rad De La Cruz MD - 09/12/2019 3:30 PM PDT Gastroenterology Clinic Progress Note Date of Office Visit: 09/12/19 Primary Care Physician: NASIR Rosado This exam was initially conducted via telephone Call start time 334 Call end time 345 Total time (in minutes) including non [id number]-[id number] time (reviewing records, documentation, etc..) 23 You have chosen to receive care through the use of telemedicine. Telemedicine enables [facility] care providers at different locations to provide safe, effective and convenient care throu gh the use of technology. As with any health care service, there are risks associated with t he use of telemedicine, including equipment failure, poor image resolution and information s ecurity issues. Do you understand the risks and benefits of telemedicine as I have explained them to you? " Yes" Have your questions regarding telemedicine been answered? "Yes" Participant is currently at home Do you consent to the use of telemedicine in your medical care today? Yes. Last question, I need to confirm where are you physically located right now? Answer: Patient confirms they are located in a state where IRad MD am lice nsed. Chief Complaint Follow-up History of Present Illness Clifton Multani is a 44 y.o. male with a history of GERD, irritable bowel syndrome with diarrh ea, rectal carcinoid resected endoscopically, who is following up for abdominal discomfort, bloating, diarrhea, and GERD symptoms. Patient has had EGD 02/25/2018 with Ferrari. pH ferrari was negative for pathologic acid reflux however day 2 DeMeester score was elevated at 21 and he also had De La Cruz's esophagus confir med on endoscopy and biopsy. Rectal carcinoid found incidentally at time of colonoscopy May 27, 2018. Random colon biopsies were negative for microscopic colitis. Interval history: Patient reports he had his ultrasound done at [facility]. He said it was normal. He says he just met with Dr. Villanueva earlier today. He tells me that they are moving forward wit h doing a cholecystectomy in the first week of September. Apparently Clifton had a HIDA scan in t he past at [facility] that was normal. Clifton reports constant right upper quadrant pain that is worsened by eating. He says he chapo bernard feels terrible. In 2018, when he had his EGD, he was struggling from epigastric pain, he says right upper q uadrant pain was not present at that time. Since then, the pain in the RUQ is new. Onset of RUQ pain was about 3 weeks ago. Eating and drinking fluids worsen the pain. He has been doing gas-x, taking PPI Having vomiting, nausea, and diarrhea. Review of Systems A 10 point review of systems was conducted with the patient, pertinent positives and negati ves per HPI. 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 Past Medical History Past Medical History: Diagnosis Date Acid reflux Acid reflux disease Anorexia Back pain middle and lower Bloating Chest pain Cardiolgist in [place]- will have testing Chronic frontal sinusitis left Chronic low back pain Chronic migraine without aura Chronic sinusitis Colon tumor 06/2018 Constipation Deviated nasal septum Diarrhea Dizzy spells Dyspepsia Environmental allergies Epigastric pain Fluttering heart Frontal headache Ganglion cyst Gastric ulcer Gastritis GERD (gastroesophageal reflux disease) Heartburn Hypertrophy of nasal turbinates Insomnia Intermittent chest pain Left upper quadrant pain Malignant neoplasm (HCC) colon Nasal congestion Nausea Palpitations Presbyopia Primary neuroendocrine carcinoma of rectum (HCC) 06/06/2018 Right upper quadrant pain Seasonal allergic reaction Testicle lump, bilateral Past Surgical History Past Surgical History: Procedure Laterality Date APPENDECTOMY 04/1980 APPENDECTOMY COLONOSCOPY N/A 05/27/2018 Procedure: COLONOSCOPY; Surgeon: Rad De La Cruz MD; Location: [facility] MEDICAL PROC[facility]URE [facility] COLONOSCOPY ENDOSCOPY ESOPHAGUS-ACID REFLUX TEST N/A 02/25/2018 Procedure: ENDOSCOPIC 48 HOUR PH FERRARI "CAPSULE"; Surgeon: Rad De La Cruz MD; Locat ion: [facility] MEDICAL PROC[facility]URE [facility] HERNIA REPAIR INGUINAL HERNIA REPAIR Right 02/2008 NASAL SEPTUM SURGERY 03/20/2014 BILATERAL Inferior Turbinoplasty; LEFT Frontal Sinusotomy; Laterality: Bilateral; Surgeo n: Keo Wheatley MD; Location: [facility] MAIN OR OTHER SURGICAL HISTORY N/A 06/27/2018 Procedure: EUS RECTAL; Surgeon: Luke Pitts MD; Location: [facility] MEDICAL PROC[facility]URE UN IT SIGMOIDOSCOPY N/A 06/27/2018 Procedure: RECTAL ULTRASOUND, SIGMOIDOSCOPY FLEXIBLE POSSIBLE EMR, FTRD/ESD; Surgeon: Morgan Pitts MD; Location: [facility] PROC[facility]URE [facility] SINUS ENDOSCOPY 03/20/2014 Laterality: Left; Surgeon: Keo Wheatley MD; Location: [facility] MAIN OR SINUS SURGERY 2008 SINUS SURGERY 2011 Allergies Allergies No active allergies Intolerance No active intolerances/contraindications Medications Current Outpatient Medications on File Prior to Visit Medication Sig Dispense Refill dicyclomine (BENTYL) 20 MG tablet Take 1 tablet by mouth 4 times daily (before meals an d nightly). 120 tablet 5 diphenhydrAMINE-acetaminophen (TYLENOL PM EXTRA STRENGTH) 25-500 MG TABS Take 1-2 table ts by mouth nightly as needed for Insomnia. fluticasone (FLONASE) 50 mcg/nasal spray 2 sprays by Nasal route as needed for Allergie s. ibuprofen (ADVIL, MOTRIN) 200 mg tablet Take 200 mg by mouth as needed for Pain. ondansetron (ZOFRAN ODT) 4 mg disintegrating tablet Take 1 tablet by mouth every 8 hour s as needed for Nausea. 60 tablet 1 pantoprazole (PROTONIX) 40 mg tablet Take 1 tablet by mouth 2 times daily (before meals ). 120 tablet 5 PSEUDOEPHEDRINE HCL PO Take 30 mg by mouth every four hours as needed for congestion. sodium chloride (OCEAN) 0.65 % nasal spray 1 spray by Nasal route as needed for Congest ion. SUMAtriptan (IMITREX) 100 mg tablet Take 100 mg by mouth. No current facility-administered medications on file prior to visit. Labs No results found for: WBC, HEMOGLOBIN, HCT, MCV, LABPLAT, PLT Imaging Abdominal ultrasound was recently, I do not have this review. These records have been requ ested Patient verbally tells me that it was normal Assessment and Plan 44-year-old man with history of localized low-grade rectal neuroendocrine tumor resected en doscopically in 2018, GERD, De La Cruz's esophagus, IBS with diarrhea, now with worsening right upper quadrant abdominal pain of unclear etiology. He has met with his surgeon and has scheduled a date for cholecystectomy. I recommended that he get a EGD done before the cholecystectomy to rule out peptic ulcer di sease and gastritis. In the setting of a normal ultrasound and HIDA scan, there is ~50/50 c aston that his symptoms will improve with cholecystectomy. Pt tells me that his surgeon said the same think. Pt would like to have his surgery. He will go through with EGD first, as above. He is a candidate for IVCS. I can also reassess his De La Cruz's esophagus at the time of the EGD. ICD-10-CM ICD-9-CM 1. Right upper quadrant pain R10.11 789.01 2. Gastroesophageal reflux disease without esophagitis K21.9 530.81 3. 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 Bloating R14.0 787.3 5. Intractable vomiting with nausea, unspecified vomiting type R11.2 536.2 Follow up: No follow-ups on file. CC: Izzy Snowden, [facility] [address] [place] [address] Portions of this chart may have been created with [employer] recognition software. Occasi onal wrong-word or sound-alike substitutions may have occurred due to the inherent choudhury itations of voice recognition software. 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
--- OUTSIDE RECORDS SUMMARY | ~2019-09-22 | XMS | Encounter Summary ---
Demographics + + + | Address | [address] | | | [place] [address] | + + + | Home Phone | | + + + | Preferred Language | Unknown | + + + | Marital Status | | + + + | Rastafarian Affiliation | Unknown | + + + | Race | Unknown | + + + | Ethnic Group | Unknown | + + + Author + + + | Author | [facility] | | | and [place] | + + + | Organization | [facility] | | | and [place] | + + + | Address | Unknown | + + + | Phone | Unavailable | + + + Support + + +---------+ + | Name | Relationship | Address | Phone | + + +---------+ + | Rosanne Multani | ECON | Unknown | | + + +---------+ + | Ajdyn Rangel | ECON | Unknown | | + + +---------+ + Care Team Providers + +------+ + | Care Examination Grader Name | Role | Phone | + [...] | | | Other | | MD Luke | | | | | malignant | | [address] | | | | | neuroendocri | | [address] | | | | | ne tumors | | [place] | | | | | (HCC) Other | | [address] | | | | | malignant | | Phone: | | | | | neuroendocri | | [phone] | | | | | ne tumors | | Fax: | | | | | (HCC) | | [phone] | | | | | [C7A.8] | | | | | | | Procedures | | | | | | | CT | | | | | | | SIGMOIDOSCOP | | | | | | | Y,BIOPSY CT | | | | | | | [...] + + + + | 06/27/ | Anesthesia | [facility] | Jaydn Shaffer | | | 2019 | Event | [facility] | MD [address] | | | | | INTRA OP [address] | | | | [address] [place] | [place] [address] | | | | | [address] | [phone] | | | | | [phone] | | | +--------+ + + + + Anesthesia Record + + + + + | Procedure Name | Responsible | Anesthesia Start | Anesthesia Stop Time | | | Anesthesiologist | Time | | + + + + + | RECTAL ULTRASOUND, | Jadyn Alejandro | 06/27/18 1508 | 06/27/18 1547 | | SIGMOIDOSCOPY | MD Edmund | | | | FLEXIBLE POSSIBLE | | | | | EMR, FTRD/ESD (N/A | | | | | Rectum) | | | | + + + + + +----+---+ + + | Da | T | Event | Comment | | te | i | | | | | m | | | | | e | | | +----+---+ + + | 03 | 1 | | | | /1 | 4 | | | | 1/ | 2 | | | | 20 | 7 | | | | 19 | | | | +----+---+ + + | | 1 | An Checkout | Pre-use anesthesia machine/equipment checkout. | | | 5 | | | | | 0 | | | | | 7 | | | +----+---+ + + | | 1 | An Start | Reassessment prior to anesthesia induction/procedure. | | | 5 | | | | | 0 | | | | | 8 | | | +----+---+ + + | | 1 | Quick Note | Dr. Villalta requests sedation be started in 5 mins. | | | 5 | | | | | 1 | | | | | 0 | | | +----+---+ + + | | 1 | An | | | | 5 | Induction | | | | 1 | | | | | 6 | | | +----+---+ + + | | 1 | Pre-Procedu | | | | 5 | ral Timeout | | | | 1 | Completed | | | | 8 | | | +----+---+ + + | | 1 | First | | | | 5 | Inc/Proc St | | | | 1 | | | | | 9 | | | +----+---+ + + | | 1 | An Stop | Patient handed off to recovery nurse. | | | 4 | | | | | 7 | | | +----+---+ + + +------+ | Meds | +------+ + + + | Name | Total | + + + | propofol | 80 mg | + + + | propofol (Infusion) | 324.4 mg | + + + | lactated ringers (LR) infusion | 100 mL | + + + + + | Name | + + | N2O Flow Rate (L/Min) | + + | O2 Flow Rate (L/Min) | + + | Insp O2 | + + | Exp N2O | + + | Air Flow Rate (L/Min) | + + + + | No blood administrations on file. | + + +--------+ + + + | Type | Details | Placement | Removal | +--------+ + + + | Periph | 06/27/18; 1423; Right; Medial; | 06/27/18 1423 by | 06/27/18 1605 by | | eral | Wrist; irus-wbo-nikoju catheter | Kayla Shepherd RN | Vianney Mendoza RN | | IV | system; 20 gauge, 1 in length; | | | | | (bloodsugar); distraction, | | | | | tolerated well, appears | | | | | comfortable; 06/27/18; 1605 | | | +--------+ + + + documented in this encounter Social History + + + +--------+ + [...] | | | + +--------+ +-------+------+------+ | propofol (DIPRIVAN) injection | Given | 06/28/19 | 40 mg | | | | Intravenous, PRN, Starting Mon | | 19 3:18 | | | | | 06/27/18 at 1516, Anesthesia | | PM PDT | | | | | Intra-op | | | | | | + +--------+ +-------+------+------+ +-------+ +-------+---+---+ | Given | 06/28/19 | 40 mg | | | | | 19 3:16 | | | | | | PM PDT | | | | +-------+ +-------+---+---+ +---+---+ | | | +---+---+ + +---------+ + +-------+---+ | propofol infusion (DIPRIVAN) 10 | New Bag | 06/28/19 | 200 | 97.3 | | | mg/mL infusion Intravenous, | | 19 3:16 | mcg/kg/m | mL/hr | | | CONTINUOUS PRN, Starting Mon | | PM PDT | in | | | | 06/27/18 at 1516, Anesthesia | | | | | | | Intra-op | | | | | | + +---------+ + +-------+---+ +---+---+ | | | +---+---+ documented in this encounter"
--- OUTSIDE RECORDS SUMMARY | ~2019-09-22 | XMS | Encounter Summary ---
Demographics + + + | Address | [address] | | | [place] [address] | + + + | Home Phone | | + + + | Preferred Language | Unknown | + + + | Marital Status | | + + + | Advent Affiliation | Unknown | + + + | Race | Unknown | + + + | Ethnic Group | Unknown | + + + Author + + + | Author | [facility] | | | and [place] | + + + | Organization | [facility] | | | [...] Team Providers + +------+ + | Care Marine Engineer Name | Role | Phone | + +------+ + | Izzy Snowden | PCP | | + +------+ + Encounter Details +--------+ + + + + | Date | Type | Department | Care Team | Description | +--------+ + + + + | 06/07/ | Abstract | [facility] | Chalrine, | | | 2019 | | GASTROENTEROLOGY | MD [address] | | | | | [address] [facility] | Vijay Rita. | | | | | [address] [place], [place] | [place] [address] | | | | | [address] | | | | | | [phone] | | | +--------+ + + + [...]
--- OUTSIDE RECORDS SUMMARY | ~2019-09-22 | XMS | Encounter Summary ---
Demographics + + + | Address | [address] | | | [place] [address] | + + + | Home Phone | | + + + | Preferred Language | Unknown | + + + | Marital Status | | + + + | Faith Affiliation | Unknown | + + + | Race | Unknown | + + + | Ethnic Group | Unknown | + + + Author + + + | Author | [facility] | | | and [place] | + + + | Organization | [facility] | | | [...] Team Providers + +------+ + | Care Mold Laminator Name | Role | Phone | + +------+ + | Izzy Snowden | PCP | | + +------+ + Encounter Details +--------+ + + + + | Date | Type | Department | Care Team | Description | +--------+ + + + + | 05/30/ | Hospital | [facility] | Zhang Smith | No Show | | 2019 | Encounter | [facility] | MD Julian [address] | | | | MEDICINE [address] [place] | | | | | [place], | [place] [address] | | | | | [place] [address] | [phone] | | | | | [phone] | | | | | | | [employer], [facility] | | +--------+ + + + + [...]
--- OUTSIDE RECORDS SUMMARY | ~2019-09-22 | XMS | Clinical Summary ---
Demographics + + + | Address | [address] | | | [place] [address] | + + + | Home Phone [...] Team Providers + +------+ + | Care Modeling Analyst Name | Role | Phone | + +------+ + | Nilesh Osorio MD | PCP | | + +------+ + Source Comments JOSÉ MIGUEL is fully live on both [facility] and [facility] InPatient.[facility]3] Allergies No Known Allergies Medications + + [...] | + +--------+ +--------+ + +------+ | [facility] | PROVID | xxxxxxxxxxx | 04/19/19 | [phone] | [address] | PPO | | | ENCE | | [address] | [address] | | | [address]ALTH | | sent | | [place], | | | | | | | | [place] [address] | | + +--------+ +--------+ + +------+ [...] | 1975 | [phone] | [place] [address] | | | hu | | | [address] (Home) | | + +--------+ +--------+ + +"
--- OUTSIDE RECORDS SUMMARY | ~2019-09-22 | XMS | Encounter Summary ---
Demographics + + + | Address | [address] | | | [place] [address] | + + + | Home Phone | | + + + | Preferred Language | Unknown | + + + | Marital Status | | + + + | Voodoo Affiliation | Unknown | + + + | Race | Unknown | + + + | Ethnic Group | Unknown | + + + Author + + + | Author | [facility] | | | and [place] | + + + | Organization | [facility] | | | [...] Team Providers + +------+ + | Care It Program Engagement Director Name | Role | Phone | + +------+ + | Nilesh Osorio DO | PCP | | + +------+ + Reason for Visit +--------+ + | Reason | Comments | +--------+ + | Nausea | | +--------+ + Encounter Details +--------+ + + + + | Date | Type | Department | Care Team | Description | +--------+ + + + + | 06/21/ | Telephone | [facility] | Rad De La Cruz | Nausea | | 2019 | | GASTROENTEROLOGY | MD Felix [address] | | | | | [address] [facility] | [address] [facility] | | | | | [address] [place], [place] | [place] [address] | | | | | [address] | [phone] | | | | | [phone] | | | +--------+ + + + [...] + | Diagnosis | + + | Nausea - Primary Nausea alone | + + documented in this encounter"
--- OUTSIDE RECORDS SUMMARY | ~2019-09-22 | XMS | Encounter Summary ---
Demographics + + + | Address | [address] | | | [place] [address] | + + + | Home Phone | | + + + | Preferred Language | Unknown | + + + | Marital Status | | + + + | Voodoo Affiliation | Unknown | + + + | Race | Unknown | + + + | Ethnic Group | Unknown | + + + Author + + + | Author | [facility] | | | and [place] | + + + | Organization | [facility] | | [...] Team Providers + +------+ + | Care Extension Work Instructor Name | Role | Phone | [...] | | | | sinus | PA-C [address] | | | | | infections | [place] | [address] | | | | | recurring | WAY | [place], | | | | | sinus | [place], | [place] [address] | | | | | infection | [place] [address] | Phone: | | | | | Procedures | Phone: | [phone] | | | | | [place] OFFICE | [phone] | Fax: | | | | | OUTPATIENT | Fax: | [phone] | | | | | VISIT 25 | [phone] | | | | | | MINUTES [...] + + | 03/21/ | Follow-Up | [facility] [place] | Keo Wheatley MD | Hypertrophy of nasal | | 2013 | | OTOLARYNGOLOGY [address] | [address] [place] | turbinates (Primary | | | | [address] | [address] [place], | Dx); Chronic | | | | [place], [place] | [place] [address] | frontal sinusitis | | | | [address] | [phone] | | | | | [phone] | | | +--------+ + + + [...] Keo Wheatley MD - 2014 3:46 PM Daniale dictation #[id number] signed by Javier Wheatley MD at 2014 3:48 PM Keo Castillo MD - 2014 12:00 AM PST ENT AND AUDIOLOGY [address] [facility] [address] [place] [address] FAX: [phone] OFFICE VISIT POSTOP VISIT The patient is [...] Wheatley MD GM / PAP JOB #: [id number] signed by Keo Wheatley MD at 2014 4:14 PM PSTdocumentmoshe hahn in this encounter Plan of Treatment Not on filedocumented as of this encounter Visit Diagnoses + + | Diagnosis | + + | Hypertrophy of nasal turbinates - Primary | + + | Chronic frontal sinusitis | + + documented in this encounter
--- OUTSIDE RECORDS SUMMARY | ~2019-09-22 | XMS | Encounter Summary ---
Demographics + + + | Address | [address] | | | [place] [address] | + + + | Home Phone | | + + + | Preferred Language | Unknown | + + + | Marital Status | | + + + | Cheondoism Affiliation | Unknown | + + + | Race | Unknown | + + + | Ethnic Group | Unknown | + + + Author + + + | Author | [facility] | | | and [place] | + + + | Organization | [facility] | | | and [...] Team Providers + +------+ + | Care Sole Tier Name | Role | Phone | + +------+ + | Nilesh Osorio DO | PCP | | + +------+ + Reason for Visit + + + | Reason | Comments | + + + | Abdominal Pain | | + + + Evaluate & Treat (Routine) +--------+--------+ + + + + | Status | Reason | Specialty | Diagnoses / | Referred By | Referred To | | | | | Procedures | Contact | Contact | +--------+--------+ + + + + | Closed | | Gastroenterol | Diagnoses | Filomena, | Rafaela, | | | | angie | LUQ | Brayden May, | Edgar Arizmendi MD | | | | | abdominal | [address] | [address], | | | | | pain | [address] | [address] | | | | | Bloating | [place], | [place], | | | | | Procedures | [place] | [place] [address] | | | | | OFFICE VISIT | [address] | Phone: | | | | | | Phone: | [phone] | | | | | | [phone] | Fax: | | | | | | Fax: | [phone] | | | | | | [phone] | | +--------+--------+ + + + + Encounter Details +--------+---------+ + + + | Date | Type | Department | Care Team | Description | +--------+---------+ + + + | 12/22/ | Office | [facility] | Rad De La Cruz | Gastroesophageal | | 2018 | Visit | GASTROENTEROLOGY | MD Felix [address] | reflux disease, | | | | [address] | [address] [place] | esophagitis presence | | | | [address] [place], [place] | [place] [address] | not specified | | | | [address] | [phone] | (Primary Dx); | | | | [phone] | | Bloating; Left upper | | | | | | quadrant pain | +--------+---------+ + + + Social History [...] + + + | Blood Pressure | 110/64 | 12/22/2017 3:40 PM | | | | | PDT | | + + + + + | Pulse | 57 | 12/22/2017 3:40 PM | | | | | PDT | | + + + + + | Temperature | 36.9 C (98.4 F) | 12/22/2017 3:40 PM | | | | | PDT | | + + + + + | Respiratory Rate | 16 | 12/22/2017 3:40 PM | | | | | PDT | | + + + + + | Oxygen Saturation | 94% | 12/22/2017 3:40 PM | | | | | PDT | | + + + + + | Inhaled Oxygen | - | - | | | Concentration | | | | + + + + + | Weight | 86.7 kg (191 lb 2.2 | 12/22/2017 3:40 PM | | | | oz) | PDT | | + + + + + | Height | 177.8 cm (5' 10") | 12/22/2017 3:40 PM | | | | | PDT | | + + + + + | Body Mass Index | 27.43 | 12/22/2017 3:40 PM | | | | | PDT | | + + + + + documented in this encounter Progress Rad Mariee MD - 12/22/2017 3:30 PM PDT Outpatient Gastroenterology Consult Note Date of Office Visit: 12/22/17 Referring Provider: Brayden Butt MD [address] [facility] [place] [address] Providing Physician: Rad De La Cruz MD. Chief Complaint: Abdominal Pain History of Present Illness Clifton Multani is a 42 y.o. male with no significant past medical history who presents for ev aluation of left upper quadrant abdominal pain and GERD. He reports that his symptoms start ed almost 1 year ago. He says that they started out of the blue. He was evaluated by his [facility] care provider and also by Dr. Reno. The left upper quadrant abdominal pain is there all the time but it can flareup with eating and also with movement. He finds that laying on his side with a pillow under the left help s. He also has significant gas. He describes that he belches all the time. He also descri bes intense "gut rumbling". He senses frequent regurgitation and acid taste in his mouth. He endorses daily heartburn. He reports that it feels difficult to swallow water, describin g that it feels like it slowly passes down through his esophagus. He also intermittently stephens s solid food dysphagia as well. He denies any significant change in his bowel habits. He tried omeprazole 20 mg daily for one month and didn't have any significant improvement. He says he was treated for H. pylori empirically, and that he actually felt better with this treatment but then his symptoms oksana n thereafter returned. Note that he did have a negative CLOtest on his EGD. Endoscopic History EGD June 01, 2017 Mild to moderate diffuse gastritis biopsied biopsy was negative for H. pylori by CLOtest. Patient was not on PPI at this time. Tiny antral gastric ulcer No hiatal hernia Review of Systems ROS A 12 point review of systems was conducted with the patient. Pertinent positives and negati ves listed per HPI Problem List Patient Active Problem List Diagnosis Chronic sphenoidal sinusitis Chronic frontal sinusitis Hypertrophy of nasal turbinates Palpitations Chronic low back pain GERD (gastroesophageal reflux disease) Chest pain Fluttering heart Insomnia Bloating Left upper quadrant pain Past Medical History Past Medical History: Diagnosis [...] Surgical History: Procedure Laterality Date APPENDECTOMY 04/1980 INGUINAL HERNIA REPAIR Right 02/2008 NASAL SEPTUM SURGERY 03/20/2014 BILATERAL Inferior Turbinoplasty; LEFT Frontal Sinusotomy; Laterality: Bilateral; Surgeo n: Keo Wheatley MD; Location: [facility] MAIN OR SINUS ENDOSCOPY 03/20/2014 Laterality: Left; Surgeon: Keo Wheatley MD; Location: [facility] MAIN OR SINUS SURGERY 2008 SINUS SURGERY 2011 Family History Family History Problem Relation Age of Onset Hypertension Mother Heart attack Father Diabetes Other Dementia Other Heart disease Neg Hx Colon polyps Neg Hx Ulcerative colitis Neg Hx Crohn's disease Neg Hx Colon cancer Neg Hx Social History Social History Social History Marital status: Spouse name: N/A Number of children: N/A Years of education: N/A Social History Main Topics Smoking status: Former Smoker Packs/day: 1.00 Years: 3.00 Types: Cigarettes Start date: 04/19/2001 Quit date: 04/19/2004 Smokeless tobacco: Current User Types: Chew Alcohol use 2.4 oz/week 4 Cans of beer per week Drug use: Yes Frequency: 0.5 times per week Types: Marijuana Sexual activity: Not Asked Comment: Not on file Other Topics Concern None Social History Narrative None Allergies Allergies No active allergies Intolerance No active intolerances/contraindications Medications Current Outpatient Prescriptions on File Prior to Visit Medication Sig Dispense Refill fluticasone (FLONASE) 50 mcg/nasal spray 2 sprays by Nasal route as needed. hydrOXYzine hydrochloride (ATARAX) 25 mg tablet Take 25 mg by mouth nightly. ibuprofen (ADVIL, MOTRIN) 200 mg tablet Take 200 mg by mouth as needed for Pain. omeprazole (PRILOSEC) 40 MG capsule Take 40 mg by mouth as needed. Pseudoephedrine HCl (SUDAFED PO) Take 1 tablet by mouth as needed. SUMAtriptan (IMITREX) 100 mg tablet Take 100 mg by mouth as needed. zolpidem (AMBIEN) 5 mg tablet Take 5 mg by mouth as needed. No current facility-administered medications on file prior to visit. Physical Exam Vitals:BP 110/64 | Pulse 57 | Temp 36.9 C (98.4 F) (Temporal) | Resp 16 | Ht 1.778 m (5' 10") | Wt 86.7 kg (191 lb 2.2 oz) | SpO2 94% | BMI 27.43 kg/m General: This is a well-developed,well-nurished male in no apparent distress, alert and kaylie ented x 3. Head: Reveals normocephalic, atraumatic Eyes: Sclera anicteric, normal conjunctiva Mouth: Oropharynx is clear without obstruction. No oral lesion. Lungs: Clear to auscultation without rales or wheezes. Cardiac: Reveals regular rate and rhythm with normal S1 and S2 and no murmurs, rubs or gall ops. Abdomen: Soft and tender to palpation along the left upper quadrant subcostal edge. witho ut masses or organmegaly. No guarding or rebound pain. Normoactive bowel sounds. Extremities: Without cyanosis, clubbing or edema. Neuro: Awake, alert, oriented x3. Skin: Warm and dry, no erythematous rash. Labs Labs from September 04, 2017 were reviewed. LFTs were normal The PVC 8.5, hemoglobin 15.2, platelets 326 Imaging HIDA scan June 03, 2017 Normal uptake, excretion, and ejection fraction CT abdomen May 06, 2017 with IV contrast Normal CT of the abdomen and pelvis Ultrasound abdomen May 05, 2017 Normal ultrasound other than fatty infiltration of the liver Assessment and Plan This is a 42-year-old man who presents for left upper quadrant abdominal pain and GERD. He has had no apparent cause found after having EGD, CT abdomen, ultrasound abdomen, and HIDA scan. His symptoms don't really seem consistent with a gallbladder problem. They seem more line with a stomach acid problem. Possibilities include gastroparesis, esophageal dysmotil ity, or just GERD. Further evaluation with an upper endoscopy with 48 hour ambulatory pH mo nitoring was recommended. This would be done off PPI therapy. Other testing that may be he lpful would be a gastric emptying scan in addition to an esophagram. He says would be to ev aluate for gastroparesis and esophageal dysmotility. The meantime I gave him a 10 day sample of Dexilant 60 mg by mouth daily. If his symptoms resolve with Dexilant, then we will just cancel the above procedures and tr eat him with PPI therapy. If his symptoms don't resolve we will plan on proceeding with the above tests. ICD-10-CM ICD-9-CM 1. Gastroesophageal reflux disease, esophagitis presence not specified K21.9 530.81 2. Bloating R14.0 787.3 3. Left upper quadrant pain R10.12 789.02 Follow up: No Follow-up on file. CC: Brayden Butt MD [address] [place] [address] Nilesh Osorio, [id number] [place] [address] Portions of this chart may have been created with [employer] voice recognition software. Occasi onal wrong-word or [...] specified - Primary | + + | Bloating Flatulence, eructation, and gas pain | + + | Left upper quadrant pain Abdominal pain, left upper quadrant | + + documented in this encounter
--- OUTSIDE RECORDS SUMMARY | ~2019-09-22 | XMS | Encounter Summary ---
Demographics + + + | Address | [address] | | | [place] [address] | + + + | Home Phone | | + + + | Preferred Language | Unknown | + + + | Marital Status | | + + + | Restoration Affiliation | Unknown | + + + [...] Team Providers + +------+ + | Care Program Aide Group Work Name | Role | Phone | + [...] | | | | | pain | [address] | MD [address] | | | | | Abdominal | [address] | [address] | | | | | pain, [place] | [place], | [place], | | | | | Procedures | [place] [address] | [place] [address] | | | | | ER F/U (SEEN | Phone: | Phone: | | | | | FOR US AT | [phone] | [phone] | | | | | ST. | Fax: | Fax: | | | | | [place]) | [phone] | [phone] | + +--------+ + + + + Encounter Details +--------+ + + + + | Date | Type | Department | Care Team | Description | +--------+ + + + + | 07/30/ | Virtual | [facility] [place] | Rad De La Cruz | Gastroesophageal | | 2019 | Office | GASTROENTEROLOGY | MD Felix [address] | reflux disease, | | | Visit | [address] | [address] [place] | esophagitis presence | | | | [address], [place] | [place] [address] | not specified | | | | [address] | [phone] | (Primary Dx); | | | | [phone] | | Diarrhea, | | | | | | unspecified type; | | | | | | Irritable bowel | | | | | | syndrome with | | | | | | diarrhea | +--------+ + + + + Social [...] Notes Rad De La Cruz MD - 07/31/2019 2:15 PM PDT Gastroenterology Clinic Progress Note Date of Office Visit: 07/31/19 Primary Care Physician: NASIR Rosado This exam was initially conducted via a secure 256-bit AES encrypted bidirectional video se ssion. Service was provided [id number] with the patient via interactive videoconferencing Video start time 217 Video end time 235 Total time (in minutes) including non [id number] time (reviewing records, documentation, etc..) 35 You have chosen to receive care through the use of telemedicine. Telemedicine enables [facility] care providers at different locations to provide [...] your questions regarding telemedicine been answered? "Yes" Patient is currently at home Do you consent to the use of telemedicine in your medical care today? Yes. Last question, I need to confirm where are you physically located right now? Answer: Patient confirms they are located in a state where I, Rad De La Cruz MD am lice josh. Chief Complaint Follow-up History of Present Illness Clifton Multani is a 44 y.o. male with a history of GERD, irritable bowel syndrome with diarrh ea, rectal carcinoid resected endoscopically, who is following up for abdominal discomfort, bloating, diarrhea, and GERD symptoms Interval history: His main complaint is bad GERD. He is having cough and "burning "sensation in his lungs. He has been using a lot of alkaseltzer. Having a lot of bloating. Pantoprazole was previously more effective than his current omeprazole and he asks if I can give him a prescription for more pantoprazole. He has a lump in the RUQ. He can feel it when he pushes on it. He has to put a pillow on it . He also has a dull achy pain in the lower abdomen. Pain in the RUQ is constant. No different with meals. He has stopped eating bread, stopping pop. Nothing really helps. Fasting doesn't make any difference. There is excessive borborygmi. He is having diarrhea He has had liquid stools for the past 2 weeks He hasn't tried anything for it. He had been on antibiotics in the recent past, he cannot recall exactly when. Augmentin. He was on that for 3 weeks, he had 2 rounds of it. The diarrhea started 3 weeks after completing his antibiotics. The diarrhea is waking him up from sleep. He will have diarrhea 15 minutes after eating. He previously had improvement in his IBS diarrhea on Bentyl but is not currently taking demond t. Review of Systems A 10 point review [...] and lower Bloating Chest pain Cardiolgist in [place]- will have testing Chronic frontal sinusitis left [...] Surgeon: Rad De La Cruz MD; Location: [facility] MEDICAL PROCEDURE UNIT COLONOSCOPY ENDOSCOPY ESOPHAGUS-ACID REFLUX TEST N/A 02/25/2018 Procedure: ENDOSCOPIC 48 HOUR PH FERRARI "CAPSULE"; Surgeon: Rad De La Cruz MD; Locat ion: [facility] MEDICAL PROCEDURE UNIT HERNIA REPAIR INGUINAL HERNIA REPAIR Right 02/2008 NASAL SEPTUM SURGERY 03/20/2014 BILATERAL Inferior Turbinoplasty; LEFT Frontal Sinusotomy; Laterality: Bilateral; Surgeo n: Keo Wheatley MD; Location: [facility] MAIN OR OTHER SURGICAL HISTORY N/A 06/27/2018 Procedure: EUS RECTAL; Surgeon: Luke Pitts MD; Location: [facility] MEDICAL PROCEDURE UN IT SIGMOIDOSCOPY N/A 06/27/2018 Procedure: RECTAL ULTRASOUND, SIGMOIDOSCOPY FLEXIBLE POSSIBLE EMR, FTRD/ESD; Surgeon: Morgan Pitts MD; Location: [facility] MEDICAL PROCEDURE UNIT SINUS ENDOSCOPY 03/20/2014 Laterality: Left; Surgeon: Keo Wheatley MD; Location: [facility] MAIN OR SINUS SURGERY 2008 SINUS SURGERY 2011 Allergies Allergies No active allergies Intolerance No active intolerances/contraindications Medications Current Outpatient Medications on File Prior to Visit Medication Sig Dispense Refill Aspirin Effervescent (KATLIN-SELTZER PO) Take 1 tablet by mouth as needed. gummie diphenhydrAMINE-acetaminophen (TYLENOL PM EXTRA STRENGTH) 25-500 MG TABS Take 1-2 table ts by mouth nightly as needed for Insomnia. fluticasone (FLONASE) 50 mcg/nasal spray 2 sprays by Nasal route as needed for Allergie s. ibuprofen (ADVIL, MOTRIN) 200 mg tablet Take 200 mg by mouth as needed for Pain. omeprazole (PRILOSEC) 20 mg capsule Take 1 capsule by mouth 2 times daily (before meals ). 60 capsule 2 ondansetron (ZOFRAN ODT) 4 mg disintegrating tablet Take 1 tablet by mouth every 8 hour s as needed for Nausea. (Patient not taking: Reported on 07/31/2019) 60 tablet 1 promethazine (PHENERGAN) 25 mg tablet take 1 tablet by mouth every 6 hours if needed fo r up to 1 month PSEUDOEPHEDRINE HCL PO Take 30 mg by mouth every four hours as needed for congestion. sodium chloride (OCEAN) 0.65 % nasal spray 1 spray by Nasal route as needed for Congest ion. SUMAtriptan (IMITREX) 100 mg tablet Take 1 tablet by mouth as needed for Migraine. May repeat dose in 2 hours if no relief. Do not exceed 2 doses in 24 hours. No current facility-administered medications on file prior to visit. Labs No new labs Imaging No new imaging Assessment and Plan 44-year-old man with a history of GERD, IBS D, low-grade carcinoid of the rectum resected e ndoscopically, now with more problems with persistent diarrhea, abdominal discomfort, and wo rsening of his GERD symptoms. 1. Diarrhea He recently was on antibiotics so the possibility of C. difficile is there. Other possible causes could be flare of his irritable bowel syndrome. -Ordered C. difficile, stool lactoferrin, stool Giardia -Restart Bentyl for IBS -Can use as needed Imodium 2. Right upper quadrant pain -He has been using more Excedrin than he should. He could have caused a peptic ulcer. Cou ld also be related to gallbladder pathology. Could be related also to what is going on with his bowels. Recommended that he stop Excedrin -Start pantoprazole 40 mg twice daily -If persistent pain in 1 week after trying the above get an ultrasound of his right upper q uadrant #3 GERD He is having extra esophageal symptoms such as cough and burning sensation in his lungs. H is GERD has been doing better on pantoprazole he asks for me to give him a prescription for this instead of his omeprazole. I wrote a prescription for pantoprazole 40 mg twice daily. ICD-10-CM ICD-9-CM 1. Gastroesophageal reflux disease, esophagitis presence not specified K21.9 530.81 pantopr azole (PROTONIX) 40 mg tablet 2. Diarrhea, unspecified type R19.7 787.91 Clostridioides difficle NAAT reflex to Tox Ag Lactoferrin, Fecal, Qual Giardia Ag, EIA, Stool 3. Irritable bowel syndrome with diarrhea K58.0 564.1 dicyclomine (BENTYL) 20 MG tablet Follow up: No follow-ups on file. CC: Izzy Snowden, GEOSCIENTIST [address] [place] [address] Portions of this chart may have been created with [employer] voice recognition software. Occasi onal wrong-word or sound-alike substitutions may have occurred due to the inherent choudhury itations of voice recognition software. Please read the chart carefully and recognize, using context, where these substitutions have occurred documented in this encounter Plan of Treatment + + +--------+ + + | Name | Type | Priori | Associated Diagnoses | Order Schedule | | | | ty | | | + + +--------+ + + | Clostridioides | Microbiolog | Routin | Diarrhea, | 1 Occurrences | | difficle NAAT reflex | y | e | unspecified type | starting 07/31/2019 | | to Tox Ag | | | | until 07/30/2020 | + + +--------+ + + | Lactoferrin, Fecal, | Microbiolog | Routin | Diarrhea, | 1 Occurrences | | Qual | y | e | unspecified type | starting 07/31/2019 | | | | | | until 07/30/2020 | + + +--------+ + + | Giardia Ag, EIA, | Microbiolog | Routin | Diarrhea, | 1 Occurrences | | Stool | y | e | unspecified type | starting 07/31/2019 | | | | | | until 07/30/2020 | + + +--------+ + + documented as of this encounter Visit Diagnoses + + | Diagnosis | + + | Gastroesophageal reflux disease, esophagitis presence not specified - Primary | + + | Diarrhea, unspecified type | + + | Irritable bowel syndrome with diarrhea Irritable bowel syndrome | + + documented in this encounter
--- OUTSIDE RECORDS SUMMARY | ~2019-09-22 | XMS | Encounter Summary ---
Demographics + + + | Address | [address] | | | [place] [address] | + + + | Home Phone | | + + + | Preferred Language | Unknown | + + + | Marital Status | | + + + | Restoration Affiliation | Unknown | + + + | Race | Unknown | + + + | Ethnic Group | Unknown | + + + Author + + + | Author | [facility] | | | and [place] | + + + | Organization | [facility] | | | [...] Team Providers + +------+ + | Care Bath Attendant Name | Role | Phone | + +------+ + | Bulmaro White PA-C | PCP | | + +------+ + Reason for Visit + + + | Reason | Comments | + + + | Follow-up | nose,left side plugged | + + + Self-referral (Routine) +--------+--------+ [...] | | | | follow | | [address] | | | | | nose/pt/life | | [address] | | | | | [place] | | [place], | | | | | Procedures | | [place] [address] | | | | | OFFICE VISIT | | Phone: | | | | | REGULAR | | [phone] | | | | | | | Fax: | | | | | | | [phone] | +--------+--------+ + + + + Encounter Details +--------+---------+ + + + | Date | Type | Department | Care Team | Description | +--------+---------+ + + + | 06/18/ | Office | [facility] | Keo Munoz MD | Acute upper | | 2015 | Visit | OTOLARYNGOLOGY [address] | [address] | respiratory | | | | [address] | [address] [place], | infections of | | | | [place], [place] | [place] [address] | unspecified site | | | | [address] | [phone] | (Primary Dx); | | | | [phone] | | Chronic frontal | | | | | | sinusitis; | | | | | | Hypertrophy of nasal | | | | | | turbinates | +--------+---------+ + + + Social History [...] + + + + | Pulse | 82 | 06/18/2014 3:41 PM | | | | | PST | | + + + + + | Temperature | - | - | | + + + + + | Respiratory Rate | 18 | 06/18/2014 3:41 PM | | | | | PST | | + + + + + | Oxygen Saturation | 95% | 06/18/2014 3:41 PM | | | | | PST | | + + + + + | Inhaled Oxygen | - | - | | | Concentration | | | | + + + + + | Weight | 81.6 kg (180 lb) | 06/18/2014 3:41 PM | | | | | PST | | + + + + + | Height | 177.8 cm (5' 10") | 06/18/2014 3:41 PM | | | | | PST | | + + + + + | Body Mass Index | 25.83 | 06/18/2014 3:41 PM | | | | | PST | | + + + + + documented in this encounter Progress Notes Keo Munoz MD - 06/18/2014 4:01 PM PST [facility] OTOLARYNGOLOGY [address] [facility] [address] OFFICE NOTE KEO MUNOZ MD Patient: ALBERT MULTANI Admitting: MR #: [id number] LOC: PT TYPE: Adm Date: 06/18/2014 : 1975 OFFICE VISIT DATE OF VISIT: 06/18/2014 The patient had frontal sinus surgery back near the first couple of days of March. He recently came down with an upper respiratory tract infection. He is feel that he has had a lot more crusting and drainage from the left nasal passage. He breathes poorly through th e left side, as compared to the right. He comes in for a followup visit. He is not havin g any other complaints at the current time. The patient is not having a lot of pain and p ressure, like he typically had when his frontal sinus was totally occluded. PHYSICAL EXAMINATION: GENERAL: Shows an alert 39-year-old male accompanied by his . He is communicating we ll. His voice quality is good. HEENT: Skin of the face, nose and ears all appears smooth and healthy. Parotid, submandib ular glands felt normal. Nasal passages: No purulent drainage seen on either side. Both sides were then sprayed well with some Ander-Synephrine and topical Xylocaine. Floor of the mouth, buccal mucosa, hard palate, teeth, lips, gums are healthy. No mass seen in the chasity pharynx and posterior pharyngeal wall is smooth. Tongue and soft palate are smooth and mov e symmetrically. NECK: Smooth. The fiberoptic scope was then used. The left nasal passage was examined. Looking up into the frontal sinus area, there is no purulent drainage coming out of the ostia of this area or through the ethmoidal region. In the very posterior tip of his left inferior turbinate there is a glob of tissue that is still giving him some obstruction from the turbinate ar ea. The right hand side is wide open, and appears clear and healthy. The scope was then r emoved. IMPRESSION: 1. Upper respiratory tract infection. 2. Hypertrophic left inferior turbinate. PLAN: The patient will do the nasal irrigations on twice a day basis faithfully for the n ext 2 or 3 weeks. He was started on Flonase, which that he has at home, 2 sprays to each s tennille of his nose daily. He will be seen again in 6 weeks' time. He will call if he has the persistence of any purulent drainage from his nose. EKO MUNOZ MD Dictated by KEO MUNOZ MD 06/18/2014 16:01:24 Transcribed on 06/18/2014 23:21:27 by eladia job# [id number] Confirmation #: [id number] cc: BULMARO WHITE PAC Keo cross MD - 06/18/2014 3:57 PM PSTSee dictation # [id number] signed by Keo Munoz MD at 06/18/2014 4:03 PM PSTdocumented in th is encounter Plan of Treatment Not on filedocumented as of this encounter Visit Diagnoses + + | Diagnosis | + + | Acute upper respiratory infections of unspecified site - Primary | + + | Chronic frontal sinusitis | + + | Hypertrophy of nasal turbinates | + + documented in this encounter
--- OUTSIDE RECORDS SUMMARY | ~2019-09-22 | XMS | Encounter Summary ---
Demographics + + + | Address | [address] | | | [place] [address] | + + + | Home Phone | | + + + | Preferred Language | Unknown | + + + | Marital Status | | + + + | Oriental Orthodox Affiliation | Unknown | + + + | Race | Unknown | + + + | Ethnic Group | Unknown | + + + Author + + + | Author | [facility] | | | and [place] | + + + | Organization | [facility] | | | [...] Team Providers + +------+ + | Care Supervisor Grips Name | Role | Phone | + +------+ + | Nilesh Osorio DO | PCP | | + +------+ + Reason for Visit + + + | Reason | Comments | + + + | Palpitations | | + + + Encounter Details +--------+---------+ + + + | Date | Type | Department | Care Team | Description | +--------+---------+ + + + | 12/22/ | Office | [facility] | Zhang Smith | Palpitations | | 2017 | Visit | CARDIOLOGY [address] | MD Julian [address] | (Primary Dx) | | | | [place], | [address] [place] | | | | | [place] [address] | [place] [address] | | | | | [phone] | [phone] | | | | | | | [...] + + + | Blood Pressure | 124/70 | 12/22/2017 2:22 PM | | | | | PDT | | + + + + + | Pulse | 68 | 12/22/2017 2:22 PM | | | | | PDT | | + + + + + | Temperature | - | - | | + + + + + | Respiratory Rate | 20 | 12/22/2017 2:22 PM | | | | | PDT | | + + + + + | Oxygen Saturation | - | - | | + + + + + | Inhaled Oxygen | - | - | | | Concentration | | | | + + + + + | Weight | 86.7 kg (191 lb 2.2 | 12/22/2017 2:22 PM | | | | oz) | PDT | | + + + + + | Height | 177.8 cm (5' 10") | 12/22/2017 2:22 PM | | | | | PDT | | + + + + + | Body Mass Index | 27.43 | 12/22/2017 2:22 PM | | | | | PDT | | + + + + + documented in this encounter Progress Notes Zhang Smith MD - 12/22/2017 2:30 PM PDTFormatting of this note might be differe nt from the original. PATIENT NAME: Clifton Multani : 1975: AGE: 42 y.o. REFERRED BY: Zhang Smith PRIMARY CARE: Nilesh Osorio DO CARDIOLOGY OFFICE VISIT Date of Service: 12/22/17 HISTORY OF PRESENT ILLNESS: Clifton Multani is a 42 y.o. male with a history of palpitations. He is being seen today for a follow-up visit. He presents with his significant other Rosanne. He complains of symptom s of heartburn and burping, especially at night, without any exertional correlation. He is concerned about significant GERD and hopes to undergo further evaluation in the near future. He is quite active at work, and believes that he typically takes more than 20,000 steps du ring the day. Since our last appointment, he underwent an echocardiogram and a Holter monito r, the results of which are detailed below. Pertinent historical clinical information: He was initially [...] Surgeo n: Keo Wheatley MD; Location: [facility] MAIN OR SINUS ENDOSCOPY 03/20/2014 Laterality: Left; Surgeon: Keo Wheatley MD; Location: [facility] MAIN OR SINUS SURGERY 2008 SINUS [...] Current Outpatient Prescriptions Medication Sig Dispense Refill fluticasone (FLONASE) 50 mcg/nasal spray 2 sprays by Nasal route as needed. hydrOXYzine hydrochloride (ATARAX) 25 mg tablet Take 25 mg by mouth nightly. ibuprofen (ADVIL, MOTRIN) 200 mg tablet Take 200 mg by mouth every 6 hours as needed fo r Pain. omeprazole (PRILOSEC) 40 MG capsule Take 40 mg by mouth as needed. Pseudoephedrine HCl (SUDAFED PO) Take 1 tablet by mouth as needed. SUMAtriptan (IMITREX) 100 mg tablet Take 100 mg by mouth as needed. zolpidem (AMBIEN) 5 mg tablet Take 5 mg by mouth as needed. No current facility-administered medications for this visit. ALLERGIES No Known Allergies ROS I have reviewed the Review of Systems form dated today and scanned into the media tab. OBJECTIVE: PHYSICAL EXAM BP 124/70 | Pulse 68 | Resp 20 | Ht 1.778 m (5' 10") | Wt 86.7 kg (191 lb 2.2 oz) | BM I 27.43 kg/m Physical Exam Constitutional: He appears well-developed [...] from PCP for office visit on 08/25/17. Cardiovascular diagnostics interpreted and reviewed by me with the patient today: 48 hour Holter monitor November 2017 notable [...] Baseline sinus bradycardia. ASSESSMENT: 1. Palpitations - patient's symptoms are most consistent with isolated ectopy, or perhaps short bursts of tachycardia. Regular use of pseudoephedrine may be a contributor. Patient underwent an echocardiogram which did not reveal any significant abnormalities. He also und erwent a Holter monitor which did not reveal any significant arrhythmias. His symptoms of h eartburn are most consistent with GERD and have no exertional correlation. He is quite acti ve at baseline. For now I have urged him to continue his active lifestyle, and to avoid pseu doephedrine if at all possible, as well as other stimulants and maintain good hydration. I will see him in follow-up in an as-needed basis. He may benefit from further consultation f or GERD and possible endoscopy. PLAN: 1. No further cardiovascular diagnostics. 2. Consider GI consultation. 3. Refrain from pseudoephedrine and stimulants. 4. Maintain good hydration and active lifestyle. 5. Follow-up visit in an as-needed basis. Portions of this report were transcribed using voice recognition software. Every effort wa s made to ensure accuracy; however, inadvertent computerized charge account identification clerk errors may be pre sent. Electronically signed by: Tricia Smith MD PhD FACC 12/22/2017 documented in t his encounter Plan of Treatment Not on filedocumented as of this encounter Visit Diagnoses + + | Diagnosis | + + | Palpitations - Primary | + + documented in this encounter
--- OUTSIDE RECORDS SUMMARY | ~2019-09-22 | XMS | Encounter Summary ---
Demographics + + + | Address | [address] | | | [place] [address] | + + + | Home Phone | | + + + | Preferred Language | Unknown | + + + | Marital Status | | + + + | Christian Affiliation | Unknown | + + + | Race | Unknown | + + + | Ethnic Group | Unknown | + + + Author + + + | Author | [facility] | | | and [place] | + + + | Organization | [facility] | | | [...] Team Providers + +------+ + | Care Retail Account Manager Name | Role | Phone | [...] | | | (HCC) Other | | [id number] | | | | | malignant | | Phone: | | | | | neuroendocri | | [phone] | | | | | ne tumors | | Fax: | | | | | (HCC) | | [phone] | | | | | [C7A.8] | | | | | | | Procedures | | | | | | | FL | | | | | | | SIGMOIDOSCOP | | | | | | | Y,BIOPSY [place] | | | | | | | [...] Description | +--------+---------+ + + + | 06/27/ | Surgery | [facility] | Renee Pitts, | RECTAL ULTRASOUND, | | 2019 | | [facility] | MD [address], | SIGMOIDOSCOPY | | | | INTRA OP [address] | [address], | FLEXIBLE POSSIBLE | | | | [address] [place], [place] | [place] [address] | EMR, FTRD/ESD | | | | [address] | [phone] | | | | | [phone] | | | +--------+---------+ + + + [...] Pitts MD - 06/27/2018 Renee Pitts MD [facility], [address], [address] [place] [address] DISCHARGE INSTRUCTIONS You had undergone an endoscopic [...] | | ALBERT SIMMONS | [facility] | | : 1975 AGE: 43 years SEX: Male | [facility] | | | LABOR ATORY | | Acct: [id number] Location: [facility] | [facility] | | [facility]; [facility] MEDICAL PROCEDURE UNIT POOL; [facility] | | | MEDICAL PROCEDURE UNIT POOL | | | Case #: [id number] Ordering: | | | RENEE PITTS MD Client: [facility] | | | [facility] Copy To: | | | Printed: 06/28/2018 [...] 06/28/2018 04:37 | | | pmPerforming Location: [facility] | | | [address] [place] [id number]:The patient's previous rectal polyp | | | with diagnosis of well differentiated neuroendocrine tumor ([id number]) | | | is noted.GROSS DESCRIPTION:The specimen [...] + + | Performing | Address | City/State/[facility] | Phone Number | | Organization | | | | + + + + + | [facility] | [address] | [place] [address] | | | [facility] | | | | | [place] | | | | + + + + + EUS Ricky (06/27/2018 3:05 PM PDT) + + | Specimen | + + | | + + + + + | Narrative | Performed At | + + + | Brett | [place] | | [facility] | [place] | | [facility] | | | Patient Name: Albert Simmons Procedure | | | Date: 06/27/2018 3:05 PMMRN: [id number] | | | of : 1975 | [...] | | gastroscope was fitted with 7 Palestinian Macario-Cook) resection | | | Duette kit. [...] | | 3:05 PMNumber of Addenda: 0 [facility] | | | [facility] | | |RENEE PITTS MD | | |06/27/2018 3:55:06 PM | | |This report has been signed electronically. | | | | | |Note Initiated On: 06/27/2018 3:05 PM | | |Number of Addenda: 0 | | | | | | [facility] | | + + + + +---------+ + + | Performing | Address | City/State/[facility] | Phone Number | | Organization [...] | [facility] | | | POC | [facility] [address], | | SACRED | | | | [place] [address] | | HEART | | | |Performed by [facility] [address], [place] [address] | | MEDICAL | | | | [...] | + + + + + | [facility] | [address] | [place] [address] | | | [facility] | | | | | [...] + | Diagnosis | + + | Other malignant neuroendocrine tumors (HCC) | + + documented in this encounter [...]
--- OUTSIDE RECORDS SUMMARY | ~2019-09-22 | XMS | Encounter Summary ---
Demographics + + + | Address | [address] | | | [place] [address] | + + + | Home Phone [...] Team Providers + +------+ + | Care Curing Supervisor Name | Role | Phone | + +------+ + | Nilesh Osorio DO | PCP | | + +------+ + Encounter Details +--------+ + + + + | Date | Type | Department | Care Team | Description | +--------+ + + + + | 01/14/ | Episode | [facility] | Vicki Hardy | | | 2017 | Changes | GASTROENTEROLOGY | L, RN | | | | | [address] | | | | | | [address] [place] | | | | | | [address] | | | | | | [phone] | | | +--------+ + + + [...]
--- OUTSIDE RECORDS SUMMARY | ~2019-09-22 | XMS | Encounter Summary ---
Demographics + + + | Address | [address] | | | [place] [address] | + + + | Home Phone | | + + + | Preferred Language | Unknown | + + + | Marital Status | | + + + | Uatsdin Affiliation | Unknown | + + + | Race | Unknown | + + + | Ethnic Group | Unknown | + + + Author + + + | Author | [facility] | | | and [place] | + + + | Organization | [facility] | | [...] Team Providers + +------+ + | Care Food Preparation Worker Name | Role | Phone | + [...] | | | | sinus | PA-C [address] | | | | | infections | [place] | [address] | | | | | recurring | WAY | [place], | | | | | sinus | [place], | [place] [address] | | | | | infection | [place] [address] | Phone: | | | | | Procedures | Phone: | [phone] | | | | | [place] OFFICE | [phone] | Fax: | | | | | OUTPATIENT | Fax: | [phone] | | | | | VISIT 25 | [phone] | | | | | | MINUTES [...] | Dx); Chronic | | | | [place], [place] | [place] [address] | frontal sinusitis | | | | [address] | [phone] | | | | | [phone] | | | +--------+ + + + [...] MD - 2014 3:46 PM Daniale dictation #[id number] signed by Javier Wheatley MD at 2014 3:48 PM Keo Castillo MD - 2014 12:00 AM PST [facility] [address] [facility] [address] [place] [address] FAX: [phone] OFFICE VISIT POSTOP VISIT The patient is [...] Wheatley MD GM / PAP JOB #: [id number] signed by Keo Wheatley MD at 2014 4:14 PM PSTdocumentmoshe hahn in this encounter Plan of Treatment Not on filedocumented as of this encounter Visit Diagnoses + + | Diagnosis | + + | Hypertrophy of nasal turbinates - Primary | + + | Chronic frontal sinusitis | + + documented in this encounter
--- OUTSIDE RECORDS SUMMARY | ~2019-09-22 | XMS | Encounter Summary ---
Demographics + + + | Address | [address] | | | [place] [address] | + + + | Home Phone | | + + + | Preferred Language | Unknown | + + + | Marital Status | | + + + | Taoist Affiliation | Unknown | + + + | Race | Unknown | + + + | Ethnic Group | Unknown | + + + Author + + + | Author | [facility] | | | and [place] | + + + | Organization | [facility] | | | [...] Team Providers + +------+ + | Care Cigarette Seller Name | Role | Phone | + [...] | | | (HCC) Other | | [id number] | | | | | malignant | | Phone: | | | | | neuroendocri | | [phone] | | | | | ne tumors | | Fax: | | | | | (HCC) | | [phone] | | | | | [C7A.8] | | | | | | | Procedures | | | | | | | [place] | | | | | | | SIGMOIDOSCOP | | | | | | | Y,BIOPSY [place] | | | | | | | [...] + + | 06/27/ | Hospital | [facility] | Renee Pitts, | 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[address], | rectum | | | | INTRA OP [address] | [address], | | | | | Ave [place], [place] | [place] [address] | | | | | [address] | [phone] | | | | | [phone] | | | +--------+ + + + [...] Pitts MD - 06/27/2018 Renee Pitts MD [facility], [address], [address] [place] [address] DISCHARGE INSTRUCTIONS You had undergone an endoscopic [...] [facility] | | ALBERT SIMMONS | [facility] | | : 1975 AGE: 43 years SEX: Male | [facility] | | | LABOR ATORY | | Acct: [id number] Location: [facility] | [facility] | | [facility]; [facility] MEDICAL PROCEDURE UNIT POOL; [facility] | | | MEDICAL PROCEDURE UNIT POOL | | | Case #: [id number] Ordering: | | | RENEE PITTS MD Client: [facility] | | | [facility] Copy To: | | | Printed: 06/28/2018 [...] 06/28/2018 04:37 | | | pmPerforming Location: [facility] | | | [address] [place] [id number]:The patient's previous rectal polyp | | | with diagnosis of well differentiated neuroendocrine tumor ([id number]) | | | is noted.GROSS DESCRIPTION:The specimen [...] + + | Performing | Address | City/State/[facility] Cent[facility]ode | Phone Number | | Organization | | | | + + + + + | [facility]TT [facility] | [address] | [place] [address] | | | HEART [facility] | | | | | [place] | | | | + + + + + EUS Ricky (06/27/2018 3:05 PM PDT) + + | Specimen | + + | | + + + + + | Narrative | Performed At | + + + | Brett | [place] | | [facility] | [place] | | [facility] | | | Patient Name: Albert Simmons Procedure | | | Date: 06/27/2018 3:05 PMMRN: [id number] | | | of : 1975 | [...] | | gastroscope was fitted with 7 Irish Macario-Cook) resection | | | Duette kit. [...] | | 3:05 PMNumber of Addenda: 0 [facility] | | | [place] [facility] | | |RENEE PITTS MD | | |06/27/2018 3:55:06 PM | | |This report has been signed electronically. | | | | | |Note Initiated On: 06/27/2018 3:05 PM | | |Number of Addenda: 0 | | | | | | [facility] | | + + + + +---------+ + + | Performing | Address | City/State/[facility] Centercode | Phone Number | | [...] | [facility] | | | POC | [facility] [address], | | SACRED | | | | [place] [address] | | HEART | | | |Performed by [facility] [address], [place] [address] | | MEDICAL | | | | [...] + + | [facility]ARAIRWIN[facility]go [facility] | [address] | [place] [address] | | | [facility] | | | | | LABORATORY [...]
--- OUTSIDE RECORDS SUMMARY | ~2019-09-22 | XMS | Encounter Summary ---
Demographics + + + | Address | [address] | | | [place] [address] | + + + | Home Phone | | + + + | Preferred Language | Unknown | + + + | Marital Status | | + + + | Druze Affiliation | Unknown | + + + [...] Team Providers + +------+ + | Care Electric Arc Welder Name | Role | Phone | + [...] + + | 03/07/ | [facility] | [facility] | [facility]ointment | | 2018 | | GASTROENTEROLOGY | MD Felix [address] | | | | | [address] [facility] | [address] [facility] | | | | | [address] [place] | [place] [address] | | | | | [address] | [phone] | | | | | [phone] | | | +--------+ + + + [...]
--- OUTSIDE RECORDS SUMMARY | ~2019-09-22 | XMS | Encounter Summary ---
Demographics + + + | Address | [address] | | | [place] [address] | + + + | Home Phone | | + + + | Preferred Language | Unknown | + + + | Marital Status | | + + + | Cheondoism Affiliation | Unknown | + + + | Race | Unknown | + + + | Ethnic Group | Unknown | + + + Author + + + | Author | [facility] | | | and [place] | + + + | Organization | [facility] | | | [...] Team Providers + +------+ + | Care Sports Statistician Name | Role | Phone | + [...] | 2019 | Changes | GASTROENTEROLOGY | Airplane Rental Clerk | | | | | [address] [facility] | | | | | | [address] [place] | | | | | | [address] | | | | | | [phone] | | | +--------+ + + + [...]
--- OUTSIDE RECORDS SUMMARY | ~2019-09-22 | XMS | Encounter Summary ---
Demographics + + + | Address | [address] | | | [place] [address] | + + + | Home Phone | | + + + | Preferred Language | Unknown | + + + | Marital Status | | + + + | Anabaptist Affiliation | Unknown | + + + | Race | Unknown | + + + | Ethnic Group | Unknown | + + + Author + + + | Author | [facility] | | | and [place] | + + + | Organization | [facility] | | | and [...] Team Providers + +------+ + | Care Ict Help Desk Technician Name | Role | Phone | + [...] | | | | sinus | PA-C [address] | | | | | infections | [place] | [address] | | | | | recurring | [address] | [place], | | | | | sinus | [place], | [place] [address] | | | | | infection | [place] [address] | Phone: | | | | | Procedures | Phone: | [phone] | | | | | [place] OFFICE | [phone] | Fax: | | | | | OUTPATIENT | Fax: | [phone] | | | | | VISIT 25 | [phone] | | | | | | MINUTES [...] + + | 04/05/ | Office | [facility] | Keo Wheatley MD | Chronic frontal | | 2013 | Visit | OTOLARYNGOLOGY [address] | [address] | sinusitis (Primary | | | | [address] | [address] [place], | Dx); Hypertrophy of | | | | [place], [place] | [place] [address] | nasal turbinates | | | | [address] | [phone] | | | | | [phone] | | | +--------+---------+ + + + [...] - 04/05/2014 4:34 PM PSTSee dictation # [id number] signed by Keo Wheatley MD at 04/05/2014 4:37 PM [facility], Keo Arizmendi MD - 04/05/2014 12:00 AM [facility]UDIOLOGY [address] [place] [address] FAX: [phone] OFFICE VISIT The patient is postop bilateral [...] Keo Wheatley MD / AF JOB #: [id number] signed by Keo Wheatley MD at 04/06/2014 7:53 AM PSTdocumente d in this encounter Plan of Treatment Not on filedocumented as of this encounter Visit Diagnoses + + | Diagnosis | + + | Chronic frontal sinusitis - Primary | + + | Hypertrophy of nasal turbinates | + + documented in this encounter
--- OUTSIDE RECORDS SUMMARY | ~2019-09-22 | XMS | Encounter Summary ---
Demographics + + + | Address | [address] | | | [place] [address] | + + + | Home Phone | | + + + | Preferred Language | Unknown | + + + | Marital Status | | + + + | Judaism Affiliation | Unknown | + + + | Race | Unknown | + + + | Ethnic Group | Unknown | + + + Author + + + | Author | [facility] | | | and [place] | + + + | Organization | [facility] | | | and [...] Team Providers + +------+ + | Care Telehealth Nurse Name | Role | Phone | + +------+ + | Nilesh Osorio DO | PCP | | + +------+ + Reason for Visit + + + | Reason | Comments | + + + | Medication Prior | | | Authorization | | + + + Encounter Details +--------+ + + + + | Date | Type | Department | Care Team | Description | +--------+ + + + + | 04/13/ | Telephone | [facility] | Rad De La Cruz | Medication Prior | | 2017 | | GASTROENTEROLOGY | MD Felix [address] | Authorization | | | | [address] | [address] [facility] | | | | | [address] [place] [address] | [place] [address] | | | | | [address] | [phone] | | | | | [phone] | | | +--------+ + + + [...] + | Diagnosis | + + | 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
--- OUTSIDE RECORDS SUMMARY | ~2019-09-22 | XMS | Encounter Summary ---
Demographics + + + | Address | [address] | | | [place] [address] | + + + | Home Phone | | + + + | Preferred Language | Unknown | + + + | Marital Status | | + + + | Methodist Affiliation | Unknown | + + + | Race | Unknown | + + + | Ethnic Group | Unknown | + + + Author + + + | Author | [facility] | | | and [place] | + + + | Organization | [facility] | | | [...] Team Providers + +------+ + | Care Museum Archivist Name | Role | Phone | + [...] + + | Closed | Specialty | Gastroenterol | Diagnoses | Dorothy, | [place], | | | Services | ogy / Liver | Primary | Rad | MD Luke | | | Required | and 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 | [place] | [place] | | | | | (HCC) | [facility] [place] | [address] | | | | | Procedures | [address] | Phone: | | | | | Flex sig | Phone: | [phone] | | | | | with [employer], | [phone] | Fax: | | | | | possible | Fax: | [phone] | | | | | EMR/possible | [phone] | | | | | | | | | | | | | FTRD/possibl | | | | | | | e ESD 2 | | | | | | | hours. [place] | | | | | | | this week or | | | | | | | next | | | +--------+ + + + + + Reason for Visit + + + | Reason | Comments | + + + | Follow-up | | + + + Encounter Details +--------+---------+ + + + | Date | Type | Department | Care Team | Description | +--------+---------+ + + + | 06/14/ | Office | [facility] | Rad De La Cruz | 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 | | | | [address] [place], [place] | [place] [address] | ([facility]) (Primary Dx) | | | | [address] | [phone] | | | | | [phone] | | | +--------+---------+ + + + [...] + + + | Blood Pressure | 124/92 | 06/14/2018 1:37 PM | | | | | PST | | + + + + + | Pulse | 81 | 06/14/2018 1:37 PM | | | | | PST | | + + + + + | Temperature | 36.9 C (98.4 F) | 06/14/2018 1:37 PM | | | | | PST | | + + + + + | Respiratory Rate | 16 | 06/14/2018 1:37 PM | | | | | PST | | + + + + + | Oxygen Saturation | 98% | 06/14/2018 1:37 PM | | | | | PST | | + + + + + | Inhaled Oxygen | - | - | | | Concentration | | | | + + + + + | Weight | 83.1 kg (183 lb 3.9 | 06/14/2018 1:37 PM | | | | oz) | PST | | + + + + + | Height | 177.8 cm (5' 10") | 06/14/2018 1:37 PM | | | | | PST | | + + + + + | Body Mass Index | 26.29 | 06/14/2018 1:37 PM | | | | | PST | | + + + + + documented in this encounter Progress Notes Rad De La Cruz MD - 06/14/2018 2:00 PM PST Gastroenterology Clinic Progress Note Date of Office Visit: 06/14/18 Primary Care Physician: Nilesh Osorio DO Chief Complaint Follow-up Rectal neuroendocrine tumor History of Present Illness Clifton Multani is a 43 y.o. male who is followed in this clinic for acid reflux, De La Cruz's es ophagus, bloating, IBS symptoms who was incidentally found on colonoscopy to have a small re ctal neuroendocrine tumor. He was last seen in clinic on 05/09/2018. Interval history: Colonoscopy on May 27 was performed. Ileal biopsies were normal. The mucosa was yury l in the entire colon. Biopsies of the colon were negative for microscopic colitis. He had a subcentimeter tubular adenoma in the transverse colon. The notable finding was that in the rectum upon retroflexion he had a small unremarkable ap pearing 2 mm polyp that actually had a hyperplastic appearance. I removed with forceps. Pa thology revealed that it was a well-differentiated neuroendocrine tumor, no mitoses identifi ed, tumor extension into the submucosa, no lymphovascular invasion identified. Patient is here primarily to follow up this result. He denies any flushing, or other symptoms of carcinoid syndrome. If she reports that his IBS symptoms have improved since starting Bentyl. His heartburn has also improved in the interim since being on lansoprazole 30 mg twice a da y Review of Systems A 10 point review [...] Surgeon: Rad De La Cruz MD; Location: [facility] MEDICAL PROCEDURE UNIT ESOPHAGUS-ACID REFLUX TEST N/A 02/25/2018 Procedure: ENDOSCOPIC 48 HOUR PH FERRARI "CAPSULE"; Surgeon: Rad De La Cruz MD; Locat ion: [facility] MEDICAL PROCEDURE UNIT INGUINAL HERNIA REPAIR Right 02/2008 NASAL SEPTUM SURGERY 03/20/2014 BILATERAL Inferior Turbinoplasty; LEFT Frontal Sinusotomy; Laterality: Bilateral; Surgeo n: Keo Wheatley MD; Location: [facility] MAIN OR SINUS ENDOSCOPY 03/20/2014 Laterality: Left; Surgeon: Keo Wheatley MD; Location: [facility] MAIN OR SINUS SURGERY 2008 SINUS SURGERY 2011 Allergies Allergies No active allergies Intolerance No active intolerances/contraindications Medications Current Outpatient Prescriptions on File Prior to Visit Medication Sig Dispense Refill budesonide (PULMICORT) 0.5 [...] times daily (before meals). 120 capsule 5 ondansetron (ZOFRAN ODT) 4 mg disintegrating tablet Take 1 tablet by mouth every 8 hour s as needed for Nausea. 60 tablet 1 ondansetron (ZOFRAN) 4 mg tablet As needed for nausea; stop prep; take 1 tablet; wait 3 0 min then resume prep; repeat 1x prn 2 tablet 0 Pseudoephedrine HCl (SUDAFED PO) Take 1 tablet by mouth as needed. No current facility-administered medications on file prior to visit. Physical Exam Vitals:BP (!) 124/92 | Pulse 81 | Temp 36.9 C (98.4 F) (Temporal) | Resp 16 | Ht 1. 778 m (5' 10") | Wt 83.1 kg (183 lb 3.9 oz) | SpO2 98% | BMI 26.29 kg/m General: This is a well-developed,well-nurished male [...] differentiated rectal n euroendocrine tumor on colonoscopy. Today we reviewed that his pathology is very reassuring that this is a low-grade tumor. Th ere is a very small chance for metastatic spread. There is a solid chance that it may have b een entirely removed with the forceps polypectomy, however the pathology report found that i t invades at least into the submucosa. I do not think that his upper GI symptoms and IBS-like symptoms are secondary to carcinoid syndrome. Unlikely that he has a functioning/secreting neuroendocrine tumor; however given the patient's young age and overall anxiety he would like to have an extensive workup of thi s finding. I think for now doing a chromogranin A would be reasonable along with the 24 hour urine HIA A. We'll plan on referring him to [facility] for a rectal EUS to see if there is any exte nsion into the deeper layers of the rectum. As mentioned above, I counseled the patient that the tumor may have been entirely removed a nd cured at the time of his colonoscopy and they may not be able to find it on the rectal en doscopic ultrasound. I would like to hold off on abdominal imaging until after his endoscopic ultrasound, as I t hink it is a low yield test in the setting. 1. Primary neuroendocrine carcinoma of rectum (HCC) - Chromogranin A Ag; Future - 5 HIAA, Urine, 24Hr, Quant; Future - Ambulatory referral to Gastroenterology ([place]) Follow up: No Follow-up on file. CC: No referring provider defined for this encounter. Nilesh Osorio, [id number] [place] [address] Portions of this chart may have been created with [employer] voice recognition software. Occasi onal wrong-word or sound-alike substitutions may have occurred due to the inherent choudhury itations of voice recognition software. Please read the chart carefully and recognize, using context, where these substitutions have occurred arroll, Vicki Randolph RN - 06/14/2018 2:00 PM PSTOrdered and faxed labs to [facility] . Referral to [place] for Rectal EUS; once approved patient to be notified for scheduling purposes. documented in this encounter Plan of Treatment + +------+--------+ + + | Name | Type | Priori | Associated Diagnoses | Order Schedule | | | | ty | | | + +------+--------+ + + | Chromogranin A Ag | Lab | Routin | Primary | Expected: 06/14/2018 | | | | e | neuroendocrine | (Approximate), | | | | | carcinoma of rectum | Expires: 06/14/2019 | | | | | (HCC) | | + +------+--------+ + + | 5 HIAA, Urine, 24Hr, | Lab | Routin | Primary | Expected: 06/14/2018 | | Quant | | e | neuroendocrine | (Approximate), | | | | | carcinoma of rectum | Expires: 06/14/2019 | | | | | (HCC) | | + +------+--------+ + + + + +--------+ + + | Name | Type | Priori | Associated Diagnoses | Order Schedule | | | | ty | | | + + +--------+ + + | Ambulatory referral | Outpatient | Routin | Primary | Ordered: 06/14/2018 | | to Gastroenterology | Referral | e | neuroendocrine | | | ([place]) | | | carcinoma of rectum | | | | | | (HCC) | | + + +--------+ + + documented as of this encounter Visit Diagnoses + + | Diagnosis | + + | Primary neuroendocrine carcinoma of rectum (HCC) - Primary | + + documented in this encounter
--- OUTSIDE RECORDS SUMMARY | ~2019-09-22 | XMS | Encounter Summary ---
Demographics + + + | Address | [address] | | | [place] [address] | + + + | Home Phone | | + + + | Preferred Language | Unknown | + + + | Marital Status | | + + + | Zoroastrianism Affiliation | Unknown | + + + | Race | Unknown | + + + | Ethnic Group | Unknown | + + + Author + + + | Author | [facility] | | | and [place] | + + + | Organization | [facility] [...] Team Providers + +------+ + | Care Counterintelligence Analyst Name | Role | Phone | + +------+ + | Nilesh Osorio DO | PCP | | + +------+ + Encounter Details +--------+ + + + + | Date | Type | Department | Care Team | Description | +--------+ + + + + | 11/16/ | Hospital | [facility] | SarahZhang | Palpitations; Chest | | 2018 | Encounter | MED [facility] | MD Julian [address] | pain, unspecified | | | | MEDICINE [address] [place] | type; Fluttering | | | | [address] [place], | [place] [address] | heart | | | | [place] [address] | [phone] | | | | | [phone] | | | +--------+ + + + [...] Nilesh Osorio, | | | DO READING PERFORMANCE ENGINEER: Tricia Smith MD, PhD, FACC | | [...] reported symptoms. Signed by: | | | Tricia Smith MD PhD [facility] 12/02/2017, 9:03 | | + + + [...]
--- OUTSIDE RECORDS SUMMARY | ~2019-09-22 | XMS | Encounter Summary ---
Demographics + + + | Address | [address] | | | [place] [address] | + + + | Home Phone | | + + + | Preferred Language | Unknown | + + + | Marital Status | | + + + | Scientologist Affiliation | Unknown | + + + [...] | | + + +---------+ + | aJdyn Rangel | ECON | Unknown | | + + +---------+ + Care Team Providers + +------+ + | Care Freelance Translator Name | Role | Phone | + +------+ + | Nilesh Osorio DO | PCP | | + +------+ + Reason for Visit + + + | Reason | Comments | + + + | Procedure | adjusted check in time | + + + Encounter Details +--------+ + + + + | Date | Type | Department | Care Team | Description | +--------+ + + + + | 05/26/ | Telephone | [facility] | Rad De La Cruz | Procedure (adjusted | | 2019 | | GASTROENTEROLOGY | MD Felix [address] | check in time) | | | | [address] [facility] | [address] [facility] | | | | | [address] [place] | [place] [address] | | | | | [address] | [phone] | | | | | [phone] | | | +--------+ + + + [...]
--- OUTSIDE RECORDS SUMMARY | ~2019-09-22 | XMS | Encounter Summary ---
Demographics + + + | Address | [address] | | | [place] [address] | + + + | Home Phone | | + + + | Preferred Language | Unknown | + + + | Marital Status | | + + + | Taoism Affiliation | Unknown | + + + | Race | Unknown | + + + | Ethnic Group | Unknown | + + + Author + + + | Author | [facility] | | | and [place] | + + + | Organization | [facility] | | | [...] Team Providers + +------+ + | Care Animal Shelter Worker Name | Role | Phone | [...] | 2019 | Changes | GASTROENTEROLOGY | Binding Stitcher | | | | | [address] [facility] | | | | | | [address] [place] | | | | | | [address] | | | | | | [phone] | | | +--------+ + + + [...]
--- OUTSIDE RECORDS SUMMARY | ~2019-09-22 | XMS | Encounter Summary ---
Demographics + + + | Address | [address] | | | [place] [address] | + + + | Home Phone | | + + + | Preferred Language | Unknown | + + + | Marital Status | | + + + | Latter-Day Affiliation | Unknown | + + + | Race | Unknown | + + + | Ethnic Group | or | + + + Author + + + | Author | [facility] | + + + | Organization | [facility] | + + + | Address | Unknown | + + + | Phone | Unavailable | + + + Support + + +---------+ + | Name | Relationship | Address | Phone | + + +---------+ + | Rosanne Multani | ECON | Unknown | | + + +---------+ + Care Team Providers + +------+ + | Care Assembler Wet Wash Name | Role | Phone | + +------+ + | Nilesh Osorio MD | PCP | | + +------+ + Encounter Details +--------+ + + + + | Date | Type | Department | Care Team | Description | +--------+ + + + + | 03/04/ | Documentati | [place] [facility] | Sancho Ruvalcaba, | | | 2018 | on | Center at [facility] [address] | [address] | | | | | [address] | [place], [place] | | | | | Mailcode: CH5E | [address] | | | | | [facility] | [phone] | | | | | and [address], | | | | | | | | | | | | Floor [place], [place] | | | | | | [address] | | | | | | [phone] | | | +--------+ + + + + Social History + +-------+ +--------+------+ | Tobacco Use | Types | Packs/Day | Years | Date | | | | | Used | | + +-------+ +--------+------+ | Never Assessed | | | | | + +-------+ +--------+------+ + + + | Sex Assigned at [...]
--- OUTSIDE RECORDS SUMMARY | ~2019-09-22 | XMS | Encounter Summary ---
Demographics + + + | Address | [address] | | | [place] [address] | + + + | Home Phone | | + + + | Preferred Language | Unknown | + + + | Marital Status | | + + + | Protestant Affiliation | Unknown | + + + [...] Team Providers + +------+ + | Care Endodontics Dentist Name | Role | Phone | + +------+ + | Nilesh Osorio DO | PCP | | + +------+ + Encounter Details +--------+ + + + + | Date | Type | Department | Care Team | Description | +--------+ + + + + | 12/23/ | Orders Only | [facility] | Rad De La Cruz | Gastroesophageal | | 2018 | | GASTROENTEROLOGY | MD Felix [address] | reflux disease, | | | | [address] | [address] [place] | esophagitis presence | | | | [address] [place], [place] | [place] [address] | not specified | | | | [address] | [phone] | (Primary Dx); | | | | [phone] | | Bloating; LUQ | | | | | | abdominal pain | +--------+ + + + + Social [...] + documented as of this encounter Progress Vicki Alvarez RN - 12/23/2017 8:34 AM PDTScheduled pt for IVCS EGD/Gavin on at [address] De La Cruz; pt given samples (2 samples boxes [id number] 2020 and [id number] 2019 10 day supply total) of 60 mg Dexilant 1 capsule daily #10 for GERD; if patient feels r elief from this medication can cancel procedure; if no relief keep procedure and order GES a nd Esphogram as well to be performed at [facility]; pt advised and verbalized understanding; he wi ll contact the office upon completing samples to advise. Reviewed instructions for Gavin roman dy; information provided to patient; Medications, surg/med hx, and allergies were reviewed; completed case request order, notes to MA. documented in th is encounter Plan of Treatment Not on filedocumented as of this encounter Visit Diagnoses + + | Diagnosis | + + | Gastroesophageal reflux disease, esophagitis presence not specified - Primary | + + | Bloating Flatulence, eructation, and gas pain | + + | LUQ abdominal pain Abdominal pain, left upper quadrant | + + documented in this encounter"
--- OUTSIDE RECORDS SUMMARY | ~2019-09-22 | XMS | Encounter Summary ---
Demographics + + + | Address | [address] | | | [place] [address] | + + + | Home Phone [...] Team Providers + +------+ + | Care Wooden Fence Erector Name | Role | Phone | + +------+ + | Nilesh Osorio DO | PCP | | + +------+ + Reason for Visit +--------+ + | Reason | Comments | +--------+ + | LABS | | +--------+ + Encounter Details +--------+ + + + + | Date | Type | Department | Care Team | Description | +--------+ + + + + | 10/19/ | Telephone | [facility] | Zhang Smith | LABS | | 2018 | | [place] [address] | MD [address] | | | | | [place], | [address] [place] | | | | | [place] [address] | [place] [address] | | | | | [phone] | [phone] | | | | | | | [...] | | + +------+--------+ + + | Lipid Panel | Lab | Routin | Palpitations | Expected: | | | | e | Encounter for lipid | 10/19/2017, Expires: | | | | | screening for | 10/19/2018 | | | | | cardiovascular | | | | | | disease | | + +------+--------+ + + documented as of this encounter Visit Diagnoses + + | Diagnosis | + + | Palpitations - Primary | + + | Encounter for lipid screening for cardiovascular disease | + + documented in this encounter"
--- OUTSIDE RECORDS SUMMARY | ~2019-09-22 | XMS | Encounter Summary ---
Demographics + + + | Address | [address] | | | [place] [address] | + + + | Home Phone | | + + + | Preferred Language | Unknown | + + + | Marital Status | | + + + | Pentecostalism Affiliation | Unknown | + + + | Race | Unknown | + + + | Ethnic Group | Unknown | + + + Author + + + | Author | [facility] | | | and [place] | + + + | Organization | [facility] | | [...] Team Providers + +------+ + | Care Account Adjuster Name | Role | Phone | + [...] | | | | | | | [place] | | | | | | | EXCISION | | | | | | | TURBINATE | | | | | | | [place] NASAL | | | | | | [...] LEFT | | | | [address] | [address] [place], | Frontal Sinusotomy | | | | [place], [place] | [place] [address] | | | | | [address] | [phone] | | | | | [phone] | | | +--------+---------+ + + + [...] nose should also form a triangle. [place] [id number]. All rights reserve d. This information is [...] further understand how the nose works. [address] [address]. All rights reserve d. This information is [...] | | | (St. | | | [place] | | | y's) | +---+--------+ + [...] | | | (St. | | | [place] | | | y's) | +---+--------+ documented [...] | | | | | | use [place] 10/325 if ordered. If | | | [...]
--- OUTSIDE RECORDS SUMMARY | ~2019-09-22 | XMS | Encounter Summary ---
Demographics + + + | Address | [address] | | | [place] [address] | + + + | Home Phone | | + + + | Preferred Language | Unknown | + + + | Marital Status | | + + + | Bahai Affiliation | Unknown | + + + | Race | Unknown | + + + | Ethnic Group | Unknown | + + + Author + + + | Author | [facility] | | | and [place] | + + + | Organization | [facility] | [...] Team Providers + +------+ + | Care Mixing Engineer Name | Role | Phone | [...] | | | Procedures | | [place] [address] | | | | | OFFICE VISIT | | Phone: | | | | | REGULAR | | [phone] | | | | | | | Fax: | | | | | | | [phone] | +--------+--------+ + + + + Encounter Details +--------+---------+ + + + | Date | Type | Department | Care Team | Description | +--------+---------+ + + + | 06/18/ | Office | [facility] | Keo Munoz MD | Acute upper | | 2015 | Visit | OTOLARYNGOLOGY [address] | [address] | respiratory | | | | [address] | [address] [place], | infections of | | | | [place], [place] | [place] [address] | unspecified site | | | | [address] | [phone] | (Primary Dx); | | | | [phone] | | Chronic frontal | | | [...] MD - 06/18/2014 4:[address] [facility] OTOLARYNGOLOGY [address] [facility] [address] OFFICE NOTE KEO MUNOZ MD Patient: ALBERT MULTANI Admitting: MR #: [id number] LOC: PT TYPE: Adm Date: 06/18/2014 : [...] of any purulent drainage from his nose. KEO MUNOZ MD Dictated by KEO MUNOZ MD 06/18/2014 16:01:24 Transcribed on 06/18/2014 23:21:27 by eladia job# [id number] Confirmation #: [id number] cc: BULMARO WHITE PAC Keo cross MD - 06/18/2014 3:57 PM PSTSee dictation # [id number] signed by Keo Munoz MD at 06/18/2014 [...]
--- OUTSIDE RECORDS SUMMARY | ~2019-09-22 | XMS | Encounter Summary ---
Demographics + + + | Address | [address] | | | [place] [address] | + + + | Home Phone | | + + + | Preferred Language | Unknown | + + + | Marital Status | | + + + | Tenriism Affiliation | Unknown | + + + [...] Team Providers + +------+ + | Care Recovery Rn Name | Role | Phone | + [...] [place], | | | | | [place], [place] | [place] [address] | | | | | [address] | [phone] | | | | | [phone] | | | +--------+ + + + [...]
--- OUTSIDE RECORDS SUMMARY | ~2019-09-22 | XMS | Encounter Summary ---
Demographics + + + | Address | [address] | | | [place] [address] | + + + | Home Phone | | + + + | Preferred Language | Unknown | + + + | Marital Status | | + + + | Orthodox Affiliation | Unknown | + + + | Race | Unknown | + + + | Ethnic Group | Unknown | + + + Author + + + | Author | [facility] | | | and [place] | + + + | Organization | [facility] | | [...] Team Providers + +------+ + | Care Health Information Tech Name | Role | Phone | + +------+ + | Nilesh Osorio DO | PCP | | + +------+ + Reason for Visit + + + | Reason | Comments | + + + | Results, Pathology | | + + + Encounter Details +--------+ + + + + | Date | Type | Department | Care Team | Description | +--------+ + + + + | 06/02/ | Telephone | [facility] [place] [place] | Rad De La Cruz | Results, Pathology | | 2019 | | GASTROENTEROLOGY | MD Felix [address] | | | | | [address] [place] | [address] [place] | | | | | [address] [place] | [place] [address] | | | | | [address] | [phone] | | | | | [phone] | | | +--------+ + + + [...]
--- OUTSIDE RECORDS SUMMARY | ~2019-09-22 | XMS | Encounter Summary ---
Demographics + + + | Address | [address] | | | [place] [address] | + + + | Home Phone | | + + + | Preferred Language | Unknown | + + + | Marital Status | | + + + | Christian Affiliation | Unknown | + + + | Race | Unknown | + + + | Ethnic Group | Unknown | + + + Author + + + | Author | [facility] | | | and [place] | + + + | Organization | [facility] | | [...] Team Providers + +------+ + | Care Compressor Assembler Name | Role | Phone | + [...] Closed | | Radiology | Diagnoses | [place], | [address] | | | | | Unspecified | Keo Arizmendi MD | [address] | | | | | sinusitis | [address] | [place], | | | | | (chronic) | [address] | [place] [address] | | | | | Procedures | [place] | Phone: | | | | | CT Sinus WO | [place], [place] | [phone] | | | | | Contrast | [address] | Fax: | | | | | Limited | Phone: | [phone] | | | | | | [phone] | | | | | | | Fax: | | | | | | | [phone] | | +--------+--------+ + + + + Reason for Visit + + + | Reason | Comments | + + + | New Patient | recurring sinus infections and ears | + + + Evaluate & Treat [...] | | | | sinus | PA[address]C [address] | | | | | infections | [place] | [address] | | | | | recurring | WAY | [place], | | | | | sinus | [place], | [place] [address] | | | | | infection | [place] [address] | Phone: | | | | | Procedures | Phone: | [phone] | | | | | [place] OFFICE | [phone] | Fax: | | | | | OUTPATIENT | Fax: | [phone] | | | | | VISIT 25 | [phone] | | | | | | MINUTES [...] Description | +--------+---------+ + + + | 01/11/ | Office | [facility] | Keo [place] MD | Unspecified | | 2013 | Visit | OTOLARYNGOLOGY [address] | [address] [place] | sinusitis (chronic) | | | | [address] | [address] [place], | (Primary Dx); | | | | [place], [place] | [place] [address] | Hypertrophy of nasal | | | | [address] | [phone] | turbinates | | | | [phone] | | | +--------+---------+ + + + [...] + + + + | Weight | 79.4 kg (175 lb) | 01/11/2014 1:57 PM | | | | | PDT | | + + + + + | Height | 167.6 cm (5' 6") | 01/11/2014 1:57 PM | | | | | PDT | | + + + + + | Body Mass Index | 28.25 | 01/11/2014 1:57 PM | | | | | PDT | | + + + + + documented in this encounter Progress Notes Keo [place] MD - 01/11/2014 2:30 PM PDTSee dictation # [id number] signed by Keo [place] MD at 01/11/2014 2:34 PM Keo Gonzalez MD - 01/11/2014 12:00 AM PDT ENT AND AUDIOLOGY [address] [address] FAX: [phone] OFFICE VISIT NEW PATIENT VISIT HISTORY: The patient comes in because he is having chronic problems with the nasal sinus ar ea. He never can breathe very well through his nose. He snores loudly at night. He has had multiple recurrent infections, especially over the last 2-3 months. He has been on and off antibiotics trying to settle down the pressure and pain mainly up in the frontal area is wh ere he points. The patient had nasal sinus surgery back about 4 years to 5 years ago and se emed to do a little better for a while, but never really improved much on his ability to br eathe through his nose. He does better with the sinus infections, but he feels that these a re back again. No other ENT complaints today. No problems with his speech or swallowing. EXAMINATION GENERAL: The patient is an alert 38-year-old male accompanied by his . HEENT: Skin of the face, nose, and ears all appears to be healthy. Parotid and submandibular gland areas a re smooth. Facial movement is symmetrical, without any weakness noted. Ear canals are open, they are clean. Drums were clear, even though he feels a bit of pressure into his ears. Na jayashree passages: Very little room on either side. The left side was totally occluded from the very large, boggy turbinate. The right had a little bit of room, but also has a very large turbinate. There appears to be a horizontal fracture of the septum and there is a piece of t he tissue sticking out into the left nasal passage, adding to the obstruction. Both sides w ere then sprayed well with some Ander-Synephrine and topical Xylocaine. Floor of the mouth, b uccal mucosa, hard palate, teeth, lips and gums are healthy. No mass seen in the oropharynx . Posterior pharyngeal wall was smooth. Tongue and soft palate are smooth and move symmetri frida. NECK: There are no masses or lymphadenopathy. Thyroid gland is smooth. Trachea is mi dline. Good range of motion of the neck without any pain or discomfort noted. The nose was then reexamined. With the turbinates pulled back, again, tissue sticking out o ff the septum into the left nasal passage noted. As the turbinates pulled back, it is the f irst time he has been able to breathe through his nose adequately for many years and the pa tient was quite excited with the prospect of being able to breathe well. No purulent draina ge noted up high. No polyps, mass or lesions were seen. IMPRESSION 1. CHRONIC SINUSITIS. 2. HYPERTROPHIC INFERIOR TURBINATES. PLAN: The patient will have a coronal CT scan to evaluate the nasal sinus area. Once this i s completed he will recheck with ENT and then further decisions can be made. Keo [place] MD / SEDRICK JOB #: [id number] signed by Keo [place] MD at 01/15/2014 11:48 AM PDTdocumente d in this encounter Plan of Treatment + +---------+--------+ + + | Name | Type | Priori | Associated Diagnoses | Order Schedule | | | | ty | | | + +---------+--------+ + + | CT Sinus WO Contrast | Imaging | Routin | Unspecified | Expected: | | Limited | | e | sinusitis (chronic) | 01/11/2014, Expires: | | | | | | 01/11/2015 | + +---------+--------+ + + documented as of this encounter Visit Diagnoses + + | Diagnosis | + + | Unspecified sinusitis (chronic) - Primary | + + | Hypertrophy of nasal turbinates | + + documented in this encounter
--- OUTSIDE RECORDS SUMMARY | ~2019-09-22 | XMS | Encounter Summary ---
Demographics + + + | Address | [address] | | | [place] [address] | + + + | Home Phone | | + + + | Preferred Language | Unknown | + + + | Marital Status | | + + + | Jehovah'S Witness Affiliation | Unknown | + + + [...] Team Providers + +------+ + | Care Bottle Machine Operator Name | Role | Phone | + +------+ + | Izzy Snowden | PCP | | + +------+ + Reason for Visit +--------+ + | Reason | Comments | +--------+ + | Nausea | | +--------+ + Encounter Details +--------+ + + + + | Date | Type | Department | Care Team | Description | +--------+ + + + + | 05/19/ | Telephone | [facility] | Edgar Russo MD | Nausea | | 2020 | | GASTROENTEROLOGY | [address], [place] | | | | | [address] [place] | [address] [place], [place] | | | | | [address] [place], [place] | [address] | | | | | [address] | | | | | | [phone] | | | +--------+ + + + [...]
--- OUTSIDE RECORDS SUMMARY | ~2019-09-22 | XMS | Encounter Summary ---
Demographics + + + | Address | [address] | | | [place] [address] | + + + | Home Phone [...] Team Providers + +------+ + | Care Import/Export Specialist Name | Role | Phone | [...] + + | 05/09/ | Office | [facility] | Rad De La Cruz | Spasm of bowel | | 2019 | Visit | GASTROENTEROLOGY | MD Felix [address] | (Primary Dx); | | | | [address] | [address] [place] | Abdominal pain, | | | | [address] [place], [place] | [place] [address] | unspecified | | | | [address] | [phone] | abdominal location | | | | [phone] | | | +--------+---------+ + + + [...] in this encounter Progress Notes Ivy Juares, Wool Sampler - 05/09/2018 1:00 PM PSTScheduled patient for [...] Rad De La Cruz MD; Locat ion: [facility] MEDICAL PROCEDURE UNIT INGUINAL HERNIA REPAIR Right 02/2008 NASAL SEPTUM SURGERY 03/20/2014 BILATERAL Inferior Turbinoplasty; LEFT Frontal Sinusotomy; Laterality: Bilateral; Surgeo n: Keo Wheatley MD; Location: [facility] MAIN OR SINUS ENDOSCOPY 03/20/2014 Laterality: Left; Surgeon: Keo Wheatley MD; Location: [facility] MAIN OR SINUS SURGERY 2008 SINUS [...] dicyclomine (BENTYL) 20 MG t ablet diphenhydrAMINE-visc usbykldgn-yftkaflr-azidtyehi-simethicone (MIRACLE MOUTHWASH) suspen charisse Case request: Colonoscopy; N/A Follow up: No Follow-up on file. CC: No referring provider defined for this encounter. [place], [place] [place] [address] Portions of this chart may have been created with [employer] voice recognition software. Occasi onal wrong-word or [...]
--- OUTSIDE RECORDS SUMMARY | ~2019-09-22 | XMS | Encounter Summary ---
Demographics + + + | Address | [address] | | | [place] [address] | + + + | Home Phone | | + + + | Preferred Language | Unknown | + + + | Marital Status | | + + + | Jew Affiliation | Unknown | + + + [...] Team Providers + +------+ + | Care Restaurant Hostess Name | Role | Phone | + +------+ + | Izzy Snowden | PCP | | + +------+ + Reason for Visit + + + | Reason | Comments | + + + | Screening For | preop | | Communicable Disease | | + + + Encounter Details +--------+ + + + + | Date | Type | Department | Care Team | Description | +--------+ + + + + | 09/15/ | Clinical | [facility] | Sean, | De La Cruz's esophagus | | 2020 | Support | [facility] [address] | Wiliam Washington MD | without dysplasia | | | | [place] | [address] | | | | | [address] | [place] | | | | | [phone] | [address] | | | | | | | [...] + + + + | Pulse | 55 | 09/16/2019 11:30 AM | | | | | PDT | | + + + + + | Temperature | 36.7 C (98.1 F) | 09/16/2019 11:30 AM | | | | | PDT | | + + + + + | Respiratory Rate | - | - | | + + + + + | Oxygen Saturation | 98% | 09/16/2019 11:30 AM | | | | | PDT | | + + + + + | Inhaled Oxygen | - | - | | | Concentration | | | | + + + + + | Weight | - | - | | + + + + + | Height | - | - | | + + + + + | Body Mass Index | - | - | | + + + + + documented in this encounter Progress Notes Ann Gong, Film Masker - 09/16/2019 11:30 AM PDTPRE-PROCEDURE COVID TEST Affix Patient Label [] Photo ID Verified Patient Name:Clifton Multani Provider:Wiliam Estrada MD :1975 Date:09/16/19 MyChart: Activated Symptom Screen: Are you experiencing any of the following symptoms? [] Cough: duration of cough? days ? If symptoms or cough >10 days, send to for provider evaluation [] Shortness of breath ? Confer with provider or send in to if obviously having labored breathing [] Fever >100.4 [] Chills and/or repeated shaking with chills [] Sore Throat [] Body Aches or Muscle Pain [] Headache [] Chest Pain, warm hand transfer to RN inside (Room 1 for triage) [] Abdominal Pain [] Nausea [] Vomiting [] Diarrhea [] Change in Sense of Smell and/or Taste Testing Protocol: MA/RN Proceed to testing if ANY of the following conditions are present: DRIVE THRU SWAB SCREENING [x] Asymptomatic, regardless of age, pre-procedure screening only [] Asymptomatic - testing requested by authorized [facility] personnel, [facility] Infection Prevention Nurse or Caregiver Health [] Age 15-70 with any symptoms indicated in MA screening [] Age >70 with Temp <100.4 F, O2 sat >95%, Pulse <100 bpm, without cough, Hx of fever, ch ills, chest pain, SOB, abdominal pain, vomiting or diarrhea. If only symptom is sore throat, body aches, headache and change in taste or smell ok for drive thru testing. PROVIDER EVALUATION REQUIRED [] Patient Requested [] Temp >102 F [] O2 Sat ? 95% [] Pulse > 100 [] Symptomatic with any listed comorbidities [] Dominant sore throat with little or no cough (strep rule out) [] Age <15 years old with symptoms Discharge: [x] Social Distancing/Quarantine Guidelines documented in this encounter Plan of Treatment Not on filedocumented as of this encounter Procedures + +--------+ + + + | Procedure Name | Priori | Date/Time | Associated Diagnosis | Comments | | | ty | | | | + +--------+ + + + | CORONAVIRUS | Routin | 09/16/2019 | De La Cruz's | Results for this | | (COVID-19) NAAT | e | 11:30 AM | esophagus without | procedure are in the | | | | PDT | dysplasia | results section. | + +--------+ + + + documented in this encounter Results Coronavirus (COVID-19) NAAT (09/16/2019 11:30 AM PDT) + + + + + + | Component | Value | Ref Range | Performed | Pathologist | | | | | At | Signature | + + + + + + | SARS-CoV-2, | Not DetectedComment: | Not Detected | REFERENCE | | | [facility] | Testing was performed | | LAB [facility] | | | (COVID-19) | using the vasquez(R) | | [facility] | | | | SARS-CoV-2 test.This | | | | | | test was developed and | | | | | | its performance | | | | | | characteristics | | | | | | determinedby [facility] | | | | | | Laboratories. This test | | | | | | has not been FDA cleared | | | | | | orapproved. This test | | | | | | has been authorized by | | | | | | FDA under an Emergency | | | | | | UseAuthorization (EUA). | | | | | | This test is only | | | | | | authorized for the | | | | | | duration oftime the | | | | | | declaration that | | | | | | circumstances exist | | | | | | justifying | | | | | | theauthorization of the | | | | | | emergency use of in | | | | | | vitro diagnostic tests | | | | | | fordetection of | | | | | | SARS-CoV-2 virus and/or | | | | | | diagnosis of COVID-19 | | | | | | infectionunder section | | | | | | 564(b)(1) of the Act, 21 | | | | | | U.S.C. 360bbb-3(b)(1), | | | | | | unlessthe authorization | | | | | | is terminated or revoked | | | | | | sooner.When diagnostic | | | | | | testing is negative, the | | | | | | possibility of a | | | | | | falsenegative result | | | | | | should be considered in | | | | | | the context of a | | | | | | patient'srecent | | | | | | exposures and the | | | | | | presence of clinical | | | | | | signs and | | | | | | symptomsconsistent with | | | | | | COVID-19. An individual | | | | | | without symptoms of | | | | | | COVID-19and who is not | | | | | | shedding SARS-CoV-2 | | | | | | virus would expect to | | | | | | have anegative (not | | | | | | detected) result in this | | | | | | assay. | | | | + + + + + + + + | Specimen | + + | Tissue - Specimen | | from throat | | (specimen) | + + + + + | Narrative | Performed At | + + + | Performed at: 01 - [facility] [address], [place], [place] | REFERENCE LAB | | [id number] Transmission Specialist: Tahir Garcia MD, Phone: [phone] | [facility] | + + + + + + + + | Performing | Address | City/State/Zipcode | Phone Number | | Organization | | | | + + + + + | REFERENCE LAB | [address] | [place], [place] | [phone] | | [facility] | [address] 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
--- OUTSIDE RECORDS SUMMARY | ~2019-09-22 | XMS | Clinical Summary ---
Demographics + + + | Address | [address] | | | [place] [address] | + + + | Home Phone [...] Team Providers + +------+ + | Care Display Decorator Name | Role | Phone | + +------+ + | Izzy Snowden | PCP | | + +------+ + Allergies No Known Allergies Medications + + + +---------+------+------+-------+ | Medication | Sig | Dispensed | Refills | Star | End | Statu | | | | | | t | Date | s | | | | | | Date | | | + + + +---------+------+------+-------+ | fluticasone | 2 sprays by Nasal | | 0 | | | Activ | | (FLONASE) 50 | route as needed for | | | | | e | | mcg/nasal spray | Allergies. | | | | | | + + + +---------+------+------+-------+ | ibuprofen (ADVIL, | Take 200 mg by mouth | | 0 | | | Activ | | MOTRIN) 200 mg | as needed for Pain. | | | | | e | | tablet | | | | | | | + + + +---------+------+------+-------+ | ondansetron | Take 1 tablet by | 60 | 1 | 02/1 | | Activ | | (ZOFRAN ODT) 4 mg | mouth every 8 hours | tablet | | 9/20 | | e | | disintegrating | as needed for | | | 19 | | | | tablet | Nausea. | | | | | | + + + +---------+------+------+-------+ | | Take 1-2 tablets by | | 0 | | | Activ | | diphenhydrAMINE-acet | mouth nightly as | | | | | e | | aminophen (TYLENOL | needed for Insomnia. | | | | | | | PM EXTRA STRENGTH) | | | | | | | | 25-500 MG TABS | | | | | | | + + + +---------+------+------+-------+ | PSEUDOEPHEDRINE | Take 30 mg by mouth | | 0 | | | Activ | | HCL PO | every four hours as | | | | | e | | | needed for | | | | | | | | congestion. | | | | | | + + + +---------+------+------+-------+ | sodium chloride | 1 spray by Nasal | | 0 | | | Activ | | (OCEAN) 0.65 % nasal | route as needed for | | | | | e | | spray | Congestion. | | | | | | + + + +---------+------+------+-------+ | dicyclomine | Take 1 tablet by | 120 | 5 | 04/2 | | Activ | | (PARISAYL) 20 MG | mouth 4 times daily | tablet | | 06/08 | | e | | tabletIndications: | (before meals and | | | 20 | | | | Irritable bowel | nightly). | | | | | | | syndrome with | | | | | | | | diarrhea | | | | | | | + + + +---------+------+------+-------+ | pantoprazole | Take 1 tablet by | 120 | 5 | 04/ | | Activ | | (PROTONIX) 40 mg | mouth 2 times daily | tablet | | 06/08 | | e | | tabletIndications: | (before meals). | | | 20 | | | | Gastroesophageal | | | | | | | | reflux disease, | | | | | | | | esophagitis presence | | | | | | | | not specified | | | | | | | + + + +---------+------+------+-------+ | SUMAtriptan | Take 100 mg by | | 0 | 05/2 | | Activ | | (IMITREX) 100 mg | mouth. | | | 08/06 | | e | | tablet | | | | 19 | | | + + + +---------+------+------+-------+ | Aspirin | Take 1 tablet by | | 0 | | 05/2 | Disco | | Effervescent | mouth as needed. | | | | 6/20 | ntinu | | (KATLIN-SELTZER PO) | gummie | | | | 20 | ed | | | | | | | | (Ther | | | | | | | | apy | | | | | | | | compl | | | | | | | | eted) | + + + +---------+------+------+-------+ | promethazine | take 1 tablet by | | 0 | 03/0 | 05/2 | Disco | | (PHENERGAN) 25 mg | mouth every 6 hours | | | /20 | 6/20 | ntinu | | tablet | if needed for up to | | | 19 | 20 | ed | | | 1 month | | | | | (Ther | | | | | | | | apy | | | | | | | | compl | | | | | | | | eted) | + + + +---------+------+------+-------+ | SUMAtriptan | Take 1 tablet by | | 0 | 05/2 | 05/2 | Expir | | (IMITREX) 100 mg | mouth as needed for | | | 4/20 | 3/20 | ed | | tablet | Migraine. May repeat | | | 19 | 20 | | | | dose in 2 hours if | | | | | | | | no relief. Do not | | | | | | | | exceed 2 doses in 24 | | | | | | | | hours. | | | | | | + + + +---------+------+------+-------+ Active Problems + + + | Problem | Noted Date | + + + | Primary neuroendocrine carcinoma of rectum | 06/06/2018 | + + + | De La Cruz's esophagus without dysplasia | 03/31/2018 | + + + | Bloating | 12/22/2017 | + + + | Left upper quadrant pain | 12/22/2017 | + + + | Chronic sphenoidal sinusitis | 03/20/2014 | + + + | Chronic frontal sinusitis | 03/20/2014 | + + + | Hypertrophy of nasal turbinates | 03/20/2014 | + + + | Palpitations | | + + + + + | Overview: 48 hour Holter monitor November 2017 notable for | | underlying sinus rhythm with mean heart rate 78. Rare isolated | | PVCs and occasional PACs without significant sustained runs.Mild | | predominantly nocturnal bradycardia without significant pauses. | | No reported symptoms.Echocardiogram October 2017 shows left | | ventricle is normal in size and function. Ejection fraction is | | estimated at 55-60%. Diastolic parameters are within normal | | limits. Structurally normal tricuspid valve with mild | | insufficiency and peak velocity consistent with RVSP 33-38 mmHg. | | Aortic root is mildly enlarged. Baseline sinus bradycardia. | + + + +---+ | Chronic low back pain | | + +---+ | GERD (gastroesophageal reflux disease) | | + +---+ | Chest pain | | + +---+ | Fluttering heart | | + +---+ | Insomnia | | + +---+ Encounters +--------+ + + + + | Date | Type | Specialty | Care Team | Description | +--------+ + + + + | 09/19/ | Surgery | | Rad Chandler | EGD | | 2019 | | | MD Felix | | +--------+ + + + + | 09/19/ | Hospital | | Rad Chandler | Epigastric pain; | | 2019 | Encounter | | MD Felix | De La Cruz's esophagus | | | | | | without dysplasia | +--------+ + + + + | 09/15/ | Clinical | Immediate Care | Sean, | De La Cruz's esophagus | | 2020 | Support | | Wiliam Vail MD | without dysplasia | +--------+ + + + + | 09/12/ | Telephone | Gastroenterology | Rad Chandler | Testing (COVID) | | 2019 | | | MD Felix | | +--------+ + + + + | 09/12/ | Telephone | Gastroenterology | Rad Chandler | Procedure (EGD/ | | 2020 | | | MD Felix | IVCS) | +--------+ + + + + | 09/11/ | Virtual | Gastroenterology | Rad Chandler | Right upper quadrant | | 2019 | Office | | MD Felix | pain (Primary Dx); | | | Visit | | | Gastroesophageal | | | | | | reflux disease | | | | | | without esophagitis; | | | | | | De La Cruz's esophagus | | | | | | without dysplasia; | | | | | | Bloating; | | | | | | Intractable vomiting | | | | | | with nausea, | | | | | | unspecified vomiting | | | | | | type | +--------+ + + + + | 09/11/ | Telephone | Gastroenterology | Rad Chandler | Appointment | | 2019 | | | MD Felix | | +--------+ + + + + | 08/29/ | Orders Only | Gastroenterology | Rad Chandler | Abdominal pain, RUQ | | 2019 | | | MD Felix | (Primary Dx); | | | | | | Gallbladder pain | +--------+ + + + + | 07/30/ | Virtual | Gastroenterology | Rad Chandler | Gastroesophageal | 2019 | Office | | MD Felix | reflux disease, | | | Visit | | | esophagitis presence | | | | | | not specified | | | | | | (Primary Dx); | | | | | | Diarrhea, | | | | | | unspecified type; | | | | | | Irritable bowel | | | | | | syndrome with | | | | | | diarrhea | +--------+ + + + + | 07/27/ | Telephone | Gastroenterology | Rad Chandler | Appointment (GERD) | | 2019 | | | MD Felix | | +--------+ + + + + from Last 3 Months Family History + + +------+ + | Medical History | Relation | Name | Comments | + + +------+ + | Heart attack | Father | | | + + +------+ + | Hypertension | Mother | | | + + +------+ + | Cancer | Mother | | | + + +------+ + | Dementia | Other | | | + + +------+ + | Diabetes | Other | | | + + +------+ + | Colon cancer | Neg Hx | | | + + +------+ + | Colon polyps | Neg Hx | | | + + +------+ + | Crohn's disease | Neg Hx | | | + + +------+ + | Heart disease | Neg Hx | | | + + +------+ + | Ulcerative colitis | Neg Hx | | | + + +------+ + + +------+--------+ + | Relation | Name | Status | Comments | + +------+--------+ + | Father | | | | + +------+--------+ + | Mother | | | | + +------+--------+ + | Mother | | | | + +------+--------+ + | Mother | | | | + +------+--------+ + | Other | | | | + +------+--------+ + Social History + + + +--------+ [...] | + + Last Filed Vital Signs + + + + + | Vital Sign | Reading | Time Taken | Comments | + + + + + | Blood Pressure | 111/77 | 09/20/2019 10:30 AM | | | | | PDT | | + + + + + | Pulse | 63 | 09/20/2019 10:30 AM | | | | | PDT | | + + + + + | Temperature | 36.3 C (97.3 F) | 09/20/2019 7:59 AM | | | | | PDT | | + + + + + | Respiratory Rate | 16 | 09/20/2019 10:12 AM | | | | | PDT | | + + + + + | Oxygen Saturation | 95% | 09/20/2019 10:30 AM | | | | | PDT | | + + + + + | Inhaled Oxygen | - | - | | | Concentration | | | | + + + + + | Weight | 84.9 kg (187 lb 2.7 | 09/20/2019 7:59 AM | | | | oz) | PDT | | + + + + + | Height | 175.3 cm (5' 9") | 09/20/2019 7:59 AM | | | | | PDT | | + + + + + | Body Mass Index | 27.64 | 09/20/2019 7:59 AM | | | | | PDT | | + + + + + Plan of Treatment + + + + + | Health Maintenance | Due Date | Last Done | Comments | + + + + + | Vaccine: | | | | | Pneumococcal 19-64 | 2 | | | | (1 of 3 - PCV13) | | | | + + + + + | Vaccine: | | | | | Dtap/Tdap/Td (1 - | 7 | | | | Tdap) | | | | + + + + + | Vaccine: Influenza | | | | | (Season Ended) | 0 | | | + + + + + Procedures + +--------+ + + + | Procedure Name | Priori | Date/Time | Associated Diagnosis | Comments | | | ty | | | | + +--------+ + + + | SURGICAL PATHOLOGY | Routin | 09/20/2019 | | Results for this | | EXAM | e | 10:01 AM | | procedure are in the | | | | PDT | | results section. | + +--------+ + + + | EGD | | 09/20/2019 | De La Cruz's | | | | | 9:48 AM | esophagus without | | | | | PDT | dysplasia | | + +--------+ + + + | *TERMED* [place] [facility] | Routin | 09/20/2019 | | Results for this | | ENDOSCOPY,EXAM | e | 9:45 AM | | procedure are in the | | | | PDT | | results section. | + +--------+ + + + | CORONAVIRUS | STAT | 09/20/2019 | | Results for this | | (COVID-19) NAAT | | 8:37 AM | | procedure are in the [...] section. | + +--------+ + + + from Last 3 Months Results Surgical Pathology Exam (09/20/2019 10:01 AM PDT) + + | Specimen | + + | | + + + + + | Narrative | Performed At | + + + | SPECIMEN(S): A GASTRIC BIOPSY SPECIMEN(S): B DUODENAL BIOPSY | [facility] | | SPECIMEN SOURCE: A. GASTRIC BIOPSY B. DUODENAL BIOPSY CLINICAL | [facility] | | HISTORY: K22.70 (De La Cruz's esophagus without dysplasia) | | | MICROSCOPIC DESCRIPTION: Histologic sections of all submitted blocks | | | are examined by light microscopy. These findings, together with the | | | gross examination, support the pathologic diagnosis. FINAL | | | PATHOLOGIC DIAGNOSIS: A. Gastric biopsies: - Strips of oxyntic and | | | antral mucosa without diagnostic abnormality. B. Duodenal | | | biopsies: - Strips of duodenal mucosa without diagnostic | | | abnormality. DN:[facility]:C3NR GROSS DESCRIPTION: Two specimens are | | | received in two containers, labeled "NG." A. The specimen, | | | labeled "NG, A," and designated on the requisition "gastric," is | | | received in formalin and consists of three lanza soft tissue fragment(s) | | | that measure 0.4 cm in greatest dimension. The specimen is entirely | | | submitted in cassette (A1). B. The specimen, labeled "NG, B," | | | and designated on the requisition "duodenal," is received in formalin | | | and consists of four lanza soft tissue fragment(s) that measure 0.4 cm | | | in greatest dimension. The specimen is entirely submitted in cassette | | | (B1). AT (under the direct supervision of a pathologist) The | | | Gross Description was prepared using a voice recognition system. The | | | report was reviewed for accuracy; however, sound-alike word errors, | | | addition and/or deletions may occur. If there is any question about | | | this report, please contact Client Services. PERFORMING | | | LABORATORY: The technical component was performed by [facility] | | | [facility], [address] [place] [id number] (Optimization Analyst: | | | Trudi Hughes MD; CLIA# [id number]). Professional interpretation was | | | performed by [email or web address], [facility] | | | [address] [address] (CLIA#: | | | [id number]). Diagnostician: Roland Morgan MD Pathologist | | | Electronically Signed 09/21/2019 | | + + + + +---------+ + + | Performing | Address | City/State/Zipcode | Phone Number | | Organization | | | | + +---------+ + + | [facility] | | | | | [facility] | | | | + +---------+ + + EGD (09/20/2019 9:45 AM PDT) + + | Specimen | + + | | + + + + ---+ | Narrative | Performed At | + + ---+ | [facility] | [facility] | | [facility]Patient [facility] | [facility] | | Date: 09/20/2019 9:45 AMMRN: [id number] Number: [id number] | | | of : 1975Note Status: FinalizedAttending MD: RAD VAIL | | | MARLON CHANDLERrocedlucas Type: Upper GI endoscopyIndications: | | | Abdominal pain in the right upper quadrant, | | | Abdominal pain in the left upper | | | quadrantProviders: RAD CHANDLER MD, | | | Rosanne Hernandes RN, Scarlet Jones, | | | RN, Mitzi Gilbert, TechnicianReferring MD: | | | [place] (Referring ), Felix You MD | | | (Referring )Medicines: Fentanyl | | | 100 micrograms IV, Midazolam 5 mg IV, | | | Benzocaine sprayComplications: No immediate | | | complications.Procedure: Pre-Anesthesia [...] and oriented. | | | Airway Examination: normal oropharyngeal airway and neck | | | mobility. Respiratory Examination: clear to auscultation. CV | | | Examination: normal. Prophylactic Antibiotics: The patient does not | | | require prophylactic antibiotics. Prior Anticoagulants: The | | | patient has taken no previous anticoagulant or antiplatelet | | | agents. ASA Grade Assessment: II - A patient with mild systemic | | | disease. After reviewing the risks and benefits, the patient | | | was deemed in satisfactory condition to undergo the procedure. | | | The anesthesia plan was to use moderate sedation / analgesia | | | (conscious sedation). Immediately prior to administration of | | | medications, the patient was re-assessed for adequacy to | | | receive sedatives. The heart rate, respiratory rate, oxygen | | | saturations, blood pressure, adequacy of pulmonary ventilation, and | | | response to care were monitored throughout the procedure. The | | | physical status of the patient was re-assessed after the | | | procedure. After obtaining informed consent, the endoscope was | | | passed under direct vision. Throughout the procedure, the | | | patient's blood pressure, pulse, and oxygen saturations were | | | monitored continuously. The Endoscope was introduced through | | | the mouth, and advanced to the second part of duodenum. The | | | upper GI endoscopy was accomplished without difficulty. The | | | patient tolerated the procedure well.Estimated Blood Loss: | | | Estimated blood loss: none.Moderate Sedation: Moderate | | | (conscious) sedation was administered by the endoscopy nurse | | | and supervised by the endoscopist. The patient's oxygen saturation, | | | heart rate, blood pressure and response to care were monitored. | | | Total physician intraservice time was 14 minutes.Findings: | | | The examined esophagus was normal. The Z-line was regular and | | | was found 39 cm from the incisors. There is no endoscopic | | | evidence of De La Cruz's esophagus in the lower third of the | | | esophagus. Striped mildly erythematous mucosa without bleeding | | | was found in the gastric antrum. Biopsies were taken with a | | | cold forceps for histology. The exam of the stomach was | | | otherwise normal. The cardia and gastric fundus were normal on | | | retroflexion. The duodenal bulb and second portion of the | | | duodenum were normal. Biopsies were taken with a cold forceps | | | for histology.Impression: - Normal esophagus. - Z-line | | | regular, 39 cm from the incisors. The Z line was seen upon | | | retroflexion. It clearly flowed into the gastric folds with no | | | apparent salmon colored mucosa. - Erythematous mucosa in | | | the antrum. Biopsied. - Normal duodenal bulb and second portion | | | of the duodenum. Biopsied.Recommendation: - Await pathology | | | results. - Resume previous diet. - Continue present | | | medications. - The findings and recommendations were discussed | | | with the patient. - Follow up with Dr You. There were no | | | findings on this endoscopy to explain your pain.RAD VAIL | | | MD RAMESH09/20/2019 10:22:54 AMThis report has been signed | | | electronically.Note Initiated On: 09/20/2019 9:45 AMNumber of Addenda: 0 | | | [facility] | | |Recommendation: | | | - Await pathology results. | | | - Resume previous diet. | | | - Continue present medications. | | | - The findings and recommendations were discussed with the patient. | | | - Follow up with Dr You. There were no findings on this endoscopy to | | | explain your pain. | | |RAD CHANDLER MD | | |09/20/2019 10:22:54 AM | | |This report has been signed electronically. | | |Note Initiated On: 09/20/2019 9:45 AM | | |Number of Addenda: 0 | | | [facility] | | + + ---+ + +---------+ + + | Performing | Address | City/State/Zipcode | Phone Number | | Organization | | | | + +---------+ + + | [facility] | | | | + +---------+ + + Coronavirus (COVID-19) NAAT (09/20/2019 8:37 AM PDT)Only the most recent of 2 results with in the time period is included. + + + + + + | Component | Value | Ref Range | Performed | Pathologist | | | | | At | Signature | + + + + + + | SARS | NegativeComment: | Negative | [facility] | | | coronavirus | SARS-CoV-2, RNA | | [facility] | | | 2 [facility] | (COVID-19) [facility] This | | MEDICAL | | | | assay has been cleared | | CENTER - | | | | for use under an FDA | | LABORATORY | | | | Emergency Use | | | | | | Authorization. This test | | | | | | is used for clinical | | | | | | purposes. It should not | | | | | | be regarded as | | | | | | investigational or for | | | | | | research. This | | | | | | laboratory is certified | | | | | | under the Clinical | | | | | | Laboratory Improvement | | | | | | Amendments (CLIA) as | | | | | | qualified to perform | | | | | | high complexity testing. | | | | | | This test has been | | | | | | validated in accordance | | | | | | with the FDA's Guidance | | | | | | Document "Policy for | | | | | | Diagnostics Testing in | | | | | | Laboratories Certified | | | | | | to Perform High | | | | | | Complexity Testing under | | | | | | CLIA prior to Emergency | | | | | | Use Authorization for | | | | | | Coronavirus Disease-2019 | | | | | | during the Public | | | | | | Health Emergency" issued | | | | | | on June 17, 2019. | | | | | | FDA independent review | | | | | | of this validation is | | | | | | pending. This test is | | | | | | only authorized for the | | | | | | duration of time the | | | | | | declaration that | | | | | | circumstances exist | | | | | | justifying the | | | | | | authorization of the | | | | | | emergency use of in | | | | | | vitro diagnostic tests | | | | | | for detection of | | | | | | SARS-CoV-2 virus and/or | | | | | | diagnosis of COVID-19 | | | | | | infection under section | | | | | | 564(b)(1) of the Act, 21 | | | | | | U.S.C. 360bbb-3(b)(1), | | | | | | unless the authorization | | | | | | is terminated or | | | | | | revoked sooner. unless | | | | | | the authorization is | | | | | | terminated or revoked | | | | | | sooner. | | | | + + + + + + + + | Specimen | + + | Tissue - Both | | anterior nares (body | | structure) | + + + + + + + | Performing | Address | City/State/Zipcode | Phone Number | | Organization | | | | + + + + + | [facility] | [address] | [place] | [phone] | | [facility] | | [address] | | | - LABORATORY | | | | + + + + + from Last 3 Months Insurance +-------+--------+ +--------+-------+---------+------+ | Payer | Benefi | Subscriber | Effect | Phone | Address | Type | | | t Plan | ID | liseth | | | | | | / | | Dates | | | | | | Group | | | | | | +-------+--------+ +--------+-------+---------+------+ | BCBS | BCBS | [id number] | 04/19/19 | | | PPO | | | [employer] | | 20-Pre | | | | | | L FEP | | sent | | | | +-------+--------+ +--------+-------+---------+------+ + +--------+ +--------+ + + | Guarantor Name | Accoun | Relation to | Date | Phone | Billing Address | | | t Type | Patient | of | | | | | | | | | | + +--------+ +--------+ + + | Clifton Multani | Person | Self [birth year] | | al/Fam | | 1975 | [phone] | [place] | | | uh | | | [address] ([place]) | [address] | + +--------+ +--------+ + + Advance Directives + + + + + | Type | Date Recorded | Patient | Explanation | | | | Vehicle Operator | | + + + + + | Power of | | | | | Benefits Specialist Recruiter | | | | + + + + + | Advance | 03/20/2014 11:56 | | | | Directive | AM | | | + + + + + + + + + + | Code Status | Date | Date | Comments | | | Activated | Inactivated | | + + + + + | Full Code | 03/20/2014 | 03/22/2014 | | | | 7:10 PM | 3:16 AM | | + + + + +
--- OUTSIDE RECORDS SUMMARY | ~2019-09-22 | XMS | Encounter Summary ---
Demographics + + + | Address | [address] | | | [place] [address] | + + + | Home Phone [...] + + | Author | [facility] | | | and [place] | + + + | Organization | [facility] | | | and [place] | + + + | Address | Unknown | + + + | Phone | Unavailable | + + + Support + + +---------+ + | Name | Relationship | Address | Phone | + + +---------+ + | Roasnne Multani | ECON | Unknown | | + + +---------+ + | Jadyn Rangel | ECON | Unknown | | + + +---------+ + Care Team Providers + +------+ + | Care Linotype Operator Name | Role | Phone | [...] + + | 05/16/ | Office | [facility] | Zhang Smith | Palpitations | | 2019 | Visit | CARDIOLOGY [address] | MD Julian [address] | (Primary Dx); Chest | | | | [place], | [address] [place] | pain, unspecified | | | | [place] [address] | [place] [address] | type; Fluttering | | | | [phone] | [phone] | heart | | | | | [...] Rad De La Cruz MD; Locat ion: [facility] MEDICAL PROCEDURE UNIT INGUINAL HERNIA REPAIR Right 02/2008 NASAL SEPTUM SURGERY 03/20/2014 BILATERAL Inferior Turbinoplasty; LEFT Frontal Sinusotomy; Laterality: Bilateral; Surgeo n: Keo Wheatley MD; Location: [facility] MAIN OR SINUS ENDOSCOPY 03/20/2014 Laterality: Left; Surgeon: Keo Wheatley MD; Location: [facility] MAIN OR SINUS SURGERY 2008 SINUS [...] made to ensure accuracy; however, inadvertent computerized magnetic resonance technologist errors may be pre sent. Electronically signed [...]
--- OUTSIDE RECORDS SUMMARY | ~2019-09-22 | XMS | Encounter Summary ---
Demographics + + + | Address | [address] | | | [place] [address] | + + + | Home Phone [...] | + + +---------+ + | Jadyn Iris | ECON | Unknown | | + + +---------+ + Care Team Providers + +------+ + | Care Experimental Mechanic [employer] Name | Role | Phone | + [...] | | | Zhang | [address] | | | | | Palpitations | MD Julian | [place], | | | | | Procedures | [address] | [place] | | | | | ECHO | St [place] | [address] | | | | | Complete MD | [place], [place] | Phone: | | | | | ECHO HEART | [address] | [phone] | | | | | [place] | Phone: | Fax: | | | | | MPLETE W | [phone] | [phone] | | | | | DOPPLER MD | Fax: | | | | | | ECHO HEART | [phone] | | | | | | [place] [...] + + + | Closed | | Cardiology | Diagnoses | [place], | [facility] | | | | | Chest pain | Nilesh M, DO | Cardiology | | | | | Racing | [address] | [address] | | | | | heart beat | [address] | [place], | | | | | Palpitations | [place], | [place] | | | | | Procedures | [place] [address] | [address] | | | | | BROKER ASSOCIATE | Phone: | Phone: | | | | | | [phone] | [phone] | | | | | | Fax: | Fax: | | | | | | [phone] | [phone] | +--------+--------+ + + + + Encounter Details +--------+---------+ + + + | Date | Type | Department | Care Team | Description | +--------+---------+ + + + | 10/27/ | Office | [facility] | Zhang Mullen | Palpitations | | 2018 | Visit | CARDIOLOGY [address] | MD Julian [address] | (Primary Dx); Chest | | | | [address] [place], | [address] [place] | pain, unspecified | | | | [place] [address] | [place] [address] | type; Fluttering | | | | [phone] | [phone] | heart | | | | | [...] + + + | Blood Pressure | 126/94 | 10/27/2017 2:00 PM | | | | | PDT | | + + + + + | Pulse | 68 | 10/27/2017 2:00 PM | | | | | PDT | | + + + + + | Temperature | - | - | | + + + + + | Respiratory Rate | 18 | 10/27/2017 2:00 PM | | | | | PDT | | + + + + + | Oxygen Saturation | - | - | | + + + + + | Inhaled Oxygen | - | - | | | Concentration | | | | + + + + + | Weight | 84.3 kg (185 lb 13.6 | 10/27/2017 2:00 PM | | | | oz) | PDT | | + + + + + | Height | 177.8 cm (5' 10") | 10/27/2017 2:00 PM | | | | | PDT | | + + + + + | Body Mass Index | 26.67 | 10/27/2017 2:00 PM | | | | | PDT | | + + + + + documented in this encounter Patient Instructions Patient Instructions Melinda Nixon RN - 10/27/2017 2:30 PM PDT Echo: Date: Check-In Time: Where to Check In: Holter Monitor : 48 hour Date: Check-In Time: Where to Check in: Follow up appointment: 1-2 months Provider: Jonatan Mullen MD Date: Check-In Time: documented in this encounter Progress Notes Zhang Mullen MD - 10/27/2017 2:30 PM PDTFormatting of this note might be differe nt from the original. PATIENT NAME: Albert Multani : 1975: AGE: 42 y.o. REFERRED BY: Nilesh Osorio PRIMARY CARE: Nilesh Osorio DO CARDIOLOGY OFFICE VISIT Date of Service: 10/27/17 HISTORY OF PRESENT ILLNESS: Albert Multani is a 42 y.o. male with a history of palpitations. He is being seen today for further consultation. He is referred by Nilesh Osorio for further evaluation after recent complaints of sensatio n of heart skipping and occasional brief episodes of racing. He denies exertional symptoms of chest pain/pressure. He has no known cardiovascular history. He admits to regular use o f pseudoephedrine although he has cut back in the recent past few days. He denies problems s uch as orthopnea, PND, or lower extremity edema, or any severe lightheadedness, or syncope. He has had no constitutional symptoms. MEDICAL, SURGICAL, AND PERSONAL HISTORY Past Medical History: Diagnosis Date Acid reflux Chest pain Chronic frontal sinusitis left Chronic low back pain Chronic sinusitis Deviated nasal septum Environmental allergies Fluttering heart GERD (gastroesophageal reflux disease) Hypertrophy of nasal turbinates Insomnia Intermittent chest pain Palpitations Past Surgical History: Procedure Laterality Date APPENDECTOMY INGUINAL HERNIA REPAIR right NASAL SEPTUM SURGERY 03/20/2014 BILATERAL Inferior Turbinoplasty; LEFT Frontal Sinusotomy; Laterality: Bilateral; Surgeo n: Keo Whaetley MD; Location: [facility] MAIN OR SINUS ENDOSCOPY 03/20/2014 Laterality: Left; Surgeon: Keo Wheatley MD; Location: [facility] MAIN OR SINUS SURGERY Family History Problem Relation Age of Onset Hypertension Mother Family Status Relation Status Mother Alive Social History Social History Marital status: Spouse name: N/A Number of children: N/A Years of education: N/A Social History Main Topics Smoking status: Former Smoker Packs/day: 1.00 Years: 3.00 Types: Cigarettes Start date: 04/19/2001 Quit date: 04/19/2004 Smokeless tobacco: Current User Types: Chew Alcohol use Yes Comment: rarely Drug use: Yes Frequency: 0.5 times per week Types: Marijuana Sexual activity: Not Asked Other Topics Concern None Social History Narrative None CURRENT MEDICATIONS Current Outpatient Prescriptions Medication Sig Dispense Refill fluticasone (FLONASE) 50 mcg/nasal spray 2 sprays by Nasal route as needed. hydrOXYzine hydrochloride (ATARAX) 25 mg tablet Take 25 mg by mouth nightly. omeprazole (PRILOSEC) 40 MG capsule Take 40 [...] the media tab. OBJECTIVE: PHYSICAL EXAM BP (!) 126/94 | Pulse 68 | Resp 18 | Ht 1.778 m (5' 10") | Wt 84.3 kg (185 lb 13.6 oz) | BMI 26.67 kg/m Physical Exam Constitutional: He is oriented to person, place, and time. He appears well-developed and we ll-nourished. No distress. HENT: Head: Normocephalic. Eyes: No scleral icterus. Neck: Normal carotid pulses and no JVD present. Carotid bruit is not present. Cardiovascular: Normal rate, regular rhythm, S1 normal, S2 normal, normal heart sounds, int act distal pulses and normal pulses. PMI is not displaced. Exam reveals no gallop and no m idsystolic click. No murmur heard. Pulses: Carotid pulses are 2+ on the right side, and 2+ on the left side. Radial pulses are 2+ on the right side, and 2+ on the left side. Dorsalis pedis pulses are 2+ on the right side, and 2+ on the left side. Pulmonary/Chest: Effort normal and breath sounds normal. No accessory muscle usage. No resp iratory distress. He has no wheezes. He has no rhonchi. He has no rales. Abdominal: Soft. Normal aorta and bowel sounds are normal. He exhibits no abdominal bruit. There is no hepatosplenomegaly. There is no tenderness. Musculoskeletal: He exhibits no edema. Neurological: He is alert and oriented to person, place, and time. Gait normal. Skin: Skin is warm and dry. No cyanosis. Nails show no clubbing. Psychiatric: He has a normal mood and affect. His mood appears not anxious. He does not exh ibit a depressed mood. Vitals reviewed. ECG: Reviewed by me today [...] HCTEX 45.5 08/25/2017 PLTEX 326 08/25/2017 I reviewed records from PCP for office visit on 08/25/17. ASSESSMENT: 1. Palpitations - patient's symptoms are most consistent with isolated ectopy, or perhaps short bursts of tachycardia. Regular use of pseudoephedrine may contributor. I will have h im undergo a Holter monitor in an attempt to better define exact nature of arrhythmia patidavid braxton is experiencing. I will also have him undergo an echocardiogram to rule out significant s tructural heart disease. For now I have urged him to continue to avoid pseudoephedrine if a t all possible, as well as other stimulants and maintain good hydration. I will see him in follow-up in a few weeks. PLAN: 1. Holter monitor. 2. Echocardiogram. 3. Refrain from pseudoephedrine and stimulants. 4. Maintain good hydration and active lifestyle. 5. Follow-up visit in a few weeks. Portions of this report were transcribed using voice recognition software. Every effort wa s made to ensure accuracy; however, inadvertent computerized animal trainer errors may be pre sent. Electronically signed by: Tricia Mullen MD PhD [facility] 10/27/2017 documented in t his encounter Plan of Treatment Not on filedocumented as of this encounter Procedures + +--------+ + + + | Procedure Name | Priori | Date/Time | Associated Diagnosis | Comments | | | ty | | | | + +--------+ + + + | ECG 12 LEAD | Routin | 10/27/2017 | Palpitations | Results for this | | | e | 2:13 PM | | procedure are in the | | | | PDT | | results section. | + +--------+ + + + documented in this encounter Results Holter monitor - 48 hour (12/02/2017 9:03 AM PDT) + + + | Narrative | Performed At | + + + | Zhang Mullen MD 12/02/2017 9:04 PATIENT | [facility] | | NAME: Albert Multani : 1975: AGE: 42 y.o. | | | PRIMARY CARE: Nilesh Osorio | | | DO MO BOILER RELINER: Tricia Mullen MD, PhD, FACC | | | 48-HOUR [...] reported symptoms. Signed by: | | | S. [place] Mullen MD PhD [facility] 12/02/2017, 9:03 | | + + + + +---------+ + + | Performing | Address | City/State/Zipcode | Phone Number | | Organization | | | | + +---------+ + + | [facility] | | | | + +---------+ + + ECHO Complete (11/16/2017 2:50 PM PDT) + [...] | Echocardiography Report (TTE) Demographics Patient Name IRIS | | | ALBERT Room Number Patient Number [id number] Date of Study | | | 11/16/2017 Visit Number [id number] Accession | | | [id number] Referring Physician SEBAS ORTIZ Number | | | Date of 1975 Email Marketing Intern | | | SUZANNA DAWKINS Age 42 year(s) Interpreting | | | JULIAN MULLEN MD | | | Clinical Specialist SEBAS ORTIZ Gender | | | Male Nurse | | | Stress Garment Liner Procedure Type of Study TTE procedure: ECHO [...] 0.93 cm PW Diastolic: 0.93 cm EF Siyqsxzir36% EF | | | Calculated: 60% Miscellaneous [...] Diastolic: 0.93 cm | | | EF Jwwsqlqpj24% | | | EF Calculated: 60% | | | | | | Miscellaneous | | | | | | Aorta | | | | | | Aortic Root: 3.79 cm | | | | | + + --+ + + | Procedure Note | + + | Cristiano Mcnamara Results In - 11/17/2017 12:22 PM PDT Transthoracic Echocardiography Report | | (TTE) Demographics Patient Name IRIS PRICE Room Number Patient Number [id number] | | Date of Study 11/16/2017 Visit Number [id number] Accession | | [id number] Referring Physician SEBAS ORTIZ Number Date of | | 1975 Email Marketing Intern SUZANNA DAWKINS Age 42 year(s) | | Interpreting JULIAN MULLNE MD Clinical Specialist | | SEBAS ORTIZ Gender Male Nurse [...] 0.93 cm PW Diastolic: 0.93 cm EF Kkjweecax86% EF | | Calculated: 60% Miscellaneous Aorta [...] PW Diastolic: 0.93 cm | | EF Egrjwyyzi71% | | EF Calculated: 60% | | | | Miscellaneous | | | | Aorta | | | | Aortic Root: 3.79 cm | + + + +---------+ + + | Performing | Address | City/State/Zipcode | Phone Number | | Organization | | | | + +---------+ + + | [facility] | | | | + +---------+ + + ECG 12 lead (10/27/2017 2:13 PM PDT) + + + + + + | Component | Value | Ref Range | Performed | Pathologist | | | | | At | Signature | + + + + + + | VENTRICULAR | 68 | BPM | [facility] | | | RATE EKG | | | | | + + + + + + | ATRIAL RATE | 68 | BPM | [facility] | | + + + + + + | P-R | 140 | ms | [facility] | | | INTERVAL | | | | | + + + + + + | QRS | 88 | ms | [facility] | | | DURATION | | | | | + + + + + + | Q-T | 390 | ms | [facility] | | | INTERVAL | | | | | + + + + + + | Q-T | 414 | ms | [facility] | | | INTERVAL | | | | | | (CORRECTED) | | | | | + + + + + + | P WAVE AXIS | 11 | degrees | [facility] | | + + + + + + | QRS AXIS | 55 | degrees | [facility] | | + + + + + + | T AXIS | 29 | degrees | [facility] | | + + + + + + | INTERPRETAT | Normal sinus | | [facility] | | | ION TEXT | rhythmNormal ECGNo | | | | | | previous ECGs | | | | | | availableConfirmed by | | | | | | JULIAN MULLEN MD | | | | | | ([id number]) on 10/28/2017 | | | | | | 12:49:18 PM | | | | + + + + + + + + | Specimen | + + | | + + + + + | Narrative | Performed At | + + + | | | + + + + [...]
--- OUTSIDE RECORDS SUMMARY | ~2019-09-22 | XMS | Encounter Summary ---
Demographics + + + | Address | [address] | | | [place] [address] | + + + | Home Phone | | + + + | Preferred Language | Unknown | + + + | Marital Status | | + + + | Adventism Affiliation | Unknown | + + + | Race | Unknown | + + + | Ethnic Group | Unknown | + + + Author + + + | Author | [facility] | | | and [place] | + + + | Organization | [facility] | | [...] Team Providers + +------+ + | Care Oyster Buyer Name | Role | Phone | + [...] + + | 06/07/ | Telephone | [facility] | Rad De La Cruz | Appointment | | 2019 | | GASTROENTEROLOGY | MD Felix [address] | | | | | [address] [facility] | [address] [facility] | | | | | [address] | [place] [address] | | | | | [address] | [phone] | | | | | [phone] | | | +--------+ + + + [...]
--- OUTSIDE RECORDS SUMMARY | ~2019-09-22 | XMS | Encounter Summary ---
Demographics + + + | Address | [address] | | | [place] [address] | + + + | Home Phone | | + + + | Preferred Language | Unknown | + + + | Marital Status | | + + + | Scientologist Affiliation | Unknown | + + + | Race | Unknown | + + + | Ethnic Group | Unknown | + + + Author + + + | Author | [facility] | | | and [place] | + + + | Organization | [facility] | | | [...] Team Providers + +------+ + | Care Stamping Machine Operator Name | Role | Phone [...] + | 10/19/ | Telephone | [facility] | Zhang Smith | LABS | | 2018 | | [place] [address] | MD Julian [address] | | | | | [place], | [address] [place] | | | | | [place] [address] | [place] [address] | | | | | [phone] | [phone] | | | | | | | [...]
--- OUTSIDE RECORDS SUMMARY | ~2019-09-22 | XMS | Encounter Summary ---
Demographics + + + | Address | [address] | | | [place] [address] | + + + | Home Phone | | + + + | Preferred Language | Unknown | + + + | Marital Status | | + + + | Congregational Affiliation | Unknown | + + + | Race | Unknown | + + + | Ethnic Group | or | + + + Author + + + | Author | [facility] | + + + | Organization | [facility] | + + + | Address | Unknown | + + + | Phone | Unavailable | + + + Support + + +---------+ + | Name | Relationship | Address | Phone | + + +---------+ + | Rosanne Multani | ECON | Unknown | | + + +---------+ + Care Team Providers + +------+ + | Care Barn Operator Name | Role | Phone | + +------+ + | Nilesh Osorio MD | PCP | | + +------+ + Reason for Visit + + + | Reason | Comments | + + + | New Patient Visit | | + + + Consultation (Routine) +--------+--------+ + + + + | Status | Reason | Specialty | Diagnoses / | Referred By | Referred To | | | | | Procedures | Contact | Contact | +--------+--------+ + + + + | Closed | | Otolaryngolog | Diagnoses | [place], | Ent Sinus | | | | y | Chronic | Nilesh Newton MD | [address] | | | | | ethmoidal | [place] | [address] | | | | | sinusitis | [place] | Mailcode: | | | | | Chronic | Health | [facility] | | | | | sphenoidal | Center | for Health | | | | | sinusitis | [address] | and Healing, | | | | | Headache | [address] | [address] | | | | | | [address] | 5th Floor | | | | | | [place], | [place], [place] | | | | | | [place] [address] | [address] | | | | | | Phone: | Phone: | | | | | | [phone] | [phone] | | | | | | Fax: | Fax: | | | | | | [phone] | [phone] | +--------+--------+ + + + + Encounter Details +--------+---------+ + + + | Date | Type | Department | Care Team | Description | +--------+---------+ + + + | 04/25/ | Office | [facility] | Tarah Davenport, | Atypical facial pain | | 2019 | Visit | Center at [facility] [address] | [address] [address] | (Primary Dx); | | | | [address] | [address] [place], [place] | Chronic maxillary | | | | Mailcode: [facility] | [address] | sinusitis; Chronic | | | | [facility] | [phone] | rhinitis | | | | and Healing, | | | | | | [address]th | | | | | | Floor [place], [place] | | | | | | [address] | | | | | | [phone] | | | +--------+---------+ + + + [...] documented as of this encounter Progress Notes Tarah Davenport PA-C - 04/25/2018 8:30 AM PST [facility] HPI: Clifton Multani is a 43 y.o. male who presents to the [facility] in consultatio n for headaches. Current symptoms include headache, facial pain and facial pressure. His h eadaches are described as bilateral deep supraorbital, relieved with pressure. He endorses p hotophobia, phonophobia, blurred vision and occasional left periorbital tingling/numbness. H e denies diplopia, nausea or vomiting. He experiences headaches about every two days and can last up to a couple of days. These episodes are typically associated by nasal congestion. S ymptoms began 1 years ago. He estimates sinus infections about two times a year. Symptom se verity is moderate. Improvement of the headaches usually occurs sleeping in a dark room. A dditional evaluation has include a CT of the sinuses and allergy testing for multiple allerg ies per the patient. He has a history of two sinus surgeries, the most recent was on 014. Flonase, Claritin, Zyrtec, Prerna, Singulair, Benadryl, sudafed and Augmentin. He is using Flonase daily and irrigations intermittently. He has also been treated with abortive migrai ne therapy. SINO NASAL OUTCOMES TEST SCORE: 37 Current Outpatient Prescriptions Medication Sig ibuprofen 200 mg oral tablet Take 200 mg by mouth every six hours as needed. pseudoephedrine 30 mg oral tablet Take 30 mg by mouth every four hours as needed for co ngestion. The patient's New Patient History Form was reviewed with the patient. Changes and addition s, where necessary, were made and the form was scanned to the medical record. Comprehensive review of systems was negative other than as documented on this note and on the New Patient History Form. Past Medical History: Diagnosis Date Acid reflux Migraine History reviewed. No pertinent past surgical history. Family History: No family history provided today Social History Substance Use Topics Smoking status: Never Smoker Smokeless tobacco: Current User Alcohol use 0.6 oz/week 1 Standard drinks or equivalent per week Allergies: No Known Allergies PHYSICAL EXAM: General Appearance: Pleasant, well-developed, well-nourished patient, in no apparent distre ss. Mental status normal. Breathing quietly, comfortably, no stridor or wheezing. Head/Face: No skin lesions, face symmetric, sensation normal Eyes: EOMI Ears: External ears normal to inspection and palpation, canals clear, TM's intact, no middl e ear effusion. Nose: Anterior rhinoscopy reveals mucosal edema. Nasal endoscopy was indicated to better ev aluate the nose and paranasal sinuses given the patient's history and exam findings and is d etailed below. Oral Cavity/Pharynx: No masses or lesions of lips, gums, tongue, floor of mouth, buccal muc anthony, hard palate or soft palate. Dentition is good. No erythema, exudate, or tonsillar yair s. Posterior pharyngeal wall normal. Neck/Lymphatic: no masses or adenopathy Neurologic: CN 2-12 intact PROCEDURE: Diagnostic Nasal Endoscopy Anesthesia: Lidocaine 4% topical anesthetic was placed. Description of Procedure: A rigid endoscope was utilized to evaluate the sinonasal cavities , mucosa, sinus ostia and turbinates. Overall, signs of mucosal inflammation are noted. Al so noted are mucosal edema. RADIOGRAPHIC EVALUATION: A CT done on 08/06/2017 was reviewed which reveals overall post ope rative changes. Minimal inflammation is noted in the right frontal sinus. Residual Armin Ce lls are noted on the left, narrowing the antrostomy. The right maxillary antrostomy is paten t. Minimal inflammation is noted in the left sphenoid sinus. ASSESSMENT: Chronic rhinosinusitis. We've discussed issues and options today. The risks, benefits and alternatives were discus sed and questions answered. He was given reassurance that there is no evidence of mass or l esion noted on his CT scan or nasal endoscopy. He does have evidence of inflammation consis tent with chronic rhinosinusitis noted on nasal endoscopy. I suspect he has a histamine sen sitivity that exacerbates his inflammation particularly when drinking alcohol. He has elect ed to proceed with a trial of Budesonide Respules added to his saline irrigations. Proper d [place] and administration was reviewed today. He will plan to follow-up with the clinic by dre mcgraw in the next 4-6 weeks to discuss the efficacy of the budesonide. 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 He has been recalci trant to abortive migraine therapy to date but describes symptoms of headache that are consi stent with migraine forms. I have recommended that he contact his primary care for provider to discuss referral to a local neurologist given that he lives in the [facility]. He w as in agreement with this plan and said he and his primary had already discussed this issue. If he is having difficulty getting a neurology visit locally I am happy to put in a referr al here at [facility]. Answered all his questions the best my ability today. He will follow-up as discussed or so jorge as needed. documented in this encounter Plan of Treatment Not on filedocumented as of this encounter Procedures + +--------+ + + + | Procedure Name | Priori | Date/Time | Associated Diagnosis | Comments | | | ty | | | | + +--------+ + + + | NC NASAL | Routin | 04/25/2018 | Atypical facial | | | ENDOSCOPY,DX | e | 4:31 PM | pain Chronic | | | | | PST | maxillary sinusitis | | | | | | Chronic rhinitis | | + +--------+ + + + documented in this encounter Visit Diagnoses + + | Diagnosis | + + | Atypical facial pain - Primary Atypical face pain | + + | Chronic maxillary sinusitis | + + | Chronic rhinitis | + + documented in this encounter"
--- OUTSIDE RECORDS SUMMARY | ~2019-09-22 | XMS | Encounter Summary ---
Demographics + + + | Address | [address] | | | [place] [address] | + + + | Home Phone [...] Providers + +------+ + | Care Supervisor Poultry Farm Name | Role | Phone | + [...] + | 09/11/ | Telephone | [facility] | Rad De La Cruz | Appointment | | 2019 | | GASTROENTEROLOGY | MD Felix [address] | | | | | [address] [facility] | [address] [facility] | | | | | [address] | [place] [address] | | | | | [address] | [phone] | | | | | [phone] | | | +--------+ + + + [...]
--- OUTSIDE RECORDS SUMMARY | ~2019-09-22 | XMS | Encounter Summary ---
Demographics + + + | Address | [address] | | | [place] [address] | + + + | Home Phone | | + + + | Preferred Language | Unknown | + + + | Marital Status | | + + + | Amish Affiliation | Unknown | + + + [...] Providers + +------+ + | Care It Architecture Consultant Name | Role | Phone | + [...] | | | [address] [facility] | [place]. | | | | | [address] | [place] [address] | | | | | [address] | | | | | | [phone] | | | +--------+ + + + [...]
--- OUTSIDE RECORDS SUMMARY | ~2019-09-22 | XMS | Encounter Summary ---
Demographics + + + | Address | [address] | | | [place] [address] | + + + | Home Phone [...] Team Providers + +------+ + | Care Sas Bi Developer Name | Role | Phone | + [...] | | | | | | | [place] | | | | | | | ESOPHAGOGAST | | | | | | | RODUODENOSCO | | | | | | | PY TRANSORAL | | | | | | | DIAGNOSTIC | | | | | | | NC EGD | | | | | | | TRANSORAL | | | | | | | BIOPSY | | | | | | | SINGLE/MULTI | | | | | | | PLE NC GERD | | | | | | [...] + + | 02/25/ | [facility] | Gin Chandler | Bloating; | | 2018 | Encounter | MED CTR MP INTRA OP | MD Genna [address] | Gastroesophageal | | | | [address] | [address] [place] | reflux disease, | | | | [place], [place] | [place] [address] | esophagitis presence | | | | [address] | [phone] | not specified | | | | [phone] | | | +--------+ + + + [...] You can't be awakened Date Last Reviewed: 02/04/201619994329-9615 [employer] [address] [place] [address]. All righ ts reserved. This information is [...] 02/25/2018 | PROVATION | | 9:49 AMMRN: [id number] #: [id number] of : | | | 1975Admit Type: AmbulatoryAge: 42Room: [facility] 02Gender: MaleNote | | | Status: FinalizedAttending MD: GIN CHANDLER [facility]: | | | Upper GI endoscopyIndications: Epigastric abdominal | | | pain, Heartburn, Abdominal bloating, FERRARI | | | study off PPI therapyProviders: GNI CHANDLER MD, | | | Rosanne Hernandes, [...] | | 10:13:55 AMScope Out: 10:21:58 AM [facility] | | | [place], [address] [place] [address] | | | - The FERRARI pH [...] |Scope Out: 10:21:58 AM | | | [facility], [address], [place] | | | [address] | | + + -+ + +---------+ [...] metaplasia, negative for | | | dysplasia. JVR:ssm rehab:C2NR GROSS DESCRIPTION: A. The specimen | | [...] component was | | | performed by [employer] [address] | | | (Outpatient Coordinator: Trudi Hughes MD; CLIA# [id number]). Professional | | | [facility] | | | [address] | | | [address] (Outpatient Coordinator: Jakub Rivera M.D.). Diagnostician: | | | [...]
--- OUTSIDE RECORDS SUMMARY | ~2019-09-22 | XMS | Encounter Summary ---
Demographics + + + | Address | [address] | | | [place] [address] | + + + | Home Phone | | + + + | Preferred Language | Unknown | + + + | Marital Status | | + + + | Faith Affiliation | Unknown | + + + | Race | Unknown | + + + | Ethnic Group | Unknown | + + + Author + + + | Author | [facility] | | | and [place] | + + + | Organization | [facility] | | | [...] Team Providers + +------+ + | Care Mortarman Name | Role | Phone | + [...] + + | 05/09/ | Office | [facility] | Rad De La Cruz | Spasm of bowel | | 2019 | Visit | GASTROENTEROLOGY | MD Felix [address] | (Primary Dx); | | | | [address] | [address] [place] | Abdominal pain, | | | | [address] [place], [place] | [place] [address] | unspecified | | | | [address] | [phone] | abdominal location | | | | [phone] | | | +--------+---------+ + + + [...] in this encounter Progress Notes Ivy Juares, Manager Intensive Care - 05/09/2018 1:00 PM PSTScheduled patient for [...] for bowel prep to [place] Shira Oesi MD - 05/09/2018 1:00 PM PST Gastroenterology [...] Rad De La Cruz MD; Locat ion: [facility] MEDICAL PROCEDURE UNIT INGUINAL HERNIA REPAIR Right 02/2008 NASAL SEPTUM SURGERY 03/20/2014 BILATERAL Inferior Turbinoplasty; LEFT Frontal Sinusotomy; Laterality: Bilateral; Surgeo n: Keo Wheatley MD; Location: [facility] MAIN OR SINUS ENDOSCOPY 03/20/2014 Laterality: Left; Surgeon: Keo Wheatley MD; Location: [facility] MAIN OR SINUS SURGERY 2008 [...] dicyclomine (BENTYL) 20 MG t ablet diphenhydrAMINE-visc qpdttejgv-vllwpvoo-ygthqxoen-simethicone (MIRACLE MOUTHWASH) suspen charisse Case request: Colonoscopy; N/A Follow up: No Follow-up on file. CC: No referring provider defined for this encounter. Nilesh Osorio, [id number] [place] [address] Portions of this chart may have been created with [employer] voice recognition software. Occasi onal wrong-word or [...]
--- OUTSIDE RECORDS SUMMARY | ~2019-09-22 | XMS | Encounter Summary ---
Demographics + + + | Address | [address] | | | [place] [address] | + + + | Home Phone | | + + + | Preferred Language | Unknown | + + + | Marital Status | | + + + | Caodaism Affiliation | Unknown | + + + [...] Team Providers + +------+ + | Care Butadiene Compressor Operator Name | Role | Phone | [...] + + | 02/12/ | Telephone | [facility] | Keo Wheatley MD | Procedure | | 2013 | | OTOLARYNGOLOGY [address] | [address] [place] | | | | | [address] [place] | [address] [place], | | | | | [place], [place] | [place] [address] | | | | | [address] | [phone] | | | | | [phone] | | | +--------+ + + + [...]
--- OUTSIDE RECORDS SUMMARY | ~2019-09-22 | XMS | Encounter Summary ---
Demographics + + + | Address | [address] | | | [place] [address] | + + + | Home Phone [...] Team Providers + +------+ + | Care Knitting Tester Name | Role | Phone | [...] | | | | | abdominal | [address] | [address], | | | | | pain | [address] | [address] | | | | | Bloating | [place], | [place], | | | | | Procedures | [place] | [place] [address] | | | | | OFFICE VISIT | [address] | Phone: | | | | | | Phone: | [phone] | | | | | | [phone] | Fax: | | | | | | Fax: | [phone] | | | | | | [phone] | | +--------+--------+ + + + + Encounter Details +--------+---------+ + + + | Date | Type | Department | Care Team | Description | +--------+---------+ + + + | 12/22/ | Office | [facility] | Rad De La Cruz | Gastroesophageal | | 2018 | Visit | GASTROENTEROLOGY | MD Felix [address] | reflux disease, | | | | [address] | [address] [place] | esophagitis presence | | | | [address] [place], [place] | [place] [address] | not specified | | | | [address] | [phone] | (Primary Dx); | | | | [phone] | | Bloating; Left upper | | [...] Visit: 12/22/17 Referring Provider: Brayden Butt MD [address] [facility] [place] [address] Providing Physician: Rad De La Cruz MD. [...] the blue. He was evaluated by his [facility] care provider and also by Dr. Reno. [...] Bilateral; Surgeo n: Keo Wheatley MD; Location: [facility] MAIN OR SINUS ENDOSCOPY 03/20/2014 Laterality: Left; Surgeon: Keo Wheatley MD; Location: [facility] MAIN OR SINUS SURGERY 2008 [...] CC: Brayden Butt MD [address] [place] [address] Nilesh Osorio, [id number] [place] [address] Portions of this chart may have been created with Ar[employer] voice recognition software. Occasi onal wrong-word or [...]
--- OUTSIDE RECORDS SUMMARY | ~2019-09-22 | XMS | Encounter Summary ---
Demographics + + + | Address | [address] | | | [place] [address] | + + + | Home Phone | | + + + | Preferred Language | Unknown | + + + | Marital Status | | + + + | Holiness Affiliation | Unknown | + + + [...] Team Providers + +------+ + | Care Typing Secretary Name | Role | Phone | + +------+ + | Izzy Snowden | PCP | | + +------+ + Encounter Details +--------+ + + + + | Date | Type | Department | Care Team | Description | +--------+ + + + + | 06/07/ | Abstract | [facility] | Charline, | | | 2019 | | GASTROENTEROLOGY | MD Jorge [address] | | | | | [address] [facility] | Vijay Rita. | | | | | [address] [place], [place] | [place] [address] | | | | | [address] | | | | | | [phone] | | | +--------+ + + + [...]
--- OUTSIDE RECORDS SUMMARY | ~2019-09-22 | XMS | Encounter Summary ---
Demographics + + + | Address | [address] | | | [place] [address] | + + + | Home Phone | | + + + | Preferred Language | Unknown | + + + | Marital Status | | + + + | Mormon Affiliation | Unknown | + + + | Race | Unknown | + + + | Ethnic Group | Unknown | + + + Author + + + | Author | [facility] | | | and [place] | + + + | Organization | [facility] | | [...] Team Providers + +------+ + | Care Echocardiography Radiology Technologist Name | Role | Phone | + [...] | | | Diagnostic | Abdominal | [place] | [facility] | | | | Ultrasound | pain, RUQ | MD Felix | [address] | | | | | Gallbladder | [address] | | | | | pain | ST [place] | [place] | | | | | Procedures | [place], [place] | [address] | | | | | [place], ABDOMEN | [address] | Phone: | | | | | LIMITED | Phone: | [phone] | | | | | | [phone] | Fax: | | | | | | Fax: | [phone] | | | | | | [phone] | | + +--------+ + + + [...] Gallbladder pain | | | | [address] [place], [place] | [place] [address] | | | | | [address] | [phone] | | | | | [phone] | | | +--------+ + + + [...]
--- OUTSIDE RECORDS SUMMARY | ~2019-09-22 | XMS | Encounter Summary ---
Demographics + + + | Address | [address] | | | [place] [address] | + + + | Home Phone | | + + + | Preferred Language | Unknown | + + + | Marital Status | | + + + | Gnosticism Affiliation | Unknown | + + + | Race | Unknown | + + + | Ethnic Group | Unknown | + + + Author + + + | Author | [facility] | | | and [place] | + + + | Organization | [facility] | | [...] Team Providers + +------+ + | Care Perianesthesia Manager Name | Role | Phone | [...] + + | 07/27/ | Telephone | [facility] | Rad De La Cruz | Appointment (GERD) | | 2019 | | GASTROENTEROLOGY | MD Felix [address] | | | | | [address] | [address] [place] | | | | | [address] [place], [place] | [facility] [address] | | | | | [address] | [phone] | | | | | [phone] | | | +--------+ + + + [...]
--- OUTSIDE RECORDS SUMMARY | ~2019-09-22 | XMS | Encounter Summary ---
Demographics + + + | Address | [address] | | | [place] [address] | + + + | Home Phone [...] Team Providers + +------+ + | Care Emergency Room Registered Nurse Name | Role | Phone | + +------+ + | Nilesh Osorio DO | PCP | | + +------+ + Encounter Details +--------+ + + + + | Date | Type | Department | Care Team | Description | +--------+ + + + + | 10/26/ | Abstract | [facility] | Sarah Zhang | | | 2018 | | CARDIOLOGY [address] | MD Julian [address] | | | | | [place], | [address] [place] | | | | | [place] [address] | [place] [address] | | | | | [phone] | [phone] | | | | | | | [...]
--- OUTSIDE RECORDS SUMMARY | ~2019-09-22 | XMS | Encounter Summary ---
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
--- OUTSIDE RECORDS SUMMARY | ~2019-09-22 | XMS | Encounter Summary ---
Demographics + + + | Address | [address] | | | [place] [address] | + + + | Home Phone | | + + + | Preferred Language | Unknown | + + + | Marital Status | | + + + | Yazidi Affiliation | Unknown | + + + | Race | Unknown | + + + | Ethnic Group | or | + + + Author + + + | Author | [facility] | + + + | Organization | [facility] | + + + | Address | Unknown | + + + | Phone | Unavailable | + + + Support + + +---------+ + | Name | Relationship | Address | Phone | + + +---------+ + | Rosanne Multani | ECON | Unknown | | + + +---------+ + Care Team Providers + +------+ + | Care Welder Fitter Gas Name | Role | Phone | + [...] | | | | | sinusitis | [facility] | Mailcode: | | | | | Chronic | Health | [facility] | | | | | sphenoidal | Center | for Health | | | | | sinusitis | [address] | and Healing, | | | | | Headache | [address] | [address] | | | | | | [address] | 5th Floor | | | | | | [place], | [place], [place] | | | | | | [place] [address] | [address] | | | | | | Phone: | Phone: | | | | | | [phone] | [phone] | | | | | | Fax: | Fax: | | | | | | [phone] | [phone] | +--------+--------+ + + + + Encounter Details +--------+---------+ + + + | Date | Type | Department | Care Team | Description | +--------+---------+ + + + | 04/25/ | Office | [facility] | Tarah Davenport, | Atypical facial pain | | 2019 | Visit | Center at [facility] [address] | (Primary Dx); | | | | [address] | [address] [place], [place] | Chronic maxillary | | | | Mailcode: [facility] | [address] | sinusitis; Chronic | | | | [facility] | [phone] | rhinitis | | | | and Healing, | | | | | | [address]th | | | | | | Floor [place], [place] | | | | | | [address] | | | | | | [phone] | | | +--------+---------+ + + + [...] Davenport PA-C - 04/25/2018 8:30 AM PST [facility] HPI: Clifton Multani is a 43 y.o. male who presents to the [facility] in consultatio n for headaches. [...] added to his saline irrigations. Proper d confederated goshute and administration was reviewed today. He will [...] neurologist given that he lives in the [facility]. He w as in agreement with this plan and said he and his primary had already discussed this issue. If he is having difficulty getting a neurology visit locally I am happy to put in a referr al here at [facility]. Answered all his questions the best my [...] | + +--------+ + + + | [place] | Routin | 04/25/2018 | Atypical [...]
--- OUTSIDE RECORDS SUMMARY | ~2019-09-22 | XMS | Encounter Summary ---
Demographics + + + | Address | [address] | | | [place] [address] | + + + | Home Phone | | + + + | Preferred Language | Unknown | + + + | Marital Status | | + + + | Protestant Affiliation | Unknown | + + + | Race | Unknown | + + + | Ethnic Group | Unknown | + + + Author + + + | Author | [facility] | | | and [place] | + + + | Organization | [facility] | | [...] Team Providers + +------+ + | Care Seed Cleaner Name | Role | Phone | + [...] + + | 05/16/ | Office | [facility] | Zhang Smith | Palpitations | | 2019 | Visit | CARDIOLOGY [address] | MD Julian [address] | (Primary Dx); Chest | | | | [place], | [address] [place] | pain, unspecified | | | | [place] [address] | [place] [address] | type; Fluttering | | | | [phone] | [phone] | heart | | | | | [...] Rad De La Cruz MD; Locat ion: [facility] MEDICAL PROCEDURE UNIT INGUINAL HERNIA REPAIR Right 02/2008 NASAL SEPTUM SURGERY 03/20/2014 BILATERAL Inferior Turbinoplasty; LEFT Frontal Sinusotomy; Laterality: Bilateral; Surgeo n: Keo Wheatley MD; Location: [facility] MAIN OR SINUS ENDOSCOPY 03/20/2014 Laterality: Left; Surgeon: Keo Wheatley MD; Location: [facility] MAIN OR SINUS SURGERY 2008 SINUS SURGERY [...] made to ensure accuracy; however, inadvertent computerized configuration management administrator errors may be pre sent. Electronically signed [...]
--- OUTSIDE RECORDS SUMMARY | ~2019-09-22 | XMS | Encounter Summary ---
Demographics + + + | Address | [address] | | | [place] [address] | + + + | Home Phone | | + + + | Preferred Language | Unknown | + + + | Marital Status | | + + + | Mosque Affiliation | Unknown | + + + | Race | Unknown | + + + | Ethnic Group | Unknown | + + + Author + + + | Author | [facility] | | | and [place] | + + + | Organization | [facility] | | | [...] Team Providers + +------+ + | Care Operator Assistant I Cementing Name | Role | Phone | + [...] + | 05/26/ | Refill | [facility] | Rad De La Cruz | Other | | 2019 | | GASTROENTEROLOGY | MD Felix [address] | | | | | [address] | [address] [place] | | | | | [address] [place] [address] | [place] [address] | | | | | [address] | [phone] | | | | | [phone] | | | +--------+--------+ + + + [...]
--- OUTSIDE RECORDS SUMMARY | ~2019-09-22 | XMS | Encounter Summary ---
Demographics + + + | Address | [address] | | | [place] [address] | + + + | Home Phone [...] | + + +---------+ + | Jadyn Henryz | ECON | Unknown | | + + +---------+ + Care Team Providers + +------+ + | Care Clinical Rehabilitation Coordinator Name | Role | Phone | [...] | | | Procedures | | [place] [address] | | | | | OFFICE VISIT | | Phone: | | | | | REGULAR | | [phone] | | | | | | | Fax: | | | | | | | [phone] | +--------+--------+ + + + + Encounter Details +--------+---------+ + + + | Date | Type | Department | Care Team | Description | +--------+---------+ + + + | 05/10/ | Office | [facility] [place] | Keo Munoz MD | Hypertrophy of nasal | | 2015 | Visit | OTOLARYNGOLOGY [address] | [address] [place] | turbinates (Primary | | | | [address] | [address] [place], | Dx); Chronic | | | | [place], [place] | [place] [address] | frontal sinusitis | | | | [address] | [phone] | | | | | [phone] | | | +--------+---------+ + + + [...] MD - 05/10/2014 4:07 PM PST [facility] OTOLARYNGOLOGY [address] [place] [id number] OFFICE NOTE KEO MUNOZ MD Patient: ALBERT MULTANI Admitting: MR #: [id number] LOC: PT TYPE: Adm Date: 05/10/2014 : [...] Transcribed on 05/10/2014 17:00:10 by ms job# [id number] Confirmation #: [id number] signed by Keo Munoz MD at 05/11/2014 8:16 AM Keo Ahumada MD - 05/10/2014 4:04 PM [place] dictation # [id number] signed by Keo Munoz MD at 05/10/2014 4:07 PM PSTdocumented in th is encounter Plan of Treatment Not on filedocumented as of this encounter Visit Diagnoses + + | Diagnosis | + + | Hypertrophy of nasal turbinates - Primary | + + | Chronic frontal sinusitis | + + documented in this encounter
--- OUTSIDE RECORDS SUMMARY | ~2019-09-22 | XMS | Encounter Summary ---
Demographics + + + | Address | [address] | | | [place] [address] | + + + | Home Phone [...] Team Providers + +------+ + | Care Rejected Items Clerk Name | Role | Phone | + +------+ + | Nilesh Osorio DO | PCP | | + +------+ + Encounter Details +--------+ + + + + | Date | Type | Department | Care Team | Description | +--------+ + + + + | 12/06/ | Hospital | [facility] | Conversion | Diagnosis unknown | | 2018 | Encounter | CONVERSION [address] | Transaction, | | | | | [address] | Provider Unknown | | | | | [place], [place] | [phone] | | | | | [address] | (Fax) | | | | | [phone] | | | +--------+ + + + [...]
--- OUTSIDE RECORDS SUMMARY | ~2019-09-22 | XMS | Encounter Summary ---
Demographics + + + | Address | [address] | | | [place] [address] | + + + | Home Phone | | + + + | Preferred Language | Unknown | + + + | Marital Status | | + + + | Latter-Day Affiliation | Unknown | + + + | Race | Unknown | + + + | Ethnic Group | Unknown | + + + Author + + + | Author | [facility] | | | and [place] | + + + | Organization | [facility] | | [...] Team Providers + +------+ + | Care Belt Turner Name | Role | Phone | + [...] | | | | Diagnoses | | Ramesh, | | | | | De La Cruz's | | Rad Vail, | | | | | esophagus | | MD [address] | | | | | without | | [address] | | | | | dysplasia | | [place], | | | | | Procedures | | [place] [address] | | | | | [place] | | Phone: | | | | | ESOPHAGOGAST | | [phone] | | | | | RODUODENOSCO | | Fax: | | | | | PY TRANSORAL | | [phone] | | | | | DIAGNOSTIC | | | | | | | AL EGD | | | | | | | TRANSORAL | | | | | | | BIOPSY | | | | | | | SINGLE/MULTI | | | | | | | PLE EGD | | | +--------+--------+ + + + + Encounter Details +--------+ + + + + | Date | Type | Department | Care Team | Description | +--------+ + + + + | 09/19/ | Hospital | [facility] | Rad Chandler | Epigastric pain; | | 2019 | Encounter | MED CTR MP INTRA OP | MD Felix [address] | De La Cruz's esophagus | | | | [address] | [address] [place] | without dysplasia | | | | [place], [place] | [place] [address] | | | | | [address] | [phone] | | | | | [phone] | | | +--------+ + + + [...] documented in this encounter Discharge Instructions Instructions Melanie Morales, RN - 09/20/2019 Recovery After Procedural Sedation (Adult) You have been given medicine by vein to make you sleep during your surgery. This may have i ncluded both a pain medicine and sleeping medicine. Most of the effects have worn off. But y ou may still have some drowsiness for the next 6 to 8 hours. Home care Follow these guidelines when you get home: For the next 8 hours, you should be watched by a responsible adult. This person should m melissa sure your condition is not getting worse. Don't drink any alcoholfor the next [address], operate dangerous machinery, or make important business or personal decisio nsduring the next 24 hours. Note: Your healthcare [...] worse Repeated vomiting You can't be awakened Fever New rash bead Button last reviewed this educational content on 02/04/201619993510-7292 The [employer]. [address] [place] [address], [place] [address]. All righ ts reserved. This information is [...] tablet by | 120 | 5 | 08/09/19 | | | (BENTYL) 20 MG | mouth 4 times daily | tablet | | 20 | | | tabletIndications: | (before meals and | | | | | | Irritable bowel | nightly). | | | | | | syndrome with | | | | | | | diarrhea | | | | | | + [...] + + + +---------+ + + | pantoprazole | Take 1 tablet by | 120 | 5 | 08/09/19 | | | (PROTONIX) 40 mg | mouth 2 times daily | tablet | | 20 | | | tabletIndications: | (before meals). | | | | | | Gastroesophageal | | | | | | | reflux disease, | | | | | | | esophagitis presence | | | | | | | not specified | | | | | | + + + +---------+ + + | PSEUDOEPHEDRINE | Take 30 mg by mouth | | 0 | | | | HCL PO | every four hours as | | | | | | | needed for | | | | | | | congestion. | | | | | + + + +---------+ + + | sodium chloride | 1 spray by Nasal | | 0 | | | | (OCEAN) 0.65 % nasal | route as needed for | | | | | | spray | Congestion. | | | | | + + + +---------+ + + | SUMAtriptan | Take 100 mg by | | 0 | 09/10/19 | | | (IMITREX) 100 mg | mouth. | | | 19 | | | tablet | | | [...] + +--------+ + + + | *TERMED* [place] UPPER GI | Routin | 09/20/2019 | [...] + + documented in this encounter Results Surgical Pathology Exam (09/20/2019 10:01 AM [...] mucosa without diagnostic | | | abnormality. DN:[facility]:C3NR GROSS DESCRIPTION: Two specimens are | | [...] LABORATORY: The technical component was performed by [email or web address] | | | [place] [address] (Identifier Horse: | | | Trudi Hughes MD; CLIA# [id number]). Professional interpretation was | | | performed by [facility], [facility] | | | [address] [address] (CLIA#: | | | [id number]). Diagnostician: Roland Morgan MD Pathologist | | [...] Performed At | + + ---+ | [facility] | [facility] | | Medical CenterGastroenterologyPatient Name: Multani Clifton Procedure | [place] | | Date: 09/20/2019 9:45 AMMRN: [id number] Number: [id number] | | | of : 1975Note Status: FinalizedAttending MD: RAD VAIL | | | Andrews CHANDLER Type: Upper GI endoscopyIndications: | | | Abdominal pain in the right upper quadrant, | | | Abdominal pain in the left upper | | | quadrantProviders: RAD CHANDLER MD, | | | Rosanne Hernandes RN, Scarlet Jones, | | | RN, Mitzi Gilbert, TechnicianReferring MD: | | | Izzy Snowden (Referring MD), Felix You MD | | | (Referring MD)Medicines: Fentanyl | | | 100 micrograms IV, [...] AMNumber of Addenda: 0 | | | [facility] | | |Recommendation: | | | - [...] |Number of Addenda: 0 | | | [facility] | | + + ---+ + +---------+ + + | Performing | Address | City/State/Zipcode | Phone Number | | Organization | | | | + +---------+ + + | [facility] [place] | | | | + +---------+ + + Coronavirus (COVID-19) NAAT (09/20/2019 8:37 AM PDT) + + + + + [...] + + + + + | [address] 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 De La Cruz's esophagus | + + documented in this encounter Admitting Diagnoses + + | Diagnosis | + [...] | benzocaine (HURRICAINE) 20% | Given | 09/20/19 | 1 spray | | | | non-aerosol spray PRN, Starting | | 20 9:50 | | | | | 09/20/19 at 0950 | | AM PDT | | | | + +--------+ +---------+------+------+ +---+---+ | | | +---+---+ + +-------+ +--------+---+---+ | fentaNYL (PF) injection PRN, | Given | 09/20/19 | 25 mcg | | | | Starting 09/20/19 at 0954 | | 20 9:56 | | | | | | | AM PDT | | | | + +-------+ +--------+---+---+ +-------+ +--------+---+---+ | Given | 09/20/19 | 75 mcg | | | | | 20 9:54 | | | | | | AM PDT | | | | +-------+ +--------+---+---+ +---+---+ | | | +---+---+ + +---------+ +---+-------+---+ | lactated ringers (LR) infusion | New Bag | 06/03/20 | | 100 | | | at 100 mL/hr, Intravenous, | | 20 8:45 | | mL/hr | | | CONTINUOUS, Starting 09/20/19 | | AM PDT | | | | | at 0900, Pre-op | | | | | | + +---------+ +---+-------+---+ +---+---+ | | | +---+---+ + +-------+ +------+---+---+ | midazolam (VERSED) 5 mg/mL | Given | 09/20/19 | 1 mg | | | | injection PRN, Starting Wed | | 20 9:58 | | | | | 09/20/19 at 0951 | | AM PDT | | | | + +-------+ +------+---+---+ +-------+ +------+---+---+ | Given | 09/20/19 | 1 mg | | | | | 20 9:56 | | | | | | AM PDT | | | | +-------+ +------+---+---+ | Given | 09/20/19 | 3 mg | | | | | 20 9:51 | | | | | | AM PDT | | | | +-------+ +------+---+---+ +---+---+ | | | +---+---+ documented in this encounter
--- OUTSIDE RECORDS SUMMARY | ~2019-09-22 | XMS | Encounter Summary ---
Demographics + + + | Address | [address] | | | [place] [address] | + + + | Home Phone [...] + + | Author | [facility] | | | and [place] | + + + | Organization | [facility] | | | [...] Team Providers + +------+ + | Care Corporate Bond Trader Name | Role | Phone | + [...] + + | 03/03/ | Telephone | [facility] | Rad De La Cruz | Imaging Only | | 2017 | | GASTROENTEROLOGY | MD Felix [address] | | | | | [address] [place] | [address] [facility] | | | | | [address] [place], [place] | [place] [address] | | | | | [address] | [phone] | | | | | [phone] | | | +--------+ + + + [...]
--- OUTSIDE RECORDS SUMMARY | ~2019-09-22 | XMS | Encounter Summary ---
Demographics + + + | Address | [address] | | | [place] [address] | + + + | Home Phone | | + + + | Preferred Language | Unknown | + + + | Marital Status | | + + + | Mormonism Affiliation | Unknown | + + + [...] Team Providers + +------+ + | Care Overlock Sleeve Setter Name | Role | Phone | [...] + + | 04/13/ | Telephone | [facility] | Rad De La Cruz | Medication Prior | | 2017 | | GASTROENTEROLOGY | MD Felix [address] | Authorization | | | | [address] [place] | [address] [facility] | | | | | [address] | [place] [address] | | | | | [address] | [phone] | | | | | [phone] | | | +--------+ + + + [...]
--- OUTSIDE RECORDS SUMMARY | ~2019-09-22 | XMS | Encounter Summary ---
Demographics + + + | Address | [address] | | | [place] [address] | + + + | Home Phone | | + + + | Preferred Language | Unknown | + + + | Marital Status | | + + + | Methodist Affiliation | Unknown | + + + | Race | Unknown | + + + | Ethnic Group | or | + + + Author + + + | Author | [facility] | + + + | Organization | [facility] | + + + | Address | Unknown | + + + | Phone | Unavailable | + + + Support + + +---------+ + | Name | Relationship | Address | Phone | + + +---------+ + | Rosanne Multani | ECON | Unknown | | + + +---------+ + Care Team Providers + +------+ + | Care Commercial Makeup Artist Name | Role | Phone | + +------+ + | Nilesh Osorio MD | PCP | | + +------+ + Encounter Details +--------+ + + + + | Date | Type | Department | Care Team | Description | +--------+ + + + + | 04/27/ | Documentati | [facility] | Tarah [place], | | | 2019 | on | Center at [facility] [address] | [address] | | | | | [address] | Ave [facility] [place] | | | | | Mailcode: [facility] | [address] | | | | | [facility] | [phone] | | | | | and [place], | | | | | | | | | | | | [place], [place] | | | | | | [address] | | | | | | [phone] | | | +--------+ + + + [...]
--- OUTSIDE RECORDS SUMMARY | ~2019-09-22 | XMS | Encounter Summary ---
Demographics + + + | Address | [address] | | | [place] [address] | + + + | Home Phone [...] Team Providers + +------+ + | Care Plant Director Name | Role | Phone | [...] + + | 02/25/ | Hospital | [facility] | Gin Chandler | Bloating; | | 2018 | Encounter | MED CTR MP INTRA OP | MD Genna [address] | Gastroesophageal | | | | [address] | [address] [place] | reflux disease, | | | | [place], [place] | [place] [address] | esophagitis presence | | | | [address] | [phone] | not specified | | | | [phone] | | | +--------+ + + + [...] You can't be awakened Date Last Reviewed: 02/04/201619992863-0410 The [employer]. [address] [place] [address]. All righ ts reserved. This information is [...] 02/25/2018 | [facility] | | 9:49 AMMRN: [id number] #: [id number] of : | | | 1975Admit Type: AmbulatoryAge: 42Room: [facility] 02Gender: MaleNote | | | Status: [...] | | 10:13:55 AMScope Out: 10:21:58 AM [facility] | | | [place], [address] [place] [address] | | | - The FERRARI pH [...] |Scope Out: 10:21:58 AM | | | [facility], [address] [place], [place] | | | [address] | | + + -+ + +---------+ [...] metaplasia, negative for | | | dysplasia. JVR:[facility]:C2NR GROSS DESCRIPTION: A. The specimen [...] component was | | | performed by [facility] [facility] [address] | | | (Tower Helper: Trudi Hughes MD; CLIA# [id number]). Professional | | | interpretation was performed by [facility] | | | [address] | | | [address] (Tower Helper: Jakub Rivera M.D.). Diagnostician: | | | [...]
--- OUTSIDE RECORDS SUMMARY | ~2019-09-22 | XMS | Clinical Summary ---
Demographics + + + | Address | [address] | | | [place] [address] | + + + | Home Phone | | + + + | Preferred Language | Unknown | + + + | Marital Status | | + + + | Taoist Affiliation | Unknown | + + + | Race | Unknown | + + + | Ethnic Group | Unknown | + + + Author + + + | Author | [facility] | | | and [place] | + + + | Organization | [facility] | | | [...] Team Providers + +------+ + | Care Coffee Urn Attendant Name | Role | Phone | [...] | 04/2 | | Activ | | (PAIRSAYL) 20 MG | mouth 4 times daily [...] + +--------+ + + + | *TERMED* [place] UPPER GI | Routin | 09/20/2019 | [...] mucosa without diagnostic | | | abnormality. DN:[facility]:C3NR GROSS DESCRIPTION: Two specimens are | [...] LABORATORY: The technical component was performed by [facility] | | | [employer], [address] [place] [address] (Dock Boss: | | | Trudi Hughes MD; CLIA# [id number]). Professional interpretation was | | | performed by [employer], [facility] | | | [address] [address] (CLIA#: | | | [id number]). Diagnostician: Roland Morgan MD Pathologist | | [...] Performed At | + + ---+ | [facility] | [facility] | | [facility]Patient Name: Clifton Multani Procedure | [place] | | Date: 09/20/2019 9:45 AMMRN: [id number] Number: [id number] | | | of : 1975Note Status: [...] AMNumber of Addenda: 0 | | | [facility] | | |Recommendation: | | | [...] |Number of Addenda: 0 | | | [facility] | | + + ---+ + [...] [address] | [place] | [phone] | | [facility] | | [address] | | | - LABORATORY | | [...] +-------+--------+ +--------+-------+---------+------+ | BCBS | BCBS | [id number] | 04/19/19 | | | PPO | [...] | | al/Fam | | 1975 | [phone] | [place] | | | hu | | | [address] ([place]) | [address] | + +--------+ +--------+ + + Advance Directives + + + + + | Type | Date Recorded | Patient | Explanation | | | | Merchandising Internship | | + + + + + | Power of | | | | | Special Systems Technician | | | | + + + [...]
--- OUTSIDE RECORDS SUMMARY | ~2019-09-22 | XMS | Encounter Summary ---
Demographics + + + | Address | [address] | | | [place] [address] | + + + | Home Phone [...] Providers + +------+ + | Care Plant Physiology Teacher Name | Role | Phone | + +------+ + | Nilesh Osorio DO | PCP | | + +------+ + Reason for Visit + + + | Reason | Comments | + + + | Procedure | r/s JENNIFER/Gavin | + + + Encounter Details +--------+ + + + + | Date | Type | Department | Care Team | Description | +--------+ + + + + | 01/25/ | [facility] | [facility] | Rad De La Cruz | Procedure (r/s | | 2018 | | GASTROENTEROLOGY | MD Felix [address] | EGD/Gavin) | | | | [address] | [address] [place] | | | | | [address] [place], [place] | [place] [address] | | | | | [address] | [phone] | | | | | [phone] | | | +--------+ + + + [...]
--- OUTSIDE RECORDS SUMMARY | ~2019-09-22 | XMS | Encounter Summary ---
Demographics + + + | Address | [address] | | | [place] [address] | + + + | Home Phone | | + + + | Preferred Language | Unknown | + + + | Marital Status | | + + + | Jain Affiliation | Unknown | + + + | Race | Unknown | + + + | Ethnic Group | Unknown | + + + Author + + + | Author | [facility] | | | and [place] | + + + | Organization | [facility] | | | [...] Team Providers + +------+ + | Care School Cleaner Name | Role | Phone | [...] + + | 06/06/ | Telephone | [facility] [place] | Rad De La Cruz | Biopsy Results | | 2019 | | GASTROENTEROLOGY | MD Felix [address] | | | | | [address] | [address] [place] | | | | | [address] [place], [place] | [place] [address] | | | | | [address] | [phone] | | | | | [phone] | | | +--------+ + + + [...]
--- OUTSIDE RECORDS SUMMARY | ~2019-09-22 | XMS | Encounter Summary ---
Demographics + + + | Address | [address] | | | [place] [address] | + + + | Home Phone [...] | Phone | + +------+ + | Nliesh Osorio DO | PCP | | + [...] | | | Zhang | [address] | | | | | Palpitations | MD Julian | [place], | | | | | Procedures | [address] | [place] | | | | | ECHO | St [place] | [address] | | | | | Complete [place] | [place], [place] | Phone: | | | | | ECHO HEART | [address] | [phone] | | | | | [place] | Phone: | Fax: | | | | | [address] | [phone] | [phone] | | | | | DOPPLER [place] | Fax: | | | | | | ECHO HEART | [phone] | | | | | | [place] [...] | | | Zhang | [address] | | | | | Palpitations | MD Julian | [place], | | | | | Procedures | [address] | [place] | | | | | ECHO | St [place] | [address] | | | | | Complete [place] | [place] | Phone: | | | | | ECHO HEART | [address] | [phone] | | | | | [place] | Phone: | Fax: | | | | | [address] | [phone] | [phone] | | | | | DOPPLER [place] | Fax: | | | | | | ECHO HEART | [phone] | | | | | | [place] | | | | | | | MPLETE, W/O | | | | | | | DOPPLER | | | +--------+--------+ + + + + Encounter Details +--------+ + + + + | Date | Type | Department | Care Team | Description | +--------+ + + + + | 07/31/ | Hospital | [facility] | Zhang Mullen | Palpitations | | 2018 | Encounter | MED CTR ECHO [address] | MD Julian [address] | | | | | [address] [place] | [address] [place] | | | | | [place] [address] | [place] [address] | | | | | [phone] | | | | | | | | | | | | Liz Yeung, | | | | | | Story Analyst | | +--------+ + + + + [...] | | ALBERT Room Number Patient Number [id number] Date of Study | | | 11/16/2017 Visit Number [id number] Accession | | | [id number] Referring Physician SEBAS ORTIZ Number | | | Date of 1975 Grain Elevator Worker | | | SUZANNA DAWKINS Age 42 year(s) Interpreting | | | JULIAN MULLEN MD | | | Cat Dog Or Other Pet Groomer SEBAS ORTIZ Gender | | | Male Nurse | | | Stress Manager Print Procedure Type of Study TTE procedure: ECHO [...] 0.93 cm PW Diastolic: 0.93 cm EF Jixqypomt52% EF | | | Calculated: 60% Miscellaneous [...] Diastolic: 0.93 cm | | | EF Ysyrygrnj27% | | | EF Calculated: 60% | [...] Name RANGEL PRICE Room Number Patient Number [id number] | | Date of Study 11/16/2017 Visit Number [id number] Accession | | [id number] Referring Physician SEBAS ORTIZ Number Date of | | 1975 Grain Elevator Worker SUZANNA DAWKINS Age 42 year(s) | | Interpreting JULIAN MULLEN MD Cat Dog Or Other Pet Groomer | | SEBAS ORTIZ Gender Male Nurse [...] 0.93 cm PW Diastolic: 0.93 cm EF Fyxzmsfrs21% EF | | Calculated: 60% Miscellaneous Aorta [...] PW Diastolic: 0.93 cm | | EF Ppumgkxpr23% | | EF Calculated: 60% | | [...]
--- OUTSIDE RECORDS SUMMARY | ~2019-09-22 | XMS | Encounter Summary ---
Demographics + + + | Address | [address] | | | [place] [address] | + + + | Home Phone | | + + + | Preferred Language | Unknown | + + + | Marital Status | | + + + | Scientologist Affiliation | Unknown | + + + | Race | Unknown | + + + | Ethnic Group | or | + + + Author + + + | Author | [facility] | + + + | Organization | [facility] | + + + | Address | Unknown | + + + | Phone | Unavailable | + + + Support + + +---------+ + | Name | Relationship | Address | Phone | + + +---------+ + | Rosanne Multani | ECON | Unknown | | + + +---------+ + Care Team Providers + +------+ + | Care Glass Driller Name | Role | Phone | + +------+ + | Nilesh Osorio MD | PCP | | + +------+ + Encounter Details +--------+ + + + + | Date | Type | Department | Care Team | Description | +--------+ + + + + | 04/27/ | Documentati | [facility] | Tarah [place], | | | 2019 | on | Center at [facility] [address] | [address] | | | | | [address] | Ave [facility] [place] | | | | | Mailcode: [facility] | [address] | | | | | [facility] | [phone] | | | | | and [place], | | | | | | | | | | | | [place], [place] | | | | | | [address] | | | | | | [phone] | | | +--------+ + + + [...]
--- OUTSIDE RECORDS SUMMARY | ~2019-09-22 | XMS | Encounter Summary ---
Demographics + + + | Address | [address] | | | [place] [address] | + + + | Home Phone | | + + + | Preferred Language | Unknown | + + + | Marital Status | | + + + | Nondenominational Affiliation | Unknown | + + + | Race | Unknown | + + + | Ethnic Group | Unknown | + + + Author + + + | Author | [facility] | | | and [place] | + + + | Organization | [facility] | | [...] Team Providers + +------+ + | Care Delivery Supervisor Name | Role | Phone | [...] [place], | | | | | [place], [place] | [place] [address] | | | | | [address] | [phone] | | | | | [phone] | | | +--------+ + + + [...]
--- OUTSIDE RECORDS SUMMARY | ~2019-09-22 | XMS | Encounter Summary ---
Demographics + + + | Address | [address] | | | [place] [address] | + + + | Home Phone [...] Team Providers + +------+ + | Care Ring Rolling Machine Operator Name | Role | Phone [...] + + | 06/06/ | Telephone | [facility] [place] | Rad De La Cruz | Biopsy Results | | 2019 | | GASTROENTEROLOGY | MD Felix [address] | | | | | [address] | [address] [place] | | | | | [address] [place], [place] | [place] [address] | | | | | [address] | [phone] | | | | | [phone] | | | +--------+ + + + [...]
--- OUTSIDE RECORDS SUMMARY | ~2019-09-22 | XMS | Encounter Summary ---
Demographics + + + | Address | [address] | | | [place] [address] | + + + | Home Phone [...] + + | Author | [facility] | | | and [place] | + + + | Organization | [facility] | | | and [...] Providers + +------+ + | Care Car Body Inspector Name | Role | Phone | [...] | | | Procedures | | [place] [address] | | | | | OFFICE VISIT | | Phone: | | | | | REGULAR | | [phone] | | | | | | | Fax: | | | | | | | [phone] | +--------+--------+ + + + + Encounter Details +--------+---------+ + + + | Date | Type | Department | Care Team | Description | +--------+---------+ + + + | 05/10/ | Office | [facility] [place] | Keo Munoz MD | Hypertrophy of nasal | | 2015 | Visit | OTOLARYNGOLOGY [address] | [address] [place] | turbinates (Primary | | | | [address] | [address] [place], | Dx); Chronic | | | | [place], [place] | [place] [address] | frontal sinusitis | | | | [address] | [phone] | | | | | [phone] | | | +--------+---------+ + + + [...] MD - 05/10/2014 4:[address] [facility] OTOLARYNGOLOGY [address] [place] [address] 867862 OFFICE NOTE KEO MUNOZ MD Patient: ALBERT MULTANI Admitting: MR #: [id number] LOC: PT TYPE: Adm Date: 05/10/2014 : [...] Transcribed on 05/10/2014 17:00:10 by ms job# [id number] Confirmation #: [id number] signed by Keo Munoz MD at 05/11/2014 8:16 AM Keo Ahumada MD - 05/10/2014 4:04 PM [place] dictation # [id number] signed by Keo Munoz MD at 05/10/2014 4:07 PM PSTdocumented in th is encounter Plan of Treatment Not on filedocumented as of this encounter Visit Diagnoses + + | Diagnosis | + + | Hypertrophy of nasal turbinates - Primary | + + | Chronic frontal sinusitis | + + documented in this encounter
--- OUTSIDE RECORDS SUMMARY | ~2019-09-22 | XMS | Encounter Summary ---
Demographics + + + | Address | [address] | | | [place] [address] | + + + | Home Phone | | + + + | Preferred Language | Unknown | + + + | Marital Status | | + + + | Congregation Affiliation | Unknown | + + + | Race | Unknown | + + + | Ethnic Group | Unknown | + + + Author + + + | Author | [facility] | | | and [place] | + + + | Organization | [facility] | | [...] Team Providers + +------+ + | Care Clay Molder Name | Role | Phone | + [...] + + | 06/20/ | Refill | [facility] | Luke Pitts, | Medication Refill | | 2019 | | and Pancreas GI | [address], | | | | | [facility] [address] | [place] [address] [place] | | | | | [facility] [address] | [place] [address] | | | | | [place] | [phone] | | | | | [address] | | | | | | [phone] | | | +--------+--------+ + + + [...]
--- OUTSIDE RECORDS SUMMARY | ~2019-09-22 | XMS | Encounter Summary ---
Demographics + + + | Address | [address] | | | [place] [address] | + + + | Home Phone | | + + + | Preferred Language | Unknown | + + + | Marital Status | | + + + | Mormon Affiliation | Unknown | + + + | Race | Unknown | + + + | Ethnic Group | Unknown | + + + Author + + + | Author | [facility] | | | and [place] | + + + | Organization | [facility] | | [...] Team Providers + +------+ + | Care Card Maker Name | Role | Phone | + [...] + + | 05/03/ | Telephone | [facility] | Zhang Smith | Other (new symptoms) | | 2018 | | CARDIOLOGY [address] | MD Julian [address] | | | | | [place], | [address] [place] | | | | | [place] [address] | [place] [address] | | | | | [phone] | [phone] | | | | | | | [...]
--- OUTSIDE RECORDS SUMMARY | ~2019-09-22 | XMS | Encounter Summary ---
Demographics + + + | Address | [address] | | | [place] [address] | + + + | Home Phone [...] Team Providers + +------+ + | Care Laser Beam Color Scanner Operator Name | Role | Phone | + +------+ + | Izzy nSowden | PCP | | + +------+ + Encounter Details +--------+ + + + + | Date | Type | Department | Care Team | Description | +--------+ + + + + | 05/30/ | Hospital | [facility] | Zhang Smith | No Show | | 2019 | Encounter | MED CTR NUCLEAR | MD Julian [address] | | | | | MEDICINE [address] [place] | | | | | [place], | [place] [address] | | | | | [place] [address] | [phone] | | | | | [phone] | | | | | | | Test Pilot, [facility] | | +--------+ + + + [...]
--- OUTSIDE RECORDS SUMMARY | ~2019-09-22 | XMS | Encounter Summary ---
Demographics + + + | Address | [address] | | | [place] [address] | + + + | Home Phone | | + + + | Preferred Language | Unknown | + + + | Marital Status | | + + + | Oriental Orthodox Affiliation | Unknown | + + + | Race | Unknown | + + + | Ethnic Group | Unknown | + + + Author + + + | Author | [facility] | | | and [place] | + + + | Organization | [facility] | | | [...] Providers + +------+ + | Care Air Crew Officer Name | Role | Phone | + [...] | | | Procedures | | [place] [address] | | | | | OFFICE VISIT | | Phone: | | | | | REGULAR | | [phone] | | | | | | | Fax: | | | | | | | [phone] | +--------+--------+ + + + + Encounter Details +--------+---------+ + + + | Date | Type | Department | Care Team | Description | +--------+---------+ + + + | 04/26/ | Office | [facility] | Keo Munoz MD | Chronic frontal | | 2014 | Visit | OTOLARYNGOLOGY [address] | [address] [place] | sinusitis (Primary | | | | [address] [place] | [address] [place], | Dx); Hypertrophy of | | | | [place], [place] | [place] [address] | nasal turbinates | | | | [address] | [phone] | | | | | [phone] | | | +--------+---------+ + + + [...] MD - 04/26/2014 4:36 PM PST [facility] OTOLARYNGOLOGY [address] [facility] [id number] OFFICE NOTE KEO MUNOZ MD Patient: ALBERT MULTANI Admitting: MR #: [id number] LOC: PT TYPE: Adm Date: 04/26/2014 : [...] 16:36:38 Transcribed on 04/26/2014 22:17:54 by job# [id number] Confirmation #: [id number] signed by Keo Munoz MD at 04/27/2014 8:19 AM Keo Ahumada MD - 04/26/2014 4:34 PM PSTSee dictation # [id number] signed by Keo Munoz MD at 04/26/2014 4:37 PM PSTdocumented in th is encounter Plan of Treatment Not on filedocumented as of this encounter Visit Diagnoses + + | Diagnosis | + + | Chronic frontal sinusitis - Primary | + + | Hypertrophy of nasal turbinates | + + documented in this encounter
--- OUTSIDE RECORDS SUMMARY | ~2019-09-22 | XMS | Encounter Summary ---
Demographics + + + | Address | [address] | | | [place] [address] | + + + | Home Phone [...] Team Providers + +------+ + | Care Cryptanalyst Name | Role | Phone | + +------+ + | Nilesh Osorio DO | PCP | | + +------+ + Encounter Details +--------+---------+ + + + | Date | Type | Department | Care Team | Description | +--------+---------+ + + + | 03/31/ | Office | [facility] [place] | [address]Rd De La Cruz | Gastroesophageal | | 2018 | Visit | GASTROENTEROLOGY | MD Felix [address] | reflux disease | | | | [address] [place] | [address] [place] | without esophagitis | | | | [address] [place], [place] | [place] [address] | (Primary Dx); | | | | [address] | [phone] | De La Cruz's esophagus | | | | [phone] | | without dysplasia; | | | [...] Can try Iberogast and esophageal guarding (on [employer]), would do one thing at a time 3. EGD in 3 year 4. Call in a month to let us know how you are doing 5. Limit the dae dinerotzer documented in this encounter Progress Notes Dorothy, Rad [place] MD - 03/31/2018 1:30 PM PST Gastroenterology [...] Rad De La Cruz MD; Locat ion: [facility] MEDICAL PROCEDURE UNIT INGUINAL HERNIA REPAIR Right 02/2008 NASAL SEPTUM SURGERY 03/20/2014 BILATERAL Inferior Turbinoplasty; LEFT Frontal Sinusotomy; Laterality: Bilateral; Surgeo n: Keo Wheatley MD; Location: [facility] MAIN OR SINUS ENDOSCOPY 03/20/2014 Laterality: Left; Surgeon: Keo Wheatley MD; Location: [facility] MAIN OR SINUS SURGERY 2008 [...] provider defined for this encounter. Nilesh Osorio, [id number] [place] [address] Portions of this chart may have been created with [employer] voice recognition software. Occasi onal wrong-word or [...]
--- OUTSIDE RECORDS SUMMARY | ~2019-09-22 | XMS | Encounter Summary ---
Demographics + + + | Address | [address] | | | [place] [address] | + + + | Home Phone [...] Team Providers + +------+ + | Care Construction Safety Consultant Name | Role | Phone | [...] | | | | | | [place] | | | | | | [...] | | | | | | PLE AL GERD | | | | | | [...] + + | 02/25/ | Surgery | [facility] | Gin Chandler | ENDOSCOPIC 48 HOUR | | 2018 | | MED CTR MP INTRA OP | MD Genna [address] | PH FERRARI "CAPSULE" | | | | [address] | [address] [facility] | | | | | [place], [place] | [facility] [place] [address] | | | | | [address] | [phone] | | | | | [phone] | | | +--------+---------+ + + + [...] You can't be awakened Date Last Reviewed: 02/04/201619990897-7099 [employer]. [address] [place] [address]. All righ ts reserved. This information is [...] 02/25/2018 | [facility] | | 9:49 AMMRN: [id number] #: [id number] of : | | | 1975Admit Type: AmbulatoryAge: 42Room: [facility] 02Gender: MaleNote | | | Status: FinalizedAttending MD: GIN CHANDLER [facility] | | Upper GI endoscopyIndications: [...] | | 10:13:55 AMScope Out: 10:21:58 AM [facility] | | | [place], [address] [place] [address] | | | - The FERRARI pH [...] |Scope Out: 10:21:58 AM | | | [facility], [facility] [address] [place], [place] | | | [address] | | + + -+ + +---------+ + + | Performing | Address | City/State/[facility] Mexicocode | Phone Number | | Organization | [...] metaplasia, negative for | | | dysplasia. JVR:[facility]:C2NR GROSS DESCRIPTION: A. The specimen | [...] component was | | | performed by [facility], [address] [place] [address] | | | (Fur Dressing Supervisor: Trudi Hughes MD; IA# [id number]). Professional | | | interpretation was performed by [facility] | | | [address] | | | [address] (Fur Dressing Supervisor: Jakub Rivera M.D.). Diagnostician: | | | [...]
--- OUTSIDE RECORDS SUMMARY | ~2019-09-22 | XMS | Encounter Summary ---
Demographics + + + | Address | [address] | | | [place] [address] | + + + | Home Phone | | + + + | Preferred Language | Unknown | + + + | Marital Status | | + + + | Hoahaoism Affiliation | Unknown | + + + | Race | Unknown | + + + | Ethnic Group | Unknown | + + + Author + + + | Author | [facility] | | | and [place] | + + + | Organization | [facility] | | [...] Team Providers + +------+ + | Care Aircraft General Repair Mechanic Name | Role | Phone | + [...] + + | 05/26/ | Telephone | [facility] | Rad De La Cruz | Procedure (adjusted | | 2019 | | GASTROENTEROLOGY | MD Felix [address] | check in time) | | | | [address] [facility] | [facility] | | | | | [address] [place] [place] | [place] [address] | | | | | [address] | [phone] | | | | | [phone] | | | +--------+ + + + [...]
--- OUTSIDE RECORDS SUMMARY | ~2019-09-22 | XMS | Encounter Summary ---
Demographics + + + | Address | [address] | | | [place] [address] | + + + | Home Phone [...] Team Providers + +------+ + | Care Special Educator Name | Role | Phone | + [...] | | | | | | | [place] | | | | | | | EXCISION | | | | | | | TURBINATE | | | | | | | [place] NASAL | | | | | | [...] + + | 03/20/ | Hospital | [facility] | Keo Wheatley MD | Chronic frontal | | 2014 | Encounter | MED CTR OR INTRA OP | [address] [place] | sinusitis (Primary | | | | [address] | [address] [place], | Dx); Hypertrophy of | | | | [place], [place] | [place] [address] | nasal turbinates | | | | [address] | [phone] | | | | | [phone] | | | +--------+ + + + [...] nose should also form a triangle. [place] [id number]. All rights reserve d. This information is [...] further understand how the nose works. [facility], [address] [place], [place] [address]. All rights reserve d. This information is [...] | | | (St. | | | [place] | | | y's) | +---+--------+ + [...] | | | (St. | | | [place] | | | y's) | +---+--------+ documented [...] | | | | | | use [place] 10/325 if ordered. If | | | [...]
--- OUTSIDE RECORDS SUMMARY | ~2019-09-22 | XMS | Encounter Summary ---
Demographics + + + | Address | [address] | | | [place] [address] | + + + | Home Phone [...] Team Providers + +------+ + | Care Open Hearth Melter Name | Role | Phone | + [...] | 09/15/ | Clinical | [facility] | Sean, | De La Cruz's esophagus | | 2020 | Support | CARE [address] | Wiliam [place] MD | without dysplasia | | | | [place] | [address] | | | | | [address] | [place] | | | | | [phone] | [address] | | | | | | | [...] in this encounter Progress Notes Ann Gong, Audio/Visual Manager - 09/16/2019 11:30 AM PDTPRE-PROCEDURE COVID TEST [...] testing requested by authorized JUAN MANUEL personnel, [facility] Infection Prevention Nurse or Caregiver Health [] [...] + + | Performed at: 01 - [facility] [address], [place], [place] | REFERENCE LAB | | [phone] Territory Sales Executive: Tahir Garcia MD, Phone: [phone] | [facility] | + + + + + + + + | Performing | Address | City/State/Zipcode | Phone Number | | Organization | | | | + + + + + | REFERENCE LAB | [address] | [place], [place] | [phone] | | [facility] | [facility] | [address] | | + + + + + documented in this encounter Visit Diagnoses + + | Diagnosis | + + | 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
--- OUTSIDE RECORDS SUMMARY | ~2019-09-22 | XMS | Clinical Summary ---
Demographics + + + | Address | [address] | | | [place] [address] | + + + | Home Phone [...] Phone | + + +---------+ + | Rsoanne Multani | ECON | Unknown | | + + +---------+ + Care Team Providers + +------+ + | Care Toter Name | Role | Phone | + +------+ + | Nilesh Osorio MD | PCP | | + +------+ + Source Comments JOSÉ MIGUEL is fully live on both [facility] Ambulatory and [facility] InPatient.Formerly [facility] & [facility] Allergies No Known Allergies Medications + + [...] | + +--------+ +--------+ + +------+ | [facility] | PROVID | xxxxxxxxxxx | 04/19/19 | [phone] | [address] | PPO | | | ENCE | | 18-Pre | 0 | [address] | | | | HEALTH | | sent | | [place], | | | | | | | | [place] [address] | | + +--------+ +--------+ + +------+ [...] | 1975 | [phone] | [place] [address] | | | hu | | | 8 (Home) | | + +--------+ +--------+ + +"
--- OUTSIDE RECORDS SUMMARY | ~2019-09-22 | XMS | Encounter Summary ---
Demographics + + + | Address | [address] | | | [place] [address] | + + + | Home Phone [...] Team Providers + +------+ + | Care Truck Terminal Manager Name | Role | Phone | [...] | | LUQ pain | Rad | [facility] | | | | | Gastroesopha | MD Felix | [address] | | | | | geal reflux | [address] | [place] | | | | | disease, | [place] | [place] | | | | | esophagitis | [place] | [address] | | | | | presence not | [address] | Phone: | | | | | specified | Phone: | [phone] | | | | | Bloating | [phone] | Fax: | | | | | Procedures | Fax: | [phone] | | | | | NM Gastric | [phone] | | | | | | Emptying [...] + | 01/05/ | Telephone | [facility] [place] | Rad De La Cruz | Other (GERD Samples | | 2017 | | GASTROENTEROLOGY | MD Felix [address] | ) | | | | [address] [place] | [address] [place] | | | | | [address] [place], [place] | [place] [address] | | | | | [address] | [phone] | | | | | [phone] | | | +--------+ + + + [...]
--- OUTSIDE RECORDS SUMMARY | ~2019-09-22 | XMS | Encounter Summary ---
Demographics + + + | Address | [address] | | | [place] [address] | + + + | Home Phone | | + + + | Preferred Language | Unknown | + + + | Marital Status | | + + + | Latter-Day Affiliation | Unknown | + + + | Race | Unknown | + + + | Ethnic Group | Unknown | + + + Author + + + | Author | [facility] | | | and [place] | + + + | Organization | [facility] | | | [...] Providers + +------+ + | Care Supervisor Enrobing Name | Role | Phone | + +------+ + | Izzy Snowden | PCP | | + +------+ + Reason for Visit + + + | Reason | Comments | + + + | Procedure | EGD/ IVCS | + + + Encounter Details +--------+ + + + + | Date | Type | Department | Care Team | Description | +--------+ + + + + | 09/12/ | Telephone | [facility] [place] | Rad De La Cruz | Procedure (EGD/ | | 2019 | | GASTROENTEROLOGY | MD Felix [address] | IVCS) | | | | [address] [place] | [address] [place] | | | | | [address] [place], [place] | [place] [address] | | | | | [address] | [phone] | | | | | [phone] | | | +--------+ + + + [...] Not on filedocumented as of this encounter Results Coronavirus (COVID-19) NAAT (09/16/2019 [...] + + | Performed at: 01 - [facility] [place] [address] [place], [place] | REFERENCE LAB | | [phone] Melting Operator: Tahir Garcia MD, Phone: [phone] | [facility] | + + + + + + + + | Performing | Address | City/State/Zipcode | Phone Number | | Organization | | | | + + + + + | REFERENCE LAB | [address] | [place], [place] | [phone] | | [facility] | [place] | [address] | | + + + + + documented in this encounter Visit Diagnoses + + | Diagnosis | + + | 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
--- OUTSIDE RECORDS SUMMARY | ~2019-09-22 | XMS | Encounter Summary ---
Demographics + + + | Address | [address] | | | [place] [address] | + + + | Home Phone [...] Providers + +------+ + | Care Glass Cylinder Flanger Name | Role | Phone | + +------+ + | Nilesh Osorio DO | PCP | | + +------+ + Encounter Details +--------+ + + + + | Date | Type | Department | Care Team | Description | +--------+ + + + + | 05/09/ | Episode | [facility] [place] | Miguelina Ramirez, | | | 2018 | Changes | GASTROENTEROLOGY | RN | | | | | [address] [place] | | | | | | [address] [place], [place] | | | | | | [address] | | | | | | [phone] | | | +--------+ + + + [...]
--- OUTSIDE RECORDS SUMMARY | ~2019-09-22 | XMS | Encounter Summary ---
Demographics + + + | Address | [address] | | | [place] [address] | + + + | Home Phone [...] Team Providers + +------+ + | Care Materials Inspector Name | Role | Phone | [...] | | | Procedures | | [place] [address] | | | | | [place] | | Phone: | | | | | ESOPHAGOGAST | | [phone] | | | | | RODUODENOSCO | | Fax: | | | | | PY TRANSORAL | | [phone] | | | | | DIAGNOSTIC | | | | | | | [place] EGD | | | | | | [...] Description | +--------+---------+ + + + | 09/19/ | Surgery | [facility] | Rad [place] | EGD | | 2020 | | MED CTR MP INTRA OP | MD Felix [address] | | | | | [address] | [address] [place] | | | | | [place], [place] | [place] [address] | | | | | [address] | [phone] | | | | | [phone] | | | +--------+---------+ + + + [...] You can't be awakened Fever New rash Parvin last reviewed this educational content on 02/04/201619990443-5491 [employer]. [address] [place], [place] [address]. All righ ts reserved. This information is [...] tablet by | 60 | 1 | 02/19/20 | | | (ZOFRAN ODT) 4 mg [...] | | 0 | | | | (YUE) 0.65 % nasal | route as needed [...] + +--------+ + + + | *TERMED* [place] UPPER GI | Routin | 09/20/2019 | [...] mucosa without diagnostic | | | abnormality. DN:[facility]:C3NR GROSS DESCRIPTION: Two specimens are [...] LABORATORY: The technical component was performed by [employer] | | | [facility] [employer] [facility] [address] (Ratings Analyst: | | | Trudi Hughes MD; CLIA# [id number]). Professional interpretation was | | | performed by [facility], [facility] | | | [address] [address] (CLIA#: | | | [id number]). Diagnostician: Roland Morgan MD Pathologist | | | Electronically Signed 09/21/2019 | | + + + + +---------+ + + | Performing | Address | City/State/[facility] | Phone Number | | Organization | | | | + +---------+ + + | [place] [facility] | | | | | [facility] | | | | + +---------+ + + EGD (09/20/2019 9:45 AM PDT) + + | Specimen | + + | | + + + + ---+ | Narrative | Performed At | + + ---+ | [facility] | [facility] | | Medical CenterGastroenterologyPatient Name: Clifton Multani Procedure | [facility]ATION | | Date: 09/20/2019 9:45 AMMRN: [id number] Number: [id number] | | | of : 1975Note Status: [...] AMNumber of Addenda: 0 | | | [facility] | | |Recommendation: | | | - [...] |Number of Addenda: 0 | | | [facility] | | + + ---+ + [...] ST. 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
--- OUTSIDE RECORDS SUMMARY | ~2019-09-22 | XMS | Encounter Summary ---
Demographics + + + | Address | [address] | | | [place] [address] | + + + | Home Phone | | + + + | Preferred Language | Unknown | + + + | Marital Status | | + + + | Islam Affiliation | Unknown | + + + [...] Team Providers + +------+ + | Care Ceramics Instructor Name | Role | Phone | [...] [place] | | | | | | [address] | | | | | | [phone] | | | +--------+ + + + [...]
--- OUTSIDE RECORDS SUMMARY | ~2019-09-22 | XMS | Encounter Summary ---
Demographics + + + | Address | [address] | | | [place] [address] | + + + | Home Phone [...] Team Providers + +------+ + | Care Dynamics Ax Developer Name | Role | Phone | [...] | | | | [address] [facility] [facility] | [place]ay [place]. | | | | | [address] | [place] [address] | | | | | [address] | | | | | | [phone] | | | +--------+ + + + [...]
--- OUTSIDE RECORDS SUMMARY | ~2019-09-22 | XMS | Encounter Summary ---
Demographics + + + | Address | [address] | | | [place] [address] | + + + | Home Phone [...] Team Providers + +------+ + | Care Paleology Teacher Name | Role | Phone | [...] | | esophagitis | [place] | [address] | | | | | presence not | [address] | Phone: | | | | | specified | Phone: | [phone] | | | | | Bloating | [phone] | Fax: | | | | | Procedures | Fax: | [phone] | | | | | NM Gastric | [phone] | | | | | | Emptying [...] [place] | | | | | [address] [place], [place] | [place] [address] | | | | | [address] | [phone] | | | | | [phone] | | | +--------+ + + + [...]
--- OUTSIDE RECORDS SUMMARY | ~2019-09-22 | XMS | Encounter Summary ---
Demographics + + + | Address | [address] | | | [place] [address] | + + + | Home Phone | | + + + | Preferred Language | Unknown | + + + | Marital Status | | + + + | Sikhism Affiliation | Unknown | + + + [...] Team Providers + +------+ + | Care Paradichlorobenzene Machine Operator Name | Role | Phone [...] presence | | | | [address] [place], [place] | [place] [address] | not specified | | | | [address] | [phone] | (Primary Dx); | | | | [phone] | | Bloating; LUQ | | | [...] Cruz; pt given samples (2 samples boxes [id number] 2020 and [id number] 2019 10 day supply total) of 60 mg Dexilant 1 capsule daily #10 for GERD; if patient feels r elief from this medication can cancel procedure; if no relief keep procedure and order GES a nd Esphogram as well to be performed at [facility]; pt advised and verbalized understanding; he wi [...]
--- OUTSIDE RECORDS SUMMARY | ~2019-09-22 | XMS | Encounter Summary ---
Demographics + + + | Address | [address] | | | [place] [address] | + + + | Home Phone [...] Team Providers + +------+ + | Care Motorbike Courier Name | Role | Phone | + +------+ + | Izzy Snowden | PCP | | + +------+ + Reason for Visit +---------+ + | Reason | Comments | +---------+ + | Testing | COVID | +---------+ + Encounter Details +--------+ + + + + | Date | Type | Department | Care Team | Description | +--------+ + + + + | 09/12/ | Telephone | [facility] | Rad De La Cruz | Testing (COVID) | | 2019 | | GASTROENTEROLOGY | MD Felix [address] | | | | | [address] [place] | [address] [facility] | | | | | [address] [place], [place] | [place] [address] | | | | | [address] | [phone] | | | | | [phone] | | | +--------+ + + + [...]
--- OUTSIDE RECORDS SUMMARY | ~2019-09-22 | XMS | Encounter Summary ---
Demographics + + + | Address | [address] | | | [place] [address] | + + + | Home Phone | | + + + | Preferred Language | Unknown | + + + | Marital Status | | + + + | Confucianism Affiliation | Unknown | + + + | Race | Unknown | + + + | Ethnic Group | Unknown | + + + Author + + + | Author | [facility] | | | and [place] | + + + | Organization | [facility] | | | [...] Team Providers + +------+ + | Care Principal Architectural Firm Name | Role | Phone | + [...] + + | 03/28/ | Telephone | [facility] | Keo Wheatley MD | Post-op Problem | | 2013 | | OTOLARYNGOLOGY [address] | [address] [place] | | | | | [address] | [address], | | | | | [place] | [place] [address] | | | | | [address] | [phone] | | | | | [phone] | | | +--------+ + + + [...]
--- OUTSIDE RECORDS SUMMARY | ~2019-09-22 | XMS | Encounter Summary ---
Demographics + + + | Address | [address] | | | [place] [address] | + + + | Home Phone | | + + + | Preferred Language | Unknown | + + + | Marital Status | | + + + | Amish Affiliation | Unknown | + + + | Race | Unknown | + + + | Ethnic Group | Unknown | + + + Author + + + | Author | [facility] | | | and [place] | + + + | Organization | [facility] | | [...] Team Providers + +------+ + | Care Potato Chip Fryer Name | Role | Phone | + [...] [address] | | | | [place], | [address] [place] | | | | | [place] [address] | [place] [address] | | | | | [phone] | [phone] | | | | | | | [...]
--- OUTSIDE RECORDS SUMMARY | ~2019-09-22 | XMS | Encounter Summary ---
Demographics + + + | Address | [address] | | | [place] [address] | + + + | Home Phone [...] Team Providers + +------+ + | Care Motor Scooter Mechanic Name | Role | Phone | [...] | | | | | | | DE | | | | | | | COLONOSCOPY | | | | | | | FLX DX | | | | | | | W/COLLJ SPEC | | | | | | | WHEN PFRMD | | | | | | | DE | | | | | | | COLONOSCOPY | | | | | | | W/BIOPSY | | | | | | | SINGLE/MULTI | | | | | | | PLE DE | | | | | | | [...] | +--------+ + + + + | 05/27/ | Hospital | [facility] | Rad Chandler | Abdominal pain, | | 2019 | Encounter | MED CTR MP INTRA OP | MD Genna [address] | unspecified | | | | [address] | [address] [place] | abdominal location; | | | | [place], [place] | [place] [address] | Diarrhea, | | | | [address] | [phone] | unspecified type; | | | | [phone] | | Polyp of colon, | | | | | | unspecified part of | | | | | | colon, unspecified | | | | | | type [...] You can't be awakened Date Last Reviewed: 02/04/201619991717-4735 [employer]. [address] [place] [address]. All righ ts reserved. This information is [...] needed for | 2 | 0 | 01/21/20 | | | (ZOFRAN) 4 mg tablet [...] | | GastroenterologyPatient Name: Clifton MultaniProcedure Date: 05/27/2018 | PROVATIO N | | 9:29 AMMRN: [id number] #: [id number] of : | | | 1975Admit Type: AmbulatoryAge: 43Room: [facility] 02Gender: MaleNote | | | Status: FinalizedAttending MD: RAD CHANDLER , MDProcedure: | | | ColonoscopyIndications: Generalized abdominal pain, [...] evaluated | | | using the BBPS (Meriden Bowel Preparation Scale) with scores of: | [...] AMScope | | | Out: 10:21:23 AM [facility], [address] | | | [place] [address] | | | colon for evaluation of [...] |Scope Out: 10:21:23 AM | | | [facility], [address] [place], [place] | | | [address] | | + +--------- -----+ + +---------+ [...] diagnosis. As part | | | of [employer]' Quality Improvement Program, this case was | [...] a single cassette | | | (F1). js:AMB:lap ADDITIONAL NOTES: Immunohistochemical and/or in | | | situ hybridization studies were performed on this case with the | | | appropriate positive controls that react as expected. This test was | | | developed and its performance characteristics determined by [facility] | | | [employer]. It has not been cleared or approved by the U.S. Food | | | and Drug Administration. The FDA has determined that such clearance | | | or approval is not necessary. This test is used for clinical | | | purposes. It should not be regarded as investigational or for | | | research. [facility] is certified under the Clinical | | | Laboratory Improvement Amendments of 1988 (CLIA) as qualified to | | | perform high complexity clinical laboratory testing. PERFORMING | | | LABORATORY: The technical component was performed by [facility] | | [facility], [address] [place] [address] (Vrt Mechanic: | | | Trudi Hughes MD; CLIA# [id number]). Professional interpretation was | | | performed by [facility], [facility], [facility] | | | [facility] [place], [place] [address] (Vrt Mechanic: Johnathan Silva | | Gwen Loving MD; CLIA# [id number]). Diagnostician: Johnathan Hidalgo MD Pathologist Electronically Signed 05/31/2018 | | + [...] Diagnosis | + + | Abdominal pain, unspecified abdominal location | + + | Diarrhea, unspecified type | + + | Polyp of colon, unspecified part of colon, unspecified type | + + documented in this [...] | injection PRN, Starting Fri | | 19 10:03 | | | [...] | injection PRN, Starting Fri | | 19 9:43 | | [...]
--- OUTSIDE RECORDS SUMMARY | ~2019-09-22 | XMS | Encounter Summary ---
Demographics + + + | Address | [address] | | | [place] [address] | + + + | Home Phone | | + + + | Preferred Language | Unknown | + + + | Marital Status | | + + + | Oriental Orthodox Affiliation | Unknown | + + + | Race | Unknown | + + + | Ethnic Group | Unknown | + + + Author + + + | Author | [facility] | | | and [place] | + + + | Organization | [facility] | | | [...] Team Providers + +------+ + | Care Railroad Conductor Name | Role | Phone | + +------+ + | Nilesh Osorio DO | PCP | | + +------+ + Encounter Details +--------+---------+ + + + | Date | Type | Department | Care Team | Description | +--------+---------+ + + + | 03/31/ | Office | [facility] [place] | Rad De La Cruz | Gastroesophageal | | 2018 | Visit | GASTROENTEROLOGY | MD Felix [address] | reflux disease | | | | [address] | [address] [place] | without esophagitis | | | | [address] [place], [place] | [place] [address] | (Primary Dx); | | | | [address] | [phone] | De La Cruz's esophagus | | | | [phone] | | without dysplasia; | | | [...] Can try Iberog[employer] and esophageal guarding (on uMentioned), would do one thing at a time [...] Dexalone prescription but that was denied by wi s insurance. His only on nothing for [...] Rad De La Cruz MD; Locat ion: [facility] MEDICAL PROCEDURE UNIT INGUINAL HERNIA REPAIR Right 02/2008 NASAL SEPTUM SURGERY 03/20/2014 BILATERAL Inferior Turbinoplasty; LEFT Frontal Sinusotomy; Laterality: Bilateral; Surgeo n: Keo Wheatley MD; Location: [facility] MAIN OR SINUS ENDOSCOPY 03/20/2014 Laterality: Left; Surgeon: Keo Wheatley MD; Location: [facility] MAIN OR SINUS SURGERY 2008 SINUS SURGERY [...] provider defined for this encounter. Nilesh Osorio, [id number] [place] [address] Portions of this chart may have been created with [employer] voice recognition software. Occasi onal wrong-word or [...]
--- OUTSIDE RECORDS SUMMARY | ~2019-09-22 | XMS | Encounter Summary ---
Demographics + + + | Address | [address] | | | [place] [address] | + + + | Home Phone | | + + + | Preferred Language | Unknown | + + + | Marital Status | | + + + | Jainism Affiliation | Unknown | + + + [...] Team Providers + +------+ + | Care Long Chain Dyeing Machine Operator Name | Role | Phone [...] | | | Procedures | | [place] [address] | | | | | [place] | | Phone: | | | | | ESOPHAGOGAST | | [phone] | | | | | RODUODENOSCO | | Fax: | | | | | PY TRANSORAL | | [phone] | | | | | DIAGNOSTIC | [...] | | | | | [address] | [address] [place] | | | | | [place], [place] | [place] [address] | | | | | [address] | [phone] | | | | | [phone] | | | +--------+---------+ + + + [...] Parvin last reviewed this educational content on 02/04/201619990724-4453 [employer]. [address] [place], [place] [address]. All righ ts reserved. This information is [...] + +--------+ + + + | *TERMED* [place] UPPER GI | Routin | 09/20/2019 | [...] mucosa without diagnostic | | | abnormality. DN:[facility]:C3NR GROSS DESCRIPTION: Two specimens [...] LABORATORY: The technical component was performed by [employer] | | | [employer] [address] (Hydraulic Controls Technician: | | | Trudi Hughes MD; CLIA# [id number]). Professional interpretation was | | | performed by [employer], [facility] | | | [address] [address] (CLIA#: | | | [id number]). Diagnostician: Roland Morgan MD Pathologist | | | Electronically Signed 09/21/2019 | | + + + + +---------+ + + | Performing | Address | City/State/[facility] Centercode | Phone Number | | [...] | + + ---+ | [facility] | [facility] | | Medical CenterGastroenterologyPatient Name: Clifton Multani Procedure | [place]OVATION | | Date: 09/20/2019 9:45 AMMRN: [id number] Number: [id number] | | | of : 1975Note Status: [...] AMNumber of Addenda: 0 | | | [facility] | | |Recommendation: | | | [...] |Number of Addenda: 0 | | | [facility] | | + + ---+ + +---------+ [...] [address] | [place] | [phone] | | [facility] | | [address] | | | - LABORATORY | | [...]
--- OUTSIDE RECORDS SUMMARY | ~2019-09-22 | XMS | Encounter Summary ---
Demographics + + + | Address | [address] | | | [place] [address] | + + + | Home Phone [...] Team Providers + +------+ + | Care Print Producer Name | Role | Phone | + [...] | | | Procedures | | [place] [address] | | | | | OFFICE VISIT | | Phone: | | | | | REGULAR | | [phone] | | | | | | | Fax: | | | | | | | [phone] | +--------+--------+ + + + + Encounter Details +--------+---------+ + + + | Date | Type | Department | Care Team | Description | +--------+---------+ + + + | 04/26/ | Office | [facility] | Keo Munoz MD | Chronic frontal | | 2014 | Visit | OTOLARYNGOLOGY [address] | [address] [place] | sinusitis (Primary | | | | [address] | [address] [place], | Dx); Hypertrophy of | | | | [place], [place] | [place] [address] | nasal turbinates | | | | [address] | [phone] | | | | | [phone] | | | +--------+---------+ + + + [...] - 04/26/2014 4:36 PM PST [facility] OTOLARYNGOLOGY [address] [facility] [id number] OFFICE NOTE KEO MUNOZ MD Patient: ALBERT MULTANI Admitting: MR #: [id number] LOC: PT TYPE: Adm Date: 04/26/2014 : [...] 16:36:38 Transcribed on 04/26/2014 22:17:54 by job# [id number] Confirmation #: [id number] signed by Keo Munoz MD at 04/27/2014 8:19 AM Keo Ahumada MD - 04/26/2014 4:34 PM PSTSee dictation # [id number] signed by Keo Munoz MD at 04/26/2014 4:37 PM PSTdocumented in th is encounter Plan of Treatment Not on filedocumented as of this encounter Visit Diagnoses + + | Diagnosis | + + | Chronic frontal sinusitis - Primary | + + | Hypertrophy of nasal turbinates | + + documented in this encounter
--- OUTSIDE RECORDS SUMMARY | ~2019-09-22 | XMS | Encounter Summary ---
Demographics + + + | Address | [address] | | | [place] [address] | + + + | Home Phone | | + + + | Preferred Language | Unknown | + + + | Marital Status | | + + + | Druze Affiliation | Unknown | + + + | Race | Unknown | + + + | Ethnic Group | Unknown | + + + Author + + + | Author | [facility] | | | and [place] | + + + | Organization | [facility] | | [...] Team Providers + +------+ + | Care Bleach Mixer Name | Role | Phone | [...] of nasal | [place], [place] | [place] [address] | | | | | turbinates | [address] | Phone: | | | | | Procedures | Phone: | [phone] | | | | | [place] EXCISION | [phone] | Fax: | | | | | TURBINATE | Fax: | [phone] | | | | | [place] NASAL | [phone] | | | | | | SCOPY,ANGELICA [...] Dx); Hypertrophy of | | | | [place], [place] | [place] [address] | nasal turbinates | | | | [address] | [phone] | | | | | [phone] | | | +--------+ + + + [...]
--- OUTSIDE RECORDS SUMMARY | ~2019-09-22 | XMS | Encounter Summary ---
Demographics + + + | Address | [address] | | | [place] [address] | + + + | Home Phone [...] Team Providers + +------+ + | Care Front Edger Name | Role | Phone | + +------+ + | Nilesh Osorio DO | PCP | | + +------+ + Encounter Details +--------+ + + + + | Date | Type | Department | Care Team | Description | +--------+ + + + + | 12/06/ | Hospital | [facility] GENERIC IP | Conversion | Diagnosis unknown | | 2018 | Encounter | CONVERSION [address] | Transaction, | | | | | [address] | Provider Unknown | | | | | [place], [place] | [phone] | | | | | [address] | (Fax) | | | | | [phone] | | | +--------+ + + + [...]
--- OUTSIDE RECORDS SUMMARY | ~2019-09-22 | XMS | Encounter Summary ---
Demographics + + + | Address | [address] | | | [place] [address] | + + + | Home Phone [...] Providers + +------+ + | Care Grain Manager Name | Role | Phone | + +------+ + | Nilesh Osorio DO | PCP | | + +------+ + Encounter Details +--------+ + + + + | Date | Type | Department | Care Team | Description | +--------+ + + + + | 11/16/ | Hospital | [facility] | SarahZhang | Palpitations; Chest | | 2018 | Encounter | MED CTR NUCLEAR | MD Julian [address] | pain, unspecified | | | | MEDICINE [address] | [address] [place] | type; Fluttering | | | | [place], | [place] [address] | heart | | | | [place] [address] | [phone] | | | | | [phone] | | | +--------+ + + + [...] Nilesh Osorio, | | | DO READING ACUPRESSURE THERAPIST: Tricia Smith MD, PhD, FACC | | [...] | | | Tricia Smith MD PhD [facility] 12/02/2017, 9:03 | | + + [...]
--- OUTSIDE RECORDS SUMMARY | ~2019-09-22 | XMS | Encounter Summary ---
Demographics + + + | Address | [address] | | | [place] [address] | + + + | Home Phone [...] | Organization | [facility] | | | and [place] | + [...] Team Providers + +------+ + | Care Charge Entry Specialist Name | Role | Phone | [...] | | | | | | | AR | | | | | | | ESOPHAGOGAST | | | | | | | RODUODENOSCO | | | | | | | PY TRANSORAL | | | | | | | DIAGNOSTIC | | | | | | | AR EGD | | | | | | | TRANSORAL | | | | | | | BIOPSY | | | | | | | SINGLE/MULTI | | | | | | | PLE AR GERD | | | | | | [...] + + | 02/25/ | Surgery | [facility] | Gin Chandler | ENDOSCOPIC 48 HOUR | | 2018 | | MED CTR MP INTRA OP | MD Genna [address] | PH FERRARI "CAPSULE" | | | | [address] | [address] [facility] | | | | | [place], [place] | [facility] [address] | | | | | [address] | [phone] | | | | | [phone] | | | +--------+---------+ + + + [...] You can't be awakened Date Last Reviewed: 02/04/201619999677-1649 [employer]. [address] [place] [address]. All righ ts reserved. This information is [...] 02/25/2018 | PROVATION | | 9:49 AMMRN: [id number] #: [id number] of : | | | 1975Admit Type: AmbulatoryAge: 42Room: [facility] 02Gender: MaleNote | | | Status: FinalizedAttending MD: [facility]: | | | Upper GI endoscopyIndications: [...] | | 10:13:55 AMScope Out: 10:21:58 AM [facility] | | | [place], [address] [place] [address] | | | - The FERRARI pH [...] |Scope Out: 10:21:58 AM | | | [facility], [facility] [address] [place], [place] | | | [address] | | + + -+ + +---------+ + + | Performing | Address | City/State/[facility] Centercode | Phone Number | | [...] metaplasia, negative for | | | dysplasia. JVR:[facility]:C2NR GROSS DESCRIPTION: A. The specimen | [...] component was | | | performed by [employer], [address] [place] [address] | | | (Creping Machine Operator Helper: Trudi Hughes MD; IA# [id number]). Professional | | | interpretation was performed by [facility] | | | [address] | | | [address] (Creping Machine Operator Helper: Jakub Rivera M.D.). Diagnostician: | | [...]
--- OUTSIDE RECORDS SUMMARY | ~2019-09-22 | XMS | Encounter Summary ---
Demographics + + + | Address | [address] | | | [place] [address] | + + + | Home Phone [...] Team Providers + +------+ + | Care Recycler Forklift Driver Truck Driver Name | Role | Phone | [...] + + | 06/29/ | Telephone | [facility] | Rad De La Cruz | Other | | 2019 | | GASTROENTEROLOGY | MD Felix [address] | | | | | [address] [facility] | [address] [facility] | | | | | [address] [place] | [place] [address] | | | | | [address] | [phone] | | | | | [phone] | | | +--------+ + + + [...]
--- OUTSIDE RECORDS SUMMARY | ~2019-09-22 | XMS | Encounter Summary ---
Demographics + + + | Address | [address] | | | [place] [address] | + + + | Home Phone [...] Team Providers + +------+ + | Care Private Equity Analyst Name | Role | Phone | [...] | | | | [address] [place], [place] | | | | | | [address] | | | | | | [phone] | | | +--------+ + + + [...]
--- OUTSIDE RECORDS SUMMARY | ~2019-09-22 | XMS | Encounter Summary ---
Demographics + + + | Address | [address] | | | [place] [address] | + + + | Home Phone | | + + + | Preferred Language | Unknown | + + + | Marital Status | | + + + | Spiritism Affiliation | Unknown | + + + | Race | Unknown | + + + | Ethnic Group | Unknown | + + + Author + + + | Author | [facility] | | | and [place] | + + + | Organization | [facility] | | | [...] Providers + +------+ + | Care Marine Engine Machinist Name | Role | Phone | + [...] + + | 06/29/ | Telephone | [facility] | Rad De La Cruz | Other | | 2019 | | GASTROENTEROLOGY | MD Felix [address] | | | | | [address] [facility] | [address] [facility] | | | | | [address] [place] | [place] [address] | | | | | [address] | [phone] | | | | | [phone] | | | +--------+ + + + [...]
--- OUTSIDE RECORDS SUMMARY | ~2019-09-22 | XMS | Encounter Summary ---
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 The [...] and lower Bloating Chest pain Cardiolgist in [place] will have testing Chronic frontal sinusitis left [...] Surgeon: Rad De La Cruz MD; Location: [facility] MEDICAL PROCEDURE UNIT ENDOSCOPY ESOPHAGUS-ACID REFLUX TEST N/A 02/25/2018 Procedure: ENDOSCOPIC 48 HOUR PH FERRARI "CAPSULE"; Surgeon: Rad De La Cruz MD; Locat ion: [facility] MEDICAL PROCEDURE UNIT INGUINAL HERNIA REPAIR Right 02/2008 NASAL SEPTUM SURGERY 03/20/2014 BILATERAL Inferior Turbinoplasty; LEFT Frontal Sinusotomy; Laterality: Bilateral; Surgeo n: Keo Wheatley MD; Location: [facility] MAIN OR OTHER SURGICAL HISTORY N/A 06/27/2018 Procedure: EUS RECTAL; Surgeon: Luke Pitts MD; Location: [facility] MEDICAL PROCEDURE UN IT SIGMOIDOSCOPY N/A 06/27/2018 Procedure: RECTAL ULTRASOUND, SIGMOIDOSCOPY FLEXIBLE POSSIBLE EMR, FTRD/ESD; Surgeon: Morgan Pitts MD; Location: [facility] MEDICAL PROCEDURE UNIT SINUS ENDOSCOPY 03/20/2014 Laterality: Left; Surgeon: Keo Wheatley MD; Location: [facility] MAIN OR SINUS SURGERY 2008 SINUS [...] [employer] Asked him to be mindful about [place] use as there is a lot of [...] provider defined for this encounter. Izzy Snowden, [id number] [place] [address] Portions of this chart may have been created with [employer] voice recognition software. Occasi onal wrong-word or [...]
--- OUTSIDE RECORDS SUMMARY | ~2019-09-22 | XMS | Encounter Summary ---
Demographics + + + | Address | [address] | | | [place] [address] | + + + | Home Phone | | + + + | Preferred Language | Unknown | + + + | Marital Status | | + + + | Christianity Affiliation | Unknown | + + + | Race | Unknown | + + + | Ethnic Group | Unknown | + + + Author + + + | Author | [facility] | | | and [place] | + + + | Organization | [facility] | | | [...] Providers + +------+ + | Care Manager Marketing Sales Name | Role | Phone | + [...] + | 05/26/ | Refill | [facility] | Rad De La Cruz | Other | | 2019 | | GASTROENTEROLOGY | MD Felix [address] | | | | | [address] [place] | [address] [facility] | | | | | [address] [place] | [place] [address] | | | | | [address] | [phone] | | | | | [phone] | | | +--------+--------+ + + + [...]
--- OUTSIDE RECORDS SUMMARY | ~2019-09-22 | XMS | Encounter Summary ---
Demographics + + + | Address | [address] | | | [place] [address] | + + + | Home Phone [...] Providers + +------+ + | Care Sales Support Administrator Name | Role | Phone | [...] | | | | | | | IN | | | | | | | COLONOSCOPY | | | | | | | FLX DX | | | | | | | W/COLLJ SPEC | | | | | | | WHEN PFRMD | | | | | | | IN | | | | | | | COLONOSCOPY | | | | | | | W/BIOPSY | | | | | | | SINGLE/MULTI | | | | | | | PLE IN | | | | | | | [...] 05/27/ | Surgery | [facility] | Dorothy Rad | COLONOSCOPY | | 2019 | | MED CTR MP INTRA OP | MD Genna [address] | | | | | [address] | [address] [place] | | | | | [place], [place] | [place] [address] | | | | | [address] | [phone] | | | | | [phone] | | | +--------+---------+ + + + [...] You can't be awakened Date Last Reviewed: 02/04/201619995708-8475 [employer] [address] [place] [address], [place] [address]. All righ ts reserved. This information is [...] GastroenterologyPatient Name: Clifton MultaniProcedure Date: 05/27/2018 | RAVENO N | | 9:29 AMMRN: [id number] #: [id number] of : | | | 1975Admit Type: AmbulatoryAge: 43Room: [facility] 02Gender: MaleNote | | | Status: FinalizedAttending MD: RAD CHANDLER ANDALUSIA HEALTHrocedure: | | | ColonoscopyIndications: Generalized abdominal pain, [...] evaluated | | | using the BBPS ([place] Bowel Preparation Scale) with scores of: | [...] AMScope | | | Out: 10:21:23 AM [facility], [address] | | | [place] [address] | | | colon for evaluation of [...] |Scope Out: 10:21:23 AM | | | [facility], [address] [place], [place] | | | [address] | | + +--------- -----+ + +---------+ [...] diagnosis. As part | | | of [facility]' Quality Improvement Program, this case was | [...] developed and its performance characteristics determined by [facility] | | | [facility]. It has not been cleared or approved by the U.S. Food | | | and Drug Administration. The FDA has determined that such clearance | | | or approval is not necessary. This test is used for clinical | | | purposes. It should not be regarded as investigational or for | | | research. [facility] is certified under the Clinical | | | Laboratory Improvement Amendments of 1988 (CLIA) as qualified to | | | perform high complexity clinical laboratory testing. PERFORMING | | | LABORATORY: The technical component was performed by [facility] | | | [facility], [address] [place] [id number] (Intensive Care Anaesthetist: | | | Trudi Hughes MD; CLIA# [id number]). Professional interpretation was | | | performed by [facility], [facility], [address] | | [address] [place], [place] [address] (Intensive Care Anaesthetist: Johnathan Silva | | | MD Fabienne; CLIA# [id number]). Diagnostician: Johnathan Hidalgo | Pathologist Electronically Signed 05/31/2018 | | [...]
--- OUTSIDE RECORDS SUMMARY | ~2019-09-22 | XMS | Encounter Summary ---
Demographics + + + | Address | [address] | | | [place] [address] | + + + | Home Phone [...] Team Providers + +------+ + | Care Help Desk Consultant Name | Role | Phone | [...] Unspecified | Keo Arizmendi MD | [facility] | | | | | sinusitis | [address] | [place], | | | | | (chronic) | [address] | [place] [address] | | | | | Procedures | [place] | Phone: | | | | | CT Sinus WO | [place], [place] | [phone] | | | | | Contrast | [address] | Fax: | | | | | Limited | Phone: | [phone] | | | | | | [phone] | | | | | | | Fax: | | | | | | | [phone] | | +--------+--------+ + + + + [...] | | | | sinus | [place] [address] | [address] | | | | | infections | [place] | [address] | | | | | recurring | WAY | [place], | | | | | sinus | [place], | [place] [address] | | | | | infection | [place] [address] | Phone: | | | | | Procedures | Phone: | [phone] | | | | | [place] OFFICE | [phone] | Fax: | | | | | OUTPATIENT | Fax: | [phone] | | | | | VISIT 25 | [phone] | | | | | | MINUTES [...] + + | 01/11/ | Office | [facility] | Keo Wheatley MD | Unspecified | | 2013 | Visit | OTOLARYNGOLOGY [address] | [address] | sinusitis (chronic) | | | | [address] | [address] [place], | (Primary Dx); | | | | [place], [place] | [place] [address] | Hypertrophy of nasal | | | | [address] | [phone] | turbinates | | | | [phone] | | | +--------+---------+ + + + [...] - 01/11/2014 2:30 PM PDTSee dictation # [id number] signed by Keo Wheatley MD at 01/11/2014 2:34 PM Keo Gonzalez MD - 01/11/2014 12:00 AM PDT [facility] AUDIOLOGY [address] [address] FAX: [phone] OFFICE VISIT NEW PATIENT VISIT HISTORY: The [...] Keo Wheatley MD / SEDRICK JOB #: [id number] signed by Keo Wheatley MD at 01/15/2014 [...]
--- OUTSIDE RECORDS SUMMARY | ~2019-09-22 | XMS | Encounter Summary ---
Demographics + + + | Address | [address] | | | [place] [address] | + + + | Home Phone | | + + + | Preferred Language | Unknown | + + + | Marital Status | | + + + | Shinto Affiliation | Unknown | + + + | Race | Unknown | + + + | Ethnic Group | Unknown | + + + Author + + + | Author | [facility] | | | and [place] | + + + | Organization | [facility] | | | [...] Team Providers + +------+ + | Care Shank Sorter Name | Role | Phone | [...] | | | | | pain | [address] | MD [address] | | | | | Abdominal | [address] | [address] | | | | | pain, RUQ | [place], | [place], | | | | | Procedures | [place] [address] | [place] [address] | | | | | ER F/U (SEEN | Phone: | Phone: | | | | | FOR US AT | [phone] | [phone] | | | | | ST. | Fax: | Fax: | | | | | [place]) | [phone] | [phone] | + +--------+ + + + + Encounter Details +--------+ + + + + | Date | Type | Department | Care Team | Description | +--------+ + + + + | 09/11/ | Virtual | [facility] | Rad De La Cruz | Right upper quadrant | | 2019 | Office | GASTROENTEROLOGY | MD Felix [address] | pain (Primary Dx); | | | Visit | [address] | [address] [place] | Gastroesophageal | | | | [address] [place], [place] | [place] [address] | reflux disease | | | | [address] | [phone] | without esophagitis; | | | | [phone] | | De La Cruz's esophagus | [...] 345 Total time (in minutes) including non vmjp-tx-[id number] time (reviewing records, documentation, etc..) 23 You have chosen to receive care through the use of telemedicine. Telemedicine enables access hospital [facility] care providers at different locations to provide [...] reports he had his ultrasound done at [facility]. He said it was normal. He says he just met with Dr. Villanueva earlier today. He tells me that they are moving forward wit h doing a cholecystectomy in the first week of September. Apparently Clifton had a HIDA scan in t he past at [facility] that was normal. Clifton reports constant right [...] and lower Bloating Chest pain Cardiolgist in [place]- will have testing Chronic frontal sinusitis left [...] Surgeon: Rad De La Cruz MD; Location: [facility]ICAL PROC[facility]URE UN[facility] COLONOSCOPY ENDOSCOPY ESOPHAGUS-ACID REFLUX TEST N/A 02/25/2018 Procedure: ENDOSCOPIC 48 HOUR PH FERRARI "CAPSULE"; Surgeon: Rad De La Cruz MD; Locat ion: [facility] HERNIA REPAIR INGUINAL HERNIA REPAIR Right 02/2008 NASAL SEPTUM SURGERY 03/20/2014 BILATERAL Inferior Turbinoplasty; LEFT Frontal Sinusotomy; Laterality: Bilateral; Surgeo n: Keo Wheatley MD; Location: [facility] MAIN OR OTHER SURGICAL HISTORY N/A 06/27/2018 Procedure: EUS RECTAL; Surgeon: Luke Pitts MD; Location: [facility] MEDICAL PROCEDURE UN IT SIGMOIDOSCOPY N/A 06/27/2018 Procedure: RECTAL ULTRASOUND, SIGMOIDOSCOPY FLEXIBLE POSSIBLE EMR, FTRD/ESD; Surgeon: Morgan Pitts MD; Location: [facility] MEDICAL PROC[facility]URE UN[facility] SINUS ENDOSCOPY 03/20/2014 Laterality: Left; Surgeon: Keo Wheatley MD; Location: [facility] MAIN OR SINUS SURGERY 2008 SINUS SURGERY [...] No follow-ups on file. CC: Izzy Snowden, [facility] [address] [place] [address] Portions of this chart may have been created with [employer] recognition software. Occasi onal wrong-word or sound-alike [...]
--- OUTSIDE RECORDS SUMMARY | ~2019-09-22 | XMS | Encounter Summary ---
Demographics + + + | Address | [address] | | | [place] [address] | + + + | Home Phone | | + + + | Preferred Language | Unknown | + + + | Marital Status | | + + + | Jainism Affiliation | Unknown | + + + | Race | Unknown | + + + | Ethnic Group | Unknown | + + + Author + + + | Author | [facility] | | | and [place] | + + + | Organization | [facility] | | [...] Team Providers + +------+ + | Care Security Officer Name | Role | Phone | [...] of rectum | [address] [place] | [place] | | | | | (HCC) | [facility] [place] | [address] | | | | | Procedures | [address] | Phone: | | | | | Flex sig | Phone: | [phone] | | | | | with [employer], | [phone] | Fax: | | | | | possible | Fax: | [phone] | | | | | EMR/possible | [phone] | | | | | | | [...] + + | 06/14/ | Office | 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 | | | | [address] [place], [place] | [place] [address] | ([facility]) (Primary Dx) | | | | [address] | [phone] | | | | | [phone] | | | +--------+---------+ + + + [...] La Cruz MD; Location: [facility] MEDICAL PROCEDURE UNIT ESOPHAGUS-ACID REFLUX TEST N/A 02/25/2018 Procedure: ENDOSCOPIC 48 HOUR PH FERRARI "CAPSULE"; Surgeon: Rad De La Cruz MD; Locat ion: [facility] PROC[facility] UN[facility] INGUINAL HERNIA REPAIR Right 02/2008 NASAL SEPTUM SURGERY 03/20/2014 BILATERAL Inferior Turbinoplasty; LEFT Frontal Sinusotomy; Laterality: Bilateral; Surgeo n: Keo Wheatley MD; Location: [facility] MAIN OR SINUS ENDOSCOPY 03/20/2014 Laterality: Left; Surgeon: Keo Wheatley MD; Location: [facility] MAIN OR SINUS SURGERY 2008 SINUS [...] A. We'll plan on referring him to [facility] for a rectal EUS to see [...] provider defined for this encounter. Nilesh Osorio, [id number] [place] [address] Portions of this chart may have been created with [employer] voice recognition software. Occasi onal wrong-word or sound-alike substitutions may have occurred due to the inherent choudhury itations of voice recognition software. Please read the chart carefully and recognize, using context, where these substitutions have occurred arroll, Vicki Randolph RN - 06/14/2018 2:00 PM PSTOrdered and faxed labs to [facility] . Referral to [facility] Rectal [facility]; once approved patient to [...]
--- OUTSIDE RECORDS SUMMARY | ~2019-09-22 | XMS | Encounter Summary ---
Demographics + + + | Address | [address] | | | [place] [address] | + + + | Home Phone | | + + + | Preferred Language | Unknown | + + + | Marital Status | | + + + | Rastafarian Affiliation | Unknown | + + + | Race | Unknown | + + + | Ethnic Group | Unknown | + + + Author + + + | Author | [facility] | | | and [place] | + + + | Organization | [facility] | | [...] Team Providers + +------+ + | Care Veneer Supervisor Name | Role | Phone | [...] + + | 04/29/ | Telephone | [facility] | Rad De La Cruz | GERD | | 2019 | | GASTROENTEROLOGY | MD Felix [address] | | | | | [address] [facility] | [address] [facility] | | | | | [address] [place], [place] | [place] [address] | | | | | [address] | [phone] | | | | | [phone] | | | +--------+ + + + [...]
--- OUTSIDE RECORDS SUMMARY | ~2019-09-22 | XMS | Encounter Summary ---
Demographics + + + | Address | [address] | | | [place] [address] | + + + | Home Phone [...] Team Providers + +------+ + | Care Drying Oven Attendant Name | Role | Phone | [...] | | | Procedures | | [place] [address] | | | | | [place] | | Phone: | | | | | ESOPHAGOGAST | | [phone] | | | | | RODUODENOSCO | | Fax: | | | | | PY TRANSORAL | | [phone] | | | | | DIAGNOSTIC | | | | | | | [place] EGD | | | | | | [...] + + | 09/19/ | Hospital | [facility] | Rad Chandler | Epigastric pain; | | 2019 | Encounter | MED CTR MP INTRA OP | MD Felix [address] | De La Cruz's esophagus | | | | [address] | [address] [place] | without dysplasia | | | | [place], [place] | [place] [address] | | | | | [address] | [phone] | | | | | [phone] | | | +--------+ + + + [...] You can't be awakened Fever New rash [facility] [employer] last reviewed this educational content on 02/04/201619993831-7551 [employer] [address] [place] [address], [place] [address]. All righ ts reserved. This information is [...] + +--------+ + + + | *TERMED* [place] [facility] GI | Routin | 09/20/2019 | [...] mucosa without diagnostic | | | abnormality. DN:[facility]:C3NR GROSS DESCRIPTION: Two specimens are | | [...] LABORATORY: The technical component was performed by [employer] | | | [place] [address] (Program Or Project Administrator: | | | Trudi Hughes MD; CLIA# [id number]). Professional interpretation was | | | performed by [employer], [facility] | | | [address] [address] (CLIA#: | | | [id number]). Diagnostician: Roland Morgan MD Pathologist | | [...] + + ---+ | [facility] | [facility] | | Medical CenterGastroenterologyPatient Name: Multani Clifton Procedure | [facility] | | Date: 09/20/2019 9:45 AMMRN: [id number] Number: [id number] | | | of : 1975Note Status: [...] AMNumber of Addenda: 0 | | | [facility] | | |Recommendation: | | | - [...] |Number of Addenda: 0 | | | [facility] | | + + ---+ + +---------+ [...] ST. | [address] | [place], [place] | [phone] | | [facility] | | [address] | | | - LABORATORY | | [...]
--- OUTSIDE RECORDS SUMMARY | ~2019-09-22 | XMS | Encounter Summary ---
Demographics + + + | Address | [address] | | | [place] [address] | + + + | Home Phone [...] Team Providers + +------+ + | Care Trading Manager Name | Role | Phone | [...] + + | 08/31/ | Telephone | [facility] | Rad De La Cruz | Gastroesophageal | | 2018 | | GASTROENTEROLOGY | MD Felix [address] | Reflux (abdominal | | | | [address] | [address] [place] | pain) | | | | [address] [place] [address] | [place] [address] | | | | | [address] | [phone] | | | | | [phone] | | | +--------+ + + + [...]
--- OUTSIDE RECORDS SUMMARY | ~2019-09-22 | XMS | Encounter Summary ---
Demographics + + + | Address | [address] | | | [place] [address] | + + + | Home Phone [...] Providers + +------+ + | Care Special Education Superintendent Name | Role | Phone | + [...] + + | 03/07/ | Telephone | [facility] | Rad De La Cruz | Appointment | | 2018 | | GASTROENTEROLOGY | MD Felix [address] | | | | | [address] [facility] | [address] [facility] | | | | | [address] [place] | [place] [address] | | | | | [address] | [phone] | | | | | [phone] | | | +--------+ + + + [...]
--- OUTSIDE RECORDS SUMMARY | ~2019-09-22 | XMS | Encounter Summary ---
Demographics + + + | Address | [address] | | | [place] [address] | + + + | Home Phone [...] Team Providers + +------+ + | Care Dry Color Tester Name | Role | Phone | [...] | | | Diagnostic | Abdominal | [place] | [facility] | | | | Ultrasound | pain, RUQ | MD Felix | [address] | | | | | Gallbladder | [address] | [address] | | | | | pain | [place] | [place] | | | | | Procedures | [place], [place] | [address] | | | | | [place], ABDOMEN | [address] | Phone: | | | | | LIMITED | Phone: | [phone] | | | | | | [phone] | Fax: | | | | | | Fax: | [phone] | | | | | | [phone] | | + +--------+ + + + [...] Gallbladder pain | | | | [address] [place], [place] | [place] [address] | | | | | [address] | [phone] | | | | | [phone] | | | +--------+ + + + [...]
--- OUTSIDE RECORDS SUMMARY | ~2019-09-22 | XMS | Encounter Summary ---
Demographics + + + | Address | [address] | | | [place] [address] | + + + | Home Phone | | + + + | Preferred Language | Unknown | + + + | Marital Status | | + + + | Presybeterian Affiliation | Unknown | + + + [...] Team Providers + +------+ + | Care Machine Welt Butter Name | Role | Phone | + [...] + + | 03/03/ | Telephone | [facility] | Rad De La Cruz | Imaging Only | | 2017 | | GASTROENTEROLOGY | MD Felix [address] | | | | | [address] [place] | [address] [facility] | | | | | [address] [place], [place] | [place] [address] | | | | | [address] | [phone] | | | | | [phone] | | | +--------+ + + + [...]
--- OUTSIDE RECORDS SUMMARY | ~2019-09-22 | XMS | Encounter Summary ---
Demographics + + + | Address | [address] | | | [place] [address] | + + + | Home Phone [...] Team Providers + +------+ + | Care Last Repairer Helper Name | Role | Phone | [...] | | | (HCC) Other | | [address] | | | | | malignant | | Phone: | | | | | neuroendocri | | [phone] | | | | | ne tumors | | Fax: | | | | | (HCC) | | [phone] | | | | | [C7A.8] | | | | | | | Procedures | | | | | | | CA | | | | | | | SIGMOIDOSCOP | | | | | | | Y,BIOPSY CA | | | | | | [...] OP [address] | [address] [place], | FLEXIBLE POSSIBLE | | | | [address] [place], [place] | [place] [address] | EMR, FTRD/ESD | | | | [address] | [phone] | | | | | [phone] | | | +--------+---------+ + + + [...] Pitts MD - 06/27/2018 Renee Pitts MD [facility], [address], [address] [place] [address] DISCHARGE INSTRUCTIONS You had undergone an endoscopic [...] PRO VIDENCE | | ALBERT SIMMONS | [facility] | | : 1975 AGE: 43 years SEX: Male | [facility] | | | LABOR ATORY | | Acct: [id number] Location: [facility] | [facility] | | [facility]; [facility] MEDICAL PROCEDURE UNIT POOL; [facility] | | | MEDICAL PROCEDURE UNIT POOL | | | Case #: [id number] Ordering: | | | RENEE PITTS MD Client: [facility] | | | [facility] Copy To: | | | [...] 06/28/2018 04:37 | | | pmPerforming Location: [facility] | | | [address] [place] [id number]:The patient's previous rectal polyp | | | with diagnosis of well differentiated neuroendocrine tumor ([id number]) | | | is noted.GROSS DESCRIPTION:The specimen [...] + + | Performing | Address | City/State/[facility] | Phone Number | | Organization | | | | + + + + + | BRETT RAMOS | [address] | [place] [address] | | | [facility] | | | | | [place] | | | | + + + + + EUS Ricky (06/27/2018 3:05 PM PDT) + + | Specimen | + + | | + + + + + | Narrative | Performed At | + + + | Brett | [place] | | [facility] | [place] | | CenterGI | | | Patient Name: Albert Simmons Procedure | | | Date: 06/27/2018 3:05 PMMRN: [id number] | | | of : 1975 | [...] | | gastroscope was fitted with 7 [place] Macario-Cook) resection | | | Duette kit. [...] | | 3:05 PMNumber of Addenda: 0 [facility] | | | [place] [facility] | | |RENEE PITTS MD | | |06/27/2018 3:55:06 PM | | |This report has been signed electronically. | | | | | |Note Initiated On: 06/27/2018 3:05 PM | | |Number of Addenda: 0 | | | | | | [facility] | | + + + + +---------+ + + | Performing | Address | City/State/[facility]ode | Phone Number | | [...] | [facility] | | | POC | [facility] [address] | | SACRED | | | | [place] [address] | | HEART | | | |Performed by [facility] [address], [place] [address] | | MEDICAL | | | | [...] + + | BÁRBARAAARON RAMOS | [address] | [place] [address] | | | [facility] | | | | | [...]
--- OUTSIDE RECORDS SUMMARY | ~2019-09-22 | XMS | Encounter Summary ---
Demographics + + + | Address | [address] | | | [place] [address] | + + + | Home Phone [...] Team Providers + +------+ + | Care Annealing Furnace Operator Name | Role | Phone | [...] + + | 06/21/ | Telephone | [facility] | Rad De La Cruz | Nausea | | 2019 | | GASTROENTEROLOGY | MD Felix [address] | | | | | [address] [facility] | [address] [facility] | | | | | [address] [place], [place] | [place] [address] | | | | | [address] | [phone] | | | | | [phone] | | | +--------+ + + + [...]
--- OUTSIDE RECORDS SUMMARY | ~2019-09-22 | XMS | Encounter Summary ---
Demographics + + + | Address | [address] | | | [place] [address] | + + + | Home Phone [...] Team Providers + +------+ + | Care Diabetes Manager Name | Role | Phone | [...] | | | Zhang | [address] | | | | | Palpitations | MD Julian | [place], | | | | | Procedures | [address] | [place] | | | | | ECHO | St [place] | [address] | | | | | Complete ID | [place], [place] | Phone: | | | | | ECHO HEART | [address] | [phone] | | | | | [place]THORACIC,[place] | Phone: | Fax: | | | | | MPLETE W | [phone] | [phone] | | | | | DOPPLER ID | Fax: | | | | | | ECHO HEART | [phone] | | | | | | XTHORACIC,[place] [...] Racing | [address] | [address] | | | | | heart beat | [address] | [place], | | | | | Palpitations | [place], | [place] | | | | | Procedures | [place] [address] | [address] | | | | | PERSONAL VEHICLE ADVISOR | Phone: | Phone: | | | | | | [phone] | [phone] | | | | | | Fax: | Fax: | | | | | | [phone] | [phone] | +--------+--------+ + + + + Encounter Details +--------+---------+ + + + | Date | Type | Department | Care Team | Description | +--------+---------+ + + + | 10/27/ | Office | [facility] | Zhang Mullen | Palpitations | | 2018 | Visit | CARDIOLOGY [address] | MD Julian [address] | (Primary Dx); Chest | | | | [address] [place], | [address] [place] | pain, unspecified | | | | [place] [address] | [place] [address] | type; Fluttering | | | | [phone] | [phone] | heart | | | | | [...] Bilateral; Surgeo n: Keo Wheatley MD; Location: [facility] MAIN OR SINUS ENDOSCOPY 03/20/2014 Laterality: Left; Surgeon: Keo Wheatley MD; Location: [facility] MAIN OR SINUS SURGERY Family History [...] made to ensure accuracy; however, inadvertent computerized portable irrigation operator errors may be pre sent. Electronically signed by: Tricia Mullen MD PhD [facility] 10/27/2017 documented in t his encounter [...] Nilesh Osorio | | | DO [place] [employer] PROGRAMS DIRECTOR: Tricia Mullen MD, PhD, FACC | | [...] | | S. [place] Mullen MD PhD [facility] 12/02/2017, 9:03 | | + + [...] | | ALBERT Room Number Patient Number [id number] Date of Study | | | 11/16/2017 Visit Number [id number] Accession | | | [id number] Referring Physician SEBAS ORTIZ Number | | | Date of 1975 General Foreman | | | SUZANNA DAWKINS Age 42 year(s) Interpreting | | | JULIAN MULLEN MD | | | Business Control Specialist SEBAS ORTIZ Gender | | | Male Nurse | | | Stress Safety Companion Procedure Type of Study TTE procedure: ECHO [...] 0.93 cm PW Diastolic: 0.93 cm EF Felhpvlqp13% EF | | | Calculated: 60% Miscellaneous [...] Diastolic: 0.93 cm | | | EF Fnjvzyfik18% | | | EF Calculated: 60% | [...] Name IRIS PRICE Room Number Patient Number [id number] | | Date of Study 11/16/2017 Visit Number [id number] Accession | | [id number] Referring Physician SEBAS ORTIZ Number Date of | | 1975 General Foreman SUZANNA DAWKINS Age 42 year(s) | | Interpreting JULIAN MULLEN MD Business Control Specialist | | SEBAS ORTIZ Gender Male [...] 0.93 cm PW Diastolic: 0.93 cm EF Zftlsvmgr86% EF | | Calculated: 60% Miscellaneous Aorta [...] PW Diastolic: 0.93 cm | | EF Eebytigrl33% | | EF Calculated: 60% | | [...] MD | | | | | | ([id number]) on 10/28/2017 | | | | | [...]
--- OUTSIDE RECORDS SUMMARY | ~2019-09-22 | XMS | Encounter Summary ---
Demographics + + + | Address | [address] | | | [place] [address] | + + + | Home Phone [...] Team Providers + +------+ + | Care Destination Imagination Coordinator Name | Role | Phone | [...] | | | Procedures | | [place] [address] | | | | | OFFICE VISIT | | Phone: | | | | | REGULAR | | [phone] | | | | | | | Fax: | | | | | | | [phone] | +--------+--------+ + + + + Encounter Details +--------+---------+ + + + | Date | Type | Department | Care Team | Description | +--------+---------+ + + + | 08/01/ | Office | [facility] | Keo Munoz MD | Chronic frontal | | 2014 | Visit | OTOLARYNGOLOGY [address] | [address] [place] | sinusitis (Primary | | | | [address] | [address] [place], | Dx); Allergic | | | | [place] | [place] [address] | rhinitis due to | | | | [address] | [phone] | pollen | | | | [phone] | | | +--------+---------+ + + + [...] MD - 08/01/2014 4:14 PM PDT [facility] OT[facility]Y [address] [facility] [address] OFFICE NOTE KEO MUNOZ MD Patient: ALBERT MULTANI Admitting: MR #: [id number] LOC: PT TYPE: Adm Date: 08/01/2014 : [...] Transcribed on 08/01/2014 17:39:31 by [facility] job# [id number] Confirmation #: [id number] cc: CARYL WHITE PAC [facility], Keo Arizmendi MD - 08/01/2014 4:11 PM PDTSee dictation #[id number] signed by Aman Munoz MD at 08/01/2014 4:15 PM PDTdocumented in this encounter Plan of Treatment Not on filedocumented as of this encounter Visit Diagnoses + + | Diagnosis | + + | Chronic frontal sinusitis - Primary | + + | Allergic rhinitis due to pollen | + + documented in this encounter
--- OUTSIDE RECORDS SUMMARY | ~2019-09-22 | XMS | Encounter Summary ---
Demographics + + + | Address | [address] | | | [place] [address] | + + + | Home Phone [...] Team Providers + +------+ + | Care Instrument Assembler Name | Role | Phone | [...] | | | | | pain | [address] | MD [address] | | | | | Abdominal | [address] | [address] | | | | | pain, RUQ | [place], | [place], | | | | | Procedures | [place] [address] | [place] [address] | | | | | ER F/U (SEEN | Phone: | Phone: | | | | | FOR US AT | [phone] | [phone] | | | | | ST. | Fax: | Fax: | | | | | CHANTEL'Olimpia) | [phone] | [phone] | + +--------+ + + + + [...] esophagitis presence | | | | [address], [place] | [place] [address] | not specified | | | | [address] | [phone] | (Primary Dx); | | | | [phone] | | Diarrhea, | | | | [...] bidirectional video se ssion. Service was provided otpt-kq-plyk with the patient via interactive videoconferencing Video start time 217 Video end time 235 Total time (in minutes) including non ycfk-cj-vzsd time (reviewing records, documentation, etc..) 35 You have chosen to receive care through the use of telemedicine. Telemedicine enables [facility] care providers at different locations to provide [...] and lower Bloating Chest pain Cardiolgist in [place]- will have testing Chronic frontal sinusitis left [...] Surgeon: Rad De La Cruz MD; Location: [facility] MEDICAL PROCEDURE UNIT COLONOSCOPY ENDOSCOPY ESOPHAGUS-ACID REFLUX TEST N/A 02/25/2018 Procedure: ENDOSCOPIC 48 HOUR PH FERRARI "CAPSULE"; Surgeon: Rad De La Cruz MD; Locat ion: [facility] MEDICAL PROCEDURE UNIT HERNIA REPAIR INGUINAL HERNIA REPAIR Right 02/2008 NASAL SEPTUM SURGERY 03/20/2014 BILATERAL Inferior Turbinoplasty; LEFT Frontal Sinusotomy; Laterality: Bilateral; Surgeo n: Keo Wheatley MD; Location: [facility] MAIN OR OTHER SURGICAL HISTORY N/A 06/27/2018 Procedure: EUS RECTAL; Surgeon: Luke Pitts MD; Location: [facility] MEDICAL PROCEDURE UN IT SIGMOIDOSCOPY N/A 06/27/2018 Procedure: RECTAL ULTRASOUND, SIGMOIDOSCOPY FLEXIBLE POSSIBLE EMR, FTRD/ESD; Surgeon: Morgan Pitts MD; Location: [facility] MEDICAL PROCEDURE UNIT SINUS ENDOSCOPY 03/20/2014 Laterality: Left; Surgeon: Keo Wheatley MD; Location: [facility] MAIN OR SINUS SURGERY 2008 SINUS [...] No follow-ups on file. CC: Izzy Snowden, PLASTICS FACTORY WORKER [address] [place] [address] Portions of this chart may have been created with [employer] voice recognition software. Occasi onal wrong-word or [...]
--- OUTSIDE RECORDS SUMMARY | ~2019-09-22 | XMS | Encounter Summary ---
Demographics + + + | Address | [address] | | | [place] [address] | + + + | Home Phone [...] Team Providers + +------+ + | Care Commissioned Security Officer Name | Role | Phone [...] + + | 04/29/ | Telephone | [facility] | Rad De La Cruz | GERD | | 2019 | | GASTROENTEROLOGY | MD Felix [address] | | | | | [address] [facility] | [address] [facility] | | | | | [address] [place], [place] | [place] [address] | | | | | [address] | [phone] | | | | | [phone] | | | +--------+ + + + [...]
--- OUTSIDE RECORDS SUMMARY | ~2019-09-22 | XMS | Encounter Summary ---
Demographics + + + | Address | [address] | | | [place] [address] | + + + | Home Phone [...] Team Providers + +------+ + | Care Pull Through Hooker Name | Role | Phone | + [...] + + | 09/12/ | Telephone | [facility] | Rad De La Cruz | Testing (COVID) | | 2019 | | GASTROENTEROLOGY | MD Felix [address] | | | | | [address] [place] | [address] [facility] | | | | | [address] [place], [place] | [place] [address] | | | | | [address] | [phone] | | | | | [phone] | | | +--------+ + + + [...]
--- OUTSIDE RECORDS SUMMARY | ~2019-09-22 | XMS | Encounter Summary ---
Demographics + + + | Address | [address] | | | [place] [address] | + + + | Home Phone [...] Team Providers + +------+ + | Care Lathe Scalper Operator Name | Role | Phone | [...] + + | 05/19/ | Telephone | [facility] | Edgar Russo MD | Nausea | | 2020 | | GASTROENTEROLOGY | [address], [place] | | | | | [address] [place] | [address] [place], [place] | | | | | [address] [place], [place] | [address] | | | | | [address] | | | | | | [phone] | | | +--------+ + + + [...]
--- OUTSIDE RECORDS SUMMARY | ~2019-09-22 | XMS | Encounter Summary ---
Demographics + + + | Address | [address] | | | [place] [address] | + + + | Home Phone [...] Team Providers + +------+ + | Care Blackjack Supervisor Name | Role | Phone | [...] | | | | | | | HI | | | | | | | EXCISION | | | | | | | TURBINATE | | | | | | | HI NASAL | | | | | | [...] | | | | | [address] | [place], [place] | | | | | [place], [place] | [address] | | | | | [address] | | | | | | [phone] | Elvis, Sancho Geronimo, | | | | | | [address] | | | | | | [place], [place] | | | | | | [address] | | | | | | | [...]
--- OUTSIDE RECORDS SUMMARY | ~2019-09-22 | XMS | Encounter Summary ---
Demographics + + + | Address | [address] | | | [place] [address] | + + + | Home Phone [...] Providers + +------+ + | Care Director Of Accounting Name | Role | Phone | + [...] | | | | sinus | PA-C [address] | [address] | | | | | infections | [address] | [address] | | | | | recurring | WAY | [place], | | | | | sinus | [place], | [place] [address] | | | | | infection | [place] [address] | Phone: | | | | | Procedures | Phone: | [phone] | | | | | [place] OFFICE | [phone] | Fax: | | | | | OUTPATIENT | Fax: | [phone] | | | | | VISIT 25 | [phone] | | | | | | MINUTES [...] + + | 01/25/ | Office | [facility] | Keo Wheatley MD | Chronic frontal | | 2013 | Visit | OTOLARYNGOLOGY [address] | [address] [place] | sinusitis (Primary | | | | [address] | [address] [place], | Dx); Hypertrophy of | | | | [place], [place] | [place] [address] | nasal turbinates | | | | [address] | [phone] | | | | | [phone] | | | +--------+---------+ + + + [...] - 01/25/2014 3:08 PM PDTSee dictation # [id number] signed by Keo Wheatley MD at 01/25/2014 3:12 PM Keo Gonzalez MD - 01/25/2014 12:00 AM PDT [facility] [address] [place] [address] FAX: [phone] OFFICE VISIT The patient has had a [...] carried out with the use of the Viropro guidance system, to increase the safe ty. This was all explained to the patient, along with risks and benefits. He desires to go ahead with the surgery and this is scheduled accordingly. Keo Wheatley MD / [place] JOB #: [id number] signed by Keo Wheatley MD at 01/26/2014 8:26 AM PDTdocumente d in this encounter Plan of Treatment Not on filedocumented as of this encounter Visit Diagnoses + + | Diagnosis | + + | Chronic frontal sinusitis - Primary | + + | Hypertrophy of nasal turbinates | + + documented in this encounter
--- OUTSIDE RECORDS SUMMARY | ~2019-09-22 | XMS | Encounter Summary ---
Demographics + + + | Address | [address] | | | [place] [address] | + + + | Home Phone [...] Team Providers + +------+ + | Care Law Writer Name | Role | Phone | + +------+ + | Nilesh Osorio MD | PCP | | + +------+ + Encounter Details +--------+ + + + + | Date | Type | Department | Care Team | Description | +--------+ + + + + | 03/04/ | Documentati | [facility] | Sancho Ruvalcaba, | | | 2018 | on | Center at [facility] [address] | [address] | | | | | [address] | [place], [place] | | | | | Mailcode: CH5E | [address] | | | | | [facility] | [phone] | | | | | and Teresa, | | | | | | | | | | | | Floor [place], [place] | | | | | | [address] | | | | | | [phone] | | | +--------+ + + + [...]
--- OUTSIDE RECORDS SUMMARY | ~2019-09-22 | XMS | Encounter Summary ---
Demographics + + + | Address | [address] | | | [place] [address] | + + + | Home Phone | | + + + | Preferred Language | Unknown | + + + | Marital Status | | + + + | Lutheran Affiliation | Unknown | + + + | Race | Unknown | + + + | Ethnic Group | Unknown | + + + Author + + + | Author | [facility] | | | and [place] | + + + | Organization | [facility] | | | [...] Team Providers + +------+ + | Care Mechanical Designer Name | Role | Phone | + [...] + + | 03/28/ | Telephone | [facility] | Keo Wheatley MD | Post-op Problem | | 2013 | | OTOLARYNGOLOGY [address] | [address] [place] | | | | | [address] | [address] [place], | | | | | [place] | [place] [address] | | | | | [address] | [phone] | | | | | [phone] | | | +--------+ + + + [...]
--- OUTSIDE RECORDS SUMMARY | ~2019-09-22 | XMS | Encounter Summary ---
Demographics + + + | Address | [address] | | | [place] [address] | + + + | Home Phone [...] Team Providers + +------+ + | Care Montessori Paraprofessional Name | Role | Phone | + [...] + + | 08/31/ | Telephone | [facility] | Rad De La Cruz | Gastroesophageal | | 2018 | | GASTROENTEROLOGY | MD Felix [address] | Reflux (abdominal | | | | [address] [place] | [address] [place] | pain) | | | | [address] [place] | [place] [address] | | | | | [address] | [phone] | | | | | [phone] | | | +--------+ + + + [...]
--- OUTSIDE RECORDS SUMMARY | ~2019-09-22 | XMS | Encounter Summary ---
Demographics + + + | Address | [address] | | | [place] [address] | + + + | Home Phone [...] Team Providers + +------+ + | Care Blood Bank Laboratory Professional Name | Role | Phone | + [...] + + | 01/06/ | Telephone | [facility] | Rad De La Cruz | Other | | 2019 | | GASTROENTEROLOGY | MD Felix [address] | | | | | [address] [facility] | [address] [facility] | | | | | [address] [place] | [place] [address] | | | | | [address] | [phone] | | | | | [phone] | | | +--------+ + + + [...]
--- OUTSIDE RECORDS SUMMARY | ~2019-09-22 | XMS | Encounter Summary ---
Demographics + + + | Address | [address] | | | [place] [address] | + + + | Home Phone [...] Team Providers + +------+ + | Care Switch Operators Supervisor Name | Role | Phone | [...] + + | 06/02/ | Telephone | [facility] [place] | Rad De La Cruz | Results, Pathology | | 2019 | | GASTROENTEROLOGY | MD Felix [address] | | | | | [address] [place] | [address] [place] | | | | | [address] [place] | [place] [address] | | | | | [address] | [phone] | | | | | [phone] | | | +--------+ + + + [...]
--- OUTSIDE RECORDS SUMMARY | ~2019-09-22 | XMS | Encounter Summary ---
Demographics + + + | Address | [address] | | | [place] [address] | + + + | Home Phone [...] Team Providers + +------+ + | Care Sugar Cane Farm Manager Name | Role | Phone | [...] + | 05/03/ | Telephone | [facility] | Zhang Smith | Other (new symptoms) | | 2018 | | CARDIOLOGY [address] | MD Julian [address] | | | | | [place], | [address] [place] | | | | | [place] [address] | [place] [address] | | | | | [phone] | | | | | | | [...]
--- OUTSIDE RECORDS SUMMARY | ~2019-09-22 | XMS | Encounter Summary ---
Demographics + + + | Address | [address] | | | [place] [address] | + + + | Home Phone | | + + + | Preferred Language | Unknown | + + + | Marital Status | | + + + | Rastafari Affiliation | Unknown | + + + | Race | Unknown | + + + | Ethnic Group | Unknown | + + + Author + + + | Author | [facility] | | | and [place] | + + + | Organization | [facility] | | | [...] Team Providers + +------+ + | Care Hris Specialist Name | Role | Phone | [...] | | | | | | PLE PA | | | | | | [...] | | | | | [address] | [address] [place] | | | | | [place], [place] | [place] [address] | | | | | [address] | [phone] | | | | | [phone] | | | +--------+---------+ + + + [...] You can't be awakened Date Last Reviewed: 02/04/201619993158-6884 [employer]. [address] [place] [address], [place] [address]. All righ ts reserved. This information is [...] | RAV[place] N | | 9:29 AMMRN: [id number] #: [id number] of : | | | 1975Admit Type: AmbulatoryAge: 43Room: [facility] 02Gender: MaleNote | | | Status: FinalizedAttending MD: [facility] BAR[facility]OURrocedure: | | | ColonoscopyIndications: Generalized abdominal pain, [...] evaluated | | | using the BBPS (Irwin Bowel Preparation Scale) with scores of: | [...] AMScope | | | Out: 10:21:[address] [facility], [address] | | | [place] [address] | | | colon for evaluation of [...] |Scope Out: 10:21:23 AM | | | [facility], [address] [place], [place] | | | [address] | | + +--------- -----+ + +---------+ [...] diagnosis. As part | | | of [facility]' Quality Improvement Program, this case was | [...] developed and its performance characteristics determined by [facility] | | | [facility]. It has not been cleared or approved by the U.S. Food | | | and Drug Administration. The FDA has determined that such clearance | | | or approval is not necessary. This test is used for clinical | | | purposes. It should not be regarded as investigational or for | | | research. [facility] is certified under the Clinical | | | Laboratory Improvement Amendments of 1988 (CLIA) as qualified to | | | perform high complexity clinical laboratory testing. PERFORMING | | | LABORATORY: The technical component was performed by [facility] | | | [facility], [address] [place] [address] (Bin Filler: | | | Trudi Hughes MD; CLIA# [id number]). Professional interpretation was | | | performed by [facility], [facility], [address] | [address] [place], [place] [address] (Bin Filler: Johnathan Silva | | | MD Fabienne; CLIA# [id number]). Diagnostician: Johnathan Hidalgo | Pathologist Electronically Signed 05/31/2018 | | + + + + +---------+ + + | Performing | Address | City/State/[facility] | Phone Number | | Organization | [...]
--- OUTSIDE RECORDS SUMMARY | ~2019-09-22 | XMS | Encounter Summary ---
Demographics + + + | Address | [address] | | | [place] [address] | + + + | Home Phone [...] Team Providers + +------+ + | Care Live Hanger Name | Role | Phone | + [...] + + | 06/20/ | Refill | [facility] | Luke Pitts, | Medication Refill | | 2019 | | and Pancreas GI | [address], | | | | | [facility] [address] | [place] [address] [place] | | | | | [facility] [address] | [place] [address] | | | | | [place] | [phone] | | | | | [address] | | | | | | [phone] | | | +--------+--------+ + + + [...]
--- OUTSIDE RECORDS SUMMARY | ~2019-09-22 | XMS | Encounter Summary ---
Demographics + + + | Address | [address] | | | [place] [address] | + + + | Home Phone | | + + + | Preferred Language | Unknown | + + + | Marital Status | | + + + | Orthodoxy Affiliation | Unknown | + + + | Race | Unknown | + + + | Ethnic Group | Unknown | + + + Author + + + | Author | [facility] | | | and [place] | + + + | Organization | [facility] | | | [...] Team Providers + +------+ + | Care Timber Hewer Name | Role | Phone | + [...] | | | Procedures | | [place] [address] | | | | | OFFICE VISIT | | Phone: | | | | | REGULAR | | [phone] | | | | | | | Fax: | | | | | | | [phone] | +--------+--------+ + + + + Encounter Details +--------+---------+ + + + | Date | Type | Department | Care Team | Description | +--------+---------+ + + + | 08/01/ | Office | [facility] | Keo Munoz MD | Chronic frontal | | 2014 | Visit | OTOLARYNGOLOGY [address] | [address] [place] | sinusitis (Primary | | | | [address] | [address] [place], | Dx); Allergic | | | | [place] | [place] [address] | rhinitis due to | | | | [address] | [phone] | pollen | | | | [phone] | | | +--------+---------+ + + + [...] MD - 08/01/2014 4:14 PM PDT [facility] OTOLARY[facility]OLOGY [address] [facility] [address] OFFICE NOTE KEO MUNOZ MD Patient: ALBERT MULTANI Admitting: MR #: [id number] LOC: PT TYPE: Adm Date: 08/01/2014 : [...] 08/01/2014 16:14:22 Transcribed on 08/01/2014 17:39:31 by [facility] job# [id number] Confirmation #: [id number] cc: CARYL WHITE PAC [facility], Keo Arizmendi MD - 08/01/2014 4:11 PM PDTSee dictation #[id number] signed by Aman Munoz MD at 08/01/2014 4:15 PM PDTdocumented in this encounter Plan of Treatment Not on filedocumented as of this encounter Visit Diagnoses + + | Diagnosis | + + | Chronic frontal sinusitis - Primary | + + | Allergic rhinitis due to pollen | + + documented in this encounter
--- OUTSIDE RECORDS SUMMARY | ~2019-09-22 | XMS | Encounter Summary ---
Demographics + + + | Address | [address] | | | [place] [address] | + + + | Home Phone [...] Team Providers + +------+ + | Care Character Artist Name | Role | Phone | [...] | | | | sinus | PA-C [address] | [address] | | | | | infections | [address] | [address] | | | | | recurring | WAY | [place], | | | | | sinus | [place], | [place] [address] | | | | | infection | [place] [address] | Phone: | | | | | Procedures | Phone: | [phone] | | | | | ID OFFICE | [phone] | Fax: | | | | | OUTPATIENT | Fax: | [phone] | | | | | VISIT 25 | [phone] | | | | | | MINUTES [...] + + | 01/25/ | Office | [facility] | Keo Wheatley MD | Chronic frontal | | 2013 | Visit | OTOLARYNGOLOGY [address] | [address] [place] | sinusitis (Primary | | | | [address] | [address] [place], | Dx); Hypertrophy of | | | | [place], [place] | [place] [address] | nasal turbinates | | | | [address] | [phone] | | | | | [phone] | | | +--------+---------+ + + + [...] - 01/25/2014 3:08 PM PDTSee dictation # [id number] signed by Keo Wheatley MD at 01/25/2014 3:12 PM Keo Gonzalez MD - 01/25/2014 12:00 AM PDT [facility] AUDI[facility] [address] [place] [address] FAX: [phone] OFFICE VISIT The patient has had a [...] carried out with the use of the Xcalar guidance system, to increase the safe ty. This was all explained to the patient, along with risks and benefits. He desires to go ahead with the surgery and this is scheduled accordingly. Keo Wheatley MD / [place] JOB #: [id number] signed by Keo Wheatley MD at 01/26/2014 8:26 AM PDTdocumente d in this encounter Plan of Treatment Not on filedocumented as of this encounter Visit Diagnoses + + | Diagnosis | + + | Chronic frontal sinusitis - Primary | + + | Hypertrophy of nasal turbinates | + + documented in this encounter
--- OUTSIDE RECORDS SUMMARY | ~2019-09-22 | XMS | Encounter Summary ---
Demographics + + + | Address | [address] | | | [place] [address] | + + + | Home Phone [...] Team Providers + +------+ + | Care Mailing Clerk Name | Role | Phone | + +------+ + | Izzy Snowden | PCP | | + +------+ + Encounter Details +--------+ + + + + | Date | Type | Department | Care Team | Description | +--------+ + + + + | 11/27/ | Orders Only | [facility] | Provider, | | | 2019 | | SYSTEM GENERIC OP | MD [address] | | | | | [address] | [address] | | | | | [address] [place], [place] | [place] [address] | | | | | [address] | | | | | | [phone] | | | +--------+ + + + [...]
--- OUTSIDE RECORDS SUMMARY | ~2019-09-22 | XMS | Encounter Summary ---
Demographics + + + | Address | [address] | | | [place] [address] | + + + | Home Phone [...] Providers + +------+ + | Care Clinical Esthetician Name | Role | Phone | + [...] + | 06/07/ | Telephone | [facility] | Rad De La Cruz | Appointment | | 2019 | | GASTROENTEROLOGY | MD Felix [address] | | | | | [address] [facility] | [address] [facility] | | | | | [address] | [place] [address] | | | | | [address] | [phone] | | | | | [phone] | | | +--------+ + + + [...]
--- OUTSIDE RECORDS SUMMARY | ~2019-09-22 | XMS | Encounter Summary ---
Demographics + + + | Address | [address] | | | [place] [address] | + + + | Home Phone [...] Team Providers + +------+ + | Care Parts Data Writer Name | Role | Phone | [...] + + | 12/22/ | Office | [facility] | Zhang Smith | Palpitations | | 2017 | Visit | CARDIOLOGY [address] | MD Julian [address] | (Primary Dx) | | | | [place], | [address] [place] [address] [place] | | | | | [place] [address] | [place] [address] | | | | | [phone] | | | | | | | [...] Bilateral; Surgeo n: Keo Wheatley MD; Location: [facility] MAIN OR SINUS ENDOSCOPY 03/20/2014 Laterality: Left; Surgeon: Keo Wheatley MD; Location: [facility] MAIN OR SINUS SURGERY 2008 SINUS [...] made to ensure accuracy; however, inadvertent computerized installation specialist errors may be pre sent. Electronically signed by: Tricia Smith MD PhD FACC 12/22/2017 documented in t his encounter Plan of Treatment Not on filedocumented as of this encounter Visit Diagnoses + + | Diagnosis | + + | Palpitations - Primary | + + documented in this encounter
--- OUTSIDE RECORDS SUMMARY | ~2019-09-22 | XMS | Encounter Summary ---
Demographics + + + | Address | [address] | | | [place] [address] | + + + | Home Phone | | + + + | Preferred Language | Unknown | + + + | Marital Status | | + + + | Judaism Affiliation | Unknown | + + + | Race | Unknown | + + + | Ethnic Group | Unknown | + + + Author + + + | Author | [facility] | | | and [place] | + + + | Organization | [facility] | | [...] Team Providers + +------+ + | Care Financial Investment Adviser Name | Role | Phone | + [...] + + | 01/25/ | Telephone | [facility] | Rad De La Cruz | Procedure (r/s | | 2018 | | GASTROENTEROLOGY | MD Felix [address] | EGD/Gavin) | | | | [address] | [address] [place] | | | | | [address] [place], [place] | [place] [address] | | | | | [address] | [phone] | | | | | [phone] | | | +--------+ + + + [...]
--- OUTSIDE RECORDS SUMMARY | ~2019-09-22 | XMS | Encounter Summary ---
Demographics + + + | Address | [address] | | | [place] [address] | + + + | Home Phone [...] Providers + +------+ + | Care Manager Small Business Name | Role | Phone | + [...] [place] | | | | | [address] [place], [place] | [place] [address] | | | | | [address] | [phone] | | | | | [phone] | | | +--------+ + + + [...] + | Performed at: 01 - [facility] [address], [place] | REFERENCE LAB | | [phone] Public Relations Account Supervisor: Tahir Garcia MD, Phone: [phone] | [facility] | + + + + + + + + | Performing | Address | City/State/Zipcode | Phone Number | | Organization | | | | + + + + + | REFERENCE LAB | [address] | [place], [place] | [phone] | | [facility] | [place] | [address] | | + + + + + documented in this encounter Visit Diagnoses + + | Diagnosis | + + | 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
--- OUTSIDE RECORDS SUMMARY | ~2019-09-22 | XMS | Encounter Summary ---
Demographics + + + | Address | [address] | | | [place] [address] | + + + | Home Phone [...] Author | [facility] | | | and [place] | + [...] Team Providers + +------+ + | Care Banking Attorney Name | Role | Phone | + [...] | | | | | | [place] | | | | | | [...] + + | 05/27/ | Hospital | [facility] | Rad Chandler | Abdominal pain, | | 2019 | Encounter | [facility] INTRA OP | MD Genna [address] | unspecified | | | | [address] | [address] [place] | abdominal location; | | | | [place], [place] | [place] [address] | Diarrhea, | | | | [address] | [phone] | unspecified type; | | | | [phone] | | Polyp of colon, | | [...] You can't be awakened Date Last Reviewed: 02/04/201619997502-2771 [employer]. [address] [place] [address]. All righ ts reserved. This information is [...] | PROVATIO N | | 9:29 AMMRN: [id number] #: [id number] of : | | | 1975Admit Type: AmbulatoryAge: 43[facility]: [facility] 02Gender: MaleNote | | | Status: [...] evaluated | | | using the BBPS ([place] Bowel Preparation Scale) with scores of: | [...] AMScope | | | Out: 10:21:23 AM [facility], [address] | | | [place] [address] | | | colon for evaluation of [...] |Scope Out: 10:21:23 AM | | | [facility], [address] [place], [place] | | | [address] | | + +--------- -----+ + +---------+ [...] diagnosis. As part | | | of [facility]' Quality Improvement Program, this case was | [...] developed and its performance characteristics determined by [facility] | | | [employer]. It has not been cleared or approved by the U.S. Food | | | and Drug Administration. The FDA has determined that such clearance | | | or approval is not necessary. This test is used for clinical | | | purposes. It should not be regarded as investigational or for | | | research. [facility] is certified under the Clinical | | | Laboratory Improvement Amendments of 1988 (CLIA) as qualified to | | | perform high complexity clinical laboratory testing. PERFORMING | | | LABORATORY: The technical component was performed by [facility] | | [facility], [address] [place] [address] (Marine Extension Agent: | | | Trudi Hughes MD; CLIA# [id number]). Professional interpretation was | | | performed by [facility], [facility], [facility] | | | [facility] [place], [place] [address] (Marine Extension Agent: Johnathan Silva | | Gwen Loving MD; CLIA# [id number]). Diagnostician: Johnathan Hidalgo MD Pathologist Electronically Signed [...]
--- OUTSIDE RECORDS SUMMARY | ~2019-09-22 | XMS | Encounter Summary ---
Demographics + + + | Address | [address] | | | [place] [address] | + + + | Home Phone [...] Providers + +------+ + | Care Retail Pharmacist Name | Role | Phone | + [...] + + | 02/12/ | Telephone | [facility] | Keo Wheatley MD | Procedure | | 2013 | | OTOLARYNGOLOGY [address] | [address] [place] | | | | | [address] | [address] [place], | | | | | [place], [place] | [place] [address] | | | | | [address] | [phone] | | | | | [phone] | | | +--------+ + + + [...]
--- OUTSIDE RECORDS SUMMARY | 2019-09-22 21:08 | XMS ---
PreManage Notification: ALBERT SIMMONS Security Substation Operator Automatic Events No recent Security Events currently on file CRITERIA MET - [facility] - Has Care Guidelines - [facility] - 2 Visits in 30 Days CARE PROVIDERS JOSE AGUILA [facility] 05/02/2018-Current PHONE: Unknown Name [facility] 05/22/2019-Current PHONE: [phone] Seun has no Care Guidelines for this patient. Care History Medical/Surgical 05/02/2018 [facility] \T\middot;\T\nbsp; PATIENT- [facility] ELIGIBLE \T\middot;\T\nbsp; PLEASE REFER PATIENT TO [facility] FOR NON EMERGENT MEDICAL NEEDS. \T\middot;\ T\nbsp; [facility] CAN SEE PATIENTS SAME DAY FOR APTS IF PATIENT CALLS FIRST THING IN THE MORNING. E.D. VISIT COUNT (12 MO.) 3 [facility] TOTAL 3 NOTE: Visits indicate total known visits. ED/UCC VISIT TRACKING (12 MO.) 09/22/2019 21:05 [facility] TYPE: Emergency COMPLAINT: - POST OP PROBLEM 09/08/2019 01:12 [facility] TYPE: Emergency COMPLAINT: - ABD PAIN DIAGNOSES: - Right upper quadrant pain - Diarrhea, unspecified - Nausea with vomiting, unspecified - Unspecified abdominal pain - Gastro-esophageal reflux disease without esophagitis - Other terminal worker (current) drug therapy - Left upper quadrant pain 05/19/2019 12:25 [facility] TYPE: Emergency COMPLAINT: - ABD PAIN DIAGNOSES: - Other terminal worker (current) drug therapy - Epigastric pain INPATIENT VISIT TRACKING (12 MO.) No inpatient visits to display in this time frame [id number]
[2019-09-22] MEDS ORDERED: IBUPROFEN800 MG PO (21:17)
[2019-09-22] MEDS ORDERED: PAIN RELIEF325 MG PO (21:18)
== END 2019-09-22 23:38 | disposition home or self-care (01) ==
LOC: ED 21:04
DX: G89.18 Other acute postprocedural pain (principal); R10.9 Unspecified abdominal pain; K21.9 Gastro-esophageal reflux disease without esophagitis; Z79.899 Other long term (current) drug therapy
CPT/HCPCS: 80053; 81001; 83690; 85025; 99283

== ENCOUNTER 2022-01-17 23:22 | Emergency (ER) | payer OTHER ==
[~2022-01-17] VITALS: Ht 175.3 cm; Wt 92.2 kg
[~2022-01-17 23:22] MED LIST changes: +IBUPROFEN800 MG PO; +PAIN RELIEF325 MG PO
[2022-01-18] MEDS ORDERED: CYCLOBENZAPRINE5 MG PO (01:31)
--- NOTE | 2022-01-19 16:49 | EKG ---
[facility] [address] [facility] [place] [address] Signed Normal sinus rhythm with sinus arrhythmia Normal ECG When compared with ECG of 28-APR-2018 22:47, No significant change was found Confirmed by JENNA TALAVERA MD ([id number]) on 01/19/2022 4:49:12 PM Electronically Signed By: JENNA TALAVERA MD 01/19/22 1649 PATIENT NAME: ALBERT SIMMONS Electrocardiogram DATE OF : 77 PHYSICIAN: JENNA TALAVERA MD REPORT #: [id number] REPORT IS CONFIDENTIAL AND NOT TO BE RELEASED WITHOUT AUTHORIZATION
== END 2022-01-18 01:47 | disposition home or self-care (01) ==
LOC: ED 23:22
DX: R07.89 Other chest pain (principal); M54.2 Cervicalgia; Z20.822 Contact with and (suspected) exposure to COVID-19; K21.9 Gastro-esophageal reflux disease without esophagitis
CPT/HCPCS: 36415; 71045; 80053; 83735; 83880; 84484; 85025; 85379; 85610; 87502; 93005; 93010; 99285-25; A9270; U0003